=== PATIENT | female | born 1930 | race Caucasian/White ===

== ENCOUNTER 2016-04-06 07:50 | Inpatient (IN) | payer MEDICARE ==
[2016-04-06] MEDS ORDERED: Dextrose 50% Syringe 50 ML* 25 GM/50 ML SYRINGE IV PUSH PRN (11:55)
[2016-04-06] MEDS ORDERED: Diazepam TAB(*) 2 MG PO PRN (12:09)
[2016-04-06] MEDS: Carbidopa/Levodop 25/100 MG TAB(*) PO SCH ×2 (12:15→21:09)
[2016-04-06] MEDS: NS 0.9% 1000 ML* 1,000 ML IV SCH (12:20)
--- NOTE | 2016-04-06 14:18 | RAD ---
HISTORY: Heel pain after fall COMPARISONS: None VIEWS: 8, lateral, axial, and oblique views of the left heel FINDINGS: BONE DENSITY: There is diffuse osteopenia. BONES: There is no displaced fracture. JOINTS: There is osteoarthritis of the tibiotalar and fibulotalar articulations. ALIGNMENT: There is no dislocation. SOFT TISSUES: Unremarkable. OTHER FINDINGS: None. IMPRESSION: 1. OSTEOPENIA. 2. OSTEOARTHRITIS. 3. NO ACUTE OSSEOUS INJURY. THE DEGREE OF OSTEOPENIA MAY MAKE A NONDISPLACED FRACTURE RADIOGRAPHICALLY OCCULT. IF SYMPTOMS PERSIST, RECOMMEND REPEAT IMAGING
--- NOTE | 2016-04-06 14:19 | RAD ---
HISTORY: Left shoulder pain after fall COMPARISONS: None VIEWS: 3, Frontal internal rotation and external rotation views of the left humerus FINDINGS: BONE DENSITY: Normal. BONES: There is no displaced fracture. JOINTS: There is mild osteoarthritis of the shoulder ALIGNMENT: There is no dislocation. SOFT TISSUES: Unremarkable. OTHER FINDINGS: None. IMPRESSION: NO ACUTE OSSEOUS INJURY. IF SYMPTOMS PERSIST, RECOMMEND REPEAT IMAGING.
--- NOTE | 2016-04-06 14:22 | RAD ---
HISTORY: Shoulder pain after fall COMPARISONS: October 21, 2006 VIEWS: 3, Frontal internal rotation, external rotation, and outlet views of the left shoulder FINDINGS: BONE DENSITY: There is diffuse osteopenia. BONES: There is no displaced fracture. JOINTS: There is mild osteoarthritis of the glenohumeral and AC joints. ALIGNMENT: There is no dislocation. SOFT TISSUES: Unremarkable. OTHER FINDINGS: A left-sided pacemaker is noted IMPRESSION: 1. OSTEOPENIA. 2. MILD OSTEAL ARTHRITIS. 3. NO ACUTE OSSEOUS INJURY. THE DEGREE OF OSTEOPENIA MAY MAKE A NONDISPLACED FRACTURE RADIOGRAPHICALLY OCCULT. IF SYMPTOMS PERSIST, RECOMMEND REPEAT IMAGING.
[2016-04-06] MEDS: Heparin VIAL(*) 5000 UNITS/ML VIAL (FIVE THOUSAND) SUBCUT SCH ×2 (15:34→21:16)
[2016-04-06] MEDS: HYDROcodone/ACETAMIN 5-325 MG* 1 TAB PO PRN (18:03)
[2016-04-06] MEDS: Insulin LISPRO* 1 UNITS UNIT SUBCUT SCH ×2 (18:06→21:13)
[2016-04-06] MEDS: fentaNYL* 50 MCG/ML 2 ML VIAL (100 MCG VIAL) IV SLOW PU PRN (18:45)
--- NOTE | 2016-04-06 19:16 | RAD ---
Indication: Fall. LEFT hip fracture. Comparison: October 14, 2015 radiographs. Technique: AP pelvis, AP and crosstable lateral views LEFT hip. AP and lateral views LEFT femur. Report: Bone density is decreased throughout. Negative for pelvic fracture or joint diastases. Foreshortened LEFT femoral neck secondary to impacted subcapital fracture. The femoral head remains normally located at the acetabulum. No additional fracture of the LEFT femur evident. No significant LEFT hip joint space narrowing. Advanced osteoarthritis at the LEFT knee. Nonfocal soft tissue edema. IMPRESSION: Impacted LEFT femoral neck fracture. No additional fracture of the LEFT femur evident.
[2016-04-06] MEDS: Docusate CAP* 100 MG PO SCH (21:09)
[2016-04-06] MEDS: Metoprolol Tartrate TAB* 25 MG PO SCH (21:11)
--- NOTE | 2016-04-06 21:12 | HP ---
CC: Dr. Winston Rice; Dr. Betancourt; Dr. Orozco; Dr. Jose Ramon Lindquist HISTORY AND PHYSICAL: DATE OF ADMISSION: 04/06/16 The patient is a direct transfer from [facility]. PRIMARY CARE PROVIDER: Dr. Winston Rice. CHIEF COMPLAINT: Left hip fracture. HISTORY OF PRESENT ILLNESS: Mrs. Dwyer is an 85-year-old female with history of Parkinson's disease, paroxysmal atrial fibrillation, chronic kidney disease stage 3 as well as diabetes type 2 who was originally brought to [facility] after a fall with very mild rhabdomyolysis as well as acute renal failure with creatinine over 4 and anemia with hemoglobin of 7.8 and left hip fracture. The patient stated that she was walking from her kitchen to her bedroom and she developed dizziness, which happened sometimes in the past also. Unfortunately, she was dizzy enough to fall down and fracture her left hip. She also complained of left shoulder pain. The patient usually ambulates with a roller walker and lives alone. After admission to [facility], the patient was seen by Dr. Krystal Carrington from Nephrology for acute renal failure as well as Dr. Webster, the Infectious Disease specialist, as well as Dr. Orozco, the patient's internal specialist. The patient's nephrotoxic medications and diuretics that she was treated with as outpatient were held. It was presumed by the education and training coordinator that the patient could have suffered from ATN and dehydration. After her torsemide and lisinopril were held and after intravenous hydration, her renal function had improved to the level close to her baseline and the patient's baseline creatinine is 2.8. The patient's baseline hemoglobin is 10. When she came into the [facility] ER, her hemoglobin was noted to be 7.8. Her MCV was macrocytic at 102. She received 3 units of packed red blood cells and her hemoglobin on 04/05/16 was noted to be 9.2. As per the patient's Hospitalist report, there was no bleeding noted, but I do not see a report of stool Hemoccult during the hospital stay. The patient herself denies any bright red blood per rectum or melena in stool in the past. The patient was also noted to have urinary tract infection and that was obtained from urinalysis after a Love catheter was placed at admission. The Infectious Disease specialist was consulted. The patient was noted to have greater than 100,000 colony forming units of Citrobacter freundii and Enterococcus faecalis only [id number] colony. The patient's Infectious Disease specialist recommended for the patient to be on Ceftin at 300 mg p.o. every 24 hours to complete a 7-day course. The patient also was seen by Dr. Orozco, who is actually patient's outpatient internal specialist, for cardiology clearance. Dr. Orozco stated the patient was optimized for the anticipated surgery and the patient was cleared for surgery at [facility] on 04/05/16. Unfortunately, at that time, there was no OR availability for the patient to undergo the procedure. Subsequently, the patient's family asked for the patient to be transferred to our facility for further treatment of her hip fracture. The patient is going to be seen by Dr. Betancourt from Orthopedic Surgery with planned surgery most likely planned to happen on 04/07/16. PAST MEDICAL HISTORY: 1. Advanced Parkinson's disease. 2. History of aortic stenosis, status post bioprosthetic aortic valve placement in November 2012. 3. History of persistent atrial fibrillation, status post ablation. The patient had been in normal sinus rhythm throughout her [facility] stay. The patient has history of multiple falls and she is not a candidate for anticoagulation. She has been managed on amiodarone for rhythm control. 4. History of diabetes mellitus type 2, on oral hypoglycemics. 5. Hypertension. 6. Hypercholesterolemia. 7. History of sick sinus syndrome, status post pacemaker placement. 8. History of chronic renal insufficiency with a baseline creatinine of 2.5 to 2.8. 9. Hypercholesterolemia. 10. History of moderate mitral insufficiency. 11. History of multiple falls. 12. History of coronary artery disease, status post coronary artery bypass grafting in the past. 13. History of recurrent lower extremity cellulitis with intermittent wound infection. 14. History of left knee replacement in the remote past. 15. History of pacemaker placement. 16. History of septic left knee from Enterococcus group D and arthroscopic lavage for that in March 2010. 17. History of bilateral cataract surgery. MEDICATIONS: At the time of the transfer include: 1. Hydrocodone with acetaminophen 5/325 mg 1 tablet on a p.r.n. basis. 2. Fentanyl 50 mcg on a p.r.n. basis IV. 3. Heparin 5000 units subcutaneously b.i.d. 4. Ceftriaxone IV every 24 hours 1 g. 5. Sinemet 1-1/2 tablet 4 times a day. 6. Celexa 10 mg daily. 7. Amiodarone 200 mg daily. 8. Allopurinol 100 mg daily. 9. Senokot 8.6 mg daily. 10. Zofran 4 mg on a p.r.n. basis. The patient's medications from home prior to admission included: 1. Sinemet 50/100. The patient takes 1 tablet at 7 a.m. and 7 p.m. and a tablet and a half at 11 a.m. and 3 p.m. 2. Lopressor 25 mg daily. 3. Multivitamin 1 tablet daily. 4. Lisinopril 10 mg daily. 5. Vitamin C on a daily basis. 6. Amiodarone 200 mg daily. 7. Simvastatin 40 mg daily. 8. Celexa 10 mg daily. 9. Potassium chloride replacement b.i.d. 10. Torsemide 20 mg daily. 11. Omeprazole 20 mg daily. 12. Januvia 50 mg daily. 13. Allopurinol 100 mg b.i.d. ALLERGIES: 1. MORPHINE causes hallucinations, but the patient does well with hydrocodone and fentanyl. 2. NIFEDIPINE causes rash. 3. ROFECOXIB causes rash. 4. AVANDIA causes "nervousness." SOCIAL HISTORY: The patient lives alone. She ambulates with a roller walker. She has personal alert button necklace and that is how she alerted the ambulance after her fall. She has a history of frequent falls. She denies any alcohol, tobacco, or drug use. FAMILY HISTORY: Reviewed and noncontributory. REVIEW OF SYSTEMS: The patient stated that her left hip pain is controlled with medications. She stated that despite severe Parkinson's when she takes her medications before her meals, she has no problems with feeding herself. She had had Love catheter in place ever since her admission to [facility] on 04/01/16. The patient has a history of having visiting nurses seeing the patient for evaluation of her left lower extremity wound. She has a history of a blister on her left distal anterior lower extremity. The blister was little enlarged, approximately 5 cm in diameter and that ruptured. Visiting nurses were seeing the patient at home and changing the dressings on the wound. That had been going for approximately 2 weeks prior to presentation to the ED. All the remaining 14 systems were reviewed with the patient and were otherwise negative. PHYSICAL EXAMINATION GENERAL: The patient is a very pleasant, 85-year-old female, who is obese, with a BMI of 36.6. The patient is in no acute distress. She is alert, awake, and oriented x3. VITAL SIGNS: Blood pressure of 155/96, heart rate of 74 and regular, respiratory rate 18, oxygen saturation 98% on 3 L of oxygen nasal cannula, temperature of 98.5. HEENT: Head: Atraumatic, normocephalic. Eyes: Pupils equal and reactive to light and accommodation. Oropharynx clear. Mucosa moist. NECK: Supple. No JVD. No bruits bilaterally. RESPIRATORY: Crackles at the bilateral base that was clear. CARDIOVASCULAR: Regular rate and rhythm with a 2/6 systolic ejection murmur noted on auscultation of the apex. ABDOMEN: Soft, protuberant, nontender. Bowel sounds are present in all 4 quadrants. EXTREMITIES: There is trace bilateral ankle edema. Pulses are +2 bilaterally. There is no clubbing or cyanosis. NEUROLOGIC: Speech is clear. Cranial nerves II through XII are grossly intact. Motor strength is 5/5 bilaterally. SKIN: On evaluation of the skin, the patient has scattered ecchymotic areas throughout all of her 4 extremities. The patient has 2 small abrasions noted on left elbow. Those appear not infected. She has multiple wounds from the left distal leg from the knee down. She has one abrasion on the knee approximately 3 cm in diameter and not infected. She has a rather large area which she recalls happened after the ruptured blister approximately 10 x 5 cm on her anterior menchaca, not infected. She also has a couple of smaller areas noted on the left ankle. PSYCHIATRIC EVALUATION: The patient is alert and oriented x3 with no evidence of anxiety or depression. LABORATORY DATA: Laboratory data is pending at our facility. From the laboratory data obtained at [facility], most recent one noted on showed white blood cell count of 6.8, hemoglobin 11.2, hematocrit of 28, MCV of 97 and platelets of 162. The patient's urine cultures are positive for Citrobacter freundii of 100,000 colonies and Enterococcus faecalis [id number] colonies. The Citrobacter was resistant to cefazolin, but sensitive to ceftriaxone and ceftazidime. The patient's sodium was 142, and that was documented on 04/05/16, potassium of 4.1, chloride 108, carbon dioxide 25, calcium of 8.0, albumin of 2.0, AST of 19 , ALT of 8, creatinine was 2.7 and BUN of 85. ASSESSMENT AND PLAN: In regards to the patient's left hip fracture, I discussed the case with Dr. Betancourt, who will be consulting on the case. He plans to most likely take the patient to the OR on 04/07/16. The patient as per Dr. Orozco's evaluation from Cardiology, the patient is medically optimized for the surgery. It appears that according to the lab work from 04/05, the patient's renal function is back to her baseline and her hemoglobin at that point had been stable. I will repeat the lab work in the morning to reevaluate. Also obtain current EKG. In regards to the patient's history of paroxysmal atrial fibrillation, and ablation procedure a couple of years ago. Currently, the patient is in sinus rhythm and amiodarone is going to be continued. The patient had not been on her beta-harry and I will restart it at a low dose perioperatively. In regards to the patient's acute renal failure, that appears to have resolved. It could have been a combination of urinary tract infection as well as her prerenal state. We will continue holding off her diuretics and do gentle hydration perioperatively. For the patient's diabetes, the patient is going to be placed on insulin sliding scale and Januvia is going to be held perioperatively. For her Parkinson's, her carbidopa and levodopa is going to be continued as previously taken at home. For her Citrobacter urinary tract infection, the patient was placed on cefuroxime at 250 mg p.o. daily. In regards to the patient's anemia, the patient does not have history of bleeding or bright red blood per rectum or melena. Nevertheless, I will obtain a stool guaiac once the patient has a bowel movement. We will also get a CBC. Please note that the patient is status post 3 units of packed red blood cell transfusion at [facility]. With her history of the patient having microcytic anemia, vitamin B12 level is going to be obtained to evaluate it further. For DVT prophylaxis, the patient is going to be placed on sequential compression devices prior to her surgery. The patient's code status is do not resuscitate and that is going to be continued throughout her hospital stay, although most likely will be held intraoperatively. TIME SPENT: Approximately 75 minutes were spent on admission of this patient, more than half the time was spent [id number] with the patient during the interview and physical exam. [id number]/[facility] #: [id number] HANNAH
--- NOTE | 2016-04-06 22:01 | CONS ---
ORTHOPEDIC CONSULTATION: DATE OF CONSULT: 04/06/16 Thank you for this orthopedic consultation. CHIEF COMPLAINT: Left hip pain. HISTORY OF PRESENT ILLNESS: Ms. Dwyer is an 85-year-old female who fell in her home while walking to her bathroom on 04/01/16. She was initially taken to [facility] where she was diagnosed with a left intertrochanteric hip fracture. She was also treated for dehydration, acute renal insufficiency, and optimized for surgery. The patient was then transferred to [facility] for unknown reasons and I am consulted for left hip fracture care. The patient reports that she has 6/10 pain in the left hip with any movement. Lying still in bed decreases her pain. Pain medications help. She has multiple medical comorbidities and has a history of frequent falls. She reports some left shoulder pain as well as some left foot pain as well. The patient is alert and oriented and wishes to proceed with surgery as soon as possible. PAST MEDICAL HISTORY: Chronic renal insufficiency, morbid obesity, recurrent cellulitis with open wounds of her bilateral tibias, atrial fibrillation, diabetes type 2, pulmonary hypertension, coronary artery disease, aortic stenosis. PAST SURGICAL HISTORY: Status post CABG, status post bioprosthetic aortic valve replacement, status post pacemaker placement, status post left total knee arthroplasty. CURRENT MEDICATIONS: 1. Lopressor 25 mg p.o. daily. 2. Multivitamin 1 tablet p.o. daily. 3. Lisinopril 5 mg p.o. daily. 4. Vitamin C 1 tablet p.o. daily. 5. Amiodarone 200 mg p.o. daily. 6. Simvastatin 40 mg p.o. daily. 7. Lisinopril 10 mg p.o. daily. 8. Celexa 10 mg p.o. daily. 9. Potassium chloride 10 mEq p.o. b.i.d. 10. Torsemide 20 mg p.o. daily. 11. Omeprazole 20 mg p.o. daily. 12. Januvia 50 mg p.o. daily. 13. Allopurinol 100 mg p.o. b.i.d. ALLERGIES: AVANDIA, NIFEDIPINE, MORPHINE, ROFECOXIB. FAMILY HISTORY: Negative and noncontributory. SOCIAL HISTORY: The patient lives with her son. Normally ambulates with a rolling walker. No tobacco, alcohol, or recreational drug use. REVIEW OF SYSTEMS: 14 systems are reviewed with the patient today. Positive for left hip pain, left shoulder pain, left foot and heel pain. Positive for history of renal problems, heart problems, diabetes, weight gain. Otherwise, the patient reports review of systems is negative or not relevant. PHYSICAL EXAM: Vitals: Temperature 98.7, pulse of 59, blood pressure 147/42. General: The patient is a morbidly obese female, in no apparent distress. She is sitting in bed, eating. Alert and oriented x3. Pleasant mood and appropriate affect. She has visible tremor. HEENT: Atraumatic, normocephalic. Pupils equal and reactive to light. Neck: Trachea midline. No palpable adenopathy. Heart: S1, S2. Systolic murmur. Lungs: Clear to auscultation in all lung macias. No wheezes, rales, or rhonchi. Abdomen: Rounded, soft, nontender, nondistended. Bowel sounds in 4 quadrants. Left upper extremity: The patient's skin is intact. Tenderness to palpation along the proximal humerus. Forward flexion and abduction to 100%. Distally, she does have intention tremor and 4+/5 pmo consultant strength. Full sensation to light touch and 2+ palpable radial pulse. Left lower extremity: The patient's skin has multiple open wounds with some surrounding erythema and drainage along the tibia. These appear to be superficial and there is no exposed tendon, muscle, or bone. No extensive cellulitis. She demonstrates dorsiflexion and plantarflexion and has 2+ palpable DP pulse. She reports intact sensation to light touch in all nerve distributions. She has bruising and tenderness to palpation around the greater trochanter. Any movement at the hip causes extreme pain. RADIOGRAPHS: Shoulder and humerus radiographs are reviewed on the PAC system showing osteopenia and some arthritic disease, but no obvious fracture. Heel x - rays are reviewed and showed significant osteopenia, vascular calcification, but no obvious fracture. I have no films of the left hip fracture and I have ordered these stat. DIAGNOSTIC STUDIES/LAB DATA: Labs are pending. ASSESSMENT AND PLAN: Ms. Dwyer is an 85-year-old morbidly obese female with repeated falls and multiple medical comorbidities. The patient and I discussed today that my primary concern regarding infection is that she has chronic open tibial wounds. I do not believe we could heal these in efficient manner before proceeding with surgery. She accepts the increased risk of infection and we will likely place her on extended length of antibiotics after surgery. Her multiple comorbidities obviously increase the risk of renal failure, respiratory failure, or heart failure after surgery. Risk of stroke, heart attack, blood clot, and discussed with the patient and she wishes to proceed with surgery. Hip films have been ordered stat. I will request a.m. laboratory values. We will tentatively schedule her for 9 a.m. open reduction internal fixation of the left intertrochanteric hip fracture on 04/07/16. The patient wishes to proceed. Her family and surrogate healthcare proxy are planning to come in tomorrow morning. She will be n.p.o. after midnight. [id number]/[facility] #: [id number] HANNAH
[2016-04-07] MEDS: HYDROcodone/ACETAMIN 5-325 MG* 1 TAB PO PRN (00:06)
[2016-04-07] MEDS: NS 0.9% 1000 ML* 1,000 ML IV SCH (04:40)
[2016-04-07 05:10] LABS: Hematocrit 28 % (35-47); Hemoglobin 9.1 g/dl (12.0-16.0); Mean Corpuscular HGB Conc 32 g/dl (31-36); Mean Corpuscular Hemoglobin 31 pg (27-31); Mean Corpuscular Volume 96 fL (80-97); Mean Platelet Volume 8 um3 (7.4-10.4); Red Blood Count 2.95 10^6/ul (4.0-5.4); Red Cell Distribution Width 18 % (10.5-15); White Blood Count 6.4 10^3/ul (3.5-10.8)
[2016-04-07 05:14] LABS: Add Diff/Slide Review? Slide Review Added; Comments Flag Yes
[2016-04-07 05:20] LABS: Calcium 8.2 mg/dL (8.6-10.3); EGFR African American 30.5 (>60); EGFR Non-African American 23.7 (>60); Potassium 4.3 mmol/L (3.5-5.0)
[2016-04-07] MEDS: fentaNYL* 50 MCG/ML 2 ML VIAL (100 MCG VIAL) IV SLOW PU PRN (07:32)
[2016-04-07] MEDS: Carbidopa/Levodop 25/100 MG TAB(*) PO SCH ×4 (07:33→21:36)
[2016-04-07] MEDS: Metoprolol Tartrate TAB* 25 MG PO SCH ×2 (07:34→21:35)
[2016-04-07] MEDS: Allopurinol TAB* 100 MG PO SCH (07:34)
[2016-04-07] MEDS: Docusate CAP* 100 MG PO SCH ×2 (08:19→21:36)
[2016-04-07] MEDS: Insulin LISPRO* 1 UNITS UNIT SUBCUT SCH ×4 (08:19→21:37)
[2016-04-07] MEDS ORDERED: Amiodarone TAB* 200 MG PO SCH (09:00)
[2016-04-07] MEDS ORDERED: Citalopram TAB* 10 MG PO SCH (09:00)
[2016-04-07] MEDS ORDERED: Bupivacaine 0.5% SDV PF* 30 ML VIAL ONE (09:08)
[2016-04-07] MEDS ORDERED: fentaNYL* 50 MCG/ML 2 ML VIAL (100 MCG VIAL) ONE ×3 (09:45→15:16)
[2016-04-07] MEDS ORDERED: Clindamycin 900 MG IVPREMIX(* 900 MG/50 ML SDV IV ONE (09:46)
[2016-04-07] MEDS ORDERED: Bisacodyl SUPP* 10 MG SUPP PR PRN (10:20)
[2016-04-07] MEDS ORDERED: diPHENhydraMINE IV* 50 MG/ML 1 ml VIAL (BENADRYL) IV PRN (10:20)
[2016-04-07] MEDS ORDERED: Ondansetron INJ* 2 MG/ML VIAL IV PRN (10:20)
[2016-04-07] MEDS ORDERED: Morphine INJ* 2 MG/ML 1 ML CARPUJECT IV PRN (10:20)
[2016-04-07] MEDS ORDERED: oxyCODONE TAB* 5 MG TAB PO PRN (10:20)
[2016-04-07] MEDS ORDERED: Bupivacaine 0.5% W/EPI SDV* 30 ML VIAL ONE (10:46)
[2016-04-07] MEDS ORDERED: Enoxaparin(*) 30 MG/0.3 ML SYR SUBCUT SCH (11:00)
[2016-04-07] MEDS ORDERED: ceFUROXime TAB(*) 250 MG PO SCH (12:17)
[2016-04-07] MEDS ORDERED: Ondansetron INJ* 2 MG/ML VIAL ONE (12:29)
[2016-04-07] MEDS ORDERED: EPHEDrine (Pressors)* 50 MG/ML VIAL ONE (12:29)
[2016-04-07] MEDS ORDERED: Lidocaine 2% MPF* 2 ML VIAL ONE (12:29)
[2016-04-07] MEDS ORDERED: Succinylcholine* 20 MG/ML 10 ML VIAL ONE (12:29)
[2016-04-07] MEDS ORDERED: Propofol* 10 MG/ML 20 ML BTL IV PUSH ONE (12:29)
[2016-04-07] MEDS ORDERED: Phenylephrine IV* 40 MCG/ML 10 ML SYRINGE ONE (12:53)
--- NOTE | 2016-04-07 13:50 | RAD ---
HISTORY: Status post left hip hemiarthroplasty, left hip trauma COMPARISONS: April 06, 2016 VIEWS: 1, single portable intraoperative view of the left femur performed at 1:15 PM FINDINGS: BONE DENSITY: Normal. BONES: Portable intraoperative view of the left femur demonstrates the femoral component of a left hip arthroplasty with trochanteric fixation and cerclage wires. JOINTS: There is no arthropathy. ALIGNMENT: There is no dislocation. SOFT TISSUES: Unremarkable. OTHER FINDINGS: None. IMPRESSION: LIMITED PORTABLE INTRAOPERATIVE VIEW OF THE LEFT HIP PERFORMED DURING ARTHROPLASTY
[2016-04-07] MEDS ORDERED: Carbidopa/Levodop 25/100 MG TAB(*) PO SCH (14:00)
[2016-04-07] MEDS ORDERED: HYDROmorphone INJ* 1 MG/ML CARPUJECT SYRINGE ONE (15:16)
[2016-04-07] MEDS: fentaNYL* 50 MCG/ML 2 ML VIAL (100 MCG VIAL) IV PRN ×4 (15:19→16:33)
[2016-04-07] MEDS: HYDROmorphone INJ* 1 MG/ML CARPUJECT SYRINGE IV PRN ×5 (15:21→16:33)
--- NOTE | 2016-04-07 16:31 | RAD ---
HISTORY: Status post left hip hemiarthroplasty COMPARISONS: April 06, 2016 VIEWS: 2, frontal and crosstable lateral views of the distal left femur FINDINGS: BONE DENSITY: There is diffuse osteopenia. BONES: The patient is status post left hip arthroplasty. The femoral component isn't completely visualized but appears intact. JOINTS: There is osteoarthritis of the left knee ALIGNMENT: There is no dislocation. SOFT TISSUES: Unremarkable. OTHER FINDINGS: None. IMPRESSION: LIMITED EVALUATION OF THE DISTAL FEMUR. STATUS POST LEFT HIP ARTHROPLASTY.
--- NOTE | 2016-04-07 16:32 | RAD ---
HISTORY: Status post left hip arthroplasty COMPARISONS: April 07, 2016 VIEWS: 3, Frontal view of the pelvis with frontal and crosstable lateral views of the left hip FINDINGS: BONE DENSITY: There is diffuse osteopenia. BONES: The patient is status post left hip arthroplasty. There is no hardware failure or osteolysis. There is straightening to fixation with cerclage wires. JOINTS: There is osteoarthritis of the right hip and SI joints. The patient is status post left hip arthroplasty ALIGNMENT: There is no dislocation. SOFT TISSUES: Unremarkable. OTHER FINDINGS: None. IMPRESSION: STATUS POST LEFT HIP ARTHROPLASTY
--- NOTE | 2016-04-07 16:41 | RAD ---
INDICATION: Left hip hemiarthroplasty, left hip fracture COMPARISONS: April 06, 2016 TECHNIQUE: Fluoroscopy was provided for a surgical procedure. Total fluoroscopy time is: 17 seconds FINDINGS: Spot images demonstrate hip arthroplasty with fixation of the greater trochanter with cerclage wires IMPRESSION: FLUOROSCOPY WAS PROVIDED FOR A SURGICAL PROCEDURE CPT II Codes: 6045F
[2016-04-07] MEDS ORDERED: Warfarin TAB(*) 6 MG PO ONE (17:00)
--- NOTE | 2016-04-07 17:20 | PN ---
Subjective Date of Service: 04/07/16 Interval History: Seen and examined after surgery Reports pain prior to receipt of medications denies chest pain, SOB, N/V, LH Objective Active Medications: Acetaminophen (Tylenol Tab*) 650 mg PO Q4H PRN PRN Reason: FEVER/PAIN Allopurinol (Zyloprim Tab*) 100 mg PO DAILY [facility] Last Admin: 04/07/16 07:34 Dose: 100 mg Amiodarone HCl (Cordarone Tab*) 200 mg PO DAILY [facility] Ascorbic Acid (Vitamin C Tab*) 500 mg PO DAILY [facility] Atorvastatin Calcium (Lipitor*) 20 mg PO DAILY [facility] Bisacodyl (Dulcolax Supp*) 10 mg DC DAILY PRN PRN Reason: constipation Calcium/Vitamin D (Oscal D Tab 250/125*) 1 tab PO DAILY [facility] Carbidopa/Levodopa (Sinemet 25/100 Tab(*)) 1 tab PO BEDTIME [facility] Last Admin: 04/06/16 21:09 Dose: 1 tab Carbidopa/Levodopa (Sinemet 25/100 Tab(*)) 1 tab PO DAILY@0700 [facility] Last Admin: 04/07/16 07:33 Dose: 1 tab Carbidopa/Levodopa (Sinemet 25/100 Tab(*)) 1.5 tab PO DAILY@1100 [facility] Last Admin: 04/06/16 12:15 Dose: 1.5 tab Carbidopa/Levodopa (Sinemet 25/100 Tab(*)) 1 tab PO DAILY@1500 [facility] Cefuroxime Axetil (Ceftin Tab(*)) 250 mg PO DAILY [facility] Citalopram Hydrobromide (Celexa Tab*) 10 mg PO DAILY [facility] Device (Tiotropium Inhaler Device*) 1 each INH ONCE ONE Stop: 04/08/16 09:01 Dextrose (D50w Syringe 50 Ml*) 12.5 gm IV PUSH .FOR FS < 60 - SS PRN PRN Reason: FS < 60 Diazepam (Valium Tab(*)) 2 mg PO Q8H PRN PRN Reason: ANXIETY Diphenhydramine HCl (Benadryl Iv*) 25 mg IV Q6H PRN PRN Reason: itching Docusate Sodium (Colace Cap*) 100 mg PO BID [facility] Enoxaparin Sodium (Lovenox(*)) 30 mg SUBCUT Q24H [facility] Fentanyl Citrate (Fentanyl*) 50 mcg IV SLOW PU Q4H PRN PRN Reason: PAIN Last Admin: 04/07/16 07:32 Dose: 50 mcg Fentanyl Citrate (Fentanyl*) 25 mcg IV Q5M PRN PRN Reason: PAIN - MODERATE Stop: 04/07/16 15:14 Last Admin: 04/07/16 16:33 Dose: 25 mcg Hydromorphone HCl (Dilaudid Iv*) 0.2 mg IV Q5M PRN PRN Reason: PAIN - SEVERE Stop: 04/07/16 15:14 Last Admin: 04/07/16 16:33 Dose: 0.2 mg Lactated Ringer's (Lactated Ringers 1000 Ml Bag*) 1,000 mls @ 100 mls/hr IV PER RATE [facility] Last Admin: 04/07/16 16:50 Dose: 100 mls/hr Insulin Human Lispro (Humalog*) 0 units SUBCUT ACHS [facility] PRN Reason: Protocol Last Admin: 04/07/16 08:19 Dose: Not Given Lisinopril (Prinivil Tab*) 5 mg PO DAILY [facility] Magnesium Hydroxide (Milk Of Magnesia Liq*) 30 ml PO Q6H PRN PRN Reason: constipation Metoprolol Tartrate (Lopressor Tab*) 12.5 mg PO Q12HR [facility] Last Admin: 04/07/16 07:34 Dose: 12.5 mg Multi-Ingredient Ointment (Hydrocerin*) 1 applic TOPICAL BID [facility] Multivitamins (Theragran Tab*) 1 tab PO DAILY [facility] Umeclidinium Arco [Incruse Ellipta] 1 Puff)*Nonformulary 1 puff INH DAILY [facility] Omeprazole (Prilosec Cap*) 20 mg PO 0730 [facility] Oxycodone HCl (Roxycodone Tab*) 10 mg PO Q4H PRN PRN Reason: PAIN - MODERATE Oxycodone/Acetaminophen (Percocet 5/325 Tab*) 1 tab PO Q3H PRN PRN Reason: PAIN - MODERATE Pharmacy Profile Note (Coumadin Daily Reminder*) 1 note FOLLOW UP 1700 [facility] Polyethylene Glycol/Electrolytes (Miralax*) 17 gm PO DAILY PRN PRN Reason: Constipation Potassium Chloride (Klor Con Er Tab*) 10 meq PO BID [facility] Silver Sulfadiazine (Silvadine 1%*) 1 applic TOPICAL BID [facility] Tiotropium Arco (Spiriva Cap.Inh*) 1 cap INH DAILY [facility] Torsemide (Demadex*) 40 mg PO BID [facility] Vital Signs 04/06/16 04/06/16 04/06/16 18:03 18:45 19:16 Temperature 97.4 F Pulse Rate 66 Respiratory 16 20 18 Rate Blood Pressure 146/40 (mmHg) O2 Sat by Pulse 98 Oximetry 04/06/16 04/06/16 04/06/16 19:45 20:00 20:03 Temperature Pulse Rate Respiratory 18 20 18 Rate Blood Pressure (mmHg) O2 Sat by Pulse Oximetry 04/06/16 04/07/16 04/07/16 23:58 00:06 02:06 Temperature 97.9 F Pulse Rate 59 Respiratory 20 20 20 Rate Blood Pressure 126/45 (mmHg) O2 Sat by Pulse 98 Oximetry 04/07/16 04/07/16 04/07/16 04:30 07:25 07:32 Temperature 98.1 F 97.5 F Pulse Rate 59 151 Respiratory 20 16 20 Rate Blood Pressure 147/41 150/102 (mmHg) O2 Sat by Pulse 100 100 Oximetry 04/07/16 04/07/16 04/07/16 08:00 08:32 14:49 Temperature 97.7 F Pulse Rate 60 Respiratory 20 18 20 Rate Blood Pressure 106/36 (mmHg) O2 Sat by Pulse 100 Oximetry 04/07/16 04/07/16 04/07/16 14:50 14:55 15:00 Temperature Pulse Rate 60 60 60 Respiratory 20 22 22 Rate Blood Pressure 103/34 125/45 111/45 (mmHg) O2 Sat by Pulse 100 100 100 Oximetry 04/07/16 04/07/16 04/07/16 15:05 15:15 15:19 Temperature Pulse Rate 60 60 Respiratory 22 20 20 Rate Blood Pressure 117/46 121/87 (mmHg) O2 Sat by Pulse 100 100 Oximetry 04/07/16 04/07/16 04/07/16 15:21 15:30 15:45 Temperature 98.1 F Pulse Rate 60 60 Respiratory 22 20 22 Rate Blood Pressure 107/34 112/34 (mmHg) O2 Sat by Pulse 99 99 Oximetry 04/07/16 04/07/16 04/07/16 15:55 16:00 16:12 Temperature Pulse Rate 78 Respiratory 20 20 20 Rate Blood Pressure 106/44 (mmHg) O2 Sat by Pulse 99 Oximetry 04/07/16 04/07/16 04/07/16 16:15 16:25 16:33 Temperature Pulse Rate 84 Respiratory 20 20 20 Rate Blood Pressure 115/36 (mmHg) O2 Sat by Pulse 99 Oximetry Oxygen Devices in Use Now: Nasal Cannula Appearance: lying flat, NAD Eyes: No Scleral Icterus, PERRLA Ears/Nose/Mouth/Throat: - - dry MM Neck: NL Appearance and Movements; NL JVP, Trachea Midline Respiratory: Symmetrical Chest Expansion and Respiratory Effort, - - decreased in bases, poor inspiratory effort Cardiovascular: RRR Abdominal: NL Sounds; No Tenderness; No Distention, No Hepatosplenomegaly Extremities: - - immobilized Neurological: - - Aox3 Result Diagrams: 04/07/16 04:57 04/07/16 04:57 Assess/Plan/Problems-Billing Assessment: 85 yo F h/p parkinson's dz, DM2, CAD/CABG, AVR, afib s/p ablation on amiodarone/ no AC 2/2 recurrent falls, SSS s/p PPP placement, aortoc stenosis and pHTN per report who presented from [facility] 04/06/16 after fall with left hip fracture 04/01/16 with stay in their facility complicated by anemia requiring blood transfusions, acute on chronic acute kidney failure, and a urinary tract infection - Patient Problems (1) Hip fracture Comment: POD 0 care per surgical team pain contro adequate. Adjust as needed PT/OT trend INR carefully while on AC (2) UTI (urinary tract infection) Comment: Citrobacter resistant to cefazolin now on ceftin day 5 of 7 (3) Acute on chronic kidney failure Comment: Improved to reported baseline torsemide held lisnopril held (4) Anemia Comment: s/p PRBC at [facility] [place] [facility] [place] (5) Diabetes mellitus Comment: ISS (6) Parkinson disease Comment: stable. c/w home medications (7) Atrial fibrillation Priority: High Comment: rate and rhythm controlled on amiodarone and metoprolol not on therpaeutic AC 2/2 recurrent falls (8) Hypertension Comment: lisinopril 10 mg held c/w metoprolol (9) DVT prophylaxis Comment: lovenox and coumadin per orthopedics
[2016-04-07] MEDS: ceFUROXime TAB(*) 250 MG PO SCH (18:26)
[2016-04-07] MEDS: ceFAZolin 1 GM in Dextrose (*) 1 GM/50 ML BAG IVPB SCH (19:12)
[2016-04-07] MEDS ORDERED: Torsemide TAB* 20 MG PO SCH (21:00)
[2016-04-07] MEDS ORDERED: Silver Sulfadiazine 1%* 20 GM TOPICAL SCH (21:00)
[2016-04-07] MEDS ORDERED: Metoprolol Tartrate TAB* 25 MG PO SCH (21:00)
[2016-04-07] MEDS: Potassium Chlor TAB* 10 MEQ TAB.ER PO SCH (21:36)
[2016-04-07] MEDS: oxyCODONE/Acetamin 5/325 MG* TAB PO PRN (23:58)
[2016-04-07] MEDS: Moisturizing CREAM* 120 GM JAR TOPICAL SCH (23:59)
[2016-04-07] MEDS: Nystatin TOP POWDER* 15 GM BTL TOPICAL SCH (23:59)
--- NOTE | 2016-04-08 01:30 | OP ---
DATE OF OPERATION: 04/07/16 - ROOM #350 DATE OF : 30 SURGEON: Ashley Saravia MD WASTE MANAGEMENT ENGINEER: Kelly Love LPN ANESTHESIOLOGIST: Dr. Patino. ANESTHESIA: General. PRE-OP DIAGNOSIS: Comminuted displaced left proximal femur fracture with femoral neck fracture and intertrochanteric fracture fragments. POST-OP DIAGNOSIS: Comminuted displaced left proximal femur fracture with femoral neck fracture and intertrochanteric fracture fragments. OPERATIVE PROCEDURE: Left hip hemiarthroplasty with open reduction internal fixation of the greater trochanteric/intertrochanteric fracture using a Claw plate. HARDWARE USED: Boyers hip hardware. For the trochanteric fracture, a Dall- Miles Trochanteric Electrical Appliance Preparer Plate with five 2.0 cables were used. For the femoral stem, an uncemented congregational model was used. The distal stem was 18 diameter 155 length. A 21, +10 modular hip body was used. For the femoral head , a 28, -4 LFIT femoral head with a 49/28 bipolar component. ESTIMATED BLOOD LOSS: 600 cc. COMPLICATIONS: None. SPECIMENS: Femoral head, sent to pathology. BRIEF HISTORY/INDICATION: Ms. Dwyer is an 85-year-old female who had a fall in her home on 04/01/16. She was initially taken to [facility], diagnosed with an intertrochanteric hip fracture, and optimized for surgery. She has multiple medical comorbidities including chronic kidney disease, chronic heart disease, and morbid obesity. She elected to have an operative fixation of the left hip. Radiograph indicated a femoral neck fracture instead of intertrochanteric hip fracture. The patient accepted increased risk of infection due to her open tibial and sacral wounds. She understood the risks of surgery included but were not limited to bleeding, infection, damage to nearby structures, continued pain, need for further surgery, intraoperative fracture, dislocation, leg length discrepancy, nerve palsy, stroke, heart attack , blood clot, and . I had a long conversation with the patient's family about mortality and morbidity. They all wished to proceed. INTRAOPERATIVE FINDINGS: Intraoperatively, the patient was noted to have a valgus impacted femoral neck fracture as well as extreme comminution of the entire femoral neck, greater trochanteric and intratrochanteric hip region. A Dall-Miles trochanteric agricultural lender plate of length 160 mm as well as five Dall-Miles 2.0 cables were used for greater trochanteric fixation and to reapproximate the proximal femur to the distal femur. A congregational modular distal fixation stem was then used for the hemiarthroplasty portion of the procedure. Essentially, this was a proximal femoral replacement procedure. DESCRIPTION OF PROCEDURE: Ms. Dwyer was identified in the preanesthesia unit. Her left lower extremity was marked as a correct operative side. Informed consent was signed and placed in the chart. The patient was taken to the operating room and placed under general anesthesia. She had a Love catheter. Extensive tibial open wounds were noted on the left with covering at least 40% of her anterolateral tibial skin surface. She also had grade 2 and 3 sacral ulcers. The patient was placed on the pegboard in the right lateral decubitus position on the hip table. All bony prominences were well padded. She had extensive ecchymosis over the lateral left hip. Left lower extremity was prepped and draped in the usual sterile fashion. Preop time-out was made to correctly identify the patient's side and site. Appropriate perioperative antibiotics were given within one hour of incision. A 15-cm posterior hip incision was made with a 10 blade and carried down through the subcutaneous fat. Electrocautery was used to dissect through at least 8 cm of subcutaneous fat due to the patient's morbid obesity. The patient had a Chappell-Timothy type lesion shearing over the lateral fascial layer. There was a large hematoma, which was evacuated here. New 10 blade was used to incise the lateral fascia layer in line with the skin incision. A Charnley retractor was placed and the posterior aspect of the hip joint was visualized. The piriformis and conjoined tendons were identified. These were elevated off the posterolateral femur with electrocautery and tagged with two # 5 Ethibond's. Next, electro-cautery was used to make a standard posterolateral capsular flap. This is also tagged with two #5 Ethibond's. The patient's femoral neck fracture was easily visualized. The femur was carefully retracted anteriorly. Bony fragments and comminution was noted and these were removed with rongeur. Femoral head was carefully removed from the acetabulum. Femoral head was sent to pathology. Acetabulum had some [id number] degenerative changes but did have intact cartilage and labrum. The femoral head was sized as size 49. A 49 head trial had good fit and suction in the acetabulum, so this was chosen as the bipolar size. Next, the attention was turned to the proximal femur. After presentation of the proximal femur, it was noted that the entire femoral neck was comminuted and displaced. These bony fragments were carefully removed using a rongeur. Greater trochanter was noted to have extensive comminution anteriorly. There was also a large amount of comminution and displacement along an intertrochanteric fracture line running from the greater trochanter to the lesser trochanter. Decision was made to abort the typical hemiarthroplasty procedure and proceed with more of a proximal femoral replacement type procedure. Decision was made to use congregational modular uncemented femoral system for distal fixation. Decision was made to use the trochanteric agricultural lender plate for fixation of the greater trochanter to the distal femur. The incision was continued distally another 4 cm. Dissection was made down to the lateral femur. The IT band and lateral fascia was split longitudinally and a Heredia elevator was used to elevate muscle off the lateral femur. A ruler was used to choose a large 160-mm length Slick-[employer] trochanteric agricultural lender plate. This was placed on the posterolateral femur in satisfactory position. Two beaded cables were placed around the plate to hold in place. AP and lateral C-arm views confirm proper placement of the plate with satisfactory reduction of the greater trochanter fracture and intertrochanteric fragments. Two additional cables were then carefully placed around the plate. The patient had excellent stable fixation on the lateral proximal femur. Attention was next turned to preparation of the proximal femur for the congregational proximal femur implant. Hand broaching was done up to size 18 in the femoral canal. An 18 diameter 135 stem length distal fixation congregational stem was chosen. Final implant was impacted into the femur without difficulty. This implant was stable. Next, sequential cannulated broaching to size 21 proximally was performed. A trial size 21, +10 proximal cone body was chosen and a 49/28 +0 femoral head bipolar trials were chosen. This length was difficult to reduce. Therefore a 28, -4 femoral head was chosen. The hip was then reduced without difficulty. There was satisfactory tissue tension and leg length. The hip was stable in all positions. The hip was carefully dislocated. Final implant chosen proximally was a 21, + 10 proximal cone body. A 28 -4 LFIT V40 femoral head was chosen as well as a UHR Hewlett Head Bipolar Component 49/28. These were impacted on to the femoral neck without difficulty. The bolt on the body was fully tightened and then torqued appropriately. The hip was reduced and taken through range of motion. There was appropriate soft tissue tension and leg length. The hip was stable in all positions. The hip was copiously irrigated with sterile saline. AP and lateral C- arm views as well as a flat AP plate were used to ensure no distal fractures and appropriate leg length. Previously tagged capsule and tendons were reapproximated to the posterolateral femur using the #5 Ethibond' s. Posterior capsular repair was strong. The patient's lateral abductors along the greater troch did have significant trauma from the fall. #5 Ethibond' s were used to perform repair of the anterior abductor tendon back to the greater trochanter. Next, the lateral fascia layer and IT band was reapproximated using interrupted #1 Vicryl's. Lateral fascial layer was reapproximated using interrupted #1 Vicryl's. The rest of the incision was closed in a layered fashion using 0 and 2-0 Vicryl's. Skin was closed using running 3-0 Monocryl suture and Dermabond. Sterile Adaptic, 4x4's, and paper tape were placed over this. The patient's anesthesia was reversed without difficulty. She was taken to the PACU in stable condition. Intended weightbearing will be toe touch weightbearing with no active abduction. Intended DVT prophylaxis will be Coumadin with a Lovenox bridge. [id number]/[facility] #: [id number] MTDClive
[2016-04-08] MEDS: ceFAZolin 1 GM in Dextrose (*) 1 GM/50 ML BAG IVPB SCH ×2 (03:18→11:37)
[2016-04-08] MEDS ORDERED: NS 0.9% 500 ML* 500 ML IV ONE (06:00)
[2016-04-08 06:35] LABS: Hematocrit 29 % (35-47); Hemoglobin 9.3 g/dl (12.0-16.0)
[2016-04-08 06:47] LABS: BUN/Creatinine Ratio 30.8 (8-20); Calcium 7.8 mg/dL (8.6-10.3); EGFR African American 23.9 (>60); EGFR Non-African American 18.6 (>60); Potassium 4.8 mmol/L (3.5-5.0)
[2016-04-08] MEDS: oxyCODONE/Acetamin 5/325 MG* TAB PO PRN ×3 (07:45→21:21)
[2016-04-08] MEDS: Omeprazole CAP* 20 MG PO SCH (07:45)
[2016-04-08] MEDS: Carbidopa/Levodop 25/100 MG TAB(*) PO SCH ×4 (07:45→21:20)
[2016-04-08] MEDS: ceFUROXime TAB(*) 250 MG PO SCH (08:30)
[2016-04-08] MEDS: Insulin LISPRO* 1 UNITS UNIT SUBCUT SCH ×4 (08:31→21:23)
[2016-04-08] MEDS: Amiodarone TAB* 200 MG PO SCH (08:32)
[2016-04-08] MEDS: Allopurinol TAB* 100 MG PO SCH (08:32)
[2016-04-08] MEDS: Atorvastatin* 20 MG TAB PO SCH (08:32)
[2016-04-08] MEDS: Citalopram TAB* 10 MG PO SCH (08:33)
[2016-04-08] MEDS: Potassium Chlor TAB* 10 MEQ TAB.ER PO SCH ×2 (08:33→21:20)
[2016-04-08] MEDS: Docusate CAP* 100 MG PO SCH ×2 (08:33→21:21)
[2016-04-08] MEDS: Calcium/Vitamin D TAB 250/125* TAB PO SCH (08:33)
[2016-04-08] MEDS: Vitamin THERAPEUTIC TAB PO SCH (08:33)
[2016-04-08] MEDS: Ascorbic Acid TAB* 500 MG PO SCH (08:34)
[2016-04-08] MEDS: Magnesium Hydroxide LIQ* 30 ML UDC PO PRN ×2 (08:42→17:44)
[2016-04-08] MEDS: Tiotropium CAP.INH* CAP.INH/18 MCG (USE ORDER SET !) INH SCH (08:45)
[2016-04-08] MEDS: UMECLIDINIUM BROMIDE INH SCH (08:47)
[2016-04-08] MEDS: [UNRECOGNIZED DRUG - OTHER] INH SCH (08:47)
[2016-04-08] MEDS ORDERED: Multivitamins/Minerals TAB PO SCH (09:00)
[2016-04-08] MEDS ORDERED: Lisinopril TAB* 5 MG PO SCH (09:00)
[2016-04-08] MEDS ORDERED: Spiriva Inhaler DEVICE* 1 EACH DEVICE INH ONE (09:00)
[2016-04-08] MEDS ORDERED: Allopurinol TAB* 100 MG PO SCH (09:00)
--- NOTE | 2016-04-08 09:06 | PN ---
Progress Note - Progress Note SOAP: Subjective: [Pt reports L hip pain to be tolerable. Other scattered pains in body but manageable with meds. On O2 - breathing with minimal effort. Denies CP, nausea , dizziness. ] Objective: [A and O x 3, NAD L hip dressing with minimal SS drainage, ecchymosis L hip. Scattered multiple abrasions B LEs - dressings per wound consult. Calves soft. Distal sensation intact. Gross motor intact distally. DP pulse 2+. ABD pillow in place. Per nursing low urine output overnight. Tello still in place. Vital Signs: Temp Pulse Resp BP Pulse Ox 99.9 F 63 18 92/29 97 04/08/16 07:10 04/08/16 07:10 04/08/16 08:00 04/08/16 07:10 04/08/16 08:00 Laboratory Results - last 24 hr 04/07/16 04/07/16 04/07/16 04:57 17:48 21:30 Hgb Hct INR (Anticoag Therapy) Sodium Potassium Chloride Carbon Dioxide Anion Gap BUN Creatinine Est GFR ( Amer) Est GFR (Non-Af Amer) BUN/Creatinine Ratio Glucose POC Glucose (mg/dL) 185 H 190 H Calcium Blood Type A Positive Antibody Screen Negative Crossmatch See Detail 04/08/16 04/08/16 04/08/16 06:14 06:14 06:14 Hgb 9.3 L Hct 29 L INR (Anticoag Therapy) 1.10 Sodium 135 Potassium 4.8 Chloride 113 H Carbon Dioxide 22 Anion Gap 0 L BUN 76 H Creatinine 2.47 H Est GFR ( Amer) 23.9 Est GFR (Non-Af Amer) 18.6 BUN/Creatinine Ratio 30.8 H Glucose 171 H POC Glucose (mg/dL) Calcium 7.8 L Blood Type Antibody Screen Crossmatch ] Assessment: [85 yo female s/p L hip hemiarthroplasty with ORIF of greater trochanter POD #1 Multiple abrasions to LE's, sacrum Parkinson's, afib, CKD, diabetes] Plan: [OOB to chair - TTWB LLE, NO active Abduction PT/OT Incentive Spirometer Pain management Keep tello in until urine output adequate 5 mg Coumadin today Dressing change tomorrow] Medicine following
[2016-04-08] MEDS: Silver Sulfadiazine 1%* 50 GM JAR TOPICAL SCH ×2 (10:34→22:47)
[2016-04-08] MEDS: Nystatin TOP POWDER* 15 GM BTL TOPICAL SCH ×3 (10:34→22:47)
[2016-04-08] MEDS: Moisturizing CREAM* 120 GM JAR TOPICAL SCH ×2 (10:34→22:47)
[2016-04-08] MEDS: Enoxaparin(*) 30 MG/0.3 ML SYR SUBCUT SCH (11:33)
[2016-04-08] MEDS ORDERED: NS 0.9% 1000 ML* 1,000 ML IV SCH ×2 (12:00→17:30)
[2016-04-08] MEDS: Metoprolol Tartrate TAB* 25 MG PO SCH (13:11)
--- NOTE | 2016-04-08 13:17 | PN ---
Subjective Date of Service: 04/08/16 Interval History: Seen and examined BP lower this AM with concomitant decreased UOP Pt reports pain in her right shoulder worse with movement Was reporting pain in her sacrum this AM to staff Specifically denies SOB, LH, or chest pain thirsty Objective Active Medications: Acetaminophen (Tylenol Tab*) 650 mg PO Q4H PRN PRN Reason: FEVER/PAIN Allopurinol (Zyloprim Tab*) 100 mg PO DAILY [facility] Last Admin: 04/08/16 08:32 Dose: 100 mg Amiodarone HCl (Cordarone Tab*) 200 mg PO DAILY [facility] Last Admin: 04/08/16 08:32 Dose: 200 mg Ascorbic Acid (Vitamin C Tab*) 500 mg PO DAILY [facility] Last Admin: 04/08/16 08:34 Dose: 500 mg Atorvastatin Calcium (Lipitor*) 20 mg PO DAILY [facility] Last Admin: 04/08/16 08:32 Dose: 20 mg Bisacodyl (Dulcolax Supp*) 10 mg [place] DAILY PRN PRN Reason: constipation Calcium/Vitamin D (Oscal D Tab 250/125*) 1 tab PO DAILY [facility] Last Admin: 04/08/16 08:33 Dose: 1 tab Carbidopa/Levodopa (Sinemet 25/100 Tab(*)) 1 tab PO BEDTIME [facility] Last Admin: 04/07/16 21:36 Dose: 1 tab Carbidopa/Levodopa (Sinemet 25/100 Tab(*)) 1 tab PO DAILY@0700 [facility] Last Admin: 04/08/16 07:45 Dose: 1 tab Carbidopa/Levodopa (Sinemet 25/100 Tab(*)) 1.5 tab PO DAILY@1100 [facility] Last Admin: 04/08/16 11:35 Dose: 1.5 tab Carbidopa/Levodopa (Sinemet 25/100 Tab(*)) 1 tab PO DAILY@1500 [facility] Last Admin: 04/07/16 17:23 Dose: Not Given Cefuroxime Axetil (Ceftin Tab(*)) 250 mg PO Q24HR [facility] Last Admin: 04/08/16 08:30 Dose: 250 mg Citalopram Hydrobromide (Celexa Tab*) 10 mg PO DAILY [facility] Last Admin: 04/08/16 08:33 Dose: 10 mg Dextrose (D50w Syringe 50 Ml*) 12.5 gm IV PUSH .FOR FS < 60 - SS PRN PRN Reason: FS < 60 Diazepam (Valium Tab(*)) 2 mg PO Q8H PRN PRN Reason: ANXIETY Diphenhydramine HCl (Benadryl Iv*) 25 mg IV Q6H PRN PRN Reason: itching Docusate Sodium (Colace Cap*) 100 mg PO BID [facility] Last Admin: 04/08/16 08:33 Dose: 100 mg Enoxaparin Sodium (Lovenox(*)) 30 mg SUBCUT 1100 [facility] Last Admin: 04/08/16 11:33 Dose: 30 mg Fentanyl Citrate (Fentanyl*) 50 mcg IV SLOW PU Q4H PRN PRN Reason: PAIN Last Admin: 04/07/16 07:32 Dose: 50 mcg Lactated Ringer's (Lactated Ringers 1000 Ml Bag*) 1,000 mls @ 100 mls/hr IV PER RATE [facility] Last Admin: 04/08/16 03:00 Dose: 100 mls/hr Sodium Chloride (Ns 0.9% 1000 Ml*) 1,000 mls @ 200 mls/hr IV PER RATE [facility] Stop: 04/08/16 16:59 Last Admin: 04/08/16 12:02 Dose: 200 mls/hr Insulin Human Lispro (Humalog*) 0 units SUBCUT ACHS [facility] PRN Reason: Protocol Last Admin: 04/08/16 12:31 Dose: 2 units Magnesium Hydroxide (Milk Of Magnesia Liq*) 30 ml PO Q6H PRN PRN Reason: constipation Last Admin: 04/08/16 08:42 Dose: 30 ml Multi-Ingredient Ointment (Hydrocerin*) 1 applic TOPICAL BID [facility] Last Admin: 04/08/16 10:34 Dose: 1 applic Multivitamins (Theragran Tab*) 1 tab PO DAILY [facility] Last Admin: 04/08/16 08:33 Dose: 1 tab Umeclidinium [place] [Incruse Ellipta] 1 Puff)*Nonformulary 1 puff INH DAILY [facility] Last Admin: 04/08/16 08:47 Dose: Not Given Nystatin (Nystatin Top Powder*) 1 applic TOPICAL TID [facility] Last Admin: 04/08/16 10:34 Dose: 1 applic Omeprazole (Prilosec Cap*) 20 mg PO 0730 [facility] Last Admin: 04/08/16 07:45 Dose: 20 mg Oxycodone HCl (Roxycodone Tab*) 10 mg PO Q4H PRN PRN Reason: PAIN - MODERATE Oxycodone/Acetaminophen (Percocet 5/325 Tab*) 1 tab PO Q3H PRN PRN Reason: PAIN - MODERATE Last Admin: 04/08/16 07:45 Dose: 1 tab Pharmacy Profile Note (Coumadin Daily Reminder*) 1 note FOLLOW UP 1700 [facility] Last Admin: 04/07/16 17:56 Dose: 1 note Polyethylene Glycol/Electrolytes (Miralax*) 17 gm PO DAILY PRN PRN Reason: Constipation Potassium Chloride (Klor Con Er Tab*) 10 meq PO BID [facility] Last Admin: 04/08/16 08:33 Dose: 10 meq Silver Sulfadiazine (Silvadine 1%*) 1 applic TOPICAL BID [facility] Last Admin: 04/08/16 10:34 Dose: 1 applic Tiotropium [place] (Spiriva Cap.Inh*) 1 cap INH DAILY [facility] Last Admin: 04/08/16 08:45 Dose: 1 cap Warfarin Sodium (Coumadin Tab(*)) 5 mg PO ONCE@1700 ONE PRN Reason: Protocol Stop: 04/08/16 17:01 Vital Signs 04/07/16 04/07/16 04/07/16 14:49 14:50 14:55 Temperature 97.7 F Pulse Rate 60 60 60 Respiratory 20 20 22 Rate Blood Pressure 106/36 103/34 125/45 (mmHg) O2 Sat by Pulse 100 100 100 Oximetry 04/07/16 04/07/16 04/07/16 15:00 15:05 15:15 Temperature Pulse Rate 60 60 60 Respiratory 22 22 20 Rate Blood Pressure 111/45 117/46 121/87 (mmHg) O2 Sat by Pulse 100 100 100 Oximetry 04/07/16 04/07/16 04/07/16 15:19 15:21 15:30 Temperature Pulse Rate 60 Respiratory 20 22 20 Rate Blood Pressure 107/34 (mmHg) O2 Sat by Pulse 99 Oximetry 04/07/16 04/07/16 04/07/16 15:45 15:55 16:00 Temperature 98.1 F Pulse Rate 60 78 Respiratory 22 20 20 Rate Blood Pressure 112/34 106/44 (mmHg) O2 Sat by Pulse 99 99 Oximetry 04/07/16 04/07/16 04/07/16 16:12 16:15 16:25 Temperature Pulse Rate 84 Respiratory 20 20 20 Rate Blood Pressure 115/36 (mmHg) O2 Sat by Pulse 99 Oximetry 04/07/16 04/07/16 04/07/16 16:33 16:41 16:55 Temperature 97.5 F Pulse Rate 59 Respiratory 20 20 20 Rate Blood Pressure 127/28 (mmHg) O2 Sat by Pulse 94 Oximetry 04/07/16 04/07/16 04/07/16 17:00 17:10 17:12 Temperature 97.5 F Pulse Rate 59 Respiratory 20 20 20 Rate Blood Pressure 127/28 (mmHg) O2 Sat by Pulse 94 Oximetry 04/07/16 04/07/16 04/07/16 17:19 17:24 17:33 Temperature Pulse Rate Respiratory 20 20 Rate Blood Pressure (mmHg) O2 Sat by Pulse 94 Oximetry 04/07/16 04/07/16 04/07/16 17:55 19:13 19:48 Temperature 97.1 F 97.4 F Pulse Rate 60 65 Respiratory 20 16 18 Rate Blood Pressure 116/35 93/45 (mmHg) O2 Sat by Pulse 100 96 Oximetry 04/07/16 04/07/16 04/07/16 21:21 23:16 23:58 Temperature 97.5 F 98.2 F Pulse Rate 60 63 Respiratory 18 20 22 Rate Blood Pressure 114/77 94/51 (mmHg) O2 Sat by Pulse 99 98 Oximetry 04/08/16 04/08/16 04/08/16 01:58 04:24 04:41 Temperature 98.2 F Pulse Rate 121 Respiratory 20 18 Rate Blood Pressure 84/39 (mmHg) O2 Sat by Pulse 96 98 Oximetry 04/08/16 04/08/16 04/08/16 04:42 07:10 07:45 Temperature 99.9 F Pulse Rate 88 63 Respiratory 18 18 Rate Blood Pressure 92/29 (mmHg) O2 Sat by Pulse 97 Oximetry 04/08/16 04/08/16 04/08/16 08:00 09:45 11:24 Temperature 97.6 F Pulse Rate 60 Respiratory 18 20 22 Rate Blood Pressure 91/39 (mmHg) O2 Sat by Pulse 97 98 Oximetry Oxygen Devices in Use Now: Nasal Cannula Appearance: appears stated age, sitting in chair, moans with pain otherwise no distress Eyes: No Scleral Icterus, PERRLA Ears/Nose/Mouth/Throat: - - dry MM Neck: NL Appearance and Movements; NL JVP, Trachea Midline Respiratory: Symmetrical Chest Expansion and Respiratory Effort, Clear to Auscultation Cardiovascular: NL Sounds; No Murmurs; No JVD, RRR Abdominal: NL Sounds; No Tenderness; No Distention, No Hepatosplenomegaly Extremities: - - 1+ le edema, right shoulder TTP in GH joint Skin: - - diffuse eccyhimosis Neurological: - - AOx2 to self, [employer], but not year, cranial nerves intact Result Diagrams: 04/08/16 06:14 04/08/16 06:14 Assess/Plan/Problems-Billing Assessment: 85 yo F h/p parkinson's dz, DM2, CAD/CABG, AVR, afib s/p ablation on amiodarone/ no AC 2/2 recurrent falls, SSS s/p PPP placement, aortic stenosis and pHTN per report who presented from [facility] 04/06/16 after fall with left hip fracture 04/01/16 with stay in their facility complicated by anemia requiring blood transfusions, acute on chronic acute kidney failure, and a urinary tract infection - Patient Problems (1) Hypotension Comment: And decreased urine output Suspect volume mediated Receiving 100 cc NS now at 200cc/hr. Evaluate BP and UOP after it's completion and administer additional fluid if no augmentation in BP or UOP Stopped metoprolol - restart when stable (2) Hip fracture Comment: POD 1 care per surgical team pain control adequate. Adjust as needed PT/OT trend INR carefully while on AC (3) UTI (urinary tract infection) Comment: Citrobacter resistant to cefazolin now on ceftin day 6 of 7 (4) Acute on chronic kidney failure Comment: Worsening today. Suspect hypovolemia fluids as above torsemide held lisnopril held (5) Anemia Comment: s/p PRBC at [facility] Stable at [facility] Trend H/H here (6) Diabetes mellitus Comment: ISS (7) Parkinson disease Comment: stable. c/w home medications (8) Atrial fibrillation Priority: High Comment: rate and rhythm controlled on amiodarone and metoprolol not on therpaeutic AC 2/2 recurrent falls Holding metoprolol 04/08/16 in setting of low BPs (9) Hypertension Comment: lisinopril 10 mg held c/w metoprolol (10) Shoulder pain Comment: RIGHT images from [place] of left check XR 2 views today of right shoulder (11) DVT prophylaxis Comment: lovenox and coumadin per orthopedics
--- NOTE | 2016-04-08 14:42 | RAD ---
HISTORY: Right shoulder pain status post fall COMPARISONS: None relevant available time dictation VIEWS: 2, frontal and outlet views of the right shoulder FINDINGS: BONE DENSITY: There is diffuse osteopenia. BONES: There is no displaced fracture. 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 SOFT TISSUES: Unremarkable. OTHER FINDINGS: None. IMPRESSION: 1. OSTEOPENIA. 2. ADVANCED OSTEOARTHRITIS. 3. NO ACUTE OSSEOUS INJURY. THE DEGREE OF OSTEOPENIA MAY MAKE A NONDISPLACED FRACTURE RADIOGRAPHICALLY OCCULT. IF SYMPTOMS PERSIST, RECOMMEND REPEAT IMAGING.
[2016-04-08] MEDS ORDERED: Warfarin TAB(*) 5 MG PO ONE (17:00)
[2016-04-08] MEDS ORDERED: NS 0.9% 1000 ML* 1,000 ML IV ONE (22:45)
[2016-04-09] MEDS ORDERED: NS 0.9% 1000 ML* 1,000 ML IV SCH ×2 (00:15→15:06)
[2016-04-09] MEDS: oxyCODONE/Acetamin 5/325 MG* TAB PO PRN ×3 (05:30→20:19)
[2016-04-09 06:49] LABS: Hematocrit 26 % (35-47); Hemoglobin 8.5 g/dl (12.0-16.0); Mean Corpuscular HGB Conc 33 g/dl (31-36); Mean Corpuscular Hemoglobin 31 pg (27-31); Mean Corpuscular Volume 94 fL (80-97); Mean Platelet Volume 9 um3 (7.4-10.4); Red Blood Count 2.75 10^6/ul (4.0-5.4); Red Cell Distribution Width 18 % (10.5-15); White Blood Count 13.2 10^3/ul (3.5-10.8)
[2016-04-09 06:50] LABS: Add Diff/Slide Review? Slide Review Added; Comments Flag Yes
[2016-04-09 07:07] LABS: BUN/Creatinine Ratio 30.2 (8-20); Calcium 7.1 mg/dL (8.6-10.3); EGFR Non-African American 17.1 (>60); Potassium 5.2 mmol/L (3.5-5.0)
--- NOTE | 2016-04-09 07:08 | PN ---
Progress Note - Progress Note SOAP: Subjective: Pt. reports she hurts in her entire body today. Objective: LLE - dressing changed at hip with no drainage, bruising and erythema. full sens lt, 1+dp pulse. tibial wounds without change. Vital Signs: Temp Pulse Resp BP Pulse Ox 98.1 F 60 20 104/24 96 04/09/16 04:29 04/09/16 04:29 04/09/16 05:30 04/09/16 04:29 04/09/16 04:29 Laboratory Results - last 24 hr 04/07/16 04/08/16 04/08/16 04:57 07:33 12:10 WBC RBC Hgb Hct MCV MCH MCHC RDW Plt Count MPV Neut % (Auto) Lymph % (Auto) [place] % (Auto) Eos % (Auto) Baso % (Auto) Absolute Neuts (auto) Absolute Lymphs (auto) Absolute Monos (auto) Absolute Eos (auto) Absolute Basos (auto) Absolute Nucleated RBC Nucleated RBC % INR (Anticoag Therapy) POC Glucose (mg/dL) 180 H 152 H Blood Type A Positive Antibody Screen Negative Crossmatch See Detail 04/08/16 04/08/16 04/09/16 17:07 21:14 06:25 WBC RBC Hgb Hct MCV MCH MCHC RDW Plt Count MPV Neut % (Auto) Lymph % (Auto) [place] % (Auto) Eos % (Auto) Baso % (Auto) Absolute Neuts (auto) Absolute Lymphs (auto) Absolute Monos (auto) Absolute Eos (auto) Absolute Basos (auto) Absolute Nucleated RBC Nucleated RBC % INR (Anticoag Therapy) 1.20 H POC Glucose (mg/dL) 131 H 260 H Blood Type Antibody Screen Crossmatch 04/09/16 06:25 WBC 13.2 H RBC 2.75 L Hgb 8.5 L Hct 26 L MCV 94 MCH 31 MCHC 33 RDW 18 H Plt Count 141 L MPV 9 Neut % (Auto) 84.2 H Lymph % (Auto) 8.5 L [place] % (Auto) 6.9 Eos % (Auto) 0.2 Baso % (Auto) 0.2 Absolute Neuts (auto) 11.1 H Absolute Lymphs (auto) 1.1 Absolute Monos (auto) 0.9 H Absolute Eos (auto) 0 Absolute Basos (auto) 0 Absolute Nucleated RBC 0 Nucleated RBC % 0 INR (Anticoag Therapy) POC Glucose (mg/dL) Blood Type Antibody Screen Crossmatch Assessment: 85 yo F pod 2 s/p ORIF L proximal femur fx Plan: ttwb lle with no active abduction coumadin with lovenox bridge. needs wound care consult for tibial wounds/sacral wound recommend continue abx to prevent cellulitis secondary to wounds oobtc today pt/ot
[2016-04-09] MEDS: [UNRECOGNIZED DRUG - OTHER] INH SCH (07:23)
[2016-04-09] MEDS: UMECLIDINIUM BROMIDE INH SCH (07:23)
[2016-04-09] MEDS: Potassium Chlor TAB* 10 MEQ TAB.ER PO SCH ×2 (07:53→20:19)
[2016-04-09] MEDS: ceFUROXime TAB(*) 250 MG PO SCH (07:53)
[2016-04-09] MEDS: Ascorbic Acid TAB* 500 MG PO SCH (07:53)
[2016-04-09] MEDS: Atorvastatin* 20 MG TAB PO SCH (07:53)
[2016-04-09] MEDS: Docusate CAP* 100 MG PO SCH ×2 (07:53→20:19)
[2016-04-09] MEDS: Allopurinol TAB* 100 MG PO SCH (07:53)
[2016-04-09] MEDS: Calcium/Vitamin D TAB 250/125* TAB PO SCH (07:53)
[2016-04-09] MEDS: Vitamin THERAPEUTIC TAB PO SCH (07:53)
[2016-04-09] MEDS: Tiotropium CAP.INH* CAP.INH/18 MCG (USE ORDER SET !) INH SCH (07:53)
[2016-04-09] MEDS: Amiodarone TAB* 200 MG PO SCH (07:54)
[2016-04-09] MEDS: Citalopram TAB* 10 MG PO SCH (07:54)
[2016-04-09] MEDS: Omeprazole CAP* 20 MG PO SCH (07:54)
[2016-04-09] MEDS: Nystatin TOP POWDER* 15 GM BTL TOPICAL SCH ×3 (07:57→21:49)
[2016-04-09] MEDS: Moisturizing CREAM* 120 GM JAR TOPICAL SCH ×2 (07:57→21:48)
[2016-04-09] MEDS: Silver Sulfadiazine 1%* 50 GM JAR TOPICAL SCH ×2 (07:57→21:49)
[2016-04-09] MEDS: Carbidopa/Levodop 25/100 MG TAB(*) PO SCH ×4 (07:57→20:20)
[2016-04-09] MEDS: Insulin LISPRO* 1 UNITS UNIT SUBCUT SCH ×4 (09:34→21:25)
[2016-04-09] MEDS: Enoxaparin(*) 30 MG/0.3 ML SYR SUBCUT SCH (12:02)
--- NOTE | 2016-04-09 17:00 | PN ---
Subjective Date of Service: 04/09/16 Interval History: Poor UOP. Suspected ATN in combination with poor RV fxn/poor forward flow Reports "pain" but cannot identify 1 area that hurts Earlier reports of "pain everywhere" denies chest pain specifically and SOB Objective Active Medications: Acetaminophen (Tylenol Tab*) 650 mg PO Q4H PRN PRN Reason: FEVER/PAIN Allopurinol (Zyloprim Tab*) 100 mg PO DAILY [facility] Last Admin: 04/09/16 07:53 Dose: 100 mg Amiodarone HCl (Cordarone Tab*) 200 mg PO DAILY [facility] Last Admin: 04/09/16 07:54 Dose: 200 mg Ascorbic Acid (Vitamin C Tab*) 500 mg PO DAILY [facility] Last Admin: 04/09/16 07:53 Dose: 500 mg Atorvastatin Calcium (Lipitor*) 20 mg PO DAILY [facility] Last Admin: 04/09/16 07:53 Dose: 20 mg Bisacodyl (Dulcolax Supp*) 10 mg [place] DAILY PRN PRN Reason: constipation Calcium/Vitamin D (Oscal D Tab 250/125*) 1 tab PO DAILY [facility] Last Admin: 04/09/16 07:53 Dose: 1 tab Carbidopa/Levodopa (Sinemet 25/100 Tab(*)) 1 tab PO BEDTIME [facility] Last Admin: 04/08/16 21:20 Dose: 1 tab Carbidopa/Levodopa (Sinemet 25/100 Tab(*)) 1 tab PO DAILY@0700 [facility] Last Admin: 04/09/16 07:57 Dose: 1 tab Carbidopa/Levodopa (Sinemet 25/100 Tab(*)) 1.5 tab PO DAILY@1100 [facility] Last Admin: 04/09/16 12:01 Dose: 1.5 tab Carbidopa/Levodopa (Sinemet 25/100 Tab(*)) 1 tab PO DAILY@1500 [facility] Last Admin: 04/09/16 15:35 Dose: 1 tab Cefuroxime Axetil (Ceftin Tab(*)) 250 mg PO Q24HR [facility] Last Admin: 04/09/16 07:53 Dose: 250 mg Citalopram Hydrobromide (Celexa Tab*) 10 mg PO DAILY [facility] Last Admin: 04/09/16 07:54 Dose: 10 mg Dextrose (D50w Syringe 50 Ml*) 12.5 gm IV PUSH .FOR FS < 60 - SS PRN PRN Reason: FS < 60 Diazepam (Valium Tab(*)) 2 mg PO Q8H PRN PRN Reason: ANXIETY Diphenhydramine HCl (Benadryl Iv*) 25 mg IV Q6H PRN PRN Reason: itching Docusate Sodium (Colace Cap*) 100 mg PO BID [facility] Last Admin: 04/09/16 07:53 Dose: 100 mg Enoxaparin Sodium (Lovenox(*)) 30 mg SUBCUT 1100 [facility] Last Admin: 04/09/16 12:02 Dose: 30 mg Fentanyl Citrate (Fentanyl*) 50 mcg IV SLOW PU Q4H PRN PRN Reason: PAIN Last Admin: 04/07/16 07:32 Dose: 50 mcg Sodium Chloride (Ns 0.9% 1000 Ml*) 1,000 mls @ 200 mls/hr IV PER RATE [facility] Stop: 04/09/16 20:05 Last Admin: 04/09/16 15:14 Dose: 200 mls/hr Insulin Human Lispro (Humalog*) 0 units SUBCUT ACHS [facility] PRN Reason: Protocol Last Admin: 04/09/16 12:56 Dose: 4 units Magnesium Hydroxide (Milk Of Magnesia Liq*) 30 ml PO Q6H PRN PRN Reason: constipation Last Admin: 04/08/16 17:44 Dose: 30 ml Multi-Ingredient Ointment (Hydrocerin*) 1 applic TOPICAL BID [facility] Last Admin: 04/09/16 07:57 Dose: 1 applic Multivitamins (Theragran Tab*) 1 tab PO DAILY [facility] Last Admin: 04/09/16 07:53 Dose: 1 tab Umeclidinium [place] [Incruse Ellipta] 1 Puff)*Nonformulary 1 puff INH DAILY [facility] Last Admin: 04/09/16 07:23 Dose: Not Given Nystatin (Nystatin Top Powder*) 1 applic TOPICAL TID [facility] Last Admin: 04/09/16 13:42 Dose: 1 applic Omeprazole (Prilosec Cap*) 20 mg PO 0730 [facility] Last Admin: 04/09/16 07:54 Dose: 20 mg Oxycodone HCl (Roxycodone Tab*) 10 mg PO Q4H PRN PRN Reason: PAIN - MODERATE Oxycodone/Acetaminophen (Percocet 5/325 Tab*) 1 tab PO Q3H PRN PRN Reason: PAIN - MODERATE Last Admin: 04/09/16 12:01 Dose: 1 tab Pharmacy Profile Note (Coumadin Daily Reminder*) 1 note FOLLOW UP 1700 [facility] Last Admin: 04/08/16 17:44 Dose: 1 note Polyethylene Glycol/Electrolytes (Miralax*) 17 gm PO DAILY PRN PRN Reason: Constipation Potassium Chloride (Klor Con Er Tab*) 10 meq PO BID [facility] Last Admin: 04/09/16 07:53 Dose: 10 meq Silver Sulfadiazine (Silvadine 1%*) 1 applic TOPICAL BID [facility] Last Admin: 04/09/16 07:57 Dose: 1 applic Tiotropium [place] (Spiriva Cap.Inh*) 1 cap INH DAILY [facility] Last Admin: 04/09/16 07:53 Dose: 1 cap Vital Signs 04/08/16 04/08/16 04/08/16 17:12 20:22 21:00 Temperature 98.1 F Pulse Rate 60 60 Respiratory 20 18 Rate Blood Pressure 111/24 114/100 (mmHg) O2 Sat by Pulse 97 Oximetry 04/08/16 04/08/16 04/09/16 21:21 23:21 00:00 Temperature Pulse Rate Respiratory 20 18 Rate Blood Pressure (mmHg) O2 Sat by Pulse 100 Oximetry 04/09/16 04/09/16 04/09/16 00:23 00:58 04:29 Temperature 98.0 F 98.1 F Pulse Rate 60 60 Respiratory 20 20 Rate Blood Pressure 104/28 104/24 (mmHg) O2 Sat by Pulse 100 97 96 Oximetry 04/09/16 04/09/16 04/09/16 05:30 07:20 07:30 Temperature 98.1 F Pulse Rate 60 Respiratory 20 24 20 Rate Blood Pressure 134/38 (mmHg) O2 Sat by Pulse 99 Oximetry 04/09/16 04/09/16 04/09/16 08:00 12:01 12:34 Temperature 99.3 F Pulse Rate 60 Respiratory 20 18 24 Rate Blood Pressure 156/31 (mmHg) O2 Sat by Pulse 99 99 Oximetry 04/09/16 14:01 Temperature Pulse Rate Respiratory 18 Rate Blood Pressure (mmHg) O2 Sat by Pulse Oximetry Oxygen Devices in Use Now: Nasal Cannula Appearance: stated age, NAD Eyes: No Scleral Icterus, PERRLA Ears/Nose/Mouth/Throat: - - dr. POOL Neck: NL Appearance and Movements; NL JVP, Trachea Midline Respiratory: Symmetrical Chest Expansion and Respiratory Effort, - - decreased inspiratory effort and decreased BS in bases Cardiovascular: RRR, - - 2/6 JAMILAH loudest at RUSB Abdominal: NL Sounds; No Tenderness; No Distention, No Hepatosplenomegaly Lymphatic: No Cervical Adenopathy Extremities: - - 1+ LE edema Skin: - - pretibial wounds on left weeping through dressings, skin breakdown on b/l elbows and sacrum Neurological: - - AOx2 Result Diagrams: 04/09/16 06:25 04/09/16 06:25 Assess/Plan/Problems-Billing Assessment: 85 yo F h/p parkinson's dz, DM2, CAD/CABG, AVR, afib s/p ablation on amiodarone/ no AC 2/2 recurrent falls, SSS s/p PPP placement, aortic stenosis and pHTN per report with decreased RV function, who presented from [facility] 04/06/16 after fall with left hip fracture 04/01/16 with stay in their facility complicated by anemia requiring blood transfusions, acute on chronic kidney failure, and a urinary tract infection - Patient Problems (1) Hypotension Comment: And decreased urine output Suspect volume mediated Continued volume replacement Bladder scanned - tello in place, bladder empty Suspect poor RV fxn contributing to poor foward floor. With relative hypotension will not attempt to augment afterload Stopped metoprolol - restart when stable TTE from [place] performed 04/03/16 evaluated Indicates preserved LVEF 60% without RWMA nor diastolic dysfunction RVmildy dilated and hypokinetic. AVR with increased gradient 42/22mmHg. Moderate TR and moderate pHTN - RVSP 48mmHG (2) Hip fracture Comment: POD 2 care per surgical team pain control adequate. Adjust as needed PT/OT trend INR carefully while on AC (3) UTI (urinary tract infection) Comment: Citrobacter resistant to cefazolin now on ceftin day 7 of 7 (4) Acute on chronic kidney failure Comment: Worsening today. Suspect hypovolemia causing ATN fluids as above torsemide held lisnopril held (5) Anemia Comment: s/p PRBC at [facility] Stable at [facility] Trend H/H here (6) Diabetes mellitus Comment: ISS (7) Parkinson disease Comment: stable. c/w home medications (8) Atrial fibrillation Priority: High Comment: rate and rhythm controlled on amiodarone and metoprolol not on therpaeutic AC 2/2 recurrent falls Holding metoprolol 04/08/16 in setting of low BPs (9) Hypertension Comment: lisinopril 10 mg held metoprolol held (10) Shoulder pain Comment: RIGHT images from [place] of left check XR 2 views with fracture (11) Skin ulcer of pretibial region of left lower extremity Comment: weeping fluid no associated cellulitis but will continue abx wound care c/s in place (12) DVT prophylaxis Comment: lovenox and coumadin per orthopedics
[2016-04-09] MEDS ORDERED: NS 0.9% 500 ML* 500 ML IV ONE (23:00)
[2016-04-10] MEDS ORDERED: NS 0.9% 500 ML* 500 ML IV ONE (06:20)
[2016-04-10] MEDS: Carbidopa/Levodop 25/100 MG TAB(*) PO SCH ×4 (06:29→21:28)
[2016-04-10] MEDS: ceFUROXime TAB(*) 250 MG PO SCH (07:53)
[2016-04-10] MEDS: Atorvastatin* 20 MG TAB PO SCH (07:54)
[2016-04-10] MEDS: Calcium/Vitamin D TAB 250/125* TAB PO SCH (07:54)
[2016-04-10] MEDS: oxyCODONE/Acetamin 5/325 MG* TAB PO PRN ×3 (07:54→21:29)
[2016-04-10] MEDS: Ascorbic Acid TAB* 500 MG PO SCH (07:54)
[2016-04-10] MEDS: Vitamin THERAPEUTIC TAB PO SCH (07:54)
[2016-04-10] MEDS: Amiodarone TAB* 200 MG PO SCH (07:54)
[2016-04-10] MEDS: Allopurinol TAB* 100 MG PO SCH (07:54)
[2016-04-10] MEDS: Omeprazole CAP* 20 MG PO SCH (07:54)
[2016-04-10] MEDS: Citalopram TAB* 10 MG PO SCH (07:54)
[2016-04-10] MEDS: Acetaminophen TAB* 325 MG PO PRN ×2 (07:55→15:39)
[2016-04-10] MEDS: Tiotropium CAP.INH* CAP.INH/18 MCG (USE ORDER SET !) INH SCH (07:55)
[2016-04-10] MEDS: Docusate CAP* 100 MG PO SCH ×2 (07:55→21:31)
[2016-04-10] MEDS: Potassium Chlor TAB* 10 MEQ TAB.ER PO SCH ×2 (07:55→21:48)
[2016-04-10] MEDS: Polyethylene Glycol 3350* 17 GM PACKET PO PRN (07:55)
[2016-04-10] MEDS: UMECLIDINIUM BROMIDE INH SCH (07:56)
[2016-04-10] MEDS: [UNRECOGNIZED DRUG - OTHER] INH SCH (07:56)
[2016-04-10 08:17] LABS: Hematocrit 26 % (35-47); Hemoglobin 8.2 g/dl (12.0-16.0); Mean Corpuscular HGB Conc 32 g/dl (31-36); Mean Corpuscular Hemoglobin 31 pg (27-31); Mean Corpuscular Volume 96 fL (80-97); Mean Platelet Volume 9 um3 (7.4-10.4); Red Blood Count 2.67 10^6/ul (4.0-5.4); Red Cell Distribution Width 19 % (10.5-15); White Blood Count 14.5 10^3/ul (3.5-10.8)
[2016-04-10 08:19] LABS: Add Diff/Slide Review? Slide Review Added; Comments Flag Yes
[2016-04-10 08:34] LABS: BUN/Creatinine Ratio 30.4 (8-20); EGFR African American 20.7 (>60); EGFR Non-African American 16.1 (>60); Potassium 5.9 mmol/L (3.5-5.0)
[2016-04-10] MEDS ORDERED: Sodium Polystyrene ORAL.SOL* 15 GM/60 ML BTL PO ONE (08:40)
[2016-04-10] MEDS ORDERED: Furosemide IV* 10 MG/ML 2 ML VIAL (20 MG) IV ONE ×2 (08:49→15:11)
[2016-04-10] MEDS: Insulin LISPRO* 1 UNITS UNIT SUBCUT SCH ×4 (09:08→21:25)
--- NOTE | 2016-04-10 09:19 | RAD ---
HISTORY: Vascular congestion COMPARISONS: September 08, 2015 VIEWS:1: Single frontal portable view of the chest at 8:50 AM FINDINGS: LINES AND TUBES: There is a left-sided pacemaker. CARDIOMEDIASTINAL SILHOUETTE: The cardiomediastinal silhouette is normal for portable technique. PLEURA: There is blunting of left costophrenic angle. LUNG PARENCHYMA: There is prominence of the central pulmonary vasculature with mild diffuse reticular pattern of opacification. The lung volumes are low. ABDOMEN: The upper abdomen is clear. There is no subphrenic gas. BONES AND SOFT TISSUES: There are advanced degenerative changes of the right shoulder. The patient is status post median sternotomy. IMPRESSION: 1. LOW LUNG VOLUMES. 2. PULMONARY VASCULAR CONGESTION WITH MILD PULMONARY INTERSTITIAL EDEMA. 3. SMALL LEFT PLEURAL EFFUSION
[2016-04-10] MEDS: Silver Sulfadiazine 1%* 50 GM JAR TOPICAL SCH (09:51)
[2016-04-10] MEDS: Enoxaparin(*) 30 MG/0.3 ML SYR SUBCUT SCH (11:38)
[2016-04-10] MEDS: Nystatin TOP POWDER* 15 GM BTL TOPICAL SCH ×3 (11:38→21:31)
[2016-04-10] MEDS: Moisturizing CREAM* 120 GM JAR TOPICAL SCH ×2 (11:38→21:31)
--- NOTE | 2016-04-10 12:28 | ECHO ---
Patient: TINO DILLON [facility] Rec#: [id number] : 1930 Date: 04/10/2016 Age: 85y Height: 165.1 cm / 65.0 in Weight: 103.42 kg / 227.9 lbs Sex: F BSA: 2.09 Room#: 350 Admit Date#: 04/06/2016 Type: Inpatient Referring: Jaydon Baker MD Reading: Roberto Robertson MD [facility] [facility] Director: Aleena Lopez [facility] CC: Randy Orozco MD Transthoracic Echocardiogram Indication: CHF/PAF/CAD BP: 114/60 HR: 84 Rhythm: Paced Findings History: S/P fall with fx left hip, s/p left hip repair,Parkinson's,PAF s/p ablation,CKD stage III,DM,HTN,CAD with CABG,s/p pacer,s/p AVR with bioprosthetic valve 2012. Technical Comments: The study is technically limited due to patient body habitus. Completed at 1035. Left Ventricle: The left ventricular chamber size is mildly dilated. Mild concentric left ventricular hypertrophy is observed. Global left ventricular wall motion and contractility are within normal limits. There is normal left ventricular systolic function. The estimated ejection fraction is 50-55%. Post surgical hypokinesis of the interventricular septum is observed consistent with coronary artery bypass. Left Atrium: The left atrium is mild to moderately dilated. Right Ventricle: The right ventricular cavity size is normal. The right ventricular global systolic function is normal. A pacemaker wire is visualized in the right ventricle. Right Atrium: The right atrium is mildly dilated. A pacemaker wire is visualized in the right atrium. Aortic Valve: Highest aortic valve velocity was acquired with Pedoff in apical position. A bio-prosthetic pericardial aortic valve is present. The prosthetic aortic valve leaflets are normal. The bio-prosthetic aortic valve appears to be functioning normally. Mitral Valve: The mitral valve leaflets are mildly thickened. There is a trace of mitral regurgitation. There is no evidence of mitral stenosis. Tricuspid Valve: The tricuspid valve leaflets are normal. There is mild to moderate tricuspid regurgitation. There is evidence of mild pulmonary hypertension. There is no tricuspid stenosis. Pulmonic Valve: The pulmonic valve appears normal. There is no evidence of pulmonic regurgitation. There is no pulmonic stenosis. Pericardium: A pericardial fat pad is visualized. Aorta: There is no dilatation of the ascending aorta. There is no dilatation of the aortic arch. There is no dilation of the aortic root. Pulmonary Artery: The main pulmonary artery appears normal. Venous: The venous system is not well visualized. Conclusions Mild concentric left ventricular hypertrophy is observed. Global left ventricular wall motion and contractility are within normal limits. The estimated ejection fraction is 50-55%. Post surgical hypokinesis of the interventricular septum is observed consistent with coronary artery bypass. The right ventricular global systolic function is normal. A bio-prosthetic pericardial aortic valve is present. The bio-prosthetic aortic valve appears to be functioning normally. There is a trace of mitral regurgitation. There is mild to moderate tricuspid regurgitation. There is evidence of mild pulmonary hypertension. Measurements Name Value Normal Range RVIDd (AP) 2D 3.2 cm (0.9 - 2.6) RVDdMajor (2D) 4 cm (2.2 - 4.4) RAd ISD 4CH 6.3 cm (3.4 - 4.9) RA (A4C)W 4 cm (2.9 - 4.6) IVSd (2D) 1.1 cm (0.6 - 1) LVPWd (2D) 1.2 cm (0.6 - 1) LVIDd (2D) 5.7 cm (3.6 - 5.4) LVIDs (2D) 4.2 cm - LV FS (2D) 26 % (25 - 45) Aortic Annulus 1.7 cm (1.4 - 2.6) Ao root diameter (2D) 3.1 cm (2.1 - 3.5) Ascending Ao 2.7 cm (2.1 - 3.4) Aortic arch 2.1 cm (1.8 - 3.4) Descending Ao 1.1 cm - LA dimension (AP) 2D 4.4 cm (2.3 - 3.8) LAd ISD 4CH 6.8 cm (2.9 - 5.3) LA ISD 4CH W 5.4 cm (2.5 - 4.5) Name Value Normal Range LA ESV SP 4CH (A/L) 114 ml - LA ESV SP 2CH (A/L) 69 ml - LA ESV BP (A/L) 102 ml - LA ESV BP (A/L) index 48.71 ml/m2 - LA ESV SP 4CH (MOD) 107 ml - LA ESV SP 2CH (MOD) 68 ml - Name Value Normal Range MV E-wave Vmax 1.2 m/sec - MV deceleration time 249 msec - MV A-wave Vmax 0.6 m/sec - MV E:A ratio 2.23 ratio - LV septal e' Vmax 0.09 m/sec - LV lateral e' Vmax 0.14 m/sec - LV E:e' septal ratio 13.33 ratio - LV E:e' lateral ratio 8.57 ratio - Name Value Normal Range AV Vmax 3.2 m/sec - AV VTI 79.2 cm - AV peak gradient 40.94 mmHg - AV mean gradient 23.62 mmHg - LVOT diameter 2 cm - LVOT Vmax 1.5 m/sec - LVOT VTI 39.2 cm - LVOT peak gradient 8.55 mmHg - LVOT mean gradient 5.1 mmHg - SV LVOT 119 ml - JILLIAN (continuity Vmax) 1.5 cm2 - JILLIAN (continuity VTI) 1.5 cm2 - Name Value Normal Range TR Vmax 3 m/sec - TR peak gradient 36 mmHg - RAP 8 mmHg - RVSP 44 mmHg - Name Value Normal Range PV Vmax 1.2 m/sec - PV peak gradient 5.71 mmHg -
--- NOTE | 2016-04-10 12:56 | PN ---
Progress Note - Progress Note SOAP: Subjective: [] pt resting comfortably, continued pain in left hip Objective: [] Vital Signs Temp Pulse Resp BP Pulse Ox 97.6 F 86 20 154/45 100 04/10/16 12:34 04/10/16 12:34 04/10/16 12:34 04/10/16 12:34 04/10/16 12:34 Laboratory Last Values WBC 14.5 10^3/ul (3.5-10.8) H 04/10/16 07:40 RBC 2.67 10^6/ul (4.0-5.4) L 04/10/16 07:40 Hgb 8.2 g/dl (12.0-16.0) L 04/10/16 07:40 Hct 26 % (35-47) L 04/10/16 07:40 MCV 96 fL (80-97) 04/10/16 07:40 MCH 31 pg (27-31) 04/10/16 07:40 MCHC 32 g/dl (31-36) 04/10/16 07:40 RDW 19 % (10.5-15) H 04/10/16 07:40 Plt Count 167 10^3/ul (150-450) 04/10/16 07:40 MPV 9 um3 (7.4-10.4) 04/10/16 07:40 Neut % (Auto) 85.4 % (38-83) H 04/10/16 07:40 Lymph % (Auto) 8.0 % (25-47) L 04/10/16 07:40 Bullitt % (Auto) 5.4 % (1-9) 04/10/16 07:40 Eos % (Auto) 0.9 % (0-6) 04/10/16 07:40 Baso % (Auto) 0.3 % (0-2) 04/10/16 07:40 Absolute Neuts (auto) 12.4 10^3/ul (1.5-7.7) H 04/10/16 07:40 Absolute Lymphs (auto) 1.2 10^3/ul (1.0-4.8) 04/10/16 07:40 Absolute Monos (auto) 0.8 10^3/ul (0-0.8) 04/10/16 07:40 Absolute Eos (auto) 0.1 10^3/ul (0-0.6) 04/10/16 07:40 Absolute Basos (auto) 0 10^3/ul (0-0.2) 04/10/16 07:40 Absolute Nucleated RBC 0.01 10^3/ul 04/10/16 07:40 Nucleated RBC % 0.1 04/10/16 07:40 INR (Anticoag Therapy) 1.08 (0.89-1.11) 04/10/16 07:40 APTT 24.1 seconds (26.0-36.3) L 04/07/16 04:57 Sodium 135 mmol/L (133-145) 04/10/16 07:40 Potassium 5.9 mmol/L (3.5-5.0) H 04/10/16 07:40 Chloride 113 mmol/L (101-111) H 04/10/16 07:40 Carbon Dioxide 17 mmol/L (22-32) L 04/10/16 07:40 Anion Gap 5 mmol/L (2-11) 04/10/16 07:40 BUN 85 mg/dL (6-24) H 04/10/16 07:40 Creatinine 2.80 mg/dL (0.51-0.95) H 04/10/16 07:40 Est GFR ( Amer) 20.7 (>60) 04/10/16 07:40 Est GFR (Non-Af Amer) 16.1 (>60) 04/10/16 07:40 BUN/Creatinine Ratio 30.4 (8-20) H 04/10/16 07:40 Glucose 140 mg/dL (70-100) H 04/10/16 07:40 POC Glucose (mg/dL) 198 mg/dL (74-106) H 04/09/16 21:14 Calcium 7.0 mg/dL (8.6-10.3) L 04/10/16 07:40 B-Natriuretic Peptide 183 pg/mL (-100) H 04/10/16 07:40 Vitamin B12 516 pg/mL (180-914) 04/06/16 14:10 Blood Type A Positive 04/07/16 04:57 Antibody Screen Negative 04/07/16 04:57 Crossmatch See Detail 04/07/16 04:57 incision: c/d/i PE: NVI Assessment: s/p left hip concha Plan: 1) hospitalist co-managing 2) continue Abx 3) continue DVT prophylaxis 4) D/C plan- likely need inpatient rehab placement
[2016-04-10] MEDS ORDERED: Ondansetron INJ* 2 MG/ML VIAL ONE (15:56)
--- NOTE | 2016-04-10 16:19 | PN ---
Subjective Date of Service: 04/10/16 Interval History: Increasingly edematous. Little UOP despite large amount of volume in. Feels very thirsty. Denies CP/SOB/LH. Appetite low-moderate. Pain is well controlled. Objective Active Medications: Acetaminophen (Tylenol Tab*) 650 mg PO Q4H PRN PRN Reason: FEVER/PAIN Last Admin: 04/10/16 15:39 Dose: 650 mg Allopurinol (Zyloprim Tab*) 100 mg PO DAILY [facility] Last Admin: 04/10/16 07:54 Dose: 100 mg Amiodarone HCl (Cordarone Tab*) 200 mg PO DAILY [facility] Last Admin: 04/10/16 07:54 Dose: 200 mg Ascorbic Acid (Vitamin C Tab*) 500 mg PO DAILY [facility] Last Admin: 04/10/16 07:54 Dose: 500 mg Atorvastatin Calcium (Lipitor*) 20 mg PO DAILY [facility] Last Admin: 04/10/16 07:54 Dose: 20 mg Bisacodyl (Dulcolax Supp*) 10 mg MI DAILY PRN PRN Reason: constipation Calcium/Vitamin D (Oscal D Tab 250/125*) 1 tab PO DAILY [facility] Last Admin: 04/10/16 07:54 Dose: 1 tab Carbidopa/Levodopa (Sinemet 25/100 Tab(*)) 1 tab PO BEDTIME [facility] Last Admin: 04/09/16 20:20 Dose: 1 tab Carbidopa/Levodopa (Sinemet 25/100 Tab(*)) 1 tab PO DAILY@0700 [facility] Last Admin: 04/10/16 06:29 Dose: 1 tab Carbidopa/Levodopa (Sinemet 25/100 Tab(*)) 1.5 tab PO DAILY@1100 [facility] Last Admin: 04/10/16 11:38 Dose: 1.5 tab Carbidopa/Levodopa (Sinemet 25/100 Tab(*)) 1 tab PO DAILY@1500 [facility] Last Admin: 04/10/16 15:37 Dose: 1 tab Cefuroxime Axetil (Ceftin Tab(*)) 250 mg PO Q24HR [facility] Last Admin: 04/10/16 07:53 Dose: 250 mg Citalopram Hydrobromide (Celexa Tab*) 10 mg PO DAILY [facility] Last Admin: 04/10/16 07:54 Dose: 10 mg Dextrose (D50w Syringe 50 Ml*) 12.5 gm IV PUSH .FOR FS < 60 - SS PRN PRN Reason: FS < 60 Diphenhydramine HCl (Benadryl Iv*) 25 mg IV Q6H PRN PRN Reason: itching Docusate Sodium (Colace Cap*) 100 mg PO BID [facility] Last Admin: 04/10/16 07:55 Dose: 100 mg Enoxaparin Sodium (Lovenox(*)) 30 mg SUBCUT 1100 [facility] Last Admin: 04/10/16 11:38 Dose: 30 mg Fentanyl Citrate (Fentanyl*) 50 mcg IV SLOW PU Q4H PRN PRN Reason: PAIN Last Admin: 04/07/16 07:32 Dose: 50 mcg Insulin Human Lispro (Humalog*) 0 units SUBCUT ACHS [facility] PRN Reason: Protocol Last Admin: 04/10/16 13:26 Dose: 4 units Magnesium Hydroxide (Milk Of Magnesia Liq*) 30 ml PO Q6H PRN PRN Reason: constipation Last Admin: 04/08/16 17:44 Dose: 30 ml Multi-Ingredient Ointment (Hydrocerin*) 1 applic TOPICAL BID [facility] Last Admin: 04/10/16 11:38 Dose: 1 applic Multivitamins (Theragran Tab*) 1 tab PO DAILY [facility] Last Admin: 04/10/16 07:54 Dose: 1 tab Umeclidinium Bristol [Incruse Ellipta] 1 Puff)*Nonformulary 1 puff INH DAILY [facility] Last Admin: 04/10/16 07:56 Dose: Not Given Nystatin (Nystatin Top Powder*) 1 applic TOPICAL TID [facility] Last Admin: 04/10/16 14:06 Dose: 1 applic Omeprazole (Prilosec Cap*) 20 mg PO 0730 [facility] Last Admin: 04/10/16 07:54 Dose: 20 mg Oxycodone HCl (Roxycodone Tab*) 10 mg PO Q4H PRN PRN Reason: PAIN - MODERATE Oxycodone/Acetaminophen (Percocet 5/325 Tab*) 1 tab PO Q3H PRN PRN Reason: PAIN - MODERATE Last Admin: 04/10/16 15:39 Dose: 1 tab Pharmacy Profile Note (Coumadin Daily Reminder*) 1 note FOLLOW UP 1700 [facility] Last Admin: 04/09/16 18:30 Dose: Not Given Polyethylene Glycol/Electrolytes (Miralax*) 17 gm PO DAILY PRN PRN Reason: Constipation Last Admin: 04/10/16 07:55 Dose: 17 gm Potassium Chloride (Klor Con Er Tab*) 10 meq PO BID [facility] Last Admin: 04/10/16 07:55 Dose: 10 meq Tiotropium Bristol (Spiriva Cap.Inh*) 1 cap INH DAILY [facility] Last Admin: 04/10/16 07:55 Dose: 1 cap Vital Signs 04/09/16 04/09/16 04/09/16 19:34 20:00 20:19 Temperature 98.1 F Pulse Rate 60 Respiratory 20 20 20 Rate Blood Pressure 122/37 (mmHg) O2 Sat by Pulse 99 Oximetry 04/09/16 04/09/16 04/10/16 22:19 23:30 00:07 Temperature 97.7 F Pulse Rate 60 Respiratory 20 16 Rate Blood Pressure 112/27 121/42 (mmHg) O2 Sat by Pulse 99 Oximetry 04/10/16 04/10/16 04/10/16 02:37 02:40 05:57 Temperature 97.4 F 97.9 F Pulse Rate 63 83 Respiratory 16 20 Rate Blood Pressure 108/55 119/61 (mmHg) O2 Sat by Pulse 100 97 78 Oximetry 04/10/16 04/10/16 04/10/16 06:07 07:54 07:56 Temperature 97.8 F Pulse Rate 61 66 Respiratory 18 18 Rate Blood Pressure 114/60 (mmHg) O2 Sat by Pulse 100 94 Oximetry 04/10/16 04/10/16 04/10/16 08:00 09:54 12:34 Temperature 97.6 F Pulse Rate 86 Respiratory 20 20 20 Rate Blood Pressure 154/45 (mmHg) O2 Sat by Pulse 100 100 Oximetry 04/10/16 15:39 Temperature Pulse Rate Respiratory 18 Rate Blood Pressure (mmHg) O2 Sat by Pulse Oximetry Oxygen Devices in Use Now: Nasal Cannula Appearance: obese, lying 30 deg in bed, NAD Eyes: No Scleral Icterus, PERRLA Ears/Nose/Mouth/Throat: Clear Oropharnyx, - - dry MM Neck: NL Appearance and Movements; NL JVP, Trachea Midline Respiratory: Symmetrical Chest Expansion and Respiratory Effort, Clear to Auscultation Cardiovascular: NL Sounds; No Murmurs; No JVD, RRR Abdominal: NL Sounds; No Tenderness; No Distention, No Hepatosplenomegaly Lymphatic: No Cervical Adenopathy Extremities: - - diffusely anasarca Skin: - - pretibial wounds and b/l elbow breakdown, sacral skin breakdown Neurological: Alert and Oriented x 3, - - cranial nerves intact Result Diagrams: 04/10/16 07:40 04/10/16 07:40 Assess/Plan/Problems-Billing Assessment: 85 yo F h/p parkinson's dz, DM2, CAD/CABG, AVR, afib s/p ablation on amiodarone/ no AC 2/2 recurrent falls, SSS s/p PPP placement, aortic stenosis and pHTN per report with decreased RV function, who presented from [facility] 04/[facility]16 after fall with left hip fracture 04/01/16 with stay in their facility complicated by anemia requiring blood transfusions, acute on chronic kidney failure, and a urinary tract infection - Patient Problems (1) Hypotension Comment: improved wirg fluid boluses Suspect volume mediated Bladder scanned - tello in place, bladder empty Stopped metoprolol - restart when stable TTE from [facility] on 04/04 indicated mod decrease in RV fxn not evident on repeat TTE here 04/10/16 (2) Hip fracture Comment: POD 3 care per surgical team pain control adequate. Adjust as needed PT/OT trend INR carefully while on AC (3) UTI (urinary tract infection) Comment: Citrobacter resistant to cefazolin completed ceftin 7 days (04/10/16) (4) Acute on chronic kidney failure Comment: Worsening today. Suspect hypovolemia causing ATN lasix for a total of 30mg today with improved UOP. Trend renal fxn lisnopril held (5) Anemia Comment: s/p PRBC at [facility] Stable at [facility] Trend H/H here (6) Diabetes mellitus Comment: ISS (7) Parkinson disease Comment: stable. c/w home medications (8) Atrial fibrillation Priority: High Comment: rate and rhythm controlled on amiodarone not on therpaeutic AC 2/2 recurrent falls Holding metoprolol 04/08/16 in setting of low BPs (9) Hypertension Comment: lisinopril 10 mg held metoprolol held (10) Shoulder pain Comment: RIGHT images from [facility] of left XR here with OA (11) Skin ulcer of pretibial region of left lower extremity Comment: weeping fluid no associated cellulitis but will continue abx preventatively wound care c/s appreciated (12) DVT prophylaxis Comment: lovenox and coumadin per orthopedics
[2016-04-10] MEDS ORDERED: Warfarin TAB(*) 4 MG PO ONE (18:30)
[2016-04-11 06:20] LABS: Hematocrit 25 % (35-47); Hemoglobin 7.9 g/dl (12.0-16.0); Mean Corpuscular HGB Conc 32 g/dl (31-36); Mean Corpuscular Hemoglobin 30 pg (27-31); Mean Corpuscular Volume 95 fL (80-97); Mean Platelet Volume 9 um3 (7.4-10.4); Red Blood Count 2.64 10^6/ul (4.0-5.4); Red Cell Distribution Width 18 % (10.5-15); White Blood Count 14.4 10^3/ul (3.5-10.8)
[2016-04-11 06:21] LABS: Add Diff/Slide Review? Slide Review Added; Comments Flag Yes
[2016-04-11 06:42] LABS: BUN/Creatinine Ratio 32.1 (8-20); Calcium 6.7 mg/dL (8.6-10.3); EGFR African American 20.1 (>60); EGFR Non-African American 15.6 (>60); Magnesium 2.5 mg/dL (1.9-2.7); Potassium 5.6 mmol/L (3.5-5.0)
[2016-04-11] MEDS: Carbidopa/Levodop 25/100 MG TAB(*) PO SCH ×4 (06:50→21:50)
--- NOTE | 2016-04-11 07:27 | PN ---
Progress Note - Progress Note SOAP: Subjective: Pt. is alert, reports she has been into a chair once. She has edema and pain throughout her body. Objective: LLE - inc intact, thigh swollen but soft. Thigh with blisters, weeping ss fluid. Tibial wounds dressed. Distally nvi. Vital Signs: Temp Pulse Resp BP Pulse Ox 97.4 F 60 16 104/78 97 04/11/16 03:32 04/11/16 03:32 04/11/16 03:32 04/11/16 03:32 04/11/16 03:32 Laboratory Results - last 24 hr 04/10/16 04/10/16 04/10/16 07:40 07:40 07:40 WBC 14.5 H RBC 2.67 L Hgb 8.2 L Hct 26 L MCV 96 MCH 31 MCHC 32 RDW 19 H Plt Count 167 MPV 9 Neut % (Auto) 85.4 H Lymph % (Auto) 8.0 L Cocke % (Auto) 5.4 Eos % (Auto) 0.9 Baso % (Auto) 0.3 Absolute Neuts (auto) 12.4 H Absolute Lymphs (auto) 1.2 Absolute Monos (auto) 0.8 Absolute Eos (auto) 0.1 Absolute Basos (auto) 0 Absolute Nucleated RBC 0.01 Nucleated RBC % 0.1 INR (Anticoag Therapy) 1.08 Sodium 135 Potassium 5.9 H Chloride 113 H Carbon Dioxide 17 L Anion Gap 5 BUN 85 H Creatinine 2.80 H Est GFR ( Amer) 20.7 Est GFR (Non-Af Amer) 16.1 BUN/Creatinine Ratio 30.4 H Glucose 140 H POC Glucose (mg/dL) Calcium 7.0 L Magnesium B-Natriuretic Peptide 04/10/16 04/10/16 04/10/16 07:40 12:04 12:06 WBC RBC Hgb Hct MCV MCH MCHC RDW Plt Count MPV Neut % (Auto) Lymph % (Auto) Cocke % (Auto) Eos % (Auto) Baso % (Auto) Absolute Neuts (auto) Absolute Lymphs (auto) Absolute Monos (auto) Absolute Eos (auto) Absolute Basos (auto) Absolute Nucleated RBC Nucleated RBC % INR (Anticoag Therapy) Sodium Potassium Chloride Carbon Dioxide Anion Gap BUN Creatinine Est GFR ( Amer) Est GFR (Non-Af Amer) BUN/Creatinine Ratio Glucose POC Glucose (mg/dL) 128 H 216 H Calcium Magnesium B-Natriuretic Peptide 183 H 04/10/16 04/11/16 04/11/16 17:01 05:27 05:27 WBC 14.4 H RBC 2.64 L Hgb 7.9 L Hct 25 L MCV 95 MCH 30 MCHC 32 RDW 18 H Plt Count 185 MPV 9 Neut % (Auto) 85.4 H Lymph % (Auto) 8.0 L Cocke % (Auto) 5.4 Eos % (Auto) 1.0 Baso % (Auto) 0.2 Absolute Neuts (auto) 12.3 H Absolute Lymphs (auto) 1.1 Absolute Monos (auto) 0.8 Absolute Eos (auto) 0.1 Absolute Basos (auto) 0 Absolute Nucleated RBC 0.01 Nucleated RBC % 0 INR (Anticoag Therapy) 1.12 H Sodium Potassium Chloride Carbon Dioxide Anion Gap BUN Creatinine Est GFR ( Amer) Est GFR (Non-Af Amer) BUN/Creatinine Ratio Glucose POC Glucose (mg/dL) 209 H Calcium Magnesium B-Natriuretic Peptide 04/11/16 05:27 WBC RBC Hgb Hct MCV MCH MCHC RDW Plt Count MPV Neut % (Auto) Lymph % (Auto) Cocke % (Auto) Eos % (Auto) Baso % (Auto) Absolute Neuts (auto) Absolute Lymphs (auto) Absolute Monos (auto) Absolute Eos (auto) Absolute Basos (auto) Absolute Nucleated RBC Nucleated RBC % INR (Anticoag Therapy) Sodium 136 Potassium 5.6 H Chloride 113 H Carbon Dioxide 19 L Anion Gap 4 BUN 92 H Creatinine 2.87 H Est GFR ( Amer) 20.1 Est GFR (Non-Af Amer) 15.6 BUN/Creatinine Ratio 32.1 H Glucose 140 H POC Glucose (mg/dL) Calcium 6.7 L Magnesium 2.5 B-Natriuretic Peptide Assessment: 85 yo F pod 5 s/p ORIF/hemiarthroplasty L hip Plan: Pt. is in renal failure with extreme swelling/fluid overload. Recommend continue abx to prevent infection of l hip hardware. TTWB LLE with post hip precautions. OOBTC for position changes. Appreciate wound care consult.
[2016-04-11] MEDS: Omeprazole CAP* 20 MG PO SCH (07:59)
[2016-04-11] MEDS: Insulin LISPRO* 1 UNITS UNIT SUBCUT SCH ×4 (07:59→21:50)
[2016-04-11] MEDS: Tiotropium CAP.INH* CAP.INH/18 MCG (USE ORDER SET !) INH SCH (08:38)
[2016-04-11] MEDS ORDERED: Sodium Polystyrene ORAL.SOL* 15 GM/60 ML BTL PO ONE (09:30)
[2016-04-11] MEDS ORDERED: [UNRECOGNIZED DRUG - OTHER] INH SCH (09:44)
[2016-04-11] MEDS ORDERED: UMECLIDINIUM BROMIDE INH SCH (09:44)
[2016-04-11] MEDS: Calcium/Vitamin D TAB 250/125* TAB PO SCH (09:57)
[2016-04-11] MEDS: Docusate CAP* 100 MG PO SCH ×2 (09:58→21:50)
[2016-04-11] MEDS: ceFUROXime TAB(*) 250 MG PO SCH (09:58)
[2016-04-11] MEDS: Atorvastatin* 20 MG TAB PO SCH (09:59)
[2016-04-11] MEDS: Citalopram TAB* 10 MG PO SCH (09:59)
[2016-04-11] MEDS: Ascorbic Acid TAB* 500 MG PO SCH (09:59)
[2016-04-11] MEDS: Allopurinol TAB* 100 MG PO SCH (10:00)
[2016-04-11] MEDS: Amiodarone TAB* 200 MG PO SCH (10:00)
[2016-04-11] MEDS: Nystatin TOP POWDER* 15 GM BTL TOPICAL SCH ×3 (10:01→21:54)
[2016-04-11] MEDS: Vitamin THERAPEUTIC TAB PO SCH (10:01)
[2016-04-11] MEDS: Moisturizing CREAM* 120 GM JAR TOPICAL SCH ×2 (10:01→21:54)
[2016-04-11] MEDS: Potassium Chlor TAB* 10 MEQ TAB.ER PO SCH ×2 (10:05→21:51)
[2016-04-11] MEDS: [UNRECOGNIZED DRUG - OTHER] INH SCH (10:36)
[2016-04-11] MEDS: UMECLIDINIUM BROMIDE INH SCH (10:36)
[2016-04-11] MEDS: Enoxaparin(*) 30 MG/0.3 ML SYR SUBCUT SCH (12:08)
[2016-04-11] MEDS: oxyCODONE/Acetamin 5/325 MG* TAB PO PRN ×2 (15:24→21:50)
[2016-04-11] MEDS ORDERED: Furosemide IV* 10 MG/ML 2 ML VIAL (20 MG) IV ONE (15:47)
--- NOTE | 2016-04-11 15:47 | PN ---
Subjective Date of Service: 04/11/16 Interval History: Feels well today. Pain well controlled. Denies SOB, CP, N/B Appetite ok Objective Active Medications: Acetaminophen (Tylenol Tab*) 650 mg PO Q4H PRN PRN Reason: FEVER/PAIN Last Admin: 04/10/16 15:39 Dose: 650 mg Allopurinol (Zyloprim Tab*) 100 mg PO DAILY REPLACED BY [facility] Last Admin: 04/11/16 10:00 Dose: 100 mg Amiodarone HCl (Cordarone Tab*) 200 mg PO DAILY REPLACED BY [facility] Last Admin: 04/11/16 10:00 Dose: 200 mg Ascorbic Acid (Vitamin C Tab*) 500 mg PO DAILY REPLACED BY [facility] Last Admin: 04/11/16 09:59 Dose: 500 mg Atorvastatin Calcium (Lipitor*) 20 mg PO DAILY REPLACED BY [facility] Last Admin: 04/11/16 09:59 Dose: 20 mg Bisacodyl (Dulcolax Supp*) 10 mg IA DAILY PRN PRN Reason: constipation Calcium/Vitamin D (Oscal D Tab 250/125*) 1 tab PO DAILY REPLACED BY [facility] Last Admin: 04/11/16 09:57 Dose: 1 tab Carbidopa/Levodopa (Sinemet 25/100 Tab(*)) 1 tab PO BEDTIME REPLACED BY [facility] Last Admin: 04/10/16 21:28 Dose: 1 tab Carbidopa/Levodopa (Sinemet 25/100 Tab(*)) 1 tab PO DAILY@0700 REPLACED BY [facility] Last Admin: 04/11/16 06:50 Dose: 1 tab Carbidopa/Levodopa (Sinemet 25/100 Tab(*)) 1.5 tab PO DAILY@1100 REPLACED BY [facility] Last Admin: 04/11/16 12:08 Dose: 1.5 tab Carbidopa/Levodopa (Sinemet 25/100 Tab(*)) 1 tab PO DAILY@1500 REPLACED BY [facility] Last Admin: 04/11/16 15:23 Dose: 1 tab Cefuroxime Axetil (Ceftin Tab(*)) 250 mg PO Q24HR REPLACED BY [facility] Last Admin: 04/11/16 09:58 Dose: 250 mg Citalopram Hydrobromide (Celexa Tab*) 10 mg PO DAILY REPLACED BY [facility] Last Admin: 04/11/16 09:59 Dose: 10 mg Dextrose (D50w Syringe 50 Ml*) 12.5 gm IV PUSH .FOR FS < 60 - SS PRN PRN Reason: FS < 60 Diphenhydramine HCl (Benadryl Iv*) 25 mg IV Q6H PRN PRN Reason: itching Docusate Sodium (Colace Cap*) 100 mg PO BID REPLACED BY [facility] Last Admin: 04/11/16 09:58 Dose: 100 mg Enoxaparin Sodium (Lovenox(*)) 30 mg SUBCUT 1100 REPLACED BY [facility] Last Admin: 04/11/16 12:08 Dose: 30 mg Fentanyl Citrate (Fentanyl*) 50 mcg IV SLOW PU Q4H PRN PRN Reason: PAIN Last Admin: 04/07/16 07:32 Dose: 50 mcg Insulin Human Lispro (Humalog*) 0 units SUBCUT ACHS REPLACED BY [facility] PRN Reason: Protocol Last Admin: 04/11/16 12:09 Dose: 2 units Magnesium Hydroxide (Milk Of Magnesia Liq*) 30 ml PO Q6H PRN PRN Reason: constipation Last Admin: 04/08/16 17:44 Dose: 30 ml Multi-Ingredient Ointment (Hydrocerin*) 1 applic TOPICAL BID REPLACED BY [facility] Last Admin: 04/11/16 10:01 Dose: 1 applic Multivitamins (Theragran Tab*) 1 tab PO DAILY REPLACED BY [facility] Last Admin: 04/11/16 10:01 Dose: 1 tab Umeclidinium [place] [Incruse Ellipta] 1 Puff)*Nonformulary 1 dose INH DAILY REPLACED BY [facility] Nystatin (Nystatin Top Powder*) 1 applic TOPICAL TID REPLACED BY [facility] Last Admin: 04/11/16 14:41 Dose: 1 applic Omeprazole (Prilosec Cap*) 20 mg PO 0730 REPLACED BY [facility] Last Admin: 04/11/16 07:59 Dose: 20 mg Oxycodone HCl (Roxycodone Tab*) 10 mg PO Q4H PRN PRN Reason: PAIN - MODERATE Oxycodone/Acetaminophen (Percocet 5/325 Tab*) 1 tab PO Q3H PRN PRN Reason: PAIN - MODERATE Last Admin: 04/11/16 15:24 Dose: 1 tab Pharmacy Profile Note (Coumadin Daily Reminder*) 1 note FOLLOW UP 1700 REPLACED BY [facility] Last Admin: 04/10/16 18:14 Dose: 1 note Polyethylene Glycol/Electrolytes (Miralax*) 17 gm PO DAILY PRN PRN Reason: Constipation Last Admin: 04/10/16 07:55 Dose: 17 gm Potassium Chloride (Klor Con Er Tab*) 10 meq PO BID REPLACED BY [facility] Last Admin: 04/11/16 10:05 Dose: Not Given Tiotropium [place] (Spiriva Cap.Inh*) 1 cap INH DAILY REPLACED BY [facility] Last Admin: 04/11/16 08:38 Dose: 1 cap Vital Signs 04/10/16 04/10/16 04/10/16 16:00 16:05 17:39 Temperature 97.8 F Pulse Rate 62 Respiratory 28 18 Rate Blood Pressure 147/36 (mmHg) O2 Sat by Pulse 98 98 Oximetry 04/10/16 04/10/16 04/10/16 19:53 20:00 21:29 Temperature 97.6 F Pulse Rate 59 Respiratory 22 16 18 Rate Blood Pressure 124/30 (mmHg) O2 Sat by Pulse 96 Oximetry 04/10/16 04/11/16 04/11/16 23:29 00:00 02:30 Temperature Pulse Rate Respiratory 16 Rate Blood Pressure (mmHg) O2 Sat by Pulse 96 97 Oximetry 04/11/16 04/11/16 04/11/16 03:32 08:04 12:25 Temperature 97.4 F Pulse Rate 60 60 65 Respiratory 16 20 28 Rate Blood Pressure 104/78 126/25 120/36 (mmHg) O2 Sat by Pulse 97 99 98 Oximetry 04/11/16 15:24 Temperature Pulse Rate Respiratory 16 Rate Blood Pressure (mmHg) O2 Sat by Pulse Oximetry Oxygen Devices in Use Now: Nasal Cannula Appearance: sitting up in chair, interactive, NAD Eyes: No Scleral Icterus, PERRLA Ears/Nose/Mouth/Throat: - - dry MM Neck: NL Appearance and Movements; NL JVP, Trachea Midline Respiratory: Symmetrical Chest Expansion and Respiratory Effort, Clear to Auscultation Cardiovascular: RRR, - - 2/6 JAMILAH Abdominal: NL Sounds; No Tenderness; No Distention Extremities: - - diffuse anasarca Skin: - - pretibial wounds worse on left, sacral skin breakdown all covered Neurological: Alert and Oriented x 3, - - +tremor Result Diagrams: 04/11/16 05:27 04/11/16 05:27 Assess/Plan/Problems-Billing Assessment: 85 yo F h/p parkinson's dz, DM2, CAD/CABG, AVR, afib s/p ablation on amiodarone/ no AC 2/2 recurrent falls, SSS s/p PPP placement, aortic stenosis and pHTN per report with decreased RV function (not evident on TTE here), who presented from [facility] 04/06/16 after fall with left hip fracture 04/01/16 with stay in their facility complicated by anemia requiring blood transfusions, acute on chronic kidney failure, and a urinary tract infection - Patient Problems (1) Hypotension Comment: improved with fluid boluses Suspect volume mediated Bladder scanned - tello in place, bladder empty Stopped metoprolol - restart when stable TTE from [place] on 04/04 indicated mod decrease in RV fxn not evident on repeat TTE here 04/10/16 (2) Hip fracture Comment: POD 4 care per surgical team pain control adequate. Adjust as needed PT/OT trend INR carefully while on AC (3) UTI (urinary tract infection) Comment: Citrobacter resistant to cefazolin completed ceftin 7 days (04/10/16) (4) Acute on chronic kidney failure Comment: Worsening today. Suspect hypovolemia causing ATN lasix for a total of 10mg today . Trend renal fxn lisnopril held (5) Anemia Comment: s/p PRBC at [facility] Stable at [facility] Trend H/H here (6) Diabetes mellitus Comment: ISS (7) Parkinson disease Comment: stable. c/w home medications (8) Atrial fibrillation Priority: High Comment: rate and rhythm controlled on amiodarone not on therpaeutic AC 2/2 recurrent falls Holding metoprolol 04/08/16 in setting of low BPs (9) Hypertension Comment: lisinopril 10 mg held metoprolol held (10) Shoulder pain Comment: RIGHT images from [place] of left XR here with OA (11) Skin ulcer of pretibial region of left lower extremity Comment: weeping fluid no associated cellulitis but will continue abx preventatively wound care c/s appreciated (12) DVT prophylaxis Comment: lovenox and coumadin per orthopedics
[2016-04-11] MEDS: Acetaminophen TAB* 325 MG PO PRN (16:32)
[2016-04-11] MEDS ORDERED: Warfarin TAB(*) 4 MG PO ONE (19:00)
[2016-04-12 06:11] LABS: BUN/Creatinine Ratio 35.4 (8-20); Calcium 7.1 mg/dL (8.6-10.3); EGFR Non-African American 15.5 (>60); Potassium 5.5 mmol/L (3.5-5.0)
[2016-04-12] MEDS: Acetaminophen TAB* 325 MG PO PRN (07:07)
[2016-04-12] MEDS: Carbidopa/Levodop 25/100 MG TAB(*) PO SCH ×4 (07:07→21:19)
[2016-04-12] MEDS: oxyCODONE/Acetamin 5/325 MG* TAB PO PRN ×3 (07:07→18:05)
[2016-04-12] MEDS: Nystatin TOP POWDER* 15 GM BTL TOPICAL SCH ×3 (08:50→21:19)
[2016-04-12] MEDS: Moisturizing CREAM* 120 GM JAR TOPICAL SCH ×2 (08:50→21:19)
[2016-04-12] MEDS: Tiotropium CAP.INH* CAP.INH/18 MCG (USE ORDER SET !) INH SCH (09:03)
[2016-04-12] MEDS ORDERED: Sodium Polystyrene ORAL.SOL* 15 GM/60 ML BTL PO ONE (09:14)
[2016-04-12] MEDS: Calcium/Vitamin D TAB 250/125* TAB PO SCH (09:58)
[2016-04-12] MEDS: ceFUROXime TAB(*) 250 MG PO SCH (09:58)
[2016-04-12] MEDS: Citalopram TAB* 10 MG PO SCH (09:59)
[2016-04-12] MEDS: Omeprazole CAP* 20 MG PO SCH (09:59)
[2016-04-12] MEDS: Allopurinol TAB* 100 MG PO SCH (10:00)
[2016-04-12] MEDS: Ascorbic Acid TAB* 500 MG PO SCH (10:00)
[2016-04-12] MEDS: Atorvastatin* 20 MG TAB PO SCH (10:00)
[2016-04-12] MEDS: Amiodarone TAB* 200 MG PO SCH (10:00)
[2016-04-12] MEDS: Vitamin THERAPEUTIC TAB PO SCH (10:00)
[2016-04-12] MEDS: Insulin LISPRO* 1 UNITS UNIT SUBCUT SCH ×4 (10:01→21:19)
[2016-04-12] MEDS: Docusate CAP* 100 MG PO SCH ×2 (10:02→21:15)
[2016-04-12] MEDS: Potassium Chlor TAB* 10 MEQ TAB.ER PO SCH ×2 (10:02→21:15)
[2016-04-12] MEDS: [UNRECOGNIZED DRUG - OTHER] INH SCH (10:02)
[2016-04-12] MEDS: UMECLIDINIUM BROMIDE INH SCH (10:02)
[2016-04-12] MEDS: Enoxaparin(*) 30 MG/0.3 ML SYR SUBCUT SCH (11:03)
[2016-04-12 13:00] LABS: Urine Bacteria Absent (Absent); Urine Bilirubin Negative (Negative); Urine Glucose Negative (Negative); Urine Nitrite Negative (Negative)
--- NOTE | 2016-04-12 14:09 | PN ---
Progress Note - Progress Note SOAP: Subjective: Pt. reports she is in pain all over. Objective: LLE - dressing c/d/i. weeping open blisters and wounds along medial thigh and tibia. no obvious cellulitis. distally baseline nvi. Vital Signs: Temp Pulse Resp BP Pulse Ox 97.9 F 60 18 124/27 99 04/12/16 11:32 04/12/16 11:32 04/12/16 13:28 04/12/16 11:32 04/12/16 11:32 Laboratory Results - last 24 hr 04/11/16 04/12/16 04/12/16 21:44 05:26 05:26 INR (Anticoag Therapy) 1.75 H Sodium 137 Potassium 5.5 H Chloride 113 H Carbon Dioxide 22 Anion Gap 2 BUN 102 H Creatinine 2.88 H Est GFR ( Amer) 20.0 Est GFR (Non-Af Amer) 15.5 BUN/Creatinine Ratio 35.4 H Glucose 154 H POC Glucose (mg/dL) 222 H Calcium 7.1 L Urine Color Urine Appearance Urine pH Ur Specific [place] Urine Protein Urine Ketones Urine Blood Urine Nitrate Urine Bilirubin Urine Urobilinogen Ur Leukocyte Esterase Urine WBC (Auto) Urine RBC (Auto) Ur Squamous Epith Cells Urine Bacteria Urine Glucose Urine Ascorbic Acid 04/12/16 04/12/16 12:26 12:30 INR (Anticoag Therapy) Sodium Potassium Chloride Carbon Dioxide Anion Gap BUN Creatinine Est GFR ( Amer) Est GFR (Non-Af Amer) BUN/Creatinine Ratio Glucose POC Glucose (mg/dL) 201 H Calcium Urine Color Yellow Urine Appearance Cloudy Urine pH 5.0 Ur Specific [place] 1.014 Urine Protein Negative Urine Ketones Negative Urine Blood Negative Urine Nitrate Negative Urine Bilirubin Negative Urine Urobilinogen Negative Ur Leukocyte Esterase Trace H Urine WBC (Auto) Trace(0-5/hpf) Urine RBC (Auto) Absent Ur Squamous Epith Cells Present H Urine Bacteria Absent Urine Glucose Negative Urine Ascorbic Acid * H Assessment: 85 yo F pod 5 s/p ORIF L proximal femur fx Plan: ttwb lle with no active abduction frequent repositioning for decub ulcers medicine team addressing generalized edema leukocytosis continues. hip inc does not appear to be cellulitic. oobtc when possible.
[2016-04-12 14:53] LABS: Urine Random Sodium < 18 mmol/L
--- NOTE | 2016-04-12 15:46 | CONS ---
NEPHROLOGY CONSULTATION: DATE OF CONSULT / DICTATION: 04/12/16 HISTORY OF PRESENT ILLNESS: Ms. Dwyer is an 85-year-old lady, who has a history of chronic renal insufficiency secondary to diabetes mellitus, type 2. She apparently got lightheaded and dizzy in her kitchen, she fell and fractured her hip. She apparently also struck her head but there was no significant injury on this occasion. She presented to [facility] where she was found to have an elevated serum creatinine well over her baseline of 2.8. She was felt to be dehydrated. She was actively rehydrated in anticipation of a hip replacement but eventually apparently because of lack of orthopedic coverage at that time that she was ready for her surgery, she was transferred over to the [facility] for a left hip hemiarthroplasty with open reduction and internal fixation. She is feeling better at the present time. She does not have much in the way of pain. Unfortunately, she has developed some significant edema, which has been very difficult to mobilize. She has had some external compression applied to her arms and her legs but continues to have very significant edema to her hands. She chronically has edema to her legs and occasionally has had some blister formation. Her family tells me the amount of edema she has at the present time to her legs is better but that the hands and arms are much worse than usual. She does have orthopnea and she says that she cannot lie down flat and does need to sleep in a recliner. PAST MEDICAL HISTORY: She has a history of coronary artery disease and is status post coronary artery bypass grafting. She has a history of persistent atrial fibrillation. She has a history of a bioprosthetic aortic valve replacement in 2012. She has a history of sick sinus syndrome and is status post a pacemaker placement. She has an old history of hypertension and hyperlipidemia. MEDICATIONS: At the present time, her medications include: 1. P.r.n. acetaminophen versus acetaminophen with hydrocodone. 2. Albuterol inhalation on a p.r.n. basis. 3. Allopurinol 100 mg daily. 4. Amiodarone 200 mg daily. 5. Atorvastatin 20 mg daily. 6. Dulcolax suppositories p.r.n. 7. Calcium with vitamin D one daily. 8. Carbidopa and levodopa 25/100 one 3 times a day. 9. Celexa 10 mg daily. 10. Lovenox 30 mg subcutaneously daily. 11. Fentanyl 50 mcg IV p.r.n. 12. Furosemide on an as required basis. 13. Magnesium hydroxide 30 mg p.r.n. for constipation. 14. Multivitamins 1 daily. 15. Nystatin topical powder to her intertriginous folds 3 times a day. 16. Ondansetron 4 mg p.r.n. 17. MiraLAX 17 g daily. 18. Potassium chloride 10 mEq p.o. b.i.d. 19. Spiriva 1 cap inhalation daily. 20. Warfarin 3 mg daily. ALLERGIES: She has allergies to NIFEDIPINE, AMOXICILLIN, ROSIGLITAZONE, MORPHINE. SOCIAL HISTORY: The patient had been living alone but she has very attentive family. She does not use alcohol or tobacco. REVIEW OF SYSTEMS: She had a urinary tract infection when she presented to [facility]. She apparently does not have diabetic retinopathy nor diabetic neuropathy. She gets occasional episodes of dyspnea on exertion, but she has not had angina since her bypass surgery. She has a long-standing history of Parkinson's disease. PHYSICAL EXAM: She is an obese white female. Her temperature is 97.9, blood pressure 124/27 with a pulse of 60. She is normocephalic. There was no ecchymoses to her face that I noted. She is anicteric. Her extraocular muscles are intact. Her mucous membranes are moist. Her neck is thick and I could not see any neck veins. Her chest is clear. The heart revealed a regular rhythm. I thought there was a grade 2/6 systolic murmur to the left sternal border. The abdomen is soft and nontender. Bowel sounds are positive. Her extremities were wrapped with Dank bandages and I did not take them down. There was significant edema to her hands bilaterally but not much in the way of ankle edema. LABORATORY DATA: A review of her laboratory studies reveals a white count of 14.4, hemoglobin of 7.9. Sodium 137, potassium 5.5, chloride 113, total CO2 22 , BUN 102, creatinine of 2.88, glucose 154, calcium of 7.1. DISCUSSION: I think her edema may be related to decreased intravascular oncotic pressure. I would measure her albumin and prealbumin and see if her albumin would need to be supplemented in order to help mobilize some of this edema. Her potassium is a little high and I think I would stop her current supplementation of potassium. I do not think we need to do anything with her calcium until we know what her serum albumin is, but it would not be unreasonable to measure an ionized calcium as well. She is having a really terrific problem with her diet because of the Parkinson's disease, she does not want to eat anything and she cannot drink through a straw and as a result she is not eating most of her meals. She is getting some Glucerna, she is able to eat pudding, and I think her food ought to be pureed. It would be nice to get her hands into compression gauntlets, I am not sure whether this can be accomplished in the hospital or not. The other thing that is concerning is that her [id number] ratio was markedly expanded. One would wonder about the possibility of intravascular volume depletion in the face of her edema. Also, there is the possibility of catabolism, I think we should see some stool for occult blood, also of course if she is mobilizing up, any ecchymoses secondary to her fall that could also contribute to her relative azotemia. CC: Moose Valdivia; Dr. Winston Rice [place]* [id number]/[facility] #: [id number] [facility] HOSPITALClive
--- NOTE | 2016-04-12 16:18 | PN ---
Subjective Date of Service: 04/12/16 Interval History: Seen with son and grandson present Discuss events leading to our hospital stay and complications. All questions answered Pt reports feeling well. Pain 4/10. Ate more breakfast today Poor UOP Objective Active Medications: Acetaminophen (Tylenol Tab*) 650 mg PO Q4H PRN PRN Reason: FEVER/PAIN Last Admin: 04/12/16 07:07 Dose: 650 mg Allopurinol (Zyloprim Tab*) 100 mg PO DAILY [facility] Last Admin: 04/12/16 10:00 Dose: 100 mg Amiodarone HCl (Cordarone Tab*) 200 mg PO DAILY [facility] Last Admin: 04/12/16 10:00 Dose: 200 mg Ascorbic Acid (Vitamin C Tab*) 500 mg PO DAILY [facility] Last Admin: 04/12/16 10:00 Dose: 500 mg Atorvastatin Calcium (Lipitor*) 20 mg PO DAILY [facility] Last Admin: 04/12/16 10:00 Dose: 20 mg Bisacodyl (Dulcolax Supp*) 10 mg AL DAILY PRN PRN Reason: constipation Calcium/Vitamin D (Oscal D Tab 250/125*) 1 tab PO DAILY [facility] Last Admin: 04/12/16 09:58 Dose: 1 tab Carbidopa/Levodopa (Sinemet 25/100 Tab(*)) 1 tab PO BEDTIME [facility] Last Admin: 04/11/16 21:50 Dose: 1 tab Carbidopa/Levodopa (Sinemet 25/100 Tab(*)) 1 tab PO DAILY@0700 [facility] Last Admin: 04/12/16 07:07 Dose: 1 tab Carbidopa/Levodopa (Sinemet 25/100 Tab(*)) 1.5 tab PO DAILY@1100 [facility] Last Admin: 04/12/16 11:02 Dose: 1.5 tab Carbidopa/Levodopa (Sinemet 25/100 Tab(*)) 1 tab PO DAILY@1500 [facility] Last Admin: 04/12/16 15:52 Dose: 1 tab Cefuroxime Axetil (Ceftin Tab(*)) 250 mg PO Q24HR [facility] Last Admin: 04/12/16 09:58 Dose: 250 mg Citalopram Hydrobromide (Celexa Tab*) 10 mg PO DAILY [facility] Last Admin: 04/12/16 09:59 Dose: 10 mg Dextrose (D50w Syringe 50 Ml*) 12.5 gm IV PUSH .FOR FS < 60 - SS PRN PRN Reason: FS < 60 Diphenhydramine HCl (Benadryl Iv*) 25 mg IV Q6H PRN PRN Reason: itching Docusate Sodium (Colace Cap*) 100 mg PO BID [facility] Last Admin: 04/12/16 10:02 Dose: Not Given Enoxaparin Sodium (Lovenox(*)) 30 mg SUBCUT 1100 [facility] Last Admin: 04/12/16 11:03 Dose: 30 mg Fentanyl Citrate (Fentanyl*) 50 mcg IV SLOW PU Q4H PRN PRN Reason: PAIN Last Admin: 04/07/16 07:32 Dose: 50 mcg Insulin Human Lispro (Humalog*) 0 units SUBCUT ACHS [facility] PRN Reason: Protocol Last Admin: 04/12/16 13:28 Dose: 4 units Magnesium Hydroxide (Milk Of Magnesia Liq*) 30 ml PO Q6H PRN PRN Reason: constipation Last Admin: 04/08/16 17:44 Dose: 30 ml Multi-Ingredient Ointment (Hydrocerin*) 1 applic TOPICAL BID [facility] Last Admin: 04/12/16 08:50 Dose: Not Given Multivitamins (Theragran Tab*) 1 tab PO DAILY [facility] Last Admin: 04/12/16 10:00 Dose: 1 tab Umeclidinium [place] [Incruse Ellipta] 1 Puff)*Nonformulary 1 dose INH DAILY [facility] Last Admin: 04/12/16 10:02 Dose: Not Given Nystatin (Nystatin Top Powder*) 1 applic TOPICAL TID [facility] Last Admin: 04/12/16 13:45 Dose: 1 applic Omeprazole (Prilosec Cap*) 20 mg PO 0730 [facility] Last Admin: 04/12/16 09:59 Dose: 20 mg Oxycodone HCl (Roxycodone Tab*) 10 mg PO Q4H PRN PRN Reason: PAIN - MODERATE Oxycodone/Acetaminophen (Percocet 5/325 Tab*) 1 tab PO Q3H PRN PRN Reason: PAIN - MODERATE Last Admin: 04/12/16 13:28 Dose: 1 tab Pharmacy Profile Note (Coumadin Daily Reminder*) 1 note FOLLOW UP 1700 [facility] Last Admin: 04/11/16 18:57 Dose: 1 note Polyethylene Glycol/Electrolytes (Miralax*) 17 gm PO DAILY PRN PRN Reason: Constipation Last Admin: 04/10/16 07:55 Dose: 17 gm Potassium Chloride (Klor Con Er Tab*) 10 meq PO BID [facility] Last Admin: 04/12/16 10:02 Dose: Not Given Tiotropium [place] (Spiriva Cap.Inh*) 1 cap INH DAILY [facility] Last Admin: 04/12/16 09:03 Dose: 1 cap Warfarin Sodium (Coumadin Tab(*)) 3 mg PO ONCE@1700 ONE PRN Reason: Protocol Stop: 04/12/16 17:01 Vital Signs 04/11/16 04/11/16 04/11/16 17:24 20:03 20:31 Temperature 98.6 F Pulse Rate 71 Respiratory 17 20 24 Rate Blood Pressure 130/36 (mmHg) O2 Sat by Pulse 97 Oximetry 04/11/16 04/11/16 04/12/16 21:50 23:50 00:00 Temperature 98.0 F Pulse Rate 59 Respiratory 22 20 18 Rate Blood Pressure 131/36 (mmHg) O2 Sat by Pulse 97 Oximetry 04/12/16 04/12/16 04/12/16 04:08 04:13 07:07 Temperature 97.8 F Pulse Rate 59 62 Respiratory 18 20 Rate Blood Pressure 128/108 140/39 (mmHg) O2 Sat by Pulse 96 Oximetry 04/12/16 04/12/16 04/12/16 07:16 08:38 09:00 Temperature 98.0 F Pulse Rate 60 Respiratory 24 16 Rate Blood Pressure 130/37 (mmHg) O2 Sat by Pulse 97 97 Oximetry 04/12/16 04/12/16 04/12/16 09:07 11:32 13:28 Temperature 97.9 F Pulse Rate 60 Respiratory 16 16 18 Rate Blood Pressure 124/27 (mmHg) O2 Sat by Pulse 99 Oximetry 04/12/16 15:28 Temperature Pulse Rate Respiratory 16 Rate Blood Pressure (mmHg) O2 Sat by Pulse Oximetry Oxygen Devices in Use Now: Nasal Cannula Appearance: obese, sitting in chair, talkative NAD Eyes: No Scleral Icterus, PERRLA Ears/Nose/Mouth/Throat: - - dry MM Neck: NL Appearance and Movements; NL JVP, Trachea Midline Respiratory: Symmetrical Chest Expansion and Respiratory Effort, Clear to Auscultation Cardiovascular: RRR Abdominal: NL Sounds; No Tenderness; No Distention, No Hepatosplenomegaly Extremities: - - diffuse anasarca arms and legs Skin: - - pretibial right, b/l elbow wounds, blanching buttocks without skin breakdown Neurological: Alert and Oriented x 3, - - low frequency tremor in b/l arms Result Diagrams: 04/11/16 05:27 04/12/16 05:26 Microbiology and Other Data: Microbiology 04/12/16 06:15 Stool Occult Blood ([facility]) - Final Stool Assess/Plan/Problems-Billing Assessment: 85 yo F h/p parkinson's dz, DM2, CAD/CABG, AVR, afib s/p ablation on amiodarone/ no AC 2/2 recurrent falls, SSS s/p PPP placement, aortic stenosis and pHTN per report with decreased RV function (not evident on TTE here), who presented from [facility] 04/06/16 after fall with left hip fracture 04/01/16 with stay in their facility complicated by anemia requiring blood transfusions, acute on chronic kidney failure, and a urinary tract infection - Patient Problems (1) Hypotension Comment: improved with fluid boluses Suspect volume mediated Bladder scanned - tello in place, bladder empty Stopped metoprolol - restart when stable TTE from [place] on 04/04 indicated mod decrease in RV fxn not evident on repeat TTE here 04/10/16 (2) Hip fracture Comment: POD 5 care per surgical team pain control adequate. Adjust as needed PT/OT trend INR carefully while on AC (3) UTI (urinary tract infection) Comment: Citrobacter resistant to cefazolin completed ceftin 7 days (04/10/16) (4) Acute on chronic kidney failure Comment: Worsening today. Suspect hypovolemia causing ATN. Patient is intravascularly deplete and extravascularly overloaded. Hold lasix today Renal c/s Arms and legs wrapped with AILEEN wraps. May need lymphedema wraps. Unclear insurance will pay for these. Trend renal fxn again tomorrow. If no improvement with AILEEN will need to investigate how to obtain lymphedema wraps lisnopril held (5) Anemia Comment: s/p PRBC at [facility] Stable at [facility] Trend H/H here (6) Diabetes mellitus Comment: increase moderate ISS to high dose ISS 04/12/16 (7) Parkinson disease Comment: stable. c/w home medications (8) Atrial fibrillation Priority: High Comment: rate and rhythm controlled on amiodarone not on therpaeutic AC 2/2 recurrent falls Holding metoprolol 04/08/16 in setting of low BPs (9) Hypertension Comment: lisinopril 10 mg held metoprolol held (10) Shoulder pain Comment: RIGHT images from [place] of left XR here with OA (11) Skin ulcer of pretibial region of left lower extremity Comment: weeping fluid no associated cellulitis d/c antibiotics wound care c/s appreciated (12) DVT prophylaxis Comment: lovenox and coumadin per orthopedics
[2016-04-12] MEDS ORDERED: Warfarin TAB(*) 3 MG PO ONE (17:00)
[2016-04-13] MEDS: Acetaminophen TAB* 325 MG PO PRN (00:25)
[2016-04-13] MEDS: oxyCODONE/Acetamin 5/325 MG* TAB PO PRN ×4 (06:07→22:16)
[2016-04-13] MEDS: Carbidopa/Levodop 25/100 MG TAB(*) PO SCH ×4 (06:07→22:17)
[2016-04-13 07:39] LABS: Hematocrit 25 % (35-47); Hemoglobin 8.2 g/dl (12.0-16.0); Mean Corpuscular HGB Conc 33 g/dl (31-36); Mean Corpuscular Hemoglobin 31 pg (27-31); Mean Corpuscular Volume 95 fL (80-97); Mean Platelet Volume 9 um3 (7.4-10.4); Red Blood Count 2.67 10^6/ul (4.0-5.4); Red Cell Distribution Width 19 % (10.5-15); White Blood Count 11.4 10^3/ul (3.5-10.8)
[2016-04-13 07:40] LABS: Add Diff/Slide Review? Slide Review Added; Comments Flag Yes
[2016-04-13 08:17] LABS: Albumin 1.7 g/dL (3.2-5.2); BUN/Creatinine Ratio 37.2 (8-20); Calcium 6.8 mg/dL (8.6-10.3); Direct Bilirubin 0.5 mg/dL (0.03-0.18); EGFR African American 20.5 (>60); EGFR Non-African American 15.9 (>60); Globulin 2.1 g/dL (2-4); Indirect Bilirubin 0.3 mg/dL (0.3-1.0); Total Bilirubin 0.8 mg/dL (0.2-1.0); Total Protein 3.8 g/dL (6.4-8.9)
[2016-04-13] MEDS: Tiotropium CAP.INH* CAP.INH/18 MCG (USE ORDER SET !) INH SCH (08:38)
[2016-04-13] MEDS: Insulin LISPRO* 1 UNITS UNIT SUBCUT SCH ×4 (09:39→22:16)
[2016-04-13] MEDS: Enoxaparin(*) 30 MG/0.3 ML SYR SUBCUT SCH (09:39)
[2016-04-13] MEDS: Vitamin THERAPEUTIC TAB PO SCH (09:40)
[2016-04-13] MEDS: Ascorbic Acid TAB* 500 MG PO SCH (09:40)
[2016-04-13] MEDS: Allopurinol TAB* 100 MG PO SCH (09:40)
[2016-04-13] MEDS: Citalopram TAB* 10 MG PO SCH (09:40)
[2016-04-13] MEDS: Amiodarone TAB* 200 MG PO SCH (09:41)
[2016-04-13] MEDS: Omeprazole CAP* 20 MG PO SCH (09:41)
[2016-04-13] MEDS: Calcium/Vitamin D TAB 250/125* TAB PO SCH (09:41)
[2016-04-13] MEDS: Atorvastatin* 20 MG TAB PO SCH (09:41)
[2016-04-13] MEDS: Moisturizing CREAM* 120 GM JAR TOPICAL SCH (09:42)
[2016-04-13] MEDS: Nystatin TOP POWDER* 15 GM BTL TOPICAL SCH ×2 (09:42→14:02)
[2016-04-13] MEDS: [UNRECOGNIZED DRUG - OTHER] INH SCH (09:42)
[2016-04-13] MEDS: UMECLIDINIUM BROMIDE INH SCH (09:42)
[2016-04-13] MEDS: Docusate CAP* 100 MG PO SCH ×2 (09:42→21:36)
[2016-04-13] MEDS: Potassium Chlor TAB* 10 MEQ TAB.ER PO SCH ×2 (09:43→22:21)
--- NOTE | 2016-04-13 14:39 | PN ---
Subjective Date of Service: 04/13/16 Interval History: Pt feels well. no new complaints Objective Active Medications: Acetaminophen (Tylenol Tab*) 650 mg PO Q4H PRN PRN Reason: FEVER/PAIN Last Admin: 04/13/16 00:25 Dose: 650 mg Allopurinol (Zyloprim Tab*) 100 mg PO DAILY [facility] Last Admin: 04/13/16 09:40 Dose: 100 mg Amiodarone HCl (Cordarone Tab*) 200 mg PO DAILY [facility] Last Admin: 04/13/16 09:41 Dose: 200 mg Ascorbic Acid (Vitamin C Tab*) 500 mg PO DAILY [facility] Last Admin: 04/13/16 09:40 Dose: 500 mg Atorvastatin Calcium (Lipitor*) 20 mg PO DAILY [facility] Last Admin: 04/13/16 09:41 Dose: 20 mg Bisacodyl (Dulcolax Supp*) 10 mg [place] DAILY PRN PRN Reason: constipation Calcium/Vitamin D (Oscal D Tab 250/125*) 1 tab PO DAILY [facility] Last Admin: 04/13/16 09:41 Dose: 1 tab Carbidopa/Levodopa (Sinemet 25/100 Tab(*)) 1 tab PO BEDTIME [facility] Last Admin: 04/12/16 21:19 Dose: 1 tab Carbidopa/Levodopa (Sinemet 25/100 Tab(*)) 1 tab PO DAILY@0700 [facility] Last Admin: 04/13/16 06:07 Dose: 1 tab Carbidopa/Levodopa (Sinemet 25/100 Tab(*)) 1.5 tab PO DAILY@1100 [facility] Last Admin: 04/13/16 13:05 Dose: 1.5 tab Carbidopa/Levodopa (Sinemet 25/100 Tab(*)) 1 tab PO DAILY@1500 [facility] Last Admin: 04/12/16 15:52 Dose: 1 tab Citalopram Hydrobromide (Celexa Tab*) 10 mg PO DAILY [facility] Last Admin: 04/13/16 09:40 Dose: 10 mg Dextrose (D50w Syringe 50 Ml*) 12.5 gm IV PUSH .FOR FS < 60 - SS PRN PRN Reason: FS < 60 Diphenhydramine HCl (Benadryl Iv*) 25 mg IV Q6H PRN PRN Reason: itching Docusate Sodium (Colace Cap*) 100 mg PO BID [facility] Last Admin: 04/13/16 09:42 Dose: Not Given Enoxaparin Sodium (Lovenox(*)) 30 mg SUBCUT 1100 [facility] Last Admin: 04/13/16 09:39 Dose: 30 mg Insulin Human Lispro (Humalog*) 0 units SUBCUT ACHS [facility] PRN Reason: Protocol Last Admin: 04/13/16 13:05 Dose: 3 unit Magnesium Hydroxide (Milk Of Magnesia Liq*) 30 ml PO Q6H PRN PRN Reason: constipation Last Admin: 04/08/16 17:44 Dose: 30 ml Metoprolol Tartrate (Lopressor Tab*) 12.5 mg PO Q12HR [facility] Multi-Ingredient Ointment (Hydrocerin*) 1 applic TOPICAL BID [facility] Last Admin: 04/13/16 09:42 Dose: 1 applic Multivitamins (Theragran Tab*) 1 tab PO DAILY [facility] Last Admin: 04/13/16 09:40 Dose: 1 tab Umeclidinium [place] [Incruse Ellipta] 1 Puff)*Nonformulary 1 dose INH DAILY [facility] Last Admin: 04/13/16 09:42 Dose: Not Given Nystatin (Nystatin Top Powder*) 1 applic TOPICAL TID [facility] Last Admin: 04/13/16 09:42 Dose: 1 applic Omeprazole (Prilosec Cap*) 20 mg PO 0730 [facility] Last Admin: 04/13/16 09:41 Dose: 20 mg Oxycodone HCl (Roxycodone Tab*) 10 mg PO Q4H PRN PRN Reason: PAIN - MODERATE Oxycodone/Acetaminophen (Percocet 5/325 Tab*) 1 tab PO Q3H PRN PRN Reason: PAIN - MODERATE Last Admin: 04/13/16 09:40 Dose: 1 tab Pharmacy Profile Note (Coumadin Daily Reminder*) 1 note FOLLOW UP 1700 [facility] Last Admin: 04/12/16 18:08 Dose: 1 note Polyethylene Glycol/Electrolytes (Miralax*) 17 gm PO DAILY PRN PRN Reason: Constipation Last Admin: 04/10/16 07:55 Dose: 17 gm Potassium Chloride (Klor Con Er Tab*) 10 meq PO BID [facility] Last Admin: 04/13/16 09:43 Dose: Not Given Tiotropium [place] (Spiriva Cap.Inh*) 1 cap INH DAILY [facility] Last Admin: 04/13/16 08:38 Dose: 1 cap Warfarin Sodium (Coumadin Tab(*)) 4 mg PO ONCE@1700 [facility] PRN Reason: Protocol Stop: 04/13/16 17:01 Vital Signs 04/12/16 04/12/16 04/12/16 15:20 15:28 18:05 Temperature 98.8 F Pulse Rate 60 Respiratory 22 16 18 Rate Blood Pressure 189/31 (mmHg) O2 Sat by Pulse 98 Oximetry 04/12/16 04/12/16 04/12/16 20:05 20:45 22:18 Temperature 99.9 F Pulse Rate 60 Respiratory 18 18 22 Rate Blood Pressure 132/29 (mmHg) O2 Sat by Pulse 96 Oximetry 04/13/16 04/13/16 04/13/16 00:00 00:22 03:46 Temperature 97.9 F 97.5 F Pulse Rate 62 60 Respiratory 20 20 Rate Blood Pressure 141/34 136/25 (mmHg) O2 Sat by Pulse 96 96 99 Oximetry 04/13/16 04/13/16 04/13/16 06:07 07:44 08:00 Temperature 98.5 F Pulse Rate 59 Respiratory 20 22 18 Rate Blood Pressure 125/29 (mmHg) O2 Sat by Pulse 98 98 Oximetry 04/13/16 04/13/16 09:40 11:27 Temperature 97.5 F Pulse Rate 59 Respiratory 18 16 Rate Blood Pressure 162/43 (mmHg) O2 Sat by Pulse 100 Oximetry Oxygen Devices in Use Now: Nasal Cannula - at 2 L Appearance: 85 yo F in nAD, AAOx3 Eyes: No Scleral Icterus, PERRLA Ears/Nose/Mouth/Throat: NL Teeth, Lips, Gums, Mucous Membranes Moist Neck: NL Appearance and Movements; NL JVP, Trachea Midline Respiratory: Symmetrical Chest Expansion and Respiratory Effort, - - crackles at b/l bases Cardiovascular: RRR, - - 2/6 JAMILAH at RUSB Abdominal: NL Sounds; No Tenderness; No Distention, No Hepatosplenomegaly Lymphatic: No Cervical Adenopathy Extremities: No Clubbing, Cyanosis, - - anasarca in all extremities Skin: No Nodules or Sclerosis, - - left pretibial area superficial ulced stage 2 slowly improving. skin tears on left elbow and knee noted Neurological: Alert and Oriented x 3, - - generalized weakness, no focal deficit Result Diagrams: 04/13/16 07:04 04/13/16 07:04 Microbiology and Other Data: Microbiology 04/12/16 06:15 Stool Occult Blood (MODESTO) - Final Stool Assess/Plan/Problems-Billing Assessment: 85 yo F h/p parkinson's dz, DM2, CAD/CABG, AVR, afib s/p ablation on amiodarone/ no AC 2/2 recurrent falls, SSS s/p PPP placement, aortic stenosis and pHTN per report with decreased RV function (not evident on TTE here), who presented from [facility] 04/06/16 after fall with left hip fracture 04/01/16 with stay in their facility complicated by anemia requiring blood transfusions, acute on chronic kidney failure, and a urinary tract infection - Patient Problems (1) Hypotension Comment: resolved, will restart lopressor (2) Hip fracture Comment: still Melodie dependent (3) Hypertension Comment: lisinopril 10 mg held metoprolol restarted today (4) Diabetes mellitus Comment: cont high dose ISS 04/12/16, start Lantus (5) Atrial fibrillation Comment: rate and rhythm controlled on amiodarone (6) Anemia Comment: s/p PRBC at [place] Stable at [facility] Trend H/H here (7) Acute on chronic kidney failure Comment: baseline creat of 2.8 today at baseline D/w Dr. Ortiz. Plan to improve PO protein intake with Glucerna and nutritional f/u Generalized edema not far from baseline (8) Parkinson disease Comment: stable. c/w home medications (9) UTI (urinary tract infection) Comment: Citrobacter resistant to cefazolin completed ceftin 7 days (04/10/16) (10) Skin ulcer of pretibial region of left lower extremity Comment: wound care c/s appreciated (11) Shoulder pain Comment: left XR here with OA, exacerbated by fall (12) DVT prophylaxis Comment: lovenox and coumadin per orthopedics
--- NOTE | 2016-04-13 15:55 | PN ---
Progress Note - Progress Note SOAP: Subjective: Pt. reports she "hurts everywhere". Objective: LLE - dressing intact, thigh with weeping blisters, tibial wounds dressed. nvi- baseline. Vital Signs: Temp Pulse Resp BP Pulse Ox 97.6 F 59 16 128/91 98 04/13/16 15:43 04/13/16 15:43 04/13/16 15:43 04/13/16 15:43 04/13/16 15:43 Laboratory Results - last 24 hr 04/12/16 04/12/16 04/13/16 16:45 20:46 07:04 WBC 11.4 H RBC 2.67 L Hgb 8.2 L Hct 25 L MCV 95 MCH 31 MCHC 33 RDW 19 H Plt Count 253 MPV 9 Neut % (Auto) 78.5 Lymph % (Auto) 12.0 L [place] % (Auto) 7.0 Eos % (Auto) 2.1 Baso % (Auto) 0.4 Absolute Neuts (auto) 9.0 H Absolute Lymphs (auto) 1.4 Absolute Monos (auto) 0.8 Absolute Eos (auto) 0.2 Absolute Basos (auto) 0 Absolute Nucleated RBC 0.01 Nucleated RBC % 0 Sodium Potassium Chloride Carbon Dioxide Anion Gap BUN Creatinine Est GFR ( Amer) Est GFR (Non-Af Amer) BUN/Creatinine Ratio Glucose POC Glucose (mg/dL) 213 H 219 H Calcium Total Bilirubin Direct Bilirubin Indirect Bilirubin AST ALT Alkaline Phosphatase Total Protein Albumin Globulin Albumin/Globulin Ratio Prealbumin 04/13/16 04/13/16 04/13/16 07:04 08:17 12:14 WBC RBC Hgb Hct MCV MCH MCHC RDW Plt Count MPV Neut % (Auto) Lymph % (Auto) [place] % (Auto) Eos % (Auto) Baso % (Auto) Absolute Neuts (auto) Absolute Lymphs (auto) Absolute Monos (auto) Absolute Eos (auto) Absolute Basos (auto) Absolute Nucleated RBC Nucleated RBC % Sodium 136 Potassium 5.0 Chloride 110 Carbon Dioxide 22 Anion Gap 4 BUN 105 H Creatinine 2.82 H Est GFR ( Amer) 20.5 Est GFR (Non-Af Amer) 15.9 BUN/Creatinine Ratio 37.2 H Glucose 121 H POC Glucose (mg/dL) 134 H 185 H Calcium 6.8 L Total Bilirubin 0.80 Direct Bilirubin 0.50 H Indirect Bilirubin 0.3 AST 151 H ALT 12 Alkaline Phosphatase 116 H Total Protein 3.8 L Albumin 1.7 L Globulin 2.1 Albumin/Globulin Ratio 0.8 L Prealbumin 6 L Assessment: 85 yo F pod 6 s/p orif l proximal femur fx Plan: [Generalized edema slightly improved. High risk infection LLE with open tibial wounds and thigh blisters. Chronic kidney failure and parkinsons- managed by medicine. TTWB LLE with no active abduction. Coumadin with lovenox bridge
[2016-04-13] MEDS ORDERED: Warfarin TAB(*) 4 MG PO ONE (17:00)
[2016-04-13] MEDS: Insulin GLARGINE(*) 1 UNITS UNIT SUBCUT SCH (17:12)
[2016-04-13] MEDS: Metoprolol Tartrate TAB* 25 MG PO SCH (22:15)
[2016-04-14] MEDS: Nystatin TOP POWDER* 15 GM BTL TOPICAL SCH ×4 (01:12→21:06)
[2016-04-14] MEDS: Moisturizing CREAM* 120 GM JAR TOPICAL SCH ×3 (01:12→21:07)
[2016-04-14] MEDS: Carbidopa/Levodop 25/100 MG TAB(*) PO SCH ×4 (07:36→20:57)
[2016-04-14] MEDS: Omeprazole CAP* 20 MG PO SCH (07:36)
[2016-04-14] MEDS: Tiotropium CAP.INH* CAP.INH/18 MCG (USE ORDER SET !) INH SCH (08:30)
[2016-04-14] MEDS ORDERED: Ondansetron ODT TAB* 4 MG PO ONE (09:15)
[2016-04-14 09:23] LABS: BUN/Creatinine Ratio 39.8 (8-20); Calcium 7.2 mg/dL (8.6-10.3); EGFR African American 23.1 (>60); Potassium 5.1 mmol/L (3.5-5.0)
[2016-04-14] MEDS: Docusate CAP* 100 MG PO SCH ×2 (09:27→20:58)
[2016-04-14] MEDS: Ascorbic Acid TAB* 500 MG PO SCH (09:27)
[2016-04-14] MEDS: Vitamin THERAPEUTIC TAB PO SCH (09:28)
[2016-04-14] MEDS: Metoprolol Tartrate TAB* 25 MG PO SCH ×2 (09:28→20:58)
[2016-04-14] MEDS: Allopurinol TAB* 100 MG PO SCH (09:29)
[2016-04-14] MEDS: Atorvastatin* 20 MG TAB PO SCH (09:29)
[2016-04-14] MEDS: Amiodarone TAB* 200 MG PO SCH (09:29)
[2016-04-14] MEDS: Citalopram TAB* 10 MG PO SCH (09:29)
--- NOTE | 2016-04-14 09:29 | PN ---
Progress Note - Progress Note SOAP: Subjective: Pt. reports her left hip is feeling better. Objective: LLE - inc c/d/i, erythema unchanged. + df/pf. edema mildly improved, tibial dressings intact. Vital Signs: Temp Pulse Resp BP Pulse Ox 98.0 F 61 22 115/44 99 04/14/16 08:11 04/14/16 08:11 04/14/16 08:11 04/14/16 08:11 04/14/16 08:58 Laboratory Results - last 24 hr 04/13/16 04/13/16 04/13/16 07:04 12:14 17:00 INR (Anticoag Therapy) Sodium Potassium Chloride Carbon Dioxide Anion Gap BUN Creatinine Est GFR ( Amer) Est GFR (Non-Af Amer) BUN/Creatinine Ratio Glucose POC Glucose (mg/dL) 185 H 214 H Calcium Prealbumin 6 L 04/13/16 04/14/16 04/14/16 21:44 07:38 08:30 INR (Anticoag Therapy) 2.18 H Sodium Potassium Chloride Carbon Dioxide Anion Gap BUN Creatinine Est GFR ( Amer) Est GFR (Non-Af Amer) BUN/Creatinine Ratio Glucose POC Glucose (mg/dL) 206 H 167 H Calcium Prealbumin 04/14/16 08:30 INR (Anticoag Therapy) Sodium 137 Potassium 5.1 H Chloride 111 Carbon Dioxide 23 Anion Gap 3 BUN 101 H Creatinine 2.54 H Est GFR ( Amer) 23.1 Est GFR (Non-Af Amer) 18.0 BUN/Creatinine Ratio 39.8 H Glucose 115 H POC Glucose (mg/dL) Calcium 7.2 L Prealbumin Assessment: 85 yo F pod 7 s/p ORIF left proximal femur Plan: ttwb lle - no active abduction oobtc when possible frequent turns, skin checks. d/c lovenox, coumadin therapeutic
[2016-04-14] MEDS: Calcium/Vitamin D TAB 250/125* TAB PO SCH (09:30)
[2016-04-14] MEDS: oxyCODONE/Acetamin 5/325 MG* TAB PO PRN ×2 (09:30→20:59)
[2016-04-14] MEDS: Insulin LISPRO* 1 UNITS UNIT SUBCUT SCH ×4 (09:31→21:12)
[2016-04-14] MEDS: UMECLIDINIUM BROMIDE INH SCH (09:32)
[2016-04-14] MEDS: [UNRECOGNIZED DRUG - OTHER] INH SCH (09:32)
[2016-04-14] MEDS: Potassium Chlor TAB* 10 MEQ TAB.ER PO SCH (11:01)
--- NOTE | 2016-04-14 14:59 | PN ---
Subjective Date of Service: 04/14/16 Interval History: Pt was up to chair today and got nauseated due to that. Requesting to go back to bed. Objective Active Medications: Acetaminophen (Tylenol Tab*) 650 mg PO Q4H PRN PRN Reason: FEVER/PAIN Last Admin: 04/13/16 00:25 Dose: 650 mg Allopurinol (Zyloprim Tab*) 100 mg PO DAILY [facility] Last Admin: 04/14/16 09:29 Dose: 100 mg Amiodarone HCl (Cordarone Tab*) 200 mg PO DAILY [facility] Last Admin: 04/14/16 09:29 Dose: 200 mg Ascorbic Acid (Vitamin C Tab*) 500 mg PO DAILY [facility] Last Admin: 04/14/16 09:27 Dose: 500 mg Atorvastatin Calcium (Lipitor*) 20 mg PO DAILY [facility] Last Admin: 04/14/16 09:29 Dose: 20 mg Bisacodyl (Dulcolax Supp*) 10 mg MS DAILY PRN PRN Reason: constipation Calcium/Vitamin D (Oscal D Tab 250/125*) 1 tab PO DAILY [facility] Last Admin: 04/14/16 09:30 Dose: 1 tab Carbidopa/Levodopa (Sinemet 25/100 Tab(*)) 1 tab PO BEDTIME [facility] Last Admin: 04/13/16 22:17 Dose: 1 tab Carbidopa/Levodopa (Sinemet 25/100 Tab(*)) 1 tab PO DAILY@0700 [facility] Last Admin: 04/14/16 07:36 Dose: 1 tab Carbidopa/Levodopa (Sinemet 25/100 Tab(*)) 1.5 tab PO DAILY@1100 [facility] Last Admin: 04/14/16 12:47 Dose: 1.5 tab Carbidopa/Levodopa (Sinemet 25/100 Tab(*)) 1 tab PO DAILY@1500 [facility] Last Admin: 04/13/16 17:11 Dose: 1 tab Citalopram Hydrobromide (Celexa Tab*) 10 mg PO DAILY [facility] Last Admin: 04/14/16 09:29 Dose: 10 mg Dextrose (D50w Syringe 50 Ml*) 12.5 gm IV PUSH .FOR FS < 60 - SS PRN PRN Reason: FS < 60 Diphenhydramine HCl (Benadryl Iv*) 25 mg IV Q6H PRN PRN Reason: itching Docusate Sodium (Colace Cap*) 100 mg PO BID [facility] Last Admin: 04/14/16 09:27 Dose: 100 mg Furosemide (Lasix Iv*) 20 mg IV ONCE ONE Stop: 04/14/16 14:54 Insulin Glargine (Lantus(*)) 5 units SUBCUT Q24H [facility] Last Admin: 04/13/16 17:12 Dose: 5 unit Insulin Human Lispro (Humalog*) 0 units SUBCUT ACHS [facility] PRN Reason: Protocol Last Admin: 04/14/16 13:55 Dose: 3 unit Magnesium Hydroxide (Milk Of Magnesia Liq*) 30 ml PO Q6H PRN PRN Reason: constipation Last Admin: 04/08/16 17:44 Dose: 30 ml Metoprolol Tartrate (Lopressor Tab*) 12.5 mg PO Q12HR [facility] Last Admin: 04/14/16 09:28 Dose: 12.5 mg Multi-Ingredient Ointment (Hydrocerin*) 1 applic TOPICAL BID [facility] Last Admin: 04/14/16 12:00 Dose: Not Given Multivitamins (Theragran Tab*) 1 tab PO DAILY [facility] Last Admin: 04/14/16 09:28 Dose: 1 tab Umeclidinium [place] [Incruse Ellipta] 1 Puff)*Nonformulary 1 dose INH DAILY [facility] Last Admin: 04/14/16 09:32 Dose: Not Given Nystatin (Nystatin Top Powder*) 1 applic TOPICAL TID [facility] Last Admin: 04/14/16 13:45 Dose: Not Given Omeprazole (Prilosec Cap*) 20 mg PO 0730 [facility] Last Admin: 04/14/16 07:36 Dose: 20 mg Oxycodone/Acetaminophen (Percocet 5/325 Tab*) 1 tab PO Q3H PRN PRN Reason: PAIN - MODERATE Pharmacy Profile Note (Coumadin Daily Reminder*) 1 note FOLLOW UP 1700 [facility] Last Admin: 04/13/16 17:11 Dose: 1 note Polyethylene Glycol/Electrolytes (Miralax*) 17 gm PO DAILY PRN PRN Reason: Constipation Last Admin: 04/10/16 07:55 Dose: 17 gm Tiotropium [place] (Spiriva Cap.Inh*) 1 cap INH DAILY [facility] Last Admin: 04/14/16 08:30 Dose: 1 cap Warfarin Sodium (Coumadin Tab(*)) 2 mg PO DAILY@1700 [facility] PRN Reason: Protocol Vital Signs 04/13/16 04/13/16 04/13/16 15:43 17:10 19:10 Temperature 97.6 F Pulse Rate 59 Respiratory 16 20 16 Rate Blood Pressure 128/91 (mmHg) O2 Sat by Pulse 98 Oximetry 04/13/16 04/13/16 04/13/16 20:06 21:45 22:09 Temperature 97.4 F 98.7 F Pulse Rate 76 60 Respiratory 16 16 16 Rate Blood Pressure 128/43 125/34 (mmHg) O2 Sat by Pulse 100 100 Oximetry 04/13/16 04/13/16 04/14/16 22:16 23:17 00:16 Temperature 97.7 F Pulse Rate 69 Respiratory 16 18 16 Rate Blood Pressure 131/36 (mmHg) O2 Sat by Pulse 100 Oximetry 04/14/16 04/14/16 04/14/16 03:28 04:08 07:46 Temperature 98.1 F Pulse Rate 74 Respiratory 18 18 Rate Blood Pressure 106/30 (mmHg) O2 Sat by Pulse 99 100 99 Oximetry 04/14/16 04/14/16 04/14/16 08:11 08:58 09:30 Temperature 98.0 F Pulse Rate 61 Respiratory 22 18 Rate Blood Pressure 115/44 (mmHg) O2 Sat by Pulse 98 99 Oximetry 04/14/16 04/14/16 11:30 12:18 Temperature 97.5 F Pulse Rate 59 Respiratory 18 18 Rate Blood Pressure 139/36 (mmHg) O2 Sat by Pulse 99 Oximetry Oxygen Devices in Use Now: Nasal Cannula - at 2 L Appearance: 85 yo F in nAD, AAOx3 Eyes: No Scleral Icterus, PERRLA Ears/Nose/Mouth/Throat: NL Teeth, Lips, Gums, Mucous Membranes Moist Neck: NL Appearance and Movements; NL JVP, Trachea Midline Respiratory: Symmetrical Chest Expansion and Respiratory Effort, - - crackles at b/l bases Cardiovascular: RRR, - - 2/6 JAMILAH Abdominal: NL Sounds; No Tenderness; No Distention, No Hepatosplenomegaly Lymphatic: No Cervical Adenopathy Extremities: No Clubbing, Cyanosis, - - generalized anasarca. compression bandages applied to all extremities Skin: No Nodules or Sclerosis, - - post op incision not examined today Neurological: Alert and Oriented x 3, NL Muscle Strength and Tone Result Diagrams: 04/13/16 07:04 04/14/16 08:30 Microbiology and Other Data: Microbiology 04/12/16 06:15 Stool Occult Blood (MODESTO) - Final Stool Assess/Plan/Problems-Billing Assessment: 85 yo F h/p parkinson's dz, DM2, CAD/CABG, AVR, afib s/p ablation on amiodarone/ no AC 2/2 recurrent falls, SSS s/p PPP placement, aortic stenosis and pHTN per report with decreased RV function (not evident on TTE here), who presented from [facility] 04/06/16 after fall with left hip fracture 04/01/16 with stay in their facility complicated by anemia requiring blood transfusions, acute on chronic kidney failure, and a urinary tract infection - Patient Problems (1) Hypotension Comment: resolved, cont lopressor (2) Hip fracture Comment: still Melodie dependent (3) Hypertension Comment: lisinopril 10 mg held metoprolol cont (4) Diabetes mellitus Comment: cont high dose ISS 04/12/16, cont basal Lantus (5) Atrial fibrillation Comment: rate and rhythm controlled on amiodarone (6) Anemia Comment: s/p PRBC at [place] Stable at [facility] Trend H/H here (7) Acute on chronic kidney failure Comment: baseline creat of 2.8 today at baseline D/w Dr. Ortiz. Plan to improve PO protein intake with Glucerna and nutritional f/u Generalized edema not far from baseline, but will try to tx with one dose of Lasix IV 20 mg today (8) Parkinson disease Comment: stable. c/w home medications (9) UTI (urinary tract infection) Comment: Citrobacter resistant to cefazolin completed ceftin 7 days (04/10/16) (10) Skin ulcer of pretibial region of left lower extremity Comment: wound care c/s appreciated (11) Shoulder pain Comment: left XR here with OA, exacerbated by fall (12) DVT prophylaxis Comment: coumadin- INR therapeutic
[2016-04-14] MEDS ORDERED: Furosemide IV* 10 MG/ML 2 ML VIAL (20 MG) IV ONE (15:00)
[2016-04-14] MEDS: Insulin GLARGINE(*) 1 UNITS UNIT SUBCUT SCH (15:57)
[2016-04-14] MEDS: PROCHLORPERAZINE INJ 5 MG/ML 2 ML VIAL IV PRN (16:03)
[2016-04-14] MEDS: Warfarin TAB(*) 2 MG PO SCH (18:30)
[2016-04-15] MEDS: Nystatin TOP POWDER* 15 GM BTL TOPICAL SCH ×4 (00:12→21:30)
[2016-04-15] MEDS: Tiotropium CAP.INH* CAP.INH/18 MCG (USE ORDER SET !) INH SCH (08:25)
[2016-04-15] MEDS: Moisturizing CREAM* 120 GM JAR TOPICAL SCH ×2 (08:32→21:29)
[2016-04-15] MEDS: Calcium/Vitamin D TAB 250/125* TAB PO SCH (08:33)
[2016-04-15] MEDS: Carbidopa/Levodop 25/100 MG TAB(*) PO SCH ×4 (08:33→21:04)
[2016-04-15] MEDS: Amiodarone TAB* 200 MG PO SCH (08:34)
[2016-04-15] MEDS: Ascorbic Acid TAB* 500 MG PO SCH (08:34)
[2016-04-15] MEDS: Allopurinol TAB* 100 MG PO SCH (08:34)
[2016-04-15] MEDS: Metoprolol Tartrate TAB* 25 MG PO SCH ×2 (08:34→21:11)
[2016-04-15] MEDS: Docusate CAP* 100 MG PO SCH ×2 (08:34→21:03)
[2016-04-15] MEDS: Citalopram TAB* 10 MG PO SCH (08:34)
[2016-04-15] MEDS: Atorvastatin* 20 MG TAB PO SCH (08:34)
[2016-04-15] MEDS: Omeprazole CAP* 20 MG PO SCH (08:34)
[2016-04-15] MEDS: Insulin LISPRO* 1 UNITS UNIT SUBCUT SCH ×4 (08:35→21:08)
[2016-04-15] MEDS: UMECLIDINIUM BROMIDE INH SCH (08:36)
[2016-04-15] MEDS: [UNRECOGNIZED DRUG - OTHER] INH SCH (08:36)
[2016-04-15] MEDS: Vitamin THERAPEUTIC TAB PO SCH (08:38)
[2016-04-15] MEDS: Insulin GLARGINE(*) 1 UNITS UNIT SUBCUT SCH (15:52)
[2016-04-15] MEDS: Warfarin TAB(*) 2 MG PO SCH (17:18)
--- NOTE | 2016-04-15 17:51 | PN ---
Subjective Date of Service: 04/15/16 Interval History: Pt feels "fine". No new complaints. Lab was unable to get blood work today Objective Active Medications: Acetaminophen (Tylenol Tab*) 650 mg PO Q4H PRN PRN Reason: FEVER/PAIN Last Admin: 04/13/16 00:25 Dose: 650 mg Allopurinol (Zyloprim Tab*) 100 mg PO DAILY [facility] Last Admin: 04/15/16 08:34 Dose: 100 mg Amiodarone HCl (Cordarone Tab*) 200 mg PO DAILY [facility] Last Admin: 04/15/16 08:34 Dose: 200 mg Ascorbic Acid (Vitamin C Tab*) 500 mg PO DAILY [facility] Last Admin: 04/15/16 08:34 Dose: 500 mg Atorvastatin Calcium (Lipitor*) 20 mg PO DAILY [facility] Last Admin: 04/15/16 08:34 Dose: 20 mg Bisacodyl (Dulcolax Supp*) 10 mg IN DAILY PRN PRN Reason: constipation Calcium/Vitamin D (Oscal D Tab 250/125*) 1 tab PO DAILY [facility] Last Admin: 04/15/16 08:33 Dose: 1 tab Carbidopa/Levodopa (Sinemet 25/100 Tab(*)) 1 tab PO BEDTIME [facility] Last Admin: 04/14/16 20:57 Dose: 1 tab Carbidopa/Levodopa (Sinemet 25/100 Tab(*)) 1 tab PO DAILY@0700 [facility] Last Admin: 04/15/16 08:33 Dose: 1 tab Carbidopa/Levodopa (Sinemet 25/100 Tab(*)) 1.5 tab PO DAILY@1100 [facility] Last Admin: 04/15/16 11:56 Dose: 1.5 tab Carbidopa/Levodopa (Sinemet 25/100 Tab(*)) 1 tab PO DAILY@1500 [facility] Last Admin: 04/15/16 15:53 Dose: 1 tab Citalopram Hydrobromide (Celexa Tab*) 10 mg PO DAILY [facility] Last Admin: 04/15/16 08:34 Dose: 10 mg Dextrose (D50w Syringe 50 Ml*) 12.5 gm IV PUSH .FOR FS < 60 - SS PRN PRN Reason: FS < 60 Diphenhydramine HCl (Benadryl Iv*) 25 mg IV Q6H PRN PRN Reason: itching Docusate Sodium (Colace Cap*) 100 mg PO BID [facility] Last Admin: 04/15/16 08:34 Dose: 100 mg Insulin Glargine (Lantus(*)) 5 units SUBCUT Q24H [facility] Last Admin: 04/15/16 15:52 Dose: 5 unit Insulin Human Lispro (Humalog*) 0 units SUBCUT ACHS [facility] PRN Reason: Protocol Last Admin: 04/15/16 17:26 Dose: 6 unit Magnesium Hydroxide (Milk Of Magnesia Liq*) 30 ml PO Q6H PRN PRN Reason: constipation Last Admin: 04/08/16 17:44 Dose: 30 ml Metoprolol Tartrate (Lopressor Tab*) 12.5 mg PO Q12HR [facility] Last Admin: 04/15/16 08:34 Dose: 12.5 mg Multi-Ingredient Ointment (Hydrocerin*) 1 applic TOPICAL BID [facility] Last Admin: 04/15/16 08:32 Dose: Not Given Multivitamins (Theragran Tab*) 1 tab PO DAILY [facility] Last Admin: 04/15/16 08:38 Dose: 1 tab Umeclidinium [place] [Incruse Ellipta] 1 Puff)*Nonformulary 1 dose INH DAILY [facility] Last Admin: 04/15/16 08:36 Dose: Not Given Nystatin (Nystatin Top Powder*) 1 applic TOPICAL TID [facility] Last Admin: 04/15/16 15:33 Dose: Not Given Omeprazole (Prilosec Cap*) 20 mg PO 0730 [facility] Last Admin: 04/15/16 08:34 Dose: 20 mg Oxycodone/Acetaminophen (Percocet 5/325 Tab*) 1 tab PO Q3H PRN PRN Reason: PAIN - MODERATE Last Admin: 04/14/16 20:59 Dose: 1 tab Pharmacy Profile Note (Coumadin Daily Reminder*) 1 note FOLLOW UP 1700 [facility] Last Admin: 04/15/16 17:18 Dose: 1 note Polyethylene Glycol/Electrolytes (Miralax*) 17 gm PO DAILY PRN PRN Reason: Constipation Last Admin: 04/10/16 07:55 Dose: 17 gm Prochlorperazine Edisylate (Compazine Inj*) 5 mg IV Q6H PRN PRN Reason: NAUSEA/VOMITING Last Admin: 04/14/16 16:03 Dose: 5 mg Tiotropium [place] (Spiriva Cap.Inh*) 1 cap INH DAILY [facility] Last Admin: 04/15/16 08:25 Dose: 1 cap Warfarin Sodium (Coumadin Tab(*)) 2 mg PO DAILY@1700 [facility] PRN Reason: Protocol Last Admin: 04/15/16 17:18 Dose: 2 mg Vital Signs 04/14/16 04/14/16 04/14/16 20:00 20:20 20:51 Temperature 97.5 F Pulse Rate 63 Respiratory 17 20 Rate Blood Pressure 132/45 (mmHg) O2 Sat by Pulse 98 98 Oximetry 04/14/16 04/14/16 04/14/16 20:59 22:59 23:34 Temperature 97.6 F Pulse Rate 62 Respiratory 17 17 16 Rate Blood Pressure 107/25 (mmHg) O2 Sat by Pulse 99 Oximetry 04/15/16 04/15/16 04/15/16 02:33 04:17 07:51 Temperature 97.1 F 97.6 F Pulse Rate 59 58 60 Respiratory 18 20 Rate Blood Pressure 126/98 106/50 134/52 (mmHg) O2 Sat by Pulse 99 100 95 Oximetry 04/15/16 04/15/16 04/15/16 08:00 08:29 12:45 Temperature Pulse Rate 62 61 Respiratory 18 20 Rate Blood Pressure 111/30 (mmHg) O2 Sat by Pulse 92 92 98 Oximetry 04/15/16 04/15/16 04/15/16 15:50 16:00 16:06 Temperature 98.1 F Pulse Rate 60 70 Respiratory 22 Rate Blood Pressure 138/41 (mmHg) O2 Sat by Pulse 98 98 Oximetry Oxygen Devices in Use Now: Nasal Cannula - at 2 L Appearance: 85 yo F in nAd, aAOx3 Eyes: No Scleral Icterus, PERRLA Ears/Nose/Mouth/Throat: NL Teeth, Lips, Gums, Mucous Membranes Moist Neck: NL Appearance and Movements; NL JVP, Trachea Midline Respiratory: Symmetrical Chest Expansion and Respiratory Effort, - - crackles at b/l bases Cardiovascular: NL Sounds; No Murmurs; No JVD, RRR Abdominal: NL Sounds; No Tenderness; No Distention Lymphatic: No Cervical Adenopathy Extremities: No Clubbing, Cyanosis, - - generalized ansarca Skin: - - left hip incision stapled, no dehiscence Neurological: Alert and Oriented x 3, NL Muscle Strength and Tone Result Diagrams: 04/13/16 07:04 04/14/16 08:30 Microbiology and Other Data: Microbiology 04/12/16 06:15 Stool Occult Blood (MODESTO) - Final Stool Assess/Plan/Problems-Billing Assessment: 85 yo F h/p parkinson's dz, DM2, CAD/CABG, AVR, afib s/p ablation on amiodarone/ no AC 2/2 recurrent falls, SSS s/p PPP placement, aortic stenosis and pHTN per report with decreased RV function (not evident on TTE here), who presented from [facility] 04/06/16 after fall with left hip fracture 04/01/16 with stay in their facility complicated by anemia requiring blood transfusions, acute on chronic kidney failure, and a urinary tract infection - Patient Problems (1) Hypotension Comment: resolved, cont lopressor (2) Hip fracture Comment: still Melodie dependent (3) Hypertension Comment: lisinopril 10 mg held metoprolol cont (4) Diabetes mellitus Comment: cont high dose ISS 04/12/16, cont basal Lantus (5) Atrial fibrillation Comment: rate and rhythm controlled on amiodarone (6) Anemia Comment: s/p PRBC at [place] Stable [place] [facility] [place] H/H here (7) Acute on chronic kidney failure Comment: baseline creat of 2.8 today at baseline cont to improve PO protein intake with Glucerna and nutritional f/u (8) Parkinson disease Comment: stable. c/w home medications (9) UTI (urinary tract infection) Comment: Citrobacter resistant to cefazolin completed ceftin 7 days (04/10/16) (10) Skin ulcer of pretibial region of left lower extremity Comment: wound care c/s appreciated (11) Shoulder pain Comment: left XR here with OA, exacerbated by fall (12) DVT prophylaxis Comment: coumadin- INR therapeutic
[2016-04-15] MEDS: PROCHLORPERAZINE INJ 5 MG/ML 2 ML VIAL IV PRN (21:51)
[2016-04-15] MEDS: oxyCODONE/Acetamin 5/325 MG* TAB PO PRN (23:54)
[2016-04-16] MEDS: oxyCODONE/Acetamin 5/325 MG* TAB PO PRN ×2 (05:51→10:22)
[2016-04-16 06:21] LABS: Hematocrit 19 % (35-47); Mean Corpuscular HGB Conc 32 g/dl (31-36); Mean Corpuscular Hemoglobin 31 pg (27-31); Mean Corpuscular Volume 95 fL (80-97); Mean Platelet Volume 9 um3 (7.4-10.4); Red Blood Count 2.03 10^6/ul (4.0-5.4); Red Cell Distribution Width 19 % (10.5-15); White Blood Count 6.2 10^3/ul (3.5-10.8)
[2016-04-16 06:24] LABS: Comments Flag Yes
[2016-04-16 06:26] LABS: Anion Gap 1 mmol/L (2-11); BUN/Creatinine Ratio 42.9 (8-20); Blood Urea Nitrogen 103 mg/dL (6-24); CO2 Carbon Dioxide 24 mmol/L (22-32); Calcium 6.8 mg/dL (8.6-10.3); Chloride 114 mmol/L (101-111); EGFR African American 24.7 (>60); EGFR Non-African American 19.2 (>60); Glucose 89 mg/dL (70-100); Hemoglobin 6.2 g/dl (12.0-16.0); Sodium 139 mmol/L (133-145)
[2016-04-16] MEDS: Metoprolol Tartrate TAB* 25 MG PO SCH ×2 (07:44→21:20)
[2016-04-16] MEDS: Omeprazole CAP* 20 MG PO SCH (07:44)
[2016-04-16] MEDS: Ascorbic Acid TAB* 500 MG PO SCH (07:45)
[2016-04-16] MEDS: Carbidopa/Levodop 25/100 MG TAB(*) PO SCH ×4 (07:45→21:20)
[2016-04-16] MEDS: Citalopram TAB* 10 MG PO SCH (07:46)
[2016-04-16] MEDS: Vitamin THERAPEUTIC TAB PO SCH (07:46)
[2016-04-16] MEDS: Docusate CAP* 100 MG PO SCH ×2 (07:47→21:20)
[2016-04-16] MEDS: Calcium/Vitamin D TAB 250/125* TAB PO SCH (07:47)
[2016-04-16] MEDS: Amiodarone TAB* 200 MG PO SCH (07:47)
[2016-04-16] MEDS: Allopurinol TAB* 100 MG PO SCH (07:47)
[2016-04-16] MEDS: Tiotropium CAP.INH* CAP.INH/18 MCG (USE ORDER SET !) INH SCH (07:48)
[2016-04-16] MEDS: UMECLIDINIUM BROMIDE INH SCH (07:50)
[2016-04-16] MEDS: [UNRECOGNIZED DRUG - OTHER] INH SCH (07:50)
[2016-04-16 09:43] LABS: Hematocrit 24 % (35-47); Hemoglobin 7.6 g/dl (12.0-16.0)
[2016-04-16] MEDS: Insulin LISPRO* 1 UNITS UNIT SUBCUT SCH ×4 (10:21→21:22)
[2016-04-16] MEDS: Nystatin TOP POWDER* 15 GM BTL TOPICAL SCH ×3 (12:13→21:48)
[2016-04-16 12:31] LABS: Iron 22 ug/dL (50-212); Total Iron Binding Capacity 105 mcg/dL (250-450); Transferrin < 75 mg/dL (203-362)
--- NOTE | 2016-04-16 12:48 | CONSULT ---
Palliative / Hospice Consult Ordering Provider: Vee Bill Referal Reason: malnutrition, anasarca, discussion of goals of care - Subjective Code Status: DNR Advance Directives Location: In Chart MOLST Part A Completed: Yes - DNR MOLST Part E Completed:: Yes - DNI HCP Completed: Yes - Son Bradford Dwyer - History or Present Illness History or Present Illness: This 85 year old woman with morbid obesity , Parkinson's, CAD s/p CABG, SSS s/p pacemaker placement, PAF s/p ablation on no anticoagulation due to falling, HTN , HLD, chronic LE edema with cellulitis and chronic open wounds, dizziness with recurrent falls, CKD stage 3, and DM2, was transferred here [facility] with a left intertrochanteric hip fracture and underwent left hip hemiarthroplasty. She has had a RIGHT TKR in the past (1974) and has had LEFT knee sepsis in 2009. She has aortic stenosis with aortic bioprosthetic valve replacement in 2012. Her echo here pre-op showed EF 50-55% and no significant valve dysfunction. She initially presented to [facility] with ARF due to dehydration and dropping H/H requiring transfusion, but this has been corrected back to her baseline creatinine of 2.8 and H/H 8.2/25, although in the last two days her H/ H dropped to 6.2/18 without overt signs of blood loss. The patient has developed anasarca and her nutritional status is poor, with prealbumin of 6 and albumin of 1.7. Her weight has not been monitored since 04/07 when she was 228.5 lbs. but today she is 254 lb. Her fluid balance has been precarious with imminent renal compromise vs. fluid overload. The patient was living independently and using a rolling walker prior to her hip fracture.She had aids 1-2 hours a day M-, and was followed by [facility].She has had a lot of falls which she attributes to "Dizziness" which she describes as a sensation of "everything spinning around." Her paint spray inspector has not found any etiology, and vertigo has not been diagnosed or treated. Here, she has been getting daily PT but c/o fatigue and weakness and has achieved touch down weight bearing only so far. Lab Values: Abnormal Lab Results 04/15/16 04/15/16 04/16/16 17:18 20:50 05:47 WBC RBC Hgb Hct MCV MCH MCHC RDW Plt Count MPV INR (Anticoag Therapy) 2.88 H Sodium Potassium Chloride Carbon Dioxide Anion Gap BUN Creatinine Est GFR ( Amer) Est GFR (Non-Af Amer) BUN/Creatinine Ratio Glucose POC Glucose (mg/dL) 232 H 133 H Calcium Iron TIBC % Saturation Unsat Iron Binding Blood Type Antibody Screen Crossmatch 04/16/16 04/16/16 04/16/16 05:47 05:47 05:47 WBC 6.2 RBC 2.03 L Hgb 6.2 L* Hct 19 L MCV 95 MCH 31 MCHC 32 RDW 19 H Plt Count 286 MPV 9 INR (Anticoag Therapy) Sodium 139 Potassium 5.0 Chloride 114 H Carbon Dioxide 24 Anion Gap 1 L BUN 103 H Creatinine 2.40 H Est GFR ( Amer) 24.7 Est GFR (Non-Af Amer) 19.2 BUN/Creatinine Ratio 42.9 H Glucose 89 POC Glucose (mg/dL) Calcium 6.8 L Iron 22 L TIBC 105 L % Saturation 21 Unsat Iron Binding 83 Blood Type A Positive Antibody Screen Negative Crossmatch See Detail 04/16/16 04/16/16 07:44 09:35 WBC RBC Hgb 7.6 L Hct 24 L MCV MCH MCHC RDW Plt Count MPV INR (Anticoag Therapy) Sodium Potassium Chloride Carbon Dioxide Anion Gap BUN Creatinine Est GFR ( Amer) Est GFR (Non-Af Amer) BUN/Creatinine Ratio Glucose POC Glucose (mg/dL) 132 H Calcium Iron TIBC % Saturation Unsat Iron Binding Blood Type Antibody Screen Crossmatch Laboratory Last Values WBC 6.2 10^3/ul (3.5-10.8) 04/16/16 05:47 RBC 2.03 10^6/ul (4.0-5.4) L 04/16/16 05:47 Hgb 7.6 g/dl (12.0-16.0) L 04/16/16 09:35 Hct 24 % (35-47) L 04/16/16 09:35 MCV 95 fL (80-97) 04/16/16 05:47 MCH 31 pg (27-31) 04/16/16 05:47 MCHC 32 g/dl (31-36) 04/16/16 05:47 RDW 19 % (10.5-15) H 04/16/16 05:47 Plt Count 286 10^3/ul (150-450) 04/16/16 05:47 MPV 9 um3 (7.4-10.4) 04/16/16 05:47 Neut % (Auto) 78.5 % (38-83) 04/13/16 07:04 Lymph % (Auto) 12.0 % (25-47) L 04/13/16 07:04 [place] % (Auto) 7.0 % (1-9) 04/13/16 07:04 Eos % (Auto) 2.1 % (0-6) 04/13/16 07:04 Baso % (Auto) 0.4 % (0-2) 04/13/16 07:04 Absolute Neuts (auto) 9.0 10^3/ul (1.5-7.7) H 04/13/16 07:04 Absolute Lymphs (auto) 1.4 10^3/ul (1.0-4.8) 04/13/16 07:04 Absolute Monos (auto) 0.8 10^3/ul (0-0.8) 04/13/16 07:04 Absolute Eos (auto) 0.2 10^3/ul (0-0.6) 04/13/16 07:04 Absolute Basos (auto) 0 10^3/ul (0-0.2) 04/13/16 07:04 Absolute Nucleated RBC 0.01 10^3/ul 04/13/16 07:04 Nucleated RBC % 0 04/13/16 07:04 INR (Anticoag Therapy) 2.88 (0.89-1.11) H 04/16/16 05:47 APTT 24.1 seconds (26.0-36.3) L 04/07/16 04:57 Sodium 139 mmol/L (133-145) 04/16/16 05:47 Potassium 5.0 mmol/L (3.5-5.0) 04/16/16 05:47 Chloride 114 mmol/L (101-111) H 04/16/16 05:47 Carbon Dioxide 24 mmol/L (22-32) 04/16/16 05:47 Anion Gap 1 mmol/L (2-11) L 04/16/16 05:47 BUN 103 mg/dL (6-24) H 04/16/16 05:47 Creatinine 2.40 mg/dL (0.51-0.95) H 04/16/16 05:47 Est GFR ( Amer) 24.7 (>60) 04/16/16 05:47 Est GFR (Non-Af Amer) 19.2 (>60) 04/16/16 05:47 BUN/Creatinine Ratio 42.9 (8-20) H 04/16/16 05:47 Glucose 89 mg/dL (70-100) 04/16/16 05:47 POC Glucose (mg/dL) 132 mg/dL (74-106) H 04/16/16 07:44 Calcium 6.8 mg/dL (8.6-10.3) L 04/16/16 05:47 Magnesium 2.5 mg/dL (1.9-2.7) 04/11/16 05:27 Iron 22 ug/dL (50-212) L 04/16/16 05:47 TIBC 105 mcg/dL (250-450) L 04/16/16 05:47 % Saturation 21 % (15-55) 04/16/16 05:47 Unsat Iron Binding 83 ug/dL 04/16/16 05:47 Total Bilirubin 0.80 mg/dL (0.2-1.0) 04/13/16 07:04 Direct Bilirubin 0.50 mg/dL (0.03-0.18) H 04/13/16 07:04 Indirect Bilirubin 0.3 mg/dL (0.3-1.0) 04/13/16 07:04 AST 151 U/L (13-39) H 04/13/16 07:04 ALT 12 U/L (7-52) 04/13/16 07:04 Alkaline Phosphatase 116 U/L (34-104) H 04/13/16 07:04 B-Natriuretic Peptide 183 pg/mL (-100) H 04/10/16 07:40 Total Protein 3.8 g/dL (6.4-8.9) L 04/13/16 07:04 Albumin 1.7 g/dL (3.2-5.2) L 04/13/16 07:04 Globulin 2.1 g/dL (2-4) 04/13/16 07:04 Albumin/Globulin Ratio 0.8 (1-3) L 04/13/16 07:04 Prealbumin 6 mg/dL (18-38) L 04/13/16 07:04 Vitamin B12 516 pg/mL (180-914) 04/06/16 14:10 Urine Color Yellow 04/12/16 12:30 Urine Appearance Cloudy 04/12/16 12:30 Urine pH 5.0 (5-9) 04/12/16 12:30 Ur Specific [place] 1.014 (1.010-1.030) 04/12/16 12:30 Urine Protein Negative (Negative) 04/12/16 12:30 Urine Ketones Negative (Negative) 04/12/16 12:30 Urine Blood Negative (Negative) 04/12/16 12:30 Urine Nitrate Negative (Negative) 04/12/16 12:30 Urine Bilirubin Negative (Negative) 04/12/16 12:30 Urine Urobilinogen Negative (Negative) 04/12/16 12:30 Ur Leukocyte Esterase Trace (Negative) H 04/12/16 12:30 Urine WBC (Auto) Trace(0-5/hpf) (Absent) 04/12/16 12:30 Urine RBC (Auto) Absent (Absent) 04/12/16 12:30 Ur Squamous Epith Cells Present (Absent) H 04/12/16 12:30 Urine Bacteria Absent (Absent) 04/12/16 12:30 Ur Random Creatinine 77.36 mg/dL 04/12/16 14:10 Ur Random Sodium < 18 mmol/L 04/12/16 14:10 Urine Glucose Negative (Negative) 04/12/16 12:30 Urine Ascorbic Acid * (Negative) H 04/12/16 12:30 Blood Type A Positive 04/16/16 05:47 Antibody Screen Negative 04/16/16 05:47 Crossmatch See Detail 04/16/16 05:47 - Objective Active Medications: Acetaminophen (Tylenol Tab*) 650 mg PO Q4H PRN PRN Reason: FEVER/PAIN Last Admin: 04/13/16 00:25 Dose: 650 mg Allopurinol (Zyloprim Tab*) 100 mg PO DAILY [facility] Last Admin: 04/16/16 07:47 Dose: 100 mg Amiodarone HCl (Cordarone Tab*) 200 mg PO DAILY [facility] Last Admin: 04/16/16 07:47 Dose: 200 mg Ascorbic Acid (Vitamin C Tab*) 500 mg PO DAILY [facility] Last Admin: 04/16/16 07:45 Dose: 500 mg Atorvastatin Calcium (Lipitor*) 20 mg PO DAILY [facility] Last Admin: 04/15/16 08:34 Dose: 20 mg Bisacodyl (Dulcolax Supp*) 10 mg NM DAILY PRN PRN Reason: constipation Calcium/Vitamin D (Oscal D Tab 250/125*) 1 tab PO DAILY [facility] Last Admin: 04/16/16 07:47 Dose: 1 tab Carbidopa/Levodopa (Sinemet 25/100 Tab(*)) 1 tab PO BEDTIME [facility] Last Admin: 04/15/16 21:04 Dose: 1 tab Carbidopa/Levodopa (Sinemet 25/100 Tab(*)) 1 tab PO DAILY@0700 [facility] Last Admin: 04/16/16 07:45 Dose: 1 tab Carbidopa/Levodopa (Sinemet 25/100 Tab(*)) 1.5 tab PO DAILY@1100 [facility] Last Admin: 04/16/16 12:13 Dose: 1.5 tab Carbidopa/Levodopa (Sinemet 25/100 Tab(*)) 1 tab PO DAILY@1500 [facility] Last Admin: 04/15/16 15:53 Dose: 1 tab Citalopram Hydrobromide (Celexa Tab*) 10 mg PO DAILY [facility] Last Admin: 04/16/16 07:46 Dose: 10 mg Dextrose (D50w Syringe 50 Ml*) 12.5 gm IV PUSH .FOR FS < 60 - SS PRN PRN Reason: FS < 60 Diphenhydramine HCl (Benadryl Iv*) 25 mg IV Q6H PRN PRN Reason: itching Docusate Sodium (Colace Cap*) 100 mg PO BID [facility] Last Admin: 04/16/16 07:47 Dose: 100 mg Insulin Glargine (Lantus(*)) 5 units SUBCUT Q24H [facility] Last Admin: 04/15/16 15:52 Dose: 5 unit Insulin Human Lispro (Humalog*) 0 units SUBCUT ACHS [facility] PRN Reason: Protocol Last Admin: 04/16/16 10:21 Dose: 2 unit Magnesium Hydroxide (Milk Of Magnesia Liq*) 30 ml PO Q6H PRN PRN Reason: constipation Last Admin: 04/08/16 17:44 Dose: 30 ml Metoprolol Tartrate (Lopressor Tab*) 12.5 mg PO Q12HR [facility] Last Admin: 04/16/16 07:44 Dose: 12.5 mg Multi-Ingredient Ointment (Hydrocerin*) 1 applic TOPICAL BID [facility] Last Admin: 04/15/16 21:29 Dose: Not Given Multivitamins (Theragran Tab*) 1 tab PO DAILY [facility] Last Admin: 04/16/16 07:46 Dose: 1 tab Umeclidinium [place] [Incruse Ellipta] 1 Puff)*Nonformulary 1 dose INH DAILY [facility] Last Admin: 04/16/16 07:50 Dose: Not Given Nystatin (Nystatin Top Powder*) 1 applic TOPICAL TID [facility] Last Admin: 04/16/16 12:13 Dose: Not Given Omeprazole (Prilosec Cap*) 20 mg PO 0730 [facility] Last Admin: 04/16/16 07:44 Dose: 20 mg Oxycodone/Acetaminophen (Percocet 5/325 Tab*) 1 tab PO Q3H PRN PRN Reason: PAIN - MODERATE Last Admin: 04/16/16 10:22 Dose: 1 tab Pharmacy Profile Note (Coumadin Daily Reminder*) 1 note FOLLOW UP 1700 [facility] Last Admin: 04/15/16 17:18 Dose: 1 note Polyethylene Glycol/Electrolytes (Miralax*) 17 gm PO DAILY PRN PRN Reason: Constipation Last Admin: 04/10/16 07:55 Dose: 17 gm Prochlorperazine Edisylate (Compazine Inj*) 5 mg IV Q6H PRN PRN Reason: NAUSEA/VOMITING Last Admin: 04/15/16 21:51 Dose: 5 mg Tiotropium [place] (Spiriva Cap.Inh*) 1 cap INH DAILY [facility] Last Admin: 04/16/16 07:48 Dose: 1 cap Warfarin Sodium (Coumadin Tab(*)) 2 mg PO DAILY@1700 [facility] PRN Reason: Protocol Last Admin: 04/15/16 17:18 Dose: 2 mg Vital Signs: Vital Signs: Temp Pulse Resp BP Pulse Ox 97.3 F 58 12 133/40 99 04/16/16 11:24 04/16/16 11:24 04/16/16 10:53 04/16/16 11:24 04/16/16 11:24 Patient Weight: Weight 228 lb 9.6 oz 254.2 Intake and Output: Intake & Output 04/14/16 04/15/16 04/16/16 04/17/16 06:59 06:59 06:59 06:59 Intake Total 0930 604 4718 80 Output Total 1700 1077 4083 Balance -598 -257 -3707 80 Intake: Oral 8851 015 9396 80 Output: Urine 700 Love 9829 671 0251 Emesis 25 Other: # Bowel Movements 0 ADLs: Meal Record Start: 04/06/16 10: 00 Freq: Status: Active Created 04/06/16 10:00 System (Rec: 04/06/16 10:00 System TELE-C06) Document 04/06/16 13:13 [id number] (Rec: 04/06/16 13:13 [id number] TELE-C01) Document 04/06/16 18:00 [id number] (Rec: 04/06/16 18:20 [id number] TELE-C01) Document 04/07/16 08:42 [id number] (Rec: 04/07/16 08:42 [id number] TELE-C09) Document 04/07/16 18:00 [id number] (Rec: 04/08/16 00:09 [id number] SSU-C12) Document 04/08/16 07:48 [id number] (Rec: 04/08/16 07:48 [id number] SSU-M12) Document 04/08/16 08:56 [id number] (Rec: 04/08/16 08:57 [id number] SSU-M12) Document 04/08/16 14:12 [id number] (Rec: 04/08/16 14:14 [id number] SSU-C04) Document 04/08/16 17:55 [id number] (Rec: 04/08/16 17:55 [id number] SSU-M12) Document 04/09/16 10:21 FMD2271 (Rec: 04/09/16 10:21 [id number] SSU-C06) Document 04/09/16 13:12 RMC7490 (Rec: 04/09/16 13:13 [id number] SSU-C04) Document 04/09/16 22:00 [id number] (Rec: 04/09/16 23:28 [id number] SSU-C04) Document 04/10/16 14:00 [id number] (Rec: 04/10/16 15:27 [id number] SSU-C06) Document 04/11/16 10:00 [id number] (Rec: 04/11/16 12:46 [id number] SSU-C01) Document 04/11/16 13:58 [id number] (Rec: 04/11/16 14:04 [id number] SSU-C11) Document 04/12/16 09:16 [id number] (Rec: 04/12/16 09:17 [id number] SSU-C11) Document 04/12/16 13:50 [id number] (Rec: 04/12/16 13:52 [id number] SSU-C11) Document 04/12/16 19:00 IPI0844 (Rec: 04/12/16 23:00 GMH2234 SSU-C09) Document 04/13/16 09:36 [id number] (Rec: 04/13/16 09:37 [id number] SSU-C11) Document 04/13/16 13:11 CST9710 (Rec: 04/13/16 13:12 [id number] SSU-C11) Document 04/14/16 09:33 KMS0972 (Rec: 04/14/16 09:33 [id number] SSU-M12) Document 04/14/16 15:13 [id number] (Rec: 04/14/16 15:13 [id number] SSU-C19) Document 04/15/16 17:49 IIY0762 (Rec: 04/15/16 17:50 [id number] SSU-C04) Document 04/16/16 09:51 [id number] (Rec: 04/16/16 09:52 [id number] SSU-C11) Intake and Output Start: 04/06/16 10: 00 Freq: DAILY@0600,1400,2200 Status: Cancelled Created 04/06/16 10:00 System (Rec: 04/06/16 10:00 System TELE-C06) Document 04/06/16 13:14 [id number] (Rec: 04/06/16 13:15 [id number] TELE-C01) Document 04/06/16 22:00 [id number] (Rec: 04/06/16 22:52 [id number] TELE-C06) Document 04/07/16 04:54 [id number] (Rec: 04/07/16 04:54 [id number] TELE-C11) Intake and Output Start: 04/07/16 10: 20 Freq: 06,14,2200 Status: Active Created 04/07/16 10:42 LB (Rec: 04/07/16 10:42 BKG CHRISTINA-BG10) Document 04/07/16 22:00 [id number] (Rec: 04/08/16 00:10 [id number] SSU-C12) Document 04/08/16 06:00 MBC3910 (Rec: 04/08/16 06:02 [id number] SSU-C19) Document 04/08/16 22:00 [id number] (Rec: 04/08/16 23:09 [id number] SSU-C19) Document 04/09/16 05:46 [id number] (Rec: 04/09/16 05:46 [id number] SSU-C11) Document 04/09/16 14:00 FZP5048 (Rec: 04/09/16 14:45 IBP3089 SSU-C04) Document 04/09/16 22:00 [id number] (Rec: 04/09/16 23:28 [id number] SSU-C04) Document 04/10/16 05:32 [id number] (Rec: 04/10/16 05:32 CYI9425 SSU-C02) Document 04/10/16 14:00 [id number] (Rec: 04/10/16 15:27 [id number] SSU-C06) Document 04/10/16 22:00 [id number] (Rec: 04/10/16 23:55 STI4407 SSU-C11) Document 04/11/16 05:38 [id number] (Rec: 04/11/16 05:38 RML2817 SSU-C05) Document 04/11/16 14:46 ROZ9665 (Rec: 04/11/16 14:47 [id number] SSU-C11) Document 04/11/16 22:00 [id number] (Rec: 04/11/16 23:36 AKE4601 SSU-C19) Document 04/12/16 06:00 JPR2060 (Rec: 04/12/16 06:08 [id number] SSU-C02) Document 04/12/16 13:53 [id number] (Rec: 04/12/16 13:53 [id number] SSU-C11) Document 04/12/16 22:00 [id number] (Rec: 04/12/16 22:58 [id number] SSU-C09) Document 04/13/16 05:54 [id number] (Rec: 04/13/16 05:54 [id number] SSU-C19) Document 04/13/16 14:00 [id number] (Rec: 04/13/16 15:51 [id number] SSU-C11) Document 04/13/16 22:00 [id number] (Rec: 04/14/16 00:08 [id number] SSU-C11) Document 04/14/16 06:00 [id number] (Rec: 04/14/16 06:46 [id number] SSU-C02) Document 04/14/16 13:47 [id number] (Rec: 04/14/16 15:12 [id number] SSU-C19) Document 04/14/16 21:53 [id number] (Rec: 04/14/16 21:59 [id number] SSU-C09) Document 04/15/16 05:33 [id number] (Rec: 04/15/16 05:33 [id number] SSU-C12) Document 04/15/16 14:00 [id number] (Rec: 04/15/16 14:31 [id number] SSU-C01) Document 04/15/16 22:00 [id number] (Rec: 04/15/16 22:48 [id number] SSU-C04) Document 04/16/16 05:53 [id number] (Rec: 04/16/16 05:54 [id number] SSU-M12) General Impression: Obese, alert woman in NAD Head: Symmetrical Eyes: No Scleral Icterus, PERRLA Ears/Nose/Mouth/Throat: NL Teeth, Lips, Gums, Mucous Membranes Moist Neck: NL Appearance and Movements; NL JVP, Trachea Midline Cardiovascular: NL Sounds; No Murmurs; No JVD, RRR Respiratory: Symmetrical Chest Expansion and Respiratory Effort Abdominal: NL Sounds; No Tenderness; No Distention Extremities: No Clubbing, Cyanosis, - - generalized ansarca, legs wrapped for LE edema and wounds Neurological: Alert and Oriented x 3, NL Muscle Strength and Tone - Assessment Assessment: In speaking with this patient, she is not interested in hospice and expresses a desire to fully recover her ability to live independently again. Her plan is to go to [facility] on a ST rehab benefit and then hopefully regain the ability to ambulate and go home. However, when we discussed the likelihood that she would not improve to the extent that she would be able to go home, and in fact has a 50% chance of never ambulating again, she was agreeable to remaining in [facility] indefinitely. She has Type 2 diabetes and a creatinine clearance of <20 based on a lean body weight of 45 kg, so would be eligible for hospice services on that basis, especially with her associated comorbidities like COPD, severe malnutrition and possible GI bleeding. Her son is in [place] on business and I am unable to reach him today. The patient should be offered nutritional protein supplementation, and I would discourage any entertainment of the idea of G tube placement. If her rehab stay ends with her remaining in the SNF, she should be offered hospice services there at that time. - Plan Consult Plan (MU): Palliative - Time On Unit Date of Evaluation: 04/16/16 Hospice Consult Time in: 12:00 Hospice Consult Time Out: 13:30 Hospice Consult Time Total: 90 > 50% of Time Spend In Counseling or Coordinating Care: Yes
[2016-04-16] MEDS: Moisturizing CREAM* 120 GM JAR TOPICAL SCH ×2 (12:53→21:48)
--- NOTE | 2016-04-16 13:32 | PN ---
Progress Note - Progress Note SOAP: Subjective: [Pt is seen today while in bed. She states that she just wants to get better. She states that her hip is feeling much better but the severe edema is causing her some distress. Pt denies any Chest pain or SOB. Objective: [General: pt is alert, awake and oriented. LLE - inc c/d/i, erythema unchanged. + df/pf. edema mildly improved.] Vital Signs Temp 97.3 F 04/16/16 11:24 Pulse 58 04/16/16 11:24 Resp 12 04/16/16 10:53 BP 133/40 04/16/16 11:24 Pulse Ox 99 04/16/16 11:24 Intake & Output 04/15/16 04/16/16 04/16/16 18:59 06:59 18:59 Intake Total 415 700 80 Output Total 500 3583 Balance -85 -2883 80 Intake: Oral 415 700 80 Output: Love 500 3558 Emesis 25 Laboratory Results - last 24 hr 04/15/16 04/15/16 04/16/16 17:18 20:50 05:47 WBC RBC Hgb Hct MCV MCH MCHC RDW Plt Count MPV INR (Anticoag Therapy) 2.88 H Sodium Potassium Chloride Carbon Dioxide Anion Gap BUN Creatinine Est GFR ( Amer) Est GFR (Non-Af Amer) BUN/Creatinine Ratio Glucose POC Glucose (mg/dL) 232 H 133 H Calcium Iron TIBC % Saturation Unsat Iron Binding Blood Type Antibody Screen Crossmatch 04/16/16 04/16/16 04/16/16 05:47 05:47 05:47 WBC 6.2 RBC 2.03 L Hgb 6.2 L* Hct 19 L MCV 95 MCH 31 MCHC 32 RDW 19 H Plt Count 286 MPV 9 INR (Anticoag Therapy) Sodium 139 Potassium 5.0 Chloride 114 H Carbon Dioxide 24 Anion Gap 1 L BUN 103 H Creatinine 2.40 H Est GFR ( Amer) 24.7 Est GFR (Non-Af Amer) 19.2 BUN/Creatinine Ratio 42.9 H Glucose 89 POC Glucose (mg/dL) Calcium 6.8 L Iron 22 L TIBC 105 L % Saturation 21 Unsat Iron Binding 83 Blood Type A Positive Antibody Screen Negative Crossmatch See Detail 04/16/16 04/16/16 04/16/16 07:44 09:35 12:47 WBC RBC Hgb 7.6 L Hct 24 L MCV MCH MCHC RDW Plt Count MPV INR (Anticoag Therapy) Sodium Potassium Chloride Carbon Dioxide Anion Gap BUN Creatinine Est GFR ( Amer) Est GFR (Non-Af Amer) BUN/Creatinine Ratio Glucose POC Glucose (mg/dL) 132 H 226 H Calcium Iron TIBC % Saturation Unsat Iron Binding Blood Type Antibody Screen Crossmatch Assessment: [S/P ORIF of Left Proximal Femur ] Plan: [TTWB of LLE - no active abduction oobtc when possible continue frequent turns and skin checks Continue medical management per hospitalists. ]
[2016-04-16] MEDS: Atorvastatin* 20 MG TAB PO SCH (15:53)
[2016-04-16] MEDS: Insulin GLARGINE(*) 1 UNITS UNIT SUBCUT SCH (15:53)
[2016-04-16] MEDS: Warfarin TAB(*) 2 MG PO SCH (16:50)
--- NOTE | 2016-04-16 17:07 | PN ---
Subjective Date of Service: 04/16/16 Interval History: pt feels well. OOB to chair today Objective Active Medications: Acetaminophen (Tylenol Tab*) 650 mg PO Q4H PRN PRN Reason: FEVER/PAIN Last Admin: 04/13/16 00:25 Dose: 650 mg Allopurinol (Zyloprim Tab*) 100 mg PO DAILY [facility] Last Admin: 04/16/16 07:47 Dose: 100 mg Amiodarone HCl (Cordarone Tab*) 200 mg PO DAILY [facility] Last Admin: 04/16/16 07:47 Dose: 200 mg Ascorbic Acid (Vitamin C Tab*) 500 mg PO DAILY [facility] Last Admin: 04/16/16 07:45 Dose: 500 mg Atorvastatin Calcium (Lipitor*) 20 mg PO DAILY [facility] Last Admin: 04/16/16 15:53 Dose: 20 mg Bisacodyl (Dulcolax Supp*) 10 mg [place] DAILY PRN PRN Reason: constipation Calcium/Vitamin D (Oscal D Tab 250/125*) 1 tab PO DAILY [facility] Last Admin: 04/16/16 07:47 Dose: 1 tab Carbidopa/Levodopa (Sinemet 25/100 Tab(*)) 1 tab PO BEDTIME [facility] Last Admin: 04/15/16 21:04 Dose: 1 tab Carbidopa/Levodopa (Sinemet 25/100 Tab(*)) 1 tab PO DAILY@0700 [facility] Last Admin: 04/16/16 07:45 Dose: 1 tab Carbidopa/Levodopa (Sinemet 25/100 Tab(*)) 1.5 tab PO DAILY@1100 [facility] Last Admin: 04/16/16 12:13 Dose: 1.5 tab Carbidopa/Levodopa (Sinemet 25/100 Tab(*)) 1 tab PO DAILY@1500 [facility] Last Admin: 04/16/16 15:53 Dose: 1 tab Citalopram Hydrobromide (Celexa Tab*) 10 mg PO DAILY [facility] Last Admin: 04/16/16 07:46 Dose: 10 mg Dextrose (D50w Syringe 50 Ml*) 12.5 gm IV PUSH .FOR FS < 60 - SS PRN PRN Reason: FS < 60 Diphenhydramine HCl (Benadryl Iv*) 25 mg IV Q6H PRN PRN Reason: itching Docusate Sodium (Colace Cap*) 100 mg PO BID [facility] Last Admin: 04/16/16 07:47 Dose: 100 mg Insulin Glargine (Lantus(*)) 5 units SUBCUT Q24H [facility] Last Admin: 04/16/16 15:53 Dose: 5 unit Insulin Human Lispro (Humalog*) 0 units SUBCUT ACHS [facility] PRN Reason: Protocol Last Admin: 04/16/16 12:57 Dose: 6 unit Magnesium Hydroxide (Milk Of Magnesia Liq*) 30 ml PO Q6H PRN PRN Reason: constipation Last Admin: 04/08/16 17:44 Dose: 30 ml Metoprolol Tartrate (Lopressor Tab*) 12.5 mg PO Q12HR [facility] Last Admin: 04/16/16 07:44 Dose: 12.5 mg Multi-Ingredient Ointment (Hydrocerin*) 1 applic TOPICAL BID [facility] Last Admin: 04/16/16 12:53 Dose: Not Given Multivitamins (Theragran Tab*) 1 tab PO DAILY [facility] Last Admin: 04/16/16 07:46 Dose: 1 tab Umeclidinium [place] [Incruse Ellipta] 1 Puff)*Nonformulary 1 dose INH DAILY [facility] Last Admin: 04/16/16 07:50 Dose: Not Given Nystatin (Nystatin Top Powder*) 1 applic TOPICAL TID [facility] Last Admin: 04/16/16 14:05 Dose: Not Given Omeprazole (Prilosec Cap*) 20 mg PO 0730 [facility] Last Admin: 04/16/16 07:44 Dose: 20 mg Oxycodone/Acetaminophen (Percocet 5/325 Tab*) 1 tab PO Q3H PRN PRN Reason: PAIN - MODERATE Last Admin: 04/16/16 10:22 Dose: 1 tab Pharmacy Profile Note (Coumadin Daily Reminder*) 1 note FOLLOW UP 1700 [facility] Last Admin: 04/16/16 16:50 Dose: 1 note Polyethylene Glycol/Electrolytes (Miralax*) 17 gm PO DAILY PRN PRN Reason: Constipation Last Admin: 04/10/16 07:55 Dose: 17 gm Prochlorperazine Edisylate (Compazine Inj*) 5 mg IV Q6H PRN PRN Reason: NAUSEA/VOMITING Last Admin: 04/15/16 21:51 Dose: 5 mg Tiotropium [place] (Spiriva Cap.Inh*) 1 cap INH DAILY [facility] Last Admin: 04/16/16 07:48 Dose: 1 cap Warfarin Sodium (Coumadin Tab(*)) 2 mg PO DAILY@1700 [facility] PRN Reason: Protocol Last Admin: 04/16/16 16:50 Dose: 2 mg Vital Signs 04/15/16 04/15/16 04/15/16 19:29 21:08 21:10 Temperature 97.8 F Pulse Rate 59 61 Respiratory 22 22 Rate Blood Pressure 109/39 123/31 (mmHg) O2 Sat by Pulse 99 100 Oximetry 04/15/16 04/15/16 04/16/16 23:46 23:54 01:54 Temperature 97.9 F Pulse Rate 120 Respiratory 18 22 18 Rate Blood Pressure 111/49 (mmHg) O2 Sat by Pulse 100 Oximetry 04/16/16 04/16/16 04/16/16 03:50 05:51 07:34 Temperature 97.7 F 97.9 F Pulse Rate 60 59 Respiratory 18 20 22 Rate Blood Pressure 111/34 131/39 (mmHg) O2 Sat by Pulse 100 99 Oximetry 04/16/16 04/16/16 04/16/16 07:51 08:00 10:22 Temperature Pulse Rate Respiratory 14 18 16 Rate Blood Pressure (mmHg) O2 Sat by Pulse Oximetry 04/16/16 04/16/16 04/16/16 10:53 11:24 12:22 Temperature 97.3 F Pulse Rate 59 58 Respiratory 12 16 Rate Blood Pressure 127/40 133/40 (mmHg) O2 Sat by Pulse 98 99 Oximetry 04/16/16 04/16/16 14:23 15:10 Temperature 97.4 F 98.0 F Pulse Rate 62 62 Respiratory 16 20 Rate Blood Pressure 138/38 152/91 (mmHg) O2 Sat by Pulse 100 98 Oximetry Oxygen Devices in Use Now: Nasal Cannula - at 2 L Appearance: 85 yo F in NAD, aAOx3 Eyes: No Scleral Icterus, PERRLA Ears/Nose/Mouth/Throat: NL Teeth, Lips, Gums, Mucous Membranes Moist Neck: NL Appearance and Movements; NL JVP, Trachea Midline Respiratory: Symmetrical Chest Expansion and Respiratory Effort, - - crackles at b/l bases Cardiovascular: NL Sounds; No Murmurs; No JVD, RRR Abdominal: NL Sounds; No Tenderness; No Distention, No Hepatosplenomegaly Lymphatic: No Cervical Adenopathy Extremities: No Clubbing, Cyanosis, - - generalized anasarca improving Skin: No Nodules or Sclerosis, - - multiple wounds examined: skin tears on left knee and left elbow improving. Left medial knee blister at 3 cm in diam. superficial pretibila ulcer-stage 2 at 4x4 cm -improving. Sacral decubs stage 2- 3 on both sides of sacral bone at 10 x 4 cm each bleeding Neurological: Alert and Oriented x 3, - - generalized weakness Result Diagrams: 04/16/16 09:35 04/16/16 05:47 Microbiology and Other Data: Microbiology 04/12/16 06:15 Stool Occult Blood (MODESTO) - Final Stool Assess/Plan/Problems-Billing Assessment: 85 yo F h/p parkinson's dz, DM2, CAD/CABG, AVR, afib s/p ablation on amiodarone/ no AC 2/2 recurrent falls, SSS s/p PPP placement, aortic stenosis and pHTN per report with decreased RV function (not evident on TTE here), who presented from [facility] 04/06/16 after fall with left hip fracture 04/01/16 with stay in their facility complicated by anemia requiring blood transfusions, acute on chronic kidney failure, and a urinary tract infection - Patient Problems (1) Hip fracture Comment: still Melodie dependent (2) Hypertension Comment: lisinopril 10 mg held metoprolol cont controlled (3) Diabetes mellitus Comment: cont high dose ISS 04/12/16, cont basal Lantus (4) Atrial fibrillation Comment: rate and rhythm controlled on amiodarone (5) Anemia Comment: transfused 1 U PRBC on 04/16/16 (transfused 2 U postop prior) Stool heme neg low iron and TIBC due to anemia of chronic disease and CKD (6) Acute on chronic kidney failure Comment: baseline creat of 2.8 today at baseline cont to improve PO protein intake with Glucerna and nutritional f/u (7) Parkinson disease Comment: stable. c/w home medications (8) UTI (urinary tract infection) Comment: Citrobacter resistant to cefazolin completed ceftin 7 days (04/10/16) (9) Skin ulcer of pretibial region of left lower extremity Comment: wound care c/s appreciated Also noted sacral decubiti to be tx with silvadene BID (10) Shoulder pain Comment: left XR here with OA, exacerbated by fall (11) Anasarca associated with disorder of kidney Comment: due to a combination of manutrition and low albumin level and CKD will start daily Lasix IV 20 mg and moniotor CKD (12) Malnutrition Comment: severe, chronic with prealbumin of 6 appreciate nutrition consult . cont Glucerna (13) DVT prophylaxis Comment: coumadin- INR therapeutic
[2016-04-16] MEDS ORDERED: Furosemide IV* 10 MG/ML 2 ML VIAL (20 MG) ONE (17:54)
[2016-04-16] MEDS: Furosemide IV* 10 MG/ML 2 ML VIAL (20 MG) IV SCH (17:57)
[2016-04-16] MEDS: Silver Sulfadiazine 1%* 20 GM TOPICAL SCH (21:49)
[2016-04-17 06:09] LABS: Hematocrit 27 % (35-47); Hemoglobin 8.9 g/dl (12.0-16.0); Mean Corpuscular HGB Conc 33 g/dl (31-36); Mean Corpuscular Hemoglobin 31 pg (27-31); Mean Corpuscular Volume 94 fL (80-97); Mean Platelet Volume 8 um3 (7.4-10.4); Red Blood Count 2.87 10^6/ul (4.0-5.4); Red Cell Distribution Width 18 % (10.5-15); White Blood Count 7.8 10^3/ul (3.5-10.8)
[2016-04-17 06:11] LABS: Add Diff/Slide Review? Slide Review Added; Comments Flag Yes
[2016-04-17 06:20] LABS: BUN/Creatinine Ratio 42.6 (8-20); Calcium 7.5 mg/dL (8.6-10.3); EGFR African American 25.9 (>60); EGFR Non-African American 20.2 (>60); Potassium 4.9 mmol/L (3.5-5.0)
[2016-04-17] MEDS: Omeprazole CAP* 20 MG PO SCH (07:41)
[2016-04-17] MEDS: Carbidopa/Levodop 25/100 MG TAB(*) PO SCH ×4 (07:41→21:44)
--- NOTE | 2016-04-17 08:30 | PN ---
Progress Note - Progress Note SOAP: Subjective: pt resting comfortably Objective: Vital Signs Temp Pulse Resp BP Pulse Ox 98.2 F 60 22 116/44 100 04/17/16 07:26 04/17/16 07:26 04/17/16 07:26 04/17/16 07:26 04/17/16 07:26 Laboratory Last Values WBC 7.8 10^3/ul (3.5-10.8) 04/17/16 06:00 RBC 2.87 10^6/ul (4.0-5.4) L 04/17/16 06:00 Hgb 8.9 g/dl (12.0-16.0) L 04/17/16 06:00 Hct 27 % (35-47) L 04/17/16 06:00 MCV 94 fL (80-97) 04/17/16 06:00 MCH 31 pg (27-31) 04/17/16 06:00 MCHC 33 g/dl (31-36) 04/17/16 06:00 RDW 18 % (10.5-15) H 04/17/16 06:00 Plt Count 480 10^3/ul (150-450) H D 04/17/16 06:00 MPV 8 um3 (7.4-10.4) 04/17/16 06:00 Neut % (Auto) 73.1 % (38-83) 04/17/16 06:00 Lymph % (Auto) 15.0 % (25-47) L 04/17/16 06:00 [place] % (Auto) 8.7 % (1-9) 04/17/16 06:00 Eos % (Auto) 2.6 % (0-6) 04/17/16 06:00 Baso % (Auto) 0.6 % (0-2) 04/17/16 06:00 Absolute Neuts (auto) 5.7 10^3/ul (1.5-7.7) 04/17/16 06:00 Absolute Lymphs (auto) 1.2 10^3/ul (1.0-4.8) 04/17/16 06:00 Absolute Monos (auto) 0.7 10^3/ul (0-0.8) 04/17/16 06:00 Absolute Eos (auto) 0.2 10^3/ul (0-0.6) 04/17/16 06:00 Absolute Basos (auto) 0 10^3/ul (0-0.2) 04/17/16 06:00 Absolute Nucleated RBC 0 10^3/ul 04/17/16 06:00 Nucleated RBC % 0 04/17/16 06:00 INR (Anticoag Therapy) 2.11 (0.89-1.11) H 04/17/16 06:00 APTT 24.1 seconds (26.0-36.3) L 04/07/16 04:57 Sodium 138 mmol/L (133-145) 04/17/16 06:00 Potassium 4.9 mmol/L (3.5-5.0) 04/17/16 06:00 Chloride 112 mmol/L (101-111) H 04/17/16 06:00 Carbon Dioxide 26 mmol/L (22-32) 04/17/16 06:00 Anion Gap 0 mmol/L (2-11) L 04/17/16 06:00 BUN 98 mg/dL (6-24) H 04/17/16 06:00 Creatinine 2.30 mg/dL (0.51-0.95) H 04/17/16 06:00 Est GFR ( Amer) 25.9 (>60) 04/17/16 06:00 Est GFR (Non-Af Amer) 20.2 (>60) 04/17/16 06:00 BUN/Creatinine Ratio 42.6 (8-20) H 04/17/16 06:00 Glucose 92 mg/dL (70-100) 04/17/16 06:00 POC Glucose (mg/dL) 145 mg/dL (74-106) H 04/17/16 07:40 Calcium 7.5 mg/dL (8.6-10.3) L 04/17/16 06:00 Magnesium 2.5 mg/dL (1.9-2.7) 04/11/16 05:27 Iron 22 ug/dL (50-212) L 04/16/16 05:47 TIBC 105 mcg/dL (250-450) L 04/16/16 05:47 % Saturation 21 % (15-55) 04/16/16 05:47 Unsat Iron Binding 83 ug/dL 04/16/16 05:47 Total Bilirubin 0.80 mg/dL (0.2-1.0) 04/13/16 07:04 Direct Bilirubin 0.50 mg/dL (0.03-0.18) H 04/13/16 07:04 Indirect Bilirubin 0.3 mg/dL (0.3-1.0) 04/13/16 07:04 AST 151 U/L (13-39) H 04/13/16 07:04 ALT 12 U/L (7-52) 04/13/16 07:04 Alkaline Phosphatase 116 U/L (34-104) H 04/13/16 07:04 B-Natriuretic Peptide 183 pg/mL (-100) H 04/10/16 07:40 Total Protein 3.8 g/dL (6.4-8.9) L 04/13/16 07:04 Albumin 1.7 g/dL (3.2-5.2) L 04/13/16 07:04 Globulin 2.1 g/dL (2-4) 04/13/16 07:04 Albumin/Globulin Ratio 0.8 (1-3) L 04/13/16 07:04 Prealbumin 6 mg/dL (18-38) L 04/13/16 07:04 Vitamin B12 516 pg/mL (180-914) 04/06/16 14:10 Urine Color Yellow 04/12/16 12:30 Urine Appearance Cloudy 04/12/16 12:30 Urine pH 5.0 (5-9) 04/12/16 12:30 Ur Specific [place] 1.014 (1.010-1.030) 04/12/16 12:30 Urine Protein Negative (Negative) 04/12/16 12:30 Urine Ketones Negative (Negative) 04/12/16 12:30 Urine Blood Negative (Negative) 04/12/16 12:30 Urine Nitrate Negative (Negative) 04/12/16 12:30 Urine Bilirubin Negative (Negative) 04/12/16 12:30 Urine Urobilinogen Negative (Negative) 04/12/16 12:30 Ur Leukocyte Esterase Trace (Negative) H 04/12/16 12:30 Urine WBC (Auto) Trace(0-5/hpf) (Absent) 04/12/16 12:30 Urine RBC (Auto) Absent (Absent) 04/12/16 12:30 Ur Squamous Epith Cells Present (Absent) H 04/12/16 12:30 Urine Bacteria Absent (Absent) 04/12/16 12:30 Ur Random Creatinine 77.36 mg/dL 04/12/16 14:10 Ur Random Sodium < 18 mmol/L 04/12/16 14:10 Urine Glucose Negative (Negative) 04/12/16 12:30 Urine Ascorbic Acid * (Negative) H 04/12/16 12:30 Blood Type A Positive 04/16/16 05:47 Antibody Screen Negative 04/16/16 05:47 Crossmatch See Detail 04/16/16 05:47 incision: c/d/i PE: NVI Assessment: s/p ORIF left femur Plan: 1) continue DVT prophylaxis; hold coumadin tonight INR 2.11 2) PT/OT- TDWB only 3) Hospitalist co-managing
[2016-04-17] MEDS: Silver Sulfadiazine 1%* 20 GM TOPICAL SCH ×2 (09:45→22:01)
[2016-04-17] MEDS: Furosemide IV* 10 MG/ML 2 ML VIAL (20 MG) IV SCH (09:46)
[2016-04-17] MEDS: Insulin LISPRO* 1 UNITS UNIT SUBCUT SCH ×4 (09:46→21:46)
[2016-04-17] MEDS: Tiotropium CAP.INH* CAP.INH/18 MCG (USE ORDER SET !) INH SCH (09:49)
[2016-04-17] MEDS: Allopurinol TAB* 100 MG PO SCH (09:50)
[2016-04-17] MEDS: Amiodarone TAB* 200 MG PO SCH (09:50)
[2016-04-17] MEDS: Metoprolol Tartrate TAB* 25 MG PO SCH ×2 (09:52→21:44)
[2016-04-17] MEDS: Ascorbic Acid TAB* 500 MG PO SCH (09:53)
[2016-04-17] MEDS: Docusate CAP* 100 MG PO SCH ×2 (09:53→21:44)
[2016-04-17] MEDS: Atorvastatin* 20 MG TAB PO SCH (09:55)
[2016-04-17] MEDS: Calcium/Vitamin D TAB 250/125* TAB PO SCH (09:55)
[2016-04-17] MEDS: Citalopram TAB* 10 MG PO SCH (09:55)
[2016-04-17] MEDS: UMECLIDINIUM BROMIDE INH SCH (09:56)
[2016-04-17] MEDS: [UNRECOGNIZED DRUG - OTHER] INH SCH (09:56)
[2016-04-17] MEDS: Nystatin TOP POWDER* 15 GM BTL TOPICAL SCH ×3 (09:56→21:48)
[2016-04-17] MEDS: Vitamin THERAPEUTIC TAB PO SCH (09:56)
[2016-04-17] MEDS: Moisturizing CREAM* 120 GM JAR TOPICAL SCH ×2 (09:56→21:47)
[2016-04-17] MEDS ORDERED: Epoetin Alfa* 10,000 UNITS/ML VIAL SUBCUT ONE (12:26)
--- NOTE | 2016-04-17 12:31 | PN ---
Subjective Date of Service: 04/17/16 Interval History: pt is feeling well. Edema improving with AILEEN bandages. Objective Active Medications: Acetaminophen (Tylenol Tab*) 650 mg PO Q4H PRN PRN Reason: FEVER/PAIN Last Admin: 04/13/16 00:25 Dose: 650 mg Allopurinol (Zyloprim Tab*) 100 mg PO DAILY [facility] Last Admin: 04/17/16 09:50 Dose: 100 mg Amiodarone HCl (Cordarone Tab*) 200 mg PO DAILY [facility] Last Admin: 04/17/16 09:50 Dose: 200 mg Ascorbic Acid (Vitamin C Tab*) 500 mg PO DAILY [facility] Last Admin: 04/17/16 09:53 Dose: 500 mg Atorvastatin Calcium (Lipitor*) 20 mg PO DAILY [facility] Last Admin: 04/17/16 09:55 Dose: 20 mg Bisacodyl (Dulcolax Supp*) [address] DAILY PRN PRN Reason: constipation Calcium/Vitamin D (Oscal D Tab 250/125*) 1 tab PO DAILY [facility] Last Admin: 04/17/16 09:55 Dose: 1 tab Carbidopa/Levodopa (Sinemet 25/100 Tab(*)) 1 tab PO BEDTIME [facility] Last Admin: 04/16/16 21:20 Dose: 1 tab Carbidopa/Levodopa (Sinemet 25/100 Tab(*)) 1 tab PO DAILY@0700 [facility] Last Admin: 04/17/16 07:41 Dose: 1 tab Carbidopa/Levodopa (Sinemet 25/100 Tab(*)) 1.5 tab PO DAILY@1100 [facility] Last Admin: 04/16/16 12:13 Dose: 1.5 tab Carbidopa/Levodopa (Sinemet 25/100 Tab(*)) 1 tab PO DAILY@1500 [facility] Last Admin: 04/16/16 15:53 Dose: 1 tab Citalopram Hydrobromide (Celexa Tab*) 10 mg PO DAILY [facility] Last Admin: 04/17/16 09:55 Dose: 10 mg Dextrose (D50w Syringe 50 Ml*) 12.5 gm IV PUSH .FOR FS < 60 - SS PRN PRN Reason: FS < 60 Diphenhydramine HCl (Benadryl Iv*) 25 mg IV Q6H PRN PRN Reason: itching Docusate Sodium (Colace Cap*) 100 mg PO BID [facility] Last Admin: 04/17/16 09:53 Dose: 100 mg Epoetin Himanshu (Epogen*) 10,000 units SUBCUT ONCE ONE Stop: 04/17/16 12:27 Furosemide (Lasix Iv*) 20 mg IV DAILY [facility] Last Admin: 04/17/16 09:46 Dose: 20 mg Insulin Glargine (Lantus(*)) 5 units SUBCUT Q24H [facility] Last Admin: 04/16/16 15:53 Dose: 5 unit Insulin Human Lispro (Humalog*) 0 units SUBCUT ACHS [facility] PRN Reason: Protocol Last Admin: 04/17/16 09:46 Dose: 2 unit Magnesium Hydroxide (Milk Of Magnesia Liq*) 30 ml PO Q6H PRN PRN Reason: constipation Last Admin: 04/08/16 17:44 Dose: 30 ml Metoprolol Tartrate (Lopressor Tab*) 12.5 mg PO Q12HR [facility] Last Admin: 04/17/16 09:52 Dose: 12.5 mg Multi-Ingredient Ointment (Hydrocerin*) 1 applic TOPICAL BID [facility] Last Admin: 04/17/16 09:56 Dose: Not Given Multivitamins (Theragran Tab*) 1 tab PO DAILY [facility] Last Admin: 04/17/16 09:56 Dose: 1 tab Umeclidinium [place] [Incruse Ellipta] 1 Puff)*Nonformulary 1 dose INH DAILY [facility] Last Admin: 04/17/16 09:56 Dose: Not Given Nystatin (Nystatin Top Powder*) 1 applic TOPICAL TID [facility] Last Admin: 04/17/16 09:56 Dose: Not Given Omeprazole (Prilosec Cap*) 20 mg PO 0730 [facility] Last Admin: 04/17/16 07:41 Dose: 20 mg Oxycodone/Acetaminophen (Percocet 5/325 Tab*) 1 tab PO Q3H PRN PRN Reason: PAIN - MODERATE Last Admin: 04/16/16 10:22 Dose: 1 tab Pharmacy Profile Note (Coumadin Daily Reminder*) 1 note FOLLOW UP 1700 [facility] Last Admin: 04/16/16 16:50 Dose: 1 note Polyethylene Glycol/Electrolytes (Miralax*) 17 gm PO DAILY PRN PRN Reason: Constipation Last Admin: 04/10/16 07:55 Dose: 17 gm Prochlorperazine Edisylate (Compazine Inj*) 5 mg IV Q6H PRN PRN Reason: NAUSEA/VOMITING Last Admin: 04/15/16 21:51 Dose: 5 mg Silver Sulfadiazine (Silvadine 1%*) 1 applic TOPICAL BID [facility] Last Admin: 04/16/16 21:49 Dose: 1 applic Tiotropium [place] (Spiriva Cap.Inh*) 1 cap INH DAILY [facility] Last Admin: 04/17/16 09:49 Dose: 1 cap Warfarin Sodium (Coumadin Tab(*)) 2 mg PO DAILY@1700 [facility] PRN Reason: Protocol Last Admin: 04/16/16 16:50 Dose: 2 mg Vital Signs 04/16/16 04/16/16 04/16/16 14:23 15:10 20:00 Temperature 97.4 F 98.0 F Pulse Rate 62 62 Respiratory 16 20 18 Rate Blood Pressure 138/38 152/91 (mmHg) O2 Sat by Pulse 100 98 Oximetry 04/16/16 04/16/16 04/16/16 20:23 23:44 23:48 Temperature 97.5 F 97.5 F Pulse Rate 60 59 59 Respiratory 20 18 Rate Blood Pressure 126/37 99/34 127/37 (mmHg) O2 Sat by Pulse 100 100 100 Oximetry 04/17/16 04/17/16 04/17/16 03:54 04:46 07:26 Temperature 97.6 F 98.2 F Pulse Rate 59 60 Respiratory 18 22 Rate Blood Pressure 107/30 116/44 (mmHg) O2 Sat by Pulse 100 95 100 Oximetry 04/17/16 07:43 Temperature Pulse Rate Respiratory 20 Rate Blood Pressure (mmHg) O2 Sat by Pulse 100 Oximetry Oxygen Devices in Use Now: Nasal Cannula - at 2 L Appearance: 85 yo F in nAD, aAOx3 Eyes: No Scleral Icterus, PERRLA Ears/Nose/Mouth/Throat: NL Teeth, Lips, Gums, Mucous Membranes Moist Neck: NL Appearance and Movements; NL JVP, Trachea Midline Respiratory: Symmetrical Chest Expansion and Respiratory Effort, - - crackles at b/l bases Cardiovascular: NL Sounds; No Murmurs; No JVD, RRR Abdominal: NL Sounds; No Tenderness; No Distention Lymphatic: No Cervical Adenopathy Extremities: - - generalized anasarca with aff four extremities in AILEEN bandages. Skin: - - multiple skin blisters, wounds and decub ulcers not evaluated today Neurological: Alert and Oriented x 3, - - generalized weakness Result Diagrams: 04/17/16 06:00 04/17/16 06:00 Microbiology and Other Data: Microbiology 04/12/16 06:15 Stool Occult Blood (MODESTO) - Final Stool Assess/Plan/Problems-Billing Assessment: 85 yo F h/p parkinson's dz, DM2, CAD/CABG, AVR, afib s/p ablation on amiodarone/ no AC 2/2 recurrent falls, SSS s/p PPP placement, aortic stenosis and pHTN per report with decreased RV function (not evident on TTE here), who presented from [facility] 04/06/16 after fall with left hip fracture 04/01/16 with stay in their facility complicated by anemia requiring blood transfusions, acute on chronic kidney failure, and a urinary tract infection - Patient Problems (1) Hip fracture Comment: still Melodie dependent (2) Hypertension Comment: lisinopril 10 mg held metoprolol cont controlled (3) Diabetes mellitus Comment: cont high dose ISS 04/12/16, cont basal Lantus (4) Atrial fibrillation Comment: rate and rhythm controlled on amiodarone (5) Anemia Comment: transfused 1 U PRBC on 04/16/16 (transfused 2 U postop prior) Stool heme neg low iron and TIBC due to anemia of chronic disease and CKD D/w Dr. Ortiz , Epogen 2x/week recommended. First dose today, nect dose Saturday04/20/16 (6) Acute on chronic kidney failure Comment: baseline creat of 2.8 today at baseline cont to improve PO protein intake with Glucerna and nutritional f/u (7) Parkinson disease Comment: stable. c/w home medications (8) UTI (urinary tract infection) Comment: Citrobacter resistant to cefazolin completed ceftin 7 days (04/10/16) (9) Skin ulcer of pretibial region of left lower extremity Comment: wound care c/s appreciated Also noted sacral decubiti to be tx with silvadene BID (10) Shoulder pain Comment: left XR here with OA, exacerbated by fall (11) Anasarca associated with disorder of kidney Comment: due to a combination of manutrition and low albumin level and CKD cont daily Lasix IV 20 mg and moniotor CKD (12) Malnutrition Comment: severe, chronic with prealbumin of 6 appreciate nutrition consult . cont Glucerna (13) DVT prophylaxis Comment: coumadin- INR therapeutic Status and Disposition: d/c to STR once Hb stable and pt diuresed with IV Lasix
[2016-04-17] MEDS: Insulin GLARGINE(*) 1 UNITS UNIT SUBCUT SCH (14:59)
[2016-04-17] MEDS: Warfarin TAB(*) 2 MG PO SCH (16:53)
[2016-04-18] MEDS: oxyCODONE/Acetamin 5/325 MG* TAB PO PRN (00:16)
[2016-04-18] MEDS: Carbidopa/Levodop 25/100 MG TAB(*) PO SCH ×4 (07:49→21:24)
[2016-04-18] MEDS: Omeprazole CAP* 20 MG PO SCH (07:49)
--- NOTE | 2016-04-18 09:55 | PN ---
Subjective Date of Service: 04/18/16 Interval History: Patient seen this morning. Says she is not hungry but trying to eat, knows its important for fluid mobilization and wound healing. Reports occasional SOB, none presently. Pain in hip is mostly controlled. Family History: Unchanged from Admission Social History: Unchanged from Admission Past Medical History: Unchanged from Admission Objective Active Medications: Acetaminophen (Tylenol Tab*) 650 mg PO Q4H PRN Allopurinol (Zyloprim Tab*) 100 mg PO DAILY [facility] Amiodarone HCl (Cordarone Tab*) 200 mg PO DAILY [facility] Ascorbic Acid (Vitamin C Tab*) 500 mg PO DAILY [facility] Atorvastatin Calcium (Lipitor*) 20 mg PO DAILY [facility] Bisacodyl (Dulcolax Supp*) 10 mg [place] DAILY PRN Calcium/Vitamin D (Oscal D Tab 250/125*) 1 tab PO DAILY [facility] Carbidopa/Levodopa (Sinemet 25/100 Tab(*)) 1 tab PO BEDTIME [facility] Carbidopa/Levodopa (Sinemet 25/100 Tab(*)) 1 tab PO DAILY@0700 [facility] Carbidopa/Levodopa (Sinemet 25/100 Tab(*)) 1.5 tab PO DAILY@1100 [facility] Carbidopa/Levodopa (Sinemet 25/100 Tab(*)) 1 tab PO DAILY@1500 [facility] Citalopram Hydrobromide (Celexa Tab*) 10 mg PO DAILY [facility] Dextrose (D50w Syringe 50 Ml*) 12.5 gm IV PUSH .FOR FS < 60 - SS PRN Diphenhydramine HCl (Benadryl Iv*) 25 mg IV Q6H PRN Docusate Sodium (Colace Cap*) 100 mg PO BID [facility] Epoetin Himanshu (Epogen*) 10,000 units SUBCUT ONCE ONE Furosemide (Lasix Iv*) 20 mg IV DAILY [facility] Heparin Sodium (Porcine) (Heparin Flush Picc/Ml/Cvc(*)) 1 - 3 ml FLUSH 0600, 1800 [facility] Insulin Glargine (Lantus(*)) 5 units SUBCUT Q24H [facility] Insulin Human Lispro (Humalog*) 0 units SUBCUT ACHS [facility] Magnesium Hydroxide (Milk Of Magnesia Liq*) 30 ml PO Q6H PRN Metoprolol Tartrate (Lopressor Tab*) 12.5 mg PO Q12HR [facility] Multi-Ingredient Ointment (Hydrocerin*) 1 applic TOPICAL BID [facility] Multivitamins (Theragran Tab*) 1 tab PO DAILY [facility] Umeclidinium [place] [Incruse Ellipta] 1 Puff)*Nonformulary 1 dose INH DAILY [facility] Nystatin (Nystatin Top Powder*) 1 applic TOPICAL TID [facility] Omeprazole (Prilosec Cap*) 20 mg PO 0730 [facility] Oxycodone/Acetaminophen (Percocet 5/325 Tab*) 1 tab PO Q3H PRN Pharmacy Profile Note (Coumadin Daily Reminder*) 1 note FOLLOW UP 1700 [facility] Polyethylene Glycol/Electrolytes (Miralax*) 17 gm PO DAILY PRN Prochlorperazine Edisylate (Compazine Inj*) 5 mg IV Q6H PRN Silver Sulfadiazine (Silvadine 1%*) 1 applic TOPICAL BID [facility] Tiotropium [place] (Spiriva Cap.Inh*) 1 cap INH DAILY [facility] Warfarin Sodium (Coumadin Tab(*)) 2 mg PO DAILY@1700 [facility] Vital Signs 04/17/16 04/17/16 04/17/16 11:24 16:00 16:01 Temperature 97.8 F Pulse Rate 59 60 Respiratory 20 24 Rate Blood Pressure 140/89 123/60 (mmHg) O2 Sat by Pulse 98 99 99 Oximetry 04/17/16 04/17/16 04/18/16 19:57 20:00 00:00 Temperature 97.8 F Pulse Rate 59 Respiratory 20 20 Rate Blood Pressure 115/33 (mmHg) O2 Sat by Pulse 100 97 Oximetry 04/18/16 04/18/16 04/18/16 00:09 00:16 02:16 Temperature 98.0 F Pulse Rate 60 Respiratory 20 20 16 Rate Blood Pressure 149/73 (mmHg) O2 Sat by Pulse 97 Oximetry 04/18/16 04/18/16 03:25 07:35 Temperature 99.1 F 98.0 F Pulse Rate 59 61 Respiratory 16 18 Rate Blood Pressure 105/61 131/35 (mmHg) O2 Sat by Pulse 99 100 Oximetry Oxygen Devices in Use Now: Nasal Cannula - at 2 L Appearance: Morbidly obese, elderly F, laying in bed in NAD Eyes: No Scleral Icterus Ears/Nose/Mouth/Throat: - - Dry MM Neck: NL Appearance and Movements; NL JVP Respiratory: Symmetrical Chest Expansion and Respiratory Effort, Clear to Auscultation - in anterior and lateral macias Cardiovascular: NL Sounds; No Murmurs; No JVD, - - 3/6 JAMILAH Abdominal: NL Sounds; No Tenderness; No Distention Lymphatic: No Cervical Adenopathy Extremities: - - Anasarca, AILEEN wraps over arms and legs, seems to be more prominent in proximal parts of extremities, LLE wound dressing c/d/i Skin: - - Scattered ecchymoses Neurological: - - Alert, oriented, UE tremor Lines/Tubes/Other Access: Clean, Dry and Intact Love Result Diagrams: 04/17/16 06:00 04/17/16 06:00 Microbiology and Other Data: Assess/Plan/Problems-Billing Assessment: 85 yo F h/p parkinson's dz, DM2, CAD/CABG, AVR, afib s/p ablation on amiodarone/ no AC 2/2 recurrent falls, SSS s/p PPP placement, aortic stenosis and pHTN per report with decreased RV function (not evident on TTE here), who presented from [facility] 04/06/16 after fall with left hip fracture 04/01/16 with stay in their facility complicated by anemia requiring blood transfusions, acute on chronic kidney failure, and a urinary tract infection - Patient Problems (1) Hip fracture Current Visit: Yes Comment: Appreciate Ortho assistance, still Melodie dependent (2) Hypertension Current Visit: Yes Comment: lisinopril 10 mg held metoprolol cont controlled (3) Atrial fibrillation Current Visit: Yes Comment: rate and rhythm controlled on amiodarone, metoprolol (4) Diabetes mellitus Current Visit: Yes Comment: cont high dose ISS 04/12/16, cont basal Lantus (5) Acute on chronic kidney failure Current Visit: Yes Comment: baseline creat of 2.8? Today's pending Recheck daily with daily IV lasix being given cont to improve PO protein intake with Glucerna and nutritional f/u (6) Anasarca associated with disorder of kidney Current Visit: Yes Comment: due to a combination of manutrition and low albumin level and CKD cont daily Lasix IV 20 mg and moniotor CKD (7) Anemia Current Visit: Yes Comment: transfused 1 U PRBC on 04/16/16 (transfused 2 U postop prior) Stool heme neg low iron and TIBC due to anemia of chronic disease and CKD Dr. Ortiz recommended , Epogen 2x/week. First dose given 04/17, next dose Saturday04/20/16 (8) Parkinson disease Current Visit: Yes Comment: stable. c/w home medications (9) Skin ulcer of pretibial region of left lower extremity Current Visit: Yes Comment: wound care c/s appreciated Also noted sacral decubiti to be tx with silvadene BID (10) UTI (urinary tract infection) Current Visit: Yes Comment: Citrobacter resistant to cefazolin completed ceftin 7 days (04/10/16) (11) Malnutrition Current Visit: Yes Comment: severe, chronic with prealbumin of 6 appreciate nutrition consult . cont Glucerna (12) Shoulder pain Current Visit: Yes Comment: left XR here with OA, exacerbated by fall (13) DVT prophylaxis Current Visit: Yes Comment: coumadin- INR just under therapeutic Status and Disposition: d/c to STR once Hb stable and pt adequately diuresed with IV Lasix
[2016-04-18] MEDS: Silver Sulfadiazine 1%* 20 GM TOPICAL SCH ×2 (10:45→21:28)
[2016-04-18] MEDS: Furosemide IV* 10 MG/ML 2 ML VIAL (20 MG) IV SCH (10:46)
[2016-04-18] MEDS: Insulin LISPRO* 1 UNITS UNIT SUBCUT SCH ×4 (11:05→21:12)
[2016-04-18] MEDS: Tiotropium CAP.INH* CAP.INH/18 MCG (USE ORDER SET !) INH SCH (11:06)
[2016-04-18] MEDS: Ascorbic Acid TAB* 500 MG PO SCH (11:07)
[2016-04-18] MEDS: Metoprolol Tartrate TAB* 25 MG PO SCH ×2 (11:07→21:24)
[2016-04-18] MEDS: Amiodarone TAB* 200 MG PO SCH (11:07)
[2016-04-18] MEDS: Allopurinol TAB* 100 MG PO SCH (11:09)
[2016-04-18] MEDS: Citalopram TAB* 10 MG PO SCH (11:09)
[2016-04-18] MEDS: Docusate CAP* 100 MG PO SCH ×2 (11:09→21:24)
[2016-04-18] MEDS: Vitamin THERAPEUTIC TAB PO SCH (11:10)
[2016-04-18] MEDS: Calcium/Vitamin D TAB 250/125* TAB PO SCH (11:10)
[2016-04-18] MEDS: Atorvastatin* 20 MG TAB PO SCH (11:10)
[2016-04-18] MEDS: Moisturizing CREAM* 120 GM JAR TOPICAL SCH ×2 (11:11→22:42)
[2016-04-18] MEDS: [UNRECOGNIZED DRUG - OTHER] INH SCH (11:11)
[2016-04-18] MEDS: UMECLIDINIUM BROMIDE INH SCH (11:11)
[2016-04-18] MEDS: Nystatin TOP POWDER* 15 GM BTL TOPICAL SCH ×3 (11:12→22:42)
[2016-04-18 11:47] LABS: Blood Urea Nitrogen 95 mg/dL (6-24); CO2 Carbon Dioxide 27 mmol/L (22-32); Calcium 7.8 mg/dL (8.6-10.3); Chloride 111 mmol/L (101-111); EGFR African American 28.6 (>60); EGFR Non-African American 22.3 (>60); Glucose 124 mg/dL (70-100); Sodium 139 mmol/L (133-145)
[2016-04-18] MEDS: Insulin GLARGINE(*) 1 UNITS UNIT SUBCUT SCH (14:09)
[2016-04-18] MEDS: Warfarin TAB(*) 2 MG PO SCH (16:51)
[2016-04-19] MEDS: oxyCODONE/Acetamin 5/325 MG* TAB PO PRN ×2 (03:46→08:08)
[2016-04-19] MEDS: Magnesium Hydroxide LIQ* 30 ML UDC PO PRN (06:24)
[2016-04-19 06:46] LABS: BUN/Creatinine Ratio 47.5 (8-20); Blood Urea Nitrogen 94 mg/dL (6-24); CO2 Carbon Dioxide 24 mmol/L (22-32); Calcium 7.7 mg/dL (8.6-10.3); Chloride 113 mmol/L (101-111); EGFR African American 30.8 (>60); Glucose 112 mg/dL (70-100); Sodium 140 mmol/L (133-145)
[2016-04-19] MEDS: Moisturizing CREAM* 120 GM JAR TOPICAL SCH ×2 (07:24→20:42)
[2016-04-19] MEDS: Insulin LISPRO* 1 UNITS UNIT SUBCUT SCH ×4 (07:24→20:36)
[2016-04-19] MEDS: Nystatin TOP POWDER* 15 GM BTL TOPICAL SCH ×3 (07:25→22:58)
[2016-04-19] MEDS: [UNRECOGNIZED DRUG - OTHER] INH SCH (07:25)
[2016-04-19] MEDS: UMECLIDINIUM BROMIDE INH SCH (07:25)
[2016-04-19] MEDS: Allopurinol TAB* 100 MG PO SCH (08:08)
[2016-04-19] MEDS: Carbidopa/Levodop 25/100 MG TAB(*) PO SCH ×4 (08:08→20:37)
[2016-04-19] MEDS: Atorvastatin* 20 MG TAB PO SCH (08:08)
[2016-04-19] MEDS: Docusate CAP* 100 MG PO SCH ×2 (08:08→20:37)
[2016-04-19] MEDS: Omeprazole CAP* 20 MG PO SCH (08:08)
[2016-04-19] MEDS: Amiodarone TAB* 200 MG PO SCH (08:09)
[2016-04-19] MEDS: Vitamin THERAPEUTIC TAB PO SCH (08:09)
[2016-04-19] MEDS: Citalopram TAB* 10 MG PO SCH (08:09)
[2016-04-19] MEDS: Calcium/Vitamin D TAB 250/125* TAB PO SCH (08:09)
[2016-04-19] MEDS: Metoprolol Tartrate TAB* 25 MG PO SCH ×2 (08:09→20:37)
[2016-04-19] MEDS: Tiotropium CAP.INH* CAP.INH/18 MCG (USE ORDER SET !) INH SCH (08:09)
[2016-04-19] MEDS: Ascorbic Acid TAB* 500 MG PO SCH (08:09)
[2016-04-19] MEDS: Furosemide IV* 10 MG/ML 2 ML VIAL (20 MG) IV SCH (08:10)
[2016-04-19] MEDS ORDERED: Furosemide IV* 10 MG/ML 10 ML VIAL (100 MG) IV ONE (08:25)
[2016-04-19] MEDS: PROCHLORPERAZINE INJ 5 MG/ML 2 ML VIAL IV PRN (09:10)
[2016-04-19] MEDS: Silver Sulfadiazine 1%* 20 GM TOPICAL SCH ×2 (09:47→22:30)
--- NOTE | 2016-04-19 10:53 | PN ---
Progress Note - Progress Note SOAP: Subjective: Pt. is oobtc today and alert with son at bedside. Objective: LLE - inc c/d/i, min erythema, thigh with less edema. tibial wounds covered, distally nvi. Vital Signs: Temp Pulse Resp BP Pulse Ox 97.7 F 59 18 110/37 99 04/19/16 03:43 04/19/16 07:07 04/19/16 08:08 04/19/16 07:07 04/19/16 08:00 Laboratory Results - last 24 hr 04/18/16 04/18/16 04/18/16 11:00 11:17 16:52 INR (Anticoag Therapy) Sodium 139 Potassium TNP Chloride 111 Carbon Dioxide 27 Anion Gap TNP BUN 95 H Creatinine 2.11 H Est GFR ( Amer) 28.6 Est GFR (Non-Af Amer) 22.3 BUN/Creatinine Ratio 45.0 H Glucose 124 H POC Glucose (mg/dL) 165 H 192 H Calcium 7.8 L 04/18/16 04/19/16 04/19/16 21:00 06:08 06:45 INR (Anticoag Therapy) 1.93 H Sodium 140 Potassium TNP Chloride 113 H Carbon Dioxide 24 Anion Gap TNP BUN 94 H Creatinine 1.98 H Est GFR ( Amer) 30.8 Est GFR (Non-Af Amer) 24.0 BUN/Creatinine Ratio 47.5 H Glucose 112 H POC Glucose (mg/dL) 206 H Calcium 7.7 L Assessment: 85 yo F pod 12 s/p L proximal femur fx orif Plan: ttwb LLE - pt/ot oobtc when possible cont. wound care renal function and edema improved ortho stable for d/c to snf when medically ready.
--- NOTE | 2016-04-19 12:38 | PN ---
Subjective Date of Service: 04/19/16 Interval History: Patient seen this morning with sons at bedside. No acute issues. Continues to feel like she has little appetite although has been trying to drink glucerna. Pain controlled. Family History: Unchanged from Admission Social History: Unchanged from Admission Past Medical History: Unchanged from Admission Objective Active Medications: Acetaminophen (Tylenol Tab*) 650 mg PO Q4H PRN PRN Reason: FEVER/PAIN Last Admin: 04/13/16 00:25 Dose: 650 mg Allopurinol (Zyloprim Tab*) 100 mg PO DAILY [facility] Last Admin: 04/19/16 08:08 Dose: 100 mg Amiodarone HCl (Cordarone Tab*) 200 mg PO DAILY [facility] Last Admin: 04/19/16 08:09 Dose: 200 mg Ascorbic Acid (Vitamin C Tab*) 500 mg PO DAILY [facility] Last Admin: 04/19/16 08:09 Dose: 500 mg Atorvastatin Calcium (Lipitor*) 20 mg PO DAILY [facility] Last Admin: 04/19/16 08:08 Dose: 20 mg Bisacodyl (Dulcolax Supp*) 10 mg [place] DAILY PRN PRN Reason: constipation Calcium/Vitamin D (Oscal D Tab 250/125*) 1 tab PO DAILY [facility] Last Admin: 04/19/16 08:09 Dose: 1 tab Carbidopa/Levodopa (Sinemet 25/100 Tab(*)) 1 tab PO BEDTIME [facility] Last Admin: 04/18/16 21:24 Dose: 1 tab Carbidopa/Levodopa (Sinemet 25/100 Tab(*)) 1 tab PO DAILY@0700 [facility] Last Admin: 04/19/16 08:08 Dose: 1 tab Carbidopa/Levodopa (Sinemet 25/100 Tab(*)) 1.5 tab PO DAILY@1100 [facility] Last Admin: 04/19/16 11:14 Dose: 1.5 tab Carbidopa/Levodopa (Sinemet 25/100 Tab(*)) 1 tab PO DAILY@1500 [facility] Last Admin: 04/18/16 14:11 Dose: 1 tab Citalopram Hydrobromide (Celexa Tab*) 10 mg PO DAILY [facility] Last Admin: 04/19/16 08:09 Dose: 10 mg Dextrose (D50w Syringe 50 Ml*) 12.5 gm IV PUSH .FOR FS < 60 - SS PRN PRN Reason: FS < 60 Diphenhydramine HCl (Benadryl Iv*) 25 mg IV Q6H PRN PRN Reason: itching Docusate Sodium (Colace Cap*) 100 mg PO BID [facility] Last Admin: 04/19/16 08:08 Dose: 100 mg Epoetin Himanshu (Epogen*) 10,000 units SUBCUT ONCE ONE Stop: 04/20/16 13:36 Furosemide (Lasix Iv*) 20 mg IV DAILY [facility] Last Admin: 04/19/16 08:10 Dose: 20 mg Heparin Sodium (Porcine) (Heparin Flush Picc/Ml/Cvc(*)) 1 - 3 ml FLUSH 0600, 1800 [facility] PRN Reason: Protocol Last Admin: 04/19/16 06:23 Dose: 1 ml Insulin Glargine (Lantus(*)) 5 units SUBCUT Q24H [facility] Last Admin: 04/18/16 14:09 Dose: 5 unit Insulin Human Lispro (Humalog*) 0 units SUBCUT ACHS [facility] PRN Reason: Protocol Last Admin: 04/19/16 07:24 Dose: Not Given Magnesium Hydroxide (Milk Of Magnesia Liq*) 30 ml PO Q6H PRN PRN Reason: constipation Last Admin: 04/19/16 06:24 Dose: 30 ml Metoprolol Tartrate (Lopressor Tab*) 12.5 mg PO Q12HR [facility] Last Admin: 04/19/16 08:09 Dose: 12.5 mg Multi-Ingredient Ointment (Hydrocerin*) 1 applic TOPICAL BID [facility] Last Admin: 04/19/16 07:24 Dose: Not Given Multivitamins (Theragran Tab*) 1 tab PO DAILY [facility] Last Admin: 04/19/16 08:09 Dose: 1 tab Umeclidinium [place] [Incruse Ellipta] 1 Puff)*Nonformulary 1 dose INH DAILY [facility] Last Admin: 04/19/16 07:25 Dose: Not Given Nystatin (Nystatin Top Powder*) 1 applic TOPICAL TID [facility] Last Admin: 04/19/16 07:25 Dose: Not Given Omeprazole (Prilosec Cap*) 20 mg PO 0730 [facility] Last Admin: 04/19/16 08:08 Dose: 20 mg Oxycodone/Acetaminophen (Percocet 5/325 Tab*) 1 tab PO Q3H PRN PRN Reason: PAIN - MODERATE Last Admin: 04/19/16 08:08 Dose: 1 tab Pharmacy Profile Note (Coumadin Daily Reminder*) 1 note FOLLOW UP 1700 [facility] Last Admin: 04/18/16 16:52 Dose: 1 note Polyethylene Glycol/Electrolytes (Miralax*) 17 gm PO DAILY PRN PRN Reason: Constipation Last Admin: 04/10/16 07:55 Dose: 17 gm Prochlorperazine Edisylate (Compazine Inj*) 5 mg IV Q6H PRN PRN Reason: NAUSEA/VOMITING Last Admin: 04/19/16 09:10 Dose: 5 mg Silver Sulfadiazine (Silvadine 1%*) 1 applic TOPICAL BID [facility] Last Admin: 04/19/16 09:47 Dose: 1 applic Tiotropium [place] (Spiriva Cap.Inh*) 1 cap INH DAILY [facility] Last Admin: 04/19/16 08:09 Dose: 1 cap Warfarin Sodium (Coumadin Tab(*)) 2 mg PO DAILY@1700 [facility] PRN Reason: Protocol Last Admin: 04/18/16 16:51 Dose: 2 mg Vital Signs 04/18/16 04/18/16 04/18/16 15:22 16:00 21:15 Temperature 97.8 F Pulse Rate 59 Respiratory 16 20 Rate Blood Pressure 132/66 (mmHg) O2 Sat by Pulse 99 99 Oximetry 04/18/16 04/18/16 04/19/16 21:17 23:59 03:43 Temperature 97.8 F 98.0 F 97.7 F Pulse Rate 60 60 68 Respiratory 20 18 18 Rate Blood Pressure 116/38 103/40 128/40 (mmHg) O2 Sat by Pulse 100 99 99 Oximetry 04/19/16 04/19/16 04/19/16 03:46 05:20 05:46 Temperature Pulse Rate Respiratory 22 20 Rate Blood Pressure (mmHg) O2 Sat by Pulse 99 Oximetry 04/19/16 04/19/16 04/19/16 07:07 08:00 08:08 Temperature Pulse Rate 59 Respiratory 16 18 18 Rate Blood Pressure 110/37 (mmHg) O2 Sat by Pulse 99 99 Oximetry 04/19/16 04/19/16 10:08 11:48 Temperature 98.6 F Pulse Rate 59 Respiratory 18 16 Rate Blood Pressure 108/32 (mmHg) O2 Sat by Pulse 98 Oximetry Oxygen Devices in Use Now: Nasal Cannula - at 2 L Appearance: Elderly, F, laying in chair in NAD Eyes: No Scleral Icterus Ears/Nose/Mouth/Throat: - - Dry MM Neck: NL Appearance and Movements; NL JVP Respiratory: Symmetrical Chest Expansion and Respiratory Effort - in anterior and lateral macias Cardiovascular: NL Sounds; No Murmurs; No JVD, RRR Abdominal: - - Obese, soft, NTND, BS+ Lymphatic: No Cervical Adenopathy Extremities: - - Diffuse anasarca, LLE with dressing in place from surgery, B/L UE and LE AILEEN wraps Skin: - - Diffuse, ecchymoses Neurological: Alert and Oriented x 3, - - no focal deficits Lines/Tubes/Other Access: Clean, Dry and Intact Love Result Diagrams: 04/17/16 06:00 04/19/16 07:26 Microbiology and Other Data: Assess/Plan/Problems-Billing Assessment: 85 yo F h/p parkinson's dz, DM2, CAD/CABG, AVR, afib s/p ablation on amiodarone/ no AC 2/2 recurrent falls, SSS s/p PPP placement, aortic stenosis and pHTN per report with decreased RV function (not evident on TTE here), who presented from [facility] 04/06/16 after fall with left hip fracture 04/01/16 with stay in their facility complicated by anemia requiring blood transfusions, acute on chronic kidney failure, and a urinary tract infection - Patient Problems (1) Hip fracture Current Visit: Yes Comment: Appreciate Ortho assistance, will need rehab once medically stable (2) Hypertension Current Visit: Yes Comment: lisinopril 10 mg held metoprolol cont controlled (3) Atrial fibrillation Current Visit: Yes Comment: rate and rhythm controlled on amiodarone, metoprolol (4) Diabetes mellitus Current Visit: Yes Comment: cont high dose ISS 04/12/16, cont basal Lantus (5) Acute on chronic kidney failure Current Visit: Yes Comment: Creatinine continues to improve Continue to monitor daily cont to improve PO protein intake with Glucerna and nutritional f/u (6) Anasarca associated with disorder of kidney Current Visit: Yes Comment: due to a combination of manutrition and low albumin level and CKD Gave 40 mg IV Lasix today, monitor I/O closely (7) Anemia Current Visit: Yes Comment: transfused 1 U PRBC on 04/16/16 (transfused 2 U postop prior) Stool heme neg low iron and TIBC due to anemia of chronic disease and CKD Dr. Ortiz recommended , Epogen 2x/week. First dose given 04/17, next dose Saturday04/20/16 (8) Parkinson disease Current Visit: Yes Comment: stable. c/w home medications (9) Skin ulcer of pretibial region of left lower extremity Current Visit: Yes Comment: wound care c/s appreciated Also noted sacral decubiti to be tx with silvadene BID (10) UTI (urinary tract infection) Current Visit: Yes Comment: Citrobacter resistant to cefazolin completed ceftin 7 days (04/10/16) (11) Malnutrition Current Visit: Yes Comment: severe, chronic with prealbumin of 6 appreciate nutrition consult . cont Glucerna (12) Shoulder pain Current Visit: Yes Comment: left XR here with OA, exacerbated by fall (13) Hyperkalemia Current Visit: Yes Comment: Could monitor but with constipation will give Kayexalate x 1 (14) DVT prophylaxis Current Visit: Yes Comment: coumadin- INR just under therapeutic Status and Disposition: d/c to STR once Hb stable and pt adequately diuresed with IV Lasix
[2016-04-19] MEDS ORDERED: Sodium Polystyrene ORAL.SOL* 15 GM/60 ML BTL PO ONE (12:43)
[2016-04-19] MEDS: Insulin GLARGINE(*) 1 UNITS UNIT SUBCUT SCH (15:19)
[2016-04-19] MEDS: Warfarin TAB(*) 2 MG PO SCH (17:43)
[2016-04-20 05:48] LABS: BUN/Creatinine Ratio 48.2 (8-20); Calcium 7.9 mg/dL (8.6-10.3); EGFR African American 32.1 (>60); Potassium 4.8 mmol/L (3.5-5.0)
[2016-04-20] MEDS: Magnesium Hydroxide LIQ* 30 ML UDC PO PRN ×2 (05:59→12:56)
[2016-04-20] MEDS: Polyethylene Glycol 3350* 17 GM PACKET PO PRN (08:48)
[2016-04-20] MEDS: Atorvastatin* 20 MG TAB PO SCH (08:50)
[2016-04-20] MEDS: Citalopram TAB* 10 MG PO SCH (08:50)
[2016-04-20] MEDS: Carbidopa/Levodop 25/100 MG TAB(*) PO SCH ×4 (08:50→21:42)
[2016-04-20] MEDS: Allopurinol TAB* 100 MG PO SCH (08:50)
[2016-04-20] MEDS: Amiodarone TAB* 200 MG PO SCH (08:50)
[2016-04-20] MEDS: Vitamin THERAPEUTIC TAB PO SCH (08:50)
[2016-04-20] MEDS: Calcium/Vitamin D TAB 250/125* TAB PO SCH (08:50)
[2016-04-20] MEDS: Omeprazole CAP* 20 MG PO SCH (08:50)
[2016-04-20] MEDS: Ascorbic Acid TAB* 500 MG PO SCH (08:50)
[2016-04-20] MEDS: Docusate CAP* 100 MG PO SCH ×2 (08:50→21:42)
[2016-04-20] MEDS: Metoprolol Tartrate TAB* 25 MG PO SCH ×2 (08:52→21:42)
[2016-04-20] MEDS: Tiotropium CAP.INH* CAP.INH/18 MCG (USE ORDER SET !) INH SCH (08:53)
--- NOTE | 2016-04-20 08:59 | PN ---
Subjective Date of Service: 04/20/16 Interval History: Patient seen this morning. No acute events overnight. Feels about the same, some mild SOB which she states is her baseline. Thinks hand swelling is "better ". Still no BM yet. Feels constipated. Encouraged her to eat. Family History: Unchanged from Admission Social History: Unchanged from Admission Past Medical History: Unchanged from Admission Objective Active Medications: Acetaminophen (Tylenol Tab*) 650 mg PO Q4H PRN Allopurinol (Zyloprim Tab*) 100 mg PO DAILY [facility] Amiodarone HCl (Cordarone Tab*) 200 mg PO DAILY [facility] Ascorbic Acid (Vitamin C Tab*) 500 mg PO DAILY [facility] Atorvastatin Calcium (Lipitor*) 20 mg PO DAILY [facility] Bisacodyl (Dulcolax Supp*) 10 mg [place] DAILY PRN Calcium/Vitamin D (Oscal D Tab 250/125*) 1 tab PO DAILY [facility] Carbidopa/Levodopa (Sinemet 25/100 Tab(*)) 1 tab PO BEDTIME [facility] Carbidopa/Levodopa (Sinemet 25/100 Tab(*)) 1 tab PO DAILY@0700 [facility] Carbidopa/Levodopa (Sinemet 25/100 Tab(*)) 1.5 tab PO DAILY@1100 [facility] Carbidopa/Levodopa (Sinemet 25/100 Tab(*)) 1 tab PO DAILY@1500 [facility] Citalopram Hydrobromide (Celexa Tab*) 10 mg PO DAILY [facility] Dextrose (D50w Syringe 50 Ml*) 12.5 gm IV PUSH .FOR FS < 60 - SS PRN Diphenhydramine HCl (Benadryl Iv*) 25 mg IV Q6H PRN Docusate Sodium (Colace Cap*) 100 mg PO BID [facility] Epoetin Himanshu (Epogen*) 10,000 units SUBCUT ONCE ONE Furosemide (Lasix Iv*) 40 mg IV DAILY [facility] Heparin Sodium (Porcine) (Heparin Flush Picc/Ml/Cvc(*)) 1 - 3 ml FLUSH 0600, 1800 [facility] Heparin Sodium (Porcine) (Heparin Vial(*)) 5,000 units SUBCUT Q8HR [facility] Insulin Glargine (Lantus(*)) 5 units SUBCUT Q24H [facility] Insulin Human Lispro (Humalog*) 0 units SUBCUT ACHS [facility] Magnesium Hydroxide (Milk Of Magnesia Liq*) 30 ml PO Q6H PRN Metoprolol Tartrate (Lopressor Tab*) 12.5 mg PO Q12HR [facility] Multi-Ingredient Ointment (Hydrocerin*) 1 applic TOPICAL BID [facility] Multivitamins (Theragran Tab*) 1 tab PO DAILY [facility] Umeclidinium [place] [Incruse Ellipta] 1 Puff)*Nonformulary 1 dose INH DAILY [facility] Nystatin (Nystatin Top Powder*) 1 applic TOPICAL TID [facility] Omeprazole (Prilosec Cap*) 20 mg PO 0730 [facility] Oxycodone/Acetaminophen (Percocet 5/325 Tab*) 1 tab PO Q3H PRN Pharmacy Profile Note (Coumadin Daily Reminder*) 1 note FOLLOW UP 1700 [facility] Polyethylene Glycol/Electrolytes (Miralax*) 17 gm PO DAILY PRN Prochlorperazine Edisylate (Compazine Inj*) 5 mg IV Q6H PRN Silver Sulfadiazine (Silvadine 1%*) 1 applic TOPICAL BID [facility] Tiotropium [place] (Spiriva Cap.Inh*) 1 cap INH DAILY [facility] Warfarin Sodium (Coumadin Tab(*)) 2 mg PO DAILY@1700 [facility] Vital Signs 04/19/16 04/19/16 04/19/16 10:08 11:48 15:46 Temperature 98.6 F Pulse Rate 59 Respiratory 18 16 Rate Blood Pressure 108/32 (mmHg) O2 Sat by Pulse 98 98 Oximetry 04/19/16 04/19/16 04/19/16 15:48 16:39 19:55 Temperature 97.4 F 97.8 F Pulse Rate 59 73 Respiratory 19 19 Rate Blood Pressure 138/39 114/43 (mmHg) O2 Sat by Pulse 99 99 Oximetry 04/19/16 04/19/16 04/20/16 20:40 23:56 03:34 Temperature 97.2 F Pulse Rate 60 Respiratory 20 16 Rate Blood Pressure 110/30 (mmHg) O2 Sat by Pulse 99 98 Oximetry 04/20/16 04/20/16 03:38 07:58 Temperature 97.5 F 97.4 F Pulse Rate 60 64 Respiratory 18 22 Rate Blood Pressure 143/90 147/45 (mmHg) O2 Sat by Pulse 99 100 Oximetry Oxygen Devices in Use Now: Nasal Cannula - at 2 L Appearance: Elderly, F, laying in bed in NAD Eyes: No Scleral Icterus Ears/Nose/Mouth/Throat: Mucous Membranes Moist Neck: NL Appearance and Movements; NL JVP Respiratory: Symmetrical Chest Expansion and Respiratory Effort, Clear to Auscultation - in anterior macias Cardiovascular: NL Sounds; No Murmurs; No JVD, RRR Abdominal: NL Sounds; No Tenderness; No Distention Lymphatic: No Cervical Adenopathy Extremities: - - Diffuse anasarca, slowly improving Skin: - - Scattered ecchymoses Neurological: Alert and Oriented x 3 Result Diagrams: 04/17/16 06:00 04/20/16 05:25 Microbiology and Other Data: Assess/Plan/Problems-Billing Assessment: 85 yo F h/p parkinson's dz, DM2, CAD/CABG, AVR, afib s/p ablation on amiodarone/ no AC 2/2 recurrent falls, SSS s/p PPP placement, aortic stenosis and pHTN per report with decreased RV function (not evident on TTE here), who presented from [facility] 04/06/16 after fall with left hip fracture 04/01/16 with stay in their facility complicated by anemia requiring blood transfusions, acute on chronic kidney failure, and a urinary tract infection - Patient Problems (1) Hip fracture Current Visit: Yes Comment: Appreciate Ortho assistance, will need rehab once medically stable (2) Hypertension Current Visit: Yes Comment: lisinopril 10 mg held metoprolol continued BPs stable (3) Atrial fibrillation Current Visit: Yes Comment: rate and rhythm controlled on amiodarone, metoprolol (4) Diabetes mellitus Current Visit: Yes Comment: cont high dose ISS 04/12/16, cont basal Lantus (5) Acute on chronic kidney failure Current Visit: Yes Comment: Creatinine continues to improve Continue to monitor daily cont to improve PO protein intake with Glucerna and nutritional f/u (6) Anasarca associated with disorder of kidney Current Visit: Yes Comment: due to a combination of manutrition and low albumin level and CKD Tolerated increased IV Lasix dose, continue 40 mg IV daily, strict I/O (7) Anemia Current Visit: Yes Comment: transfused 1 U PRBC on 04/16/16 (transfused 2 U postop prior) Stool heme neg low iron and TIBC due to anemia of chronic disease and CKD Dr. Ortiz recommended , Epogen 2x/week. First dose given 04/17, next dose to be given today, 04/20/16 (8) Parkinson disease Current Visit: Yes Comment: stable. c/w home medications (9) Skin ulcer of pretibial region of left lower extremity Current Visit: Yes Comment: wound care c/s appreciated Also noted sacral decubiti to be tx with silvadene BID (10) UTI (urinary tract infection) Current Visit: Yes Comment: Citrobacter resistant to cefazolin completed ceftin 7 days (04/10/16) (11) Malnutrition Current Visit: Yes Comment: severe, chronic with prealbumin of 6 appreciate nutrition consult . cont Glucerna (12) Shoulder pain Current Visit: Yes Comment: left XR here with OA, exacerbated by fall (13) Hyperkalemia Current Visit: Yes Comment: Resolved (14) DVT prophylaxis Current Visit: Yes Comment: coumadin, HSQ Status and Disposition: d/c to STR once Hb stable and pt adequately diuresed with IV Lasix
[2016-04-20] MEDS: PROCHLORPERAZINE INJ 5 MG/ML 2 ML VIAL IV PRN ×2 (09:05→16:04)
[2016-04-20] MEDS: Furosemide IV* 10 MG/ML VIAL (40 MG) IV SCH (09:05)
[2016-04-20] MEDS: Insulin LISPRO* 1 UNITS UNIT SUBCUT SCH ×5 (10:09→22:05)
[2016-04-20] MEDS: UMECLIDINIUM BROMIDE INH SCH (10:14)
[2016-04-20] MEDS: Moisturizing CREAM* 120 GM JAR TOPICAL SCH ×2 (10:14→21:43)
[2016-04-20] MEDS: [UNRECOGNIZED DRUG - OTHER] INH SCH (10:14)
[2016-04-20] MEDS: Nystatin TOP POWDER* 15 GM BTL TOPICAL SCH ×3 (10:14→23:23)
[2016-04-20] MEDS: Silver Sulfadiazine 1%* 20 GM TOPICAL SCH ×2 (12:56→21:46)
[2016-04-20] MEDS ORDERED: Epoetin Alfa* 10,000 UNITS/ML VIAL SUBCUT ONE (13:35)
[2016-04-20] MEDS ORDERED: Bisacodyl EC TAB* 5 MG PO ONE (14:37)
[2016-04-20] MEDS: Heparin VIAL(*) 5000 UNITS/ML VIAL (FIVE THOUSAND) SUBCUT SCH ×2 (15:14→21:43)
[2016-04-20] MEDS: Insulin GLARGINE(*) 1 UNITS UNIT SUBCUT SCH (15:17)
[2016-04-20] MEDS: Warfarin TAB(*) 2 MG PO SCH (17:48)
[2016-04-20] MEDS ORDERED: Nystatin TOP POWDER* 15 GM BTL TOPICAL ONE (23:30)
[2016-04-21] MEDS: Heparin VIAL(*) 5000 UNITS/ML VIAL (FIVE THOUSAND) SUBCUT SCH ×3 (06:15→21:36)
[2016-04-21] MEDS: Carbidopa/Levodop 25/100 MG TAB(*) PO SCH ×4 (06:41→21:33)
[2016-04-21 07:42] LABS: BUN/Creatinine Ratio 49.5 (8-20); Calcium 7.7 mg/dL (8.6-10.3); EGFR African American 33.5 (>60); EGFR Non-African American 26.1 (>60); Potassium 4.7 mmol/L (3.5-5.0)
[2016-04-21] MEDS: Insulin LISPRO* 1 UNITS UNIT SUBCUT SCH ×4 (08:43→21:35)
[2016-04-21] MEDS: Metoprolol Tartrate TAB* 25 MG PO SCH ×2 (08:44→21:34)
[2016-04-21] MEDS: Citalopram TAB* 10 MG PO SCH (08:45)
[2016-04-21] MEDS: Vitamin THERAPEUTIC TAB PO SCH (08:45)
[2016-04-21] MEDS: Omeprazole CAP* 20 MG PO SCH (08:45)
[2016-04-21] MEDS: Amiodarone TAB* 200 MG PO SCH (08:46)
[2016-04-21] MEDS: Ascorbic Acid TAB* 500 MG PO SCH (08:47)
[2016-04-21] MEDS: Allopurinol TAB* 100 MG PO SCH (08:47)
[2016-04-21] MEDS: Calcium/Vitamin D TAB 250/125* TAB PO SCH (08:47)
[2016-04-21] MEDS: [UNRECOGNIZED DRUG - OTHER] INH SCH (08:48)
[2016-04-21] MEDS: Docusate CAP* 100 MG PO SCH ×2 (08:48→19:45)
[2016-04-21] MEDS: UMECLIDINIUM BROMIDE INH SCH (08:48)
[2016-04-21] MEDS: Furosemide IV* 10 MG/ML VIAL (40 MG) IV SCH (08:49)
[2016-04-21] MEDS: Tiotropium CAP.INH* CAP.INH/18 MCG (USE ORDER SET !) INH SCH (08:50)
[2016-04-21] MEDS: PROCHLORPERAZINE INJ 5 MG/ML 2 ML VIAL IV PRN (09:04)
--- NOTE | 2016-04-21 09:35 | PN ---
Progress Note - Progress Note SOAP: Subjective: Pt. is awake, reports min pain left hip. Nursing reports sacral ulcers are severe. Objective: LLE - dressing changed. inc with some areas of dehiscence. minimal ss drainage and min erythema along inc. thigh less swollen. + df/pf. Vital Signs: Temp Pulse Resp BP Pulse Ox 98.0 F 60 16 98/31 100 04/21/16 07:27 04/21/16 07:27 04/21/16 07:27 04/21/16 07:27 04/21/16 07:27 Laboratory Results - last 24 hr 04/20/16 04/20/16 04/20/16 08:47 11:55 16:56 INR (Anticoag Therapy) Sodium Potassium Chloride Carbon Dioxide Anion Gap BUN Creatinine Est GFR ( Amer) Est GFR (Non-Af Amer) BUN/Creatinine Ratio Glucose POC Glucose (mg/dL) 148 H 205 H 189 H Calcium 04/20/16 04/21/16 04/21/16 21:32 06:49 06:49 INR (Anticoag Therapy) 1.80 H Sodium 145 Potassium 4.7 Chloride 114 H Carbon Dioxide 27 Anion Gap 4 BUN 91 H Creatinine 1.84 H Est GFR ( Amer) 33.5 Est GFR (Non-Af Amer) 26.1 BUN/Creatinine Ratio 49.5 H Glucose 98 POC Glucose (mg/dL) 186 H Calcium 7.7 L 04/21/16 08:04 INR (Anticoag Therapy) Sodium Potassium Chloride Carbon Dioxide Anion Gap BUN Creatinine Est GFR ( Amer) Est GFR (Non-Af Amer) BUN/Creatinine Ratio Glucose POC Glucose (mg/dL) 131 H Calcium Assessment: 85 yo F pod 14 s/p ORIF L proximal femur fx Plan: ttwb lle - pt/ot coumadin x 4 weeks frequent position changes nursing to do daily dry dressing changes to L hip inc
[2016-04-21] MEDS: Silver Sulfadiazine 1%* 20 GM TOPICAL SCH ×2 (12:33→20:20)
[2016-04-21] MEDS: Moisturizing CREAM* 120 GM JAR TOPICAL SCH ×2 (12:34→20:21)
[2016-04-21] MEDS: Insulin GLARGINE(*) 1 UNITS UNIT SUBCUT SCH (13:52)
--- NOTE | 2016-04-21 14:44 | PN ---
Subjective Date of Service: 04/21/16 Interval History: Patient seen this afternoon. Has been eating a bit more, think appetite is improving. Feels that her edema is noticeably improving. Son and DIL at bedside. All questions answered. Family History: Unchanged from Admission Social History: Unchanged from Admission Past Medical History: Unchanged from Admission Objective Active Medications: Acetaminophen (Tylenol Tab*) 650 mg PO Q4H PRN PRN Reason: FEVER/PAIN Last Admin: 04/13/16 00:25 Dose: 650 mg Allopurinol (Zyloprim Tab*) 100 mg PO DAILY [facility] Last Admin: 04/21/16 08:47 Dose: 100 mg Amiodarone HCl (Cordarone Tab*) 200 mg PO DAILY [facility] Last Admin: 04/21/16 08:46 Dose: 200 mg Ascorbic Acid (Vitamin C Tab*) 500 mg PO DAILY [facility] Last Admin: 04/21/16 08:47 Dose: 500 mg Atorvastatin Calcium (Lipitor*) 20 mg PO DAILY [facility] Last Admin: 04/20/16 08:50 Dose: 20 mg Bisacodyl (Dulcolax Supp*) 10 mg NM DAILY PRN PRN Reason: constipation Calcium/Vitamin D (Oscal D Tab 250/125*) 1 tab PO DAILY [facility] Last Admin: 04/21/16 08:47 Dose: 1 tab Carbidopa/Levodopa (Sinemet 25/100 Tab(*)) 1 tab PO BEDTIME [facility] Last Admin: 04/20/16 21:42 Dose: 1 tab Carbidopa/Levodopa (Sinemet 25/100 Tab(*)) 1 tab PO DAILY@0700 [facility] Last Admin: 04/21/16 06:41 Dose: 1 tab Carbidopa/Levodopa (Sinemet 25/100 Tab(*)) 1.5 tab PO DAILY@1100 [facility] Last Admin: 04/21/16 11:41 Dose: 1.5 tab Carbidopa/Levodopa (Sinemet 25/100 Tab(*)) 1 tab PO DAILY@1500 [facility] Last Admin: 04/21/16 13:51 Dose: 1 tab Citalopram Hydrobromide (Celexa Tab*) 10 mg PO DAILY [facility] Last Admin: 04/21/16 08:45 Dose: 10 mg Dextrose (D50w Syringe 50 Ml*) 12.5 gm IV PUSH .FOR FS < 60 - SS PRN PRN Reason: FS < 60 Diphenhydramine HCl (Benadryl Iv*) 25 mg IV Q6H PRN PRN Reason: itching Docusate Sodium (Colace Cap*) 100 mg PO BID [facility] Last Admin: 04/21/16 08:48 Dose: Not Given Furosemide (Lasix Iv*) 40 mg IV DAILY [facility] Last Admin: 04/21/16 08:49 Dose: 40 mg Heparin Sodium (Porcine) (Heparin Flush Picc/Ml/Cvc(*)) 1 - 3 ml FLUSH 0600, 1800 [facility] PRN Reason: Protocol Last Admin: 04/21/16 06:15 Dose: 1 ml Heparin Sodium (Porcine) (Heparin Vial(*)) 5,000 units SUBCUT Q8HR [facility] Last Admin: 04/21/16 13:54 Dose: 5,000 units Insulin Glargine (Lantus(*)) 5 units SUBCUT Q24H [facility] Last Admin: 04/21/16 13:52 Dose: 5 unit Insulin Human Lispro (Humalog*) 0 units SUBCUT ACHS [facility] PRN Reason: Protocol Last Admin: 04/21/16 13:52 Dose: 3 units Magnesium Hydroxide (Milk Of Magnesia Liq*) 30 ml PO Q6H PRN PRN Reason: constipation Last Admin: 04/20/16 12:56 Dose: 30 ml Metoprolol Tartrate (Lopressor Tab*) 12.5 mg PO Q12HR [facility] Last Admin: 04/21/16 08:44 Dose: 12.5 mg Multi-Ingredient Ointment (Hydrocerin*) 1 applic TOPICAL BID [facility] Last Admin: 04/21/16 12:34 Dose: Not Given Multivitamins (Theragran Tab*) 1 tab PO DAILY [facility] Last Admin: 04/21/16 08:45 Dose: 1 tab Umeclidinium [place] [Incruse Ellipta] 1 Puff)*Nonformulary 1 dose INH DAILY [facility] Last Admin: 04/21/16 08:48 Dose: Not Given Omeprazole (Prilosec Cap*) 20 mg PO 0730 [facility] Last Admin: 04/21/16 08:45 Dose: 20 mg Pharmacy Profile Note (Coumadin Daily Reminder*) 1 note FOLLOW UP 1700 [facility] Last Admin: 04/20/16 17:49 Dose: 1 note Pharmacy Profile Note (Coumadin Per Pharmacy*) 1 note FOLLOW UP .PER PHARMACY PROTOC [facility] PRN Reason: Protocol Polyethylene Glycol/Electrolytes (Miralax*) 17 gm PO DAILY PRN PRN Reason: Constipation Last Admin: 04/20/16 08:48 Dose: 17 gm Prochlorperazine Edisylate (Compazine Inj*) 5 mg IV Q6H PRN PRN Reason: NAUSEA/VOMITING Last Admin: 04/21/16 09:04 Dose: 5 mg Silver Sulfadiazine (Silvadine 1%*) 1 applic TOPICAL BID [facility] Last Admin: 04/21/16 12:33 Dose: 1 applic Tiotropium [place] (Spiriva Cap.Inh*) 1 cap INH DAILY [facility] Last Admin: 04/21/16 08:50 Dose: 1 cap Warfarin Sodium (Coumadin Tab(*)) 2 mg PO DAILY@1700 [facility] PRN Reason: Protocol Last Admin: 04/20/16 17:48 Dose: 2 mg Vital Signs 04/20/16 04/20/16 04/20/16 15:52 16:00 16:55 Temperature 97.6 F Pulse Rate 48 Respiratory 22 Rate Blood Pressure 139/72 (mmHg) O2 Sat by Pulse 93 97 97 Oximetry 04/20/16 04/20/16 04/21/16 19:41 20:00 00:00 Temperature 97.5 F Pulse Rate 62 Respiratory 28 24 Rate Blood Pressure 127/30 (mmHg) O2 Sat by Pulse 97 99 Oximetry 04/21/16 04/21/16 04/21/16 00:38 04:11 07:27 Temperature 97.8 F 98.0 F 98.0 F Pulse Rate 68 60 60 Respiratory 18 18 16 Rate Blood Pressure 143/43 128/39 98/31 (mmHg) O2 Sat by Pulse 99 100 100 Oximetry 04/21/16 12:01 Temperature 98.0 F Pulse Rate 61 Respiratory 16 Rate Blood Pressure 134/49 (mmHg) O2 Sat by Pulse 98 Oximetry Oxygen Devices in Use Now: Nasal Cannula - at 2 L Appearance: Elderly, F, laying in bed in NAD Eyes: No Scleral Icterus Ears/Nose/Mouth/Throat: - - Dry MM Neck: NL Appearance and Movements; NL JVP Respiratory: Symmetrical Chest Expansion and Respiratory Effort, Clear to Auscultation - in anterior macias Cardiovascular: NL Sounds; No Murmurs; No JVD, RRR Abdominal: NL Sounds; No Tenderness; No Distention Lymphatic: No Cervical Adenopathy Extremities: - - Diffuse anasarca, improving Skin: - - Scattered ecchymoses Neurological: Alert and Oriented x 3 Lines/Tubes/Other Access: Clean, Dry and Intact Love Result Diagrams: 04/17/16 06:00 04/21/16 06:49 Microbiology and Other Data: Assess/Plan/Problems-Billing Assessment: 85 yo F h/p parkinson's dz, DM2, CAD/CABG, AVR, afib s/p ablation on amiodarone/ no AC 2/2 recurrent falls, SSS s/p PPP placement, aortic stenosis and pHTN per report with decreased RV function (not evident on TTE here), who presented from [facility] 04/06/16 after fall with left hip fracture 04/01/16 with stay in their facility complicated by anemia requiring blood transfusions, acute on chronic kidney failure, and a urinary tract infection - Patient Problems (1) Hip fracture Current Visit: Yes Comment: Appreciate Ortho assistance, will need rehab once medically stable. Redose coumadin. (2) Hypertension Current Visit: Yes Comment: lisinopril 10 mg held metoprolol continued BPs stable (3) Atrial fibrillation Current Visit: Yes Comment: rate and rhythm controlled on amiodarone, metoprolol (4) Diabetes mellitus Current Visit: Yes Comment: cont high dose ISS 04/12/16, cont basal Lantus (5) Acute on chronic kidney failure Current Visit: Yes Comment: Creatinine continues to improve Continue to monitor daily cont to improve PO protein intake with Glucerna and nutritional f/u (6) Anasarca associated with disorder of kidney Current Visit: Yes Comment: due to a combination of manutrition and low albumin level and CKD Tolerated increased IV Lasix dose, continue 40 mg IV daily, strict I/O (7) Anemia Current Visit: Yes Comment: transfused 1 U PRBC on 04/16/16 (transfused 2 U postop prior) Stool heme neg low iron and TIBC due to anemia of chronic disease and CKD Dr. Ortiz recommended , Epogen 2x/week. First dose given 04/17, 2nd dose given (8) Parkinson disease Current Visit: Yes Comment: stable. c/w home medications (9) Skin ulcer of pretibial region of left lower extremity Current Visit: Yes Comment: wound care c/s appreciated Also noted sacral decubiti to be tx with silvadene BID (10) UTI (urinary tract infection) Current Visit: Yes Comment: Citrobacter resistant to cefazolin completed ceftin 7 days (04/10/16) (11) Malnutrition Current Visit: Yes Comment: severe, chronic with prealbumin of 6 appreciate nutrition consult . cont Glucerna (12) Shoulder pain Current Visit: Yes Comment: left XR here with OA, exacerbated by fall (13) DVT prophylaxis Current Visit: Yes Comment: coumadin, HSQ Status and Disposition: d/c to STR once Hb stable and pt adequately diuresed with IV Lasix
[2016-04-21] MEDS ORDERED: Warfarin TAB(*) 5 MG PO ONE (17:00)
[2016-04-21] MEDS: Warfarin TAB(*) 2 MG PO SCH (17:15)
[2016-04-21] MEDS ORDERED: Furosemide IV* 10 MG/ML VIAL (40 MG) IV ONE (17:15)
[2016-04-21] MEDS: Atorvastatin* 20 MG TAB PO SCH (18:20)
[2016-04-22] MEDS: Heparin VIAL(*) 5000 UNITS/ML VIAL (FIVE THOUSAND) SUBCUT SCH ×3 (06:12→21:05)
[2016-04-22 06:45] LABS: BUN/Creatinine Ratio 50.9 (8-20); EGFR Non-African American 28.8 (>60); Potassium 4.5 mmol/L (3.5-5.0)
[2016-04-22] MEDS: Omeprazole CAP* 20 MG PO SCH (07:11)
[2016-04-22] MEDS: Carbidopa/Levodop 25/100 MG TAB(*) PO SCH ×4 (07:11→21:02)
[2016-04-22] MEDS: Insulin LISPRO* 1 UNITS UNIT SUBCUT SCH ×4 (07:42→21:04)
[2016-04-22] MEDS: Allopurinol TAB* 100 MG PO SCH (08:45)
[2016-04-22] MEDS: Calcium/Vitamin D TAB 250/125* TAB PO SCH (08:45)
[2016-04-22] MEDS: Tiotropium CAP.INH* CAP.INH/18 MCG (USE ORDER SET !) INH SCH (08:45)
[2016-04-22] MEDS: Amiodarone TAB* 200 MG PO SCH (08:46)
[2016-04-22] MEDS: Ascorbic Acid TAB* 500 MG PO SCH (08:46)
[2016-04-22] MEDS: Vitamin THERAPEUTIC TAB PO SCH (08:46)
[2016-04-22] MEDS: Atorvastatin* 20 MG TAB PO SCH (08:46)
[2016-04-22] MEDS: Citalopram TAB* 10 MG PO SCH (08:46)
[2016-04-22] MEDS: Docusate CAP* 100 MG PO SCH ×2 (08:46→21:02)
[2016-04-22] MEDS: Metoprolol Tartrate TAB* 25 MG PO SCH ×2 (08:47→21:02)
[2016-04-22] MEDS: Furosemide IV* 10 MG/ML VIAL (40 MG) IV SCH ×2 (08:49→17:10)
[2016-04-22] MEDS: Silver Sulfadiazine 1%* 20 GM TOPICAL SCH ×2 (08:55→22:04)
[2016-04-22] MEDS: [UNRECOGNIZED DRUG - OTHER] INH SCH (08:56)
[2016-04-22] MEDS: Moisturizing CREAM* 120 GM JAR TOPICAL SCH ×2 (08:56→22:04)
[2016-04-22] MEDS: UMECLIDINIUM BROMIDE INH SCH (08:56)
--- NOTE | 2016-04-22 14:01 | PN ---
Subjective Date of Service: 04/22/16 Interval History: Patient seen this afternoon. Overall feeling about the same. Some SOB this morning but improved with sitting up. Leg pain controlled. Family History: Unchanged from Admission Social History: Unchanged from Admission Past Medical History: Unchanged from Admission Objective Active Medications: Acetaminophen (Tylenol Tab*) 650 mg PO Q4H PRN PRN Reason: FEVER/PAIN Last Admin: 04/13/16 00:25 Dose: 650 mg Allopurinol (Zyloprim Tab*) 100 mg PO DAILY [facility] Last Admin: 04/22/16 08:45 Dose: 100 mg Amiodarone HCl (Cordarone Tab*) 200 mg PO DAILY [facility] Last Admin: 04/22/16 08:46 Dose: 200 mg Ascorbic Acid (Vitamin C Tab*) 500 mg PO DAILY [facility] Last Admin: 04/22/16 08:46 Dose: 500 mg Atorvastatin Calcium (Lipitor*) 20 mg PO DAILY [facility] Last Admin: 04/22/16 08:46 Dose: 20 mg Bisacodyl (Dulcolax Supp*) 10 mg SD DAILY PRN PRN Reason: constipation Calcium/Vitamin D (Oscal D Tab 250/125*) 1 tab PO DAILY [facility] Last Admin: 04/22/16 08:45 Dose: 1 tab Carbidopa/Levodopa (Sinemet 25/100 Tab(*)) 1 tab PO BEDTIME [facility] Last Admin: 04/21/16 21:33 Dose: 1 tab Carbidopa/Levodopa (Sinemet 25/100 Tab(*)) 1 tab PO DAILY@0700 [facility] Last Admin: 04/22/16 07:11 Dose: 1 tab Carbidopa/Levodopa (Sinemet 25/100 Tab(*)) 1.5 tab PO DAILY@1100 [facility] Last Admin: 04/22/16 11:45 Dose: 1.5 tab Carbidopa/Levodopa (Sinemet 25/100 Tab(*)) 1 tab PO DAILY@1500 [facility] Last Admin: 04/21/16 13:51 Dose: 1 tab Citalopram Hydrobromide (Celexa Tab*) 10 mg PO DAILY [facility] Last Admin: 04/22/16 08:46 Dose: 10 mg Dextrose (D50w Syringe 50 Ml*) 12.5 gm IV PUSH .FOR FS < 60 - SS PRN PRN Reason: FS < 60 Diphenhydramine HCl (Benadryl Iv*) 25 mg IV Q6H PRN PRN Reason: itching Docusate Sodium (Colace Cap*) 100 mg PO BID [facility] Last Admin: 04/22/16 08:46 Dose: 100 mg Furosemide (Lasix Iv*) 40 mg IV 0800,1700 [facility] Heparin Sodium (Porcine) (Heparin Flush Picc/Ml/Cvc(*)) 1 - 3 ml FLUSH 0600, 1800 [facility] PRN Reason: Protocol Last Admin: 04/22/16 08:56 Dose: 1 ml Heparin Sodium (Porcine) (Heparin Vial(*)) 5,000 units SUBCUT Q8HR [facility] Last Admin: 04/22/16 06:12 Dose: 5,000 units Insulin Glargine (Lantus(*)) 5 units SUBCUT Q24H [facility] Last Admin: 04/21/16 13:52 Dose: 5 unit Insulin Human Lispro (Humalog*) 0 units SUBCUT ACHS [facility] PRN Reason: Protocol Last Admin: 04/22/16 12:31 Dose: 3 units Magnesium Hydroxide (Milk Of Magnsalma Liq*) 30 ml PO Q6H PRN PRN Reason: constipation Last Admin: 04/20/16 12:56 Dose: 30 ml Metoprolol Tartrate (Lopressor Tab*) 12.5 mg PO Q12HR [facility] Last Admin: 04/22/16 08:47 Dose: 12.5 mg Multi-Ingredient Ointment (Hydrocerin*) 1 applic TOPICAL BID [facility] Last Admin: 04/22/16 08:56 Dose: 1 applic Multivitamins (Theragran Tab*) 1 tab PO DAILY [facility] Last Admin: 04/22/16 08:46 Dose: 1 tab Umeclidinium [place] [Incruse Ellipta] 1 Puff)*Nonformulary 1 dose INH DAILY [facility] Last Admin: 04/22/16 08:56 Dose: Not Given Omeprazole (Prilosec Cap*) 20 mg PO 0730 [facility] Last Admin: 04/22/16 07:11 Dose: 20 mg Pharmacy Profile Note (Coumadin Daily Reminder*) 1 note FOLLOW UP 1700 [facility] Last Admin: 04/21/16 17:20 Dose: 1 note Pharmacy Profile Note (Coumadin Per Pharmacy*) 1 note FOLLOW UP .PER PHARMACY PROTOC [facility] PRN Reason: Protocol Polyethylene Glycol/Electrolytes (Miralax*) 17 gm PO DAILY PRN PRN Reason: Constipation Last Admin: 04/20/16 08:48 Dose: 17 gm Prochlorperazine Edisylate (Compazine Inj*) 5 mg IV Q6H PRN PRN Reason: NAUSEA/VOMITING Last Admin: 04/21/16 09:04 Dose: 5 mg Silver Sulfadiazine (Silvadine 1%*) 1 applic TOPICAL BID [facility] Last Admin: 04/22/16 08:55 Dose: 1 applic Tiotropium [place] (Spiriva Cap.Inh*) 1 cap INH DAILY [facility] Last Admin: 04/22/16 08:45 Dose: 1 cap Warfarin Sodium (Coumadin Tab(*)) 5 mg PO 1700 [facility] Stop: 04/22/16 17:01 Vital Signs 04/21/16 04/21/16 04/21/16 15:58 19:33 19:37 Temperature 97.9 F 97.7 F Pulse Rate 58 74 Respiratory 16 20 20 Rate Blood Pressure 128/40 146/40 (mmHg) O2 Sat by Pulse 100 98 Oximetry 04/21/16 04/22/16 04/22/16 23:38 04:12 07:39 Temperature 98.3 F 97.8 F 97.7 F Pulse Rate 65 59 60 Respiratory 20 20 16 Rate Blood Pressure 130/41 149/52 110/49 (mmHg) O2 Sat by Pulse 99 100 100 Oximetry 04/22/16 04/22/16 04/22/16 08:00 08:44 12:11 Temperature 99.2 F Pulse Rate 60 58 Respiratory 18 16 Rate Blood Pressure 188/133 (mmHg) O2 Sat by Pulse 100 97 Oximetry 04/22/16 12:19 Temperature 99.2 F Pulse Rate 60 Respiratory 18 Rate Blood Pressure 132/66 (mmHg) O2 Sat by Pulse 100 Oximetry Oxygen Devices in Use Now: Nasal Cannula - at 2 L Appearance: Elderly, F, sitting in chair in NAD Eyes: No Scleral Icterus Ears/Nose/Mouth/Throat: - - Dry MM Neck: NL Appearance and Movements; NL JVP Respiratory: Symmetrical Chest Expansion and Respiratory Effort, - - rales in bases Cardiovascular: RRR, - - JAMILAH Abdominal: NL Sounds; No Tenderness; No Distention Lymphatic: No Cervical Adenopathy Extremities: - - Diffuse anasarca, improving Neurological: Alert and Oriented x 3 Result Diagrams: 04/17/16 06:00 04/22/16 06:10 Microbiology and Other Data: Assess/Plan/Problems-Billing Assessment: 85 yo F h/p parkinson's dz, DM2, CAD/CABG, AVR, afib s/p ablation on amiodarone/ no AC 2/2 recurrent falls, SSS s/p PPP placement, aortic stenosis and pHTN per report with decreased RV function (not evident on TTE here), who presented from [facility] 04/06/16 after fall with left hip fracture 04/01/16 with stay in their facility complicated by anemia requiring blood transfusions, acute on chronic kidney failure, and a urinary tract infection - Patient Problems (1) Hip fracture Current Visit: Yes Comment: Appreciate Ortho assistance, will need rehab once medically stable. Coumadin increased 04/21 (2) Hypertension Current Visit: Yes Comment: lisinopril 10 mg held metoprolol continued BPs stable (3) Atrial fibrillation Current Visit: Yes Comment: rate and rhythm controlled on amiodarone, metoprolol (4) Diabetes mellitus Current Visit: Yes Comment: cont high dose ISS 04/12/16, cont basal Lantus (5) Acute on chronic kidney failure Current Visit: Yes Comment: Creatinine continues to improve Continue to monitor daily cont to improve PO protein intake with Glucerna and nutritional f/u (6) Anasarca associated with disorder of kidney Current Visit: Yes Comment: due to a combination of manutrition and low albumin level and CKD Tolerating BID IV Lasix starting 04/21, continue for now, strict I/O (7) Anemia Current Visit: Yes Comment: transfused 1 U PRBC on 04/16/16 (transfused 2 U postop prior) Stool heme neg low iron and TIBC due to anemia of chronic disease and CKD Dr. Ortiz recommended , Epogen 2x/week. First dose given 04/17, 2nd dose given (8) Parkinson disease Current Visit: Yes Comment: stable. c/w home medications (9) Skin ulcer of pretibial region of left lower extremity Current Visit: Yes Comment: wound care c/s appreciated Also noted sacral decubiti to be tx with silvadene BID (10) UTI (urinary tract infection) Current Visit: Yes Comment: Citrobacter resistant to cefazolin completed ceftin 7 days (1/10/17) (11) Malnutrition Current Visit: Yes Comment: severe, chronic with prealbumin of 6 appreciate nutrition consult . cont Glucerna (12) Shoulder pain Current Visit: Yes Comment: left XR here with OA, exacerbated by fall (13) DVT prophylaxis Current Visit: Yes Comment: coumadin, HSQ Status and Disposition: d/c to STR once Hb stable and pt adequately diuresed with IV Lasix
[2016-04-22] MEDS: Insulin GLARGINE(*) 1 UNITS UNIT SUBCUT SCH (14:15)
[2016-04-22 15:29] LABS: Albumin 1.9 g/dL (3.2-5.2)
[2016-04-22] MEDS ORDERED: Warfarin TAB(*) 5 MG PO ONE (17:00)
[2016-04-22] MEDS: PROCHLORPERAZINE INJ 5 MG/ML 2 ML VIAL IV PRN (21:58)
[2016-04-23] MEDS: Heparin VIAL(*) 5000 UNITS/ML VIAL (FIVE THOUSAND) SUBCUT SCH (05:57)
[2016-04-23] MEDS: Insulin LISPRO* 1 UNITS UNIT SUBCUT SCH ×4 (09:16→21:20)
[2016-04-23] MEDS: Omeprazole CAP* 20 MG PO SCH (09:27)
[2016-04-23] MEDS: Ascorbic Acid TAB* 500 MG PO SCH ×2 (09:27→09:36)
[2016-04-23 09:28] LABS: Calcium 7.8 mg/dL (8.6-10.3); EGFR African American 38.3 (>60); EGFR Non-African American 29.8 (>60); Potassium 4.3 mmol/L (3.5-5.0)
[2016-04-23] MEDS: Docusate CAP* 100 MG PO SCH ×2 (09:28→21:09)
[2016-04-23] MEDS: Vitamin THERAPEUTIC TAB PO SCH ×2 (09:28→09:37)
[2016-04-23] MEDS: Atorvastatin* 20 MG TAB PO SCH (09:28)
[2016-04-23] MEDS: Amiodarone TAB* 200 MG PO SCH (09:28)
[2016-04-23] MEDS: Calcium/Vitamin D TAB 250/125* TAB PO SCH ×2 (09:28→09:36)
[2016-04-23] MEDS: Allopurinol TAB* 100 MG PO SCH (09:28)
[2016-04-23] MEDS: Metoprolol Tartrate TAB* 25 MG PO SCH ×2 (09:28→21:09)
[2016-04-23] MEDS: Citalopram TAB* 10 MG PO SCH (09:28)
[2016-04-23] MEDS: Furosemide IV* 10 MG/ML VIAL (40 MG) IV SCH ×2 (09:36→17:12)
[2016-04-23] MEDS: Carbidopa/Levodop 25/100 MG TAB(*) PO SCH ×5 (09:36→21:09)
[2016-04-23] MEDS: Moisturizing CREAM* 120 GM JAR TOPICAL SCH ×2 (09:36→21:11)
[2016-04-23] MEDS: UMECLIDINIUM BROMIDE INH SCH (09:37)
[2016-04-23] MEDS: [UNRECOGNIZED DRUG - OTHER] INH SCH (09:37)
[2016-04-23] MEDS: Tiotropium CAP.INH* CAP.INH/18 MCG (USE ORDER SET !) INH SCH (09:37)
[2016-04-23] MEDS: Silver Sulfadiazine 1%* 20 GM TOPICAL SCH ×2 (11:12→21:08)
[2016-04-23] MEDS: PROCHLORPERAZINE INJ 5 MG/ML 2 ML VIAL IV PRN (13:20)
[2016-04-23] MEDS: Insulin GLARGINE(*) 1 UNITS UNIT SUBCUT SCH (15:56)
--- NOTE | 2016-04-23 16:20 | PN ---
Subjective Date of Service: 04/23/16 Interval History: Patient seen this afternoon. Doing well overall. Feels that her breathing is stable. Trying to eat more, having some N/V however. Says she is homesick. Family History: Unchanged from Admission Social History: Unchanged from Admission Past Medical History: Unchanged from Admission Objective Active Medications: Acetaminophen (Tylenol Tab*) 650 mg PO Q4H PRN Allopurinol (Zyloprim Tab*) 100 mg PO DAILY [facility] Amiodarone HCl (Cordarone Tab*) 200 mg PO DAILY [facility] Ascorbic Acid (Vitamin C Tab*) 500 mg PO DAILY [facility] Atorvastatin Calcium (Lipitor*) 20 mg PO DAILY [facility] Bisacodyl (Dulcolax Supp*) 10 mg NM DAILY [facility] Calcium/Vitamin D (Oscal D Tab 250/125*) 1 tab PO DAILY [facility] Carbidopa/Levodopa (Sinemet 25/100 Tab(*)) 1 tab PO BEDTIME [facility] Carbidopa/Levodopa (Sinemet 25/100 Tab(*)) 1 tab PO DAILY@0700 [facility] Carbidopa/Levodopa (Sinemet 25/100 Tab(*)) 1.5 tab PO DAILY@1100 [facility] Carbidopa/Levodopa (Sinemet 25/100 Tab(*)) 1 tab PO DAILY@1500 [facility] Citalopram Hydrobromide (Celexa Tab*) 10 mg PO DAILY [facility] Dextrose (D50w Syringe 50 Ml*) 12.5 gm IV PUSH .FOR FS < 60 - SS PRN Diphenhydramine HCl (Benadryl Iv*) 25 mg IV Q6H PRN Docusate Sodium (Colace Cap*) 100 mg PO BID [facility] Furosemide (Lasix Iv*) 40 mg IV 0800,1700 [facility] Heparin Sodium (Porcine) (Heparin Flush Picc/Ml/Cvc(*)) 1 - 3 ml FLUSH 0600, 1800 [facility] Insulin Glargine (Lantus(*)) 5 units SUBCUT Q24H [facility] Insulin Human Lispro (Humalog*) 0 units SUBCUT ACHS [facility] Magnesium Hydroxide (Milk Of Magnesia Liq*) 30 ml PO Q6H PRN Metoprolol Tartrate (Lopressor Tab*) 12.5 mg PO Q12HR [facility] Multi-Ingredient Ointment (Hydrocerin*) 1 applic TOPICAL BID [facility] Multivitamins (Theragran Tab*) 1 tab PO DAILY [facility] Umeclidinium [place] [Incruse Ellipta] 1 Puff)*Nonformulary 1 dose INH DAILY [facility] Omeprazole (Prilosec Cap*) 20 mg PO 0730 [facility] Pharmacy Profile Note (Coumadin Daily Reminder*) 1 note FOLLOW UP 1700 [facility] Pharmacy Profile Note (Coumadin Per Pharmacy*) 1 note FOLLOW UP .PER PHARMACY PROTOC [facility] Polyethylene Glycol/Electrolytes (Miralax*) 17 gm PO DAILY PRN Prochlorperazine Edisylate (Compazine Inj*) 5 mg IV Q6H PRN Silver Sulfadiazine (Silvadine 1%*) 1 applic TOPICAL BID [facility] Tiotropium [place] (Spiriva Cap.Inh*) 1 cap INH DAILY [facility] Warfarin Sodium (Coumadin Tab(*)) 5 mg PO 1700 [facility] Vital Signs 04/22/16 04/22/16 04/22/16 17:34 18:54 19:16 Temperature 98.0 F Pulse Rate 59 60 Respiratory 22 20 Rate Blood Pressure 128/49 (mmHg) O2 Sat by Pulse 98 97 Oximetry 04/23/16 04/23/16 04/23/16 00:30 04:00 05:36 Temperature 98.0 F 97.9 F Pulse Rate 60 60 Respiratory 20 16 Rate Blood Pressure 102/39 118/36 (mmHg) O2 Sat by Pulse 99 99 99 Oximetry 04/23/16 04/23/16 04/23/16 07:55 08:00 11:43 Temperature 97.7 F 97.7 F Pulse Rate 60 61 Respiratory 20 18 16 Rate Blood Pressure 138/41 133/41 (mmHg) O2 Sat by Pulse 100 100 97 Oximetry 04/23/16 15:39 Temperature 97.8 F Pulse Rate 62 Respiratory 24 Rate Blood Pressure 138/40 (mmHg) O2 Sat by Pulse 97 Oximetry Oxygen Devices in Use Now: Nasal Cannula - 1L Appearance: Elderly, F, laying in chair in NAD Eyes: No Scleral Icterus Ears/Nose/Mouth/Throat: Mucous Membranes Moist Neck: NL Appearance and Movements; NL JVP Respiratory: Symmetrical Chest Expansion and Respiratory Effort, Clear to Auscultation - in anterior macias, mild rales in bases Cardiovascular: NL Sounds; No Murmurs; No JVD, RRR Abdominal: NL Sounds; No Tenderness; No Distention Lymphatic: No Cervical Adenopathy Extremities: - - Diffuse anasarca, improving Skin: - - Scattered ecchymoses Neurological: Alert and Oriented x 3, - - Tremor Lines/Tubes/Other Access: Clean, Dry and Intact Love Result Diagrams: 04/17/16 06:00 04/23/16 09:00 Microbiology and Other Data: Assess/Plan/Problems-Billing Assessment: 85 yo F h/p parkinson's dz, DM2, CAD/CABG, AVR, afib s/p ablation on amiodarone/ no AC 2/2 recurrent falls, SSS s/p PPP placement, aortic stenosis and pHTN per report with decreased RV function (not evident on TTE here), who presented from [facility] 04/06/16 after fall with left hip fracture 04/01/16 with stay in their facility complicated by anemia requiring blood transfusions, acute on chronic kidney failure, and a urinary tract infection - Patient Problems (1) Hip fracture Current Visit: Yes Comment: Appreciate Ortho assistance, will need rehab once medically stable. Coumadin increased 04/21 (2) Hypertension Current Visit: Yes Comment: lisinopril 10 mg held metoprolol continued BPs stable (3) Atrial fibrillation Current Visit: Yes Comment: rate and rhythm controlled on amiodarone, metoprolol (4) Diabetes mellitus Current Visit: Yes Comment: cont high dose ISS 04/12/16, cont basal Lantus (5) Acute on chronic kidney failure Current Visit: Yes Comment: Creatinine continues to improve Continue to monitor daily cont to improve PO protein intake with Glucerna and nutritional f/u (6) Anasarca associated with disorder of kidney Current Visit: Yes Comment: due to a combination of manutrition and low albumin level and CKD Tolerating BID IV Lasix starting 04/21, continue for now, strict I/O Will start 1750 cc fluid restriction (7) Anemia Current Visit: Yes Comment: transfused 1 U PRBC on 04/16/16 (transfused 2 U postop prior) Stool heme neg low iron and TIBC due to anemia of chronic disease and CKD Dr. Ortiz recommended , Epogen 2x/week. First dose given 04/17, 2nd dose given (8) Parkinson disease Current Visit: Yes Comment: stable. c/w home medications (9) Skin ulcer of pretibial region of left lower extremity Current Visit: Yes Comment: wound care c/s appreciated Also noted sacral decubiti to be tx with silvadene BID (10) Malnutrition Current Visit: Yes Comment: severe, chronic with prealbumin of 6 appreciate nutrition consult . cont Glucerna (11) DVT prophylaxis Current Visit: Yes Comment: coumadin Status and Disposition: d/c to STR once Hb stable and pt adequately diuresed with IV Lasix
[2016-04-23] MEDS: Warfarin TAB(*) 5 MG PO SCH (17:12)
[2016-04-24 07:03] LABS: BUN/Creatinine Ratio 44.2 (8-20); Calcium 7.8 mg/dL (8.6-10.3); EGFR Non-African American 29.6 (>60); Potassium 4.5 mmol/L (3.5-5.0)
[2016-04-24] MEDS: Omeprazole CAP* 20 MG PO SCH (07:46)
[2016-04-24] MEDS: Carbidopa/Levodop 25/100 MG TAB(*) PO SCH ×4 (07:46→21:23)
[2016-04-24] MEDS: Insulin LISPRO* 1 UNITS UNIT SUBCUT SCH ×4 (07:47→21:24)
--- NOTE | 2016-04-24 08:47 | PN ---
Progress Note - Progress Note SOAP: Subjective: pt resting comfortably Objective: Vital Signs Temp Pulse Resp BP Pulse Ox 98.2 F 62 20 133/46 99 04/24/16 07:26 04/24/16 07:26 04/24/16 07:26 04/24/16 07:26 04/24/16 07:26 Laboratory Last Values WBC 7.8 10^3/ul (3.5-10.8) 04/17/16 06:00 RBC 2.87 10^6/ul (4.0-5.4) L 04/17/16 06:00 Hgb 8.9 g/dl (12.0-16.0) L 04/17/16 06:00 Hct 27 % (35-47) L 04/17/16 06:00 MCV 94 fL (80-97) 04/17/16 06:00 MCH 31 pg (27-31) 04/17/16 06:00 MCHC 33 g/dl (31-36) 04/17/16 06:00 RDW 18 % (10.5-15) H 04/17/16 06:00 Plt Count 480 10^3/ul (150-450) H D 04/17/16 06:00 MPV 8 um3 (7.4-10.4) 04/17/16 06:00 Neut % (Auto) 73.1 % (38-83) 04/17/16 06:00 Lymph % (Auto) 15.0 % (25-47) L 04/17/16 06:00 [place] % (Auto) 8.7 % (1-9) 04/17/16 06:00 Eos % (Auto) 2.6 % (0-6) 04/17/16 06:00 Baso % (Auto) 0.6 % (0-2) 04/17/16 06:00 Absolute Neuts (auto) 5.7 10^3/ul (1.5-7.7) 04/17/16 06:00 Absolute Lymphs (auto) 1.2 10^3/ul (1.0-4.8) 04/17/16 06:00 Absolute Monos (auto) 0.7 10^3/ul (0-0.8) 04/17/16 06:00 Absolute Eos (auto) 0.2 10^3/ul (0-0.6) 04/17/16 06:00 Absolute Basos (auto) 0 10^3/ul (0-0.2) 04/17/16 06:00 Absolute Nucleated RBC 0 10^3/ul 04/17/16 06:00 Nucleated RBC % 0 04/17/16 06:00 INR (Anticoag Therapy) 2.16 (0.89-1.11) H 04/23/16 05:57 APTT 24.1 seconds (26.0-36.3) L 04/07/16 04:57 Sodium 143 mmol/L (133-145) 04/24/16 06:10 Potassium 4.5 mmol/L (3.5-5.0) 04/24/16 06:10 Chloride 109 mmol/L (101-111) 04/24/16 06:10 Carbon Dioxide 32 mmol/L (22-32) 04/24/16 06:10 Anion Gap 2 mmol/L (2-11) 04/24/16 06:10 BUN 73 mg/dL (6-24) H 04/24/16 06:10 Creatinine 1.65 mg/dL (0.51-0.95) H 04/24/16 06:10 Est GFR ( Amer) 38.0 (>60) 04/24/16 06:10 Est GFR (Non-Af Amer) 29.6 (>60) 04/24/16 06:10 BUN/Creatinine Ratio 44.2 (8-20) H 04/24/16 06:10 Glucose 96 mg/dL (70-100) 04/24/16 06:10 POC Glucose (mg/dL) 130 mg/dL (74-106) H 04/24/16 07:43 Calcium 7.8 mg/dL (8.6-10.3) L 04/24/16 06:10 Magnesium 2.5 mg/dL (1.9-2.7) 04/11/16 05:27 Iron 22 ug/dL (50-212) L 04/16/16 05:47 TIBC 105 mcg/dL (250-450) L 04/16/16 05:47 % Saturation 21 % (15-55) 04/16/16 05:47 Unsat Iron Binding 83 ug/dL 04/16/16 05:47 Total Bilirubin 0.80 mg/dL (0.2-1.0) 04/13/16 07:04 Direct Bilirubin 0.50 mg/dL (0.03-0.18) H 04/13/16 07:04 Indirect Bilirubin 0.3 mg/dL (0.3-1.0) 04/13/16 07:04 AST 151 U/L (13-39) H 04/13/16 07:04 ALT 12 U/L (7-52) 04/13/16 07:04 Alkaline Phosphatase 116 U/L (34-104) H 04/13/16 07:04 B-Natriuretic Peptide 183 pg/mL (-100) H 04/10/16 07:40 Total Protein 3.8 g/dL (6.4-8.9) L 04/13/16 07:04 Albumin 1.9 g/dL (3.2-5.2) L 04/22/16 06:10 Globulin 2.1 g/dL (2-4) 04/13/16 07:04 Albumin/Globulin Ratio 0.8 (1-3) L 04/13/16 07:04 Prealbumin 6 mg/dL (18-38) L 04/13/16 07:04 Vitamin B12 516 pg/mL (180-914) 04/06/16 14:10 Urine Color Yellow 04/12/16 12:30 Urine Appearance Cloudy 04/12/16 12:30 Urine pH 5.0 (5-9) 04/12/16 12:30 Ur Specific [place] 1.014 (1.010-1.030) 04/12/16 12:30 Urine Protein Negative (Negative) 04/12/16 12:30 Urine Ketones Negative (Negative) 04/12/16 12:30 Urine Blood Negative (Negative) 04/12/16 12:30 Urine Nitrate Negative (Negative) 04/12/16 12:30 Urine Bilirubin Negative (Negative) 04/12/16 12:30 Urine Urobilinogen Negative (Negative) 04/12/16 12:30 Ur Leukocyte Esterase Trace (Negative) H 04/12/16 12:30 Urine WBC (Auto) Trace(0-5/hpf) (Absent) 04/12/16 12:30 Urine RBC (Auto) Absent (Absent) 04/12/16 12:30 Ur Squamous Epith Cells Present (Absent) H 04/12/16 12:30 Urine Bacteria Absent (Absent) 04/12/16 12:30 Ur Random Creatinine 77.36 mg/dL 04/12/16 14:10 Ur Random Sodium < 18 mmol/L 04/12/16 14:10 Urine Glucose Negative (Negative) 04/12/16 12:30 Urine Ascorbic Acid * (Negative) H 04/12/16 12:30 Blood Type A Positive 04/16/16 05:47 Antibody Screen Negative 04/16/16 05:47 Crossmatch See Detail 04/16/16 05:47 incision: c/d PE: NVI Assessment: s/p left hip concha Plan: 1) hospitalist co-managing 2) continue PT/OT 3) continue DVT prophylaxis 4) plan rehab once medically stable
[2016-04-24] MEDS: Allopurinol TAB* 100 MG PO SCH (10:10)
[2016-04-24] MEDS: Amiodarone TAB* 200 MG PO SCH (10:10)
[2016-04-24] MEDS: Citalopram TAB* 10 MG PO SCH (10:11)
[2016-04-24] MEDS: Metoprolol Tartrate TAB* 25 MG PO SCH ×2 (10:11→21:22)
[2016-04-24] MEDS: Atorvastatin* 20 MG TAB PO SCH (10:12)
[2016-04-24] MEDS: Vitamin THERAPEUTIC TAB PO SCH (10:12)
[2016-04-24] MEDS: Calcium/Vitamin D TAB 250/125* TAB PO SCH (10:13)
[2016-04-24] MEDS: Docusate CAP* 100 MG PO SCH ×2 (10:15→21:22)
[2016-04-24] MEDS: Ascorbic Acid TAB* 500 MG PO SCH (10:16)
[2016-04-24] MEDS: Furosemide IV* 10 MG/ML VIAL (40 MG) IV SCH ×2 (10:26→17:30)
[2016-04-24] MEDS: Tiotropium CAP.INH* CAP.INH/18 MCG (USE ORDER SET !) INH SCH (10:31)
[2016-04-24] MEDS: UMECLIDINIUM BROMIDE INH SCH (10:32)
[2016-04-24] MEDS: Silver Sulfadiazine 1%* 20 GM TOPICAL SCH ×2 (10:32→21:08)
[2016-04-24] MEDS: [UNRECOGNIZED DRUG - OTHER] INH SCH (10:32)
[2016-04-24] MEDS: Moisturizing CREAM* 120 GM JAR TOPICAL SCH ×2 (10:37→21:08)
[2016-04-24] MEDS: Insulin GLARGINE(*) 1 UNITS UNIT SUBCUT SCH (14:41)
--- NOTE | 2016-04-24 15:03 | PN ---
Subjective Date of Service: 04/24/16 Interval History: Patient seen and examined at bedside. Pt states that her breathing isn't good, "I can't catch my breath", but denies shortness of breath. When asked, she states that her breathing isn't worse than normal. Denies fever, chills, chest discomfort, N/D. Pt had emesis this morning with med pass. Family History: Unchanged from Admission Social History: Unchanged from Admission Past Medical History: Unchanged from Admission Objective Active Medications: Acetaminophen (Tylenol Tab*) 650 mg PO Q4H PRN Reason: FEVER/PAIN Allopurinol (Zyloprim Tab*) 100 mg PO DAILY [facility] Amiodarone HCl (Cordarone Tab*) 200 mg PO DAILY [facility] Ascorbic Acid (Vitamin C Tab*) 500 mg PO DAILY [facility] Atorvastatin Calcium (Lipitor*) 20 mg PO DAILY [facility] Bisacodyl (Dulcolax Supp*) 10 mg UT DAILY PRN Reason: constipation Calcium/Vitamin D (Oscal D Tab 250/125*) 1 tab PO DAILY [facility] Carbidopa/Levodopa (Sinemet 25/100 Tab(*)) 1 tab PO BEDTIME [facility] Carbidopa/Levodopa (Sinemet 25/100 Tab(*)) 1 tab PO DAILY@0700 [facility] Carbidopa/Levodopa (Sinemet 25/100 Tab(*)) 1.5 tab PO DAILY@1100 [facility] Carbidopa/Levodopa (Sinemet 25/100 Tab(*)) 1 tab PO DAILY@1500 [facility] Citalopram Hydrobromide (Celexa Tab*) 10 mg PO DAILY [facility] Dextrose (D50w Syringe 50 Ml*) 12.5 gm IV PUSH .FOR FS < 60 - SS PRN Reason: FS < 60 Diphenhydramine HCl (Benadryl Iv*) 25 mg IV Q6H PRN Reason: itching Docusate Sodium (Colace Cap*) 100 mg PO BID [facility] Furosemide (Lasix Iv*) 40 mg IV 0800,1700 [facility] Heparin Sodium (Porcine) (Heparin Flush Picc/Ml/Cvc(*)) 1 - 3 ml FLUSH 0600, 1800 [facility] Reason: Protocol Insulin Glargine (Lantus(*)) 5 units SUBCUT Q24H [facility] Insulin Human Lispro (Humalog*) 0 units SUBCUT ACHS [facility] Magnesium Hydroxide (Milk Of Justo Liq*) 30 ml PO Q6H PRN Reason: constipation Metoprolol Tartrate (Lopressor Tab*) 12.5 mg PO Q12HR [facility] Multi-Ingredient Ointment (Hydrocerin*) 1 applic TOPICAL BID [facility] Multivitamins (Theragran Tab*) 1 tab PO DAILY [facility] Umeclidinium [place] [Incruse Ellipta] 1 Puff)*Nonformulary 1 dose INH DAILY [facility] Omeprazole (Prilosec Cap*) 20 mg PO 0730 [facility] Pharmacy Profile Note (Coumadin Per Pharmacy*) 1 note FOLLOW UP .PER PHARMACY PROTOC [facility] Polyethylene Glycol/Electrolytes (Miralax*) 17 gm PO DAILY PRN Reason: Constipation Prochlorperazine Edisylate (Compazine Inj*) 5 mg IV Q6H PRN Reason: NAUSEA/ VOMITING Silver Sulfadiazine (Silvadine 1%*) 1 applic TOPICAL BID [facility] Tiotropium [place] (Spiriva Cap.Inh*) 1 cap INH DAILY [facility] Warfarin Sodium (Coumadin Tab(*)) 5 mg PO 1700 [facility] Stop: 04/24/16 23:00 Vital Signs 04/23/16 04/23/16 04/23/16 15:39 16:00 19:32 Temperature 97.8 F 98.0 F Pulse Rate 62 60 Respiratory 24 24 Rate Blood Pressure 138/40 148/46 (mmHg) O2 Sat by Pulse 97 97 97 Oximetry 04/23/16 04/23/16 04/24/16 20:00 23:32 03:46 Temperature 98.0 F 98.1 F Pulse Rate 60 60 Respiratory 24 18 16 Rate Blood Pressure 132/49 124/35 (mmHg) O2 Sat by Pulse 97 99 Oximetry 04/24/16 04/24/16 04/24/16 07:26 07:49 11:48 Temperature 98.2 F Pulse Rate 62 67 Respiratory 20 18 18 Rate Blood Pressure 133/46 132/99 (mmHg) O2 Sat by Pulse 99 99 98 Oximetry 04/24/16 11:55 Temperature 98.8 F Pulse Rate Respiratory Rate Blood Pressure (mmHg) O2 Sat by Pulse Oximetry Oxygen Devices in Use Now: Nasal Cannula - 1.5 L Appearance: NAD, laying in bed. Eyes: No Scleral Icterus, PERRLA Ears/Nose/Mouth/Throat: Mucous Membranes Moist Neck: NL Appearance and Movements; NL JVP, Trachea Midline Respiratory: Symmetrical Chest Expansion and Respiratory Effort, Clear to Auscultation - , diminished Cardiovascular: NL Sounds; No Murmurs; No JVD, RRR Abdominal: NL Sounds; No Tenderness; No Distention Extremities: - - 1-2+ generalized Skin: - - AILEEN wraps intact to bilateral LE, dressing to left Neurological: Alert and Oriented x 3, - - Generalized weakness, tremor Lines/Tubes/Other Access: Clean, Dry and Intact Love - patent draining clear yellow urine, Clean, Dry and Intact Other Access - Midline to left UE, patent and benign Nutrition: Taking PO's Result Diagrams: 04/17/16 06:00 04/24/16 06:10 Microbiology and Other Data: Assess/Plan/Problems-Billing Assessment: Ms. Dwyer is a 85 yo F h/p parkinson's dz, DM2, CAD/CABG, AVR, afib s/p ablation on amiodarone/no AC 2/2 recurrent falls, SSS s/p PPP placement, aortic stenosis and pHTN per report with decreased RV function (not evident on TTE here ), who presented from [facility] 04/06/16 after fall with left hip fracture 04/01/16 with stay in their facility complicated by anemia requiring blood transfusions, acute on chronic kidney failure, and a urinary tract infection. - Patient Problems (1) Hip fracture Code(s): S72.009A - FRACTURE OF UNSP PART OF NECK OF UNSP FEMUR, INIT SNOMED Code(s): 055324136 Comment: - Appreciate Ortho assistance, will need rehab once medically stable. - S/P left hip hemiarthroplasty with ORIF on 04/07. - Melodie dependent. (2) Acute on chronic kidney failure Code(s): N17.9 - ACUTE KIDNEY FAILURE, UNSPECIFIED; N18.9 - CHRONIC KIDNEY DISEASE, UNSPECIFIED SNOMED Code(s): 856350231 Comment: - Creatinine continues to improve - Continue to monitor daily - Continue to improve PO protein intake with Glucerna and nutritional f/u (3) Anasarca associated with disorder of kidney Code(s): N04.9 - NEPHROTIC SYNDROME WITH UNSPECIFIED MORPHOLOGIC CHANGES SNOMED Code(s): 90991557453251 Comment: - Suspect due to a combination of manutrition and low albumin level and CKD - Tolerating BID IV Lasix starting 04/21, continue for now, strict I/O - Continue 1750 cc fluid restriction (4) Anemia Code(s): D64.9 - ANEMIA, UNSPECIFIED SNOMED Code(s): 898757568 Comment: - Transfused 1 U PRBC on 04/16/16 (transfused 2 U postop prior) - Stool heme neg - Low iron and TIBC due to anemia of chronic disease and CKD - Dr. Ortiz recommended , Epogen 2x/week. First dose given 04/17, 2nd dose given 04/20/16 (5) Atrial fibrillation Code(s): I48.91 - UNSPECIFIED ATRIAL FIBRILLATION SNOMED Code(s): 22569294 Comment: rate and rhythm controlled on amiodarone, metoprolol (6) Diabetes mellitus Code(s): E11.9 - TYPE 2 DIABETES MELLITUS WITHOUT COMPLICATIONS SNOMED Code(s) : 35271645 Comment: - Glucose 120-200s - High dose Lispro SS and Lantus (7) Malnutrition Code(s): E46 - UNSPECIFIED PROTEIN-CALORIE MALNUTRITION SNOMED Code(s): 8950117 Comment: - Severe, chronic with prealbumin of 6 - Appreciate nutrition consult . - Continue Glucerna (8) Parkinson disease Code(s): G20 - PARKINSON'S DISEASE SNOMED Code(s): 68327124 Comment: - Stable. - Continue home medications (9) Skin ulcer of pretibial region of left lower extremity Current Visit: Yes Status: Acute Code(s): L97.829 - NON-PRESSURE CHRONIC ULCER OTH PRT L LOW LEG W UNSP SEVERITY SNOMED Code(s): 152212204 Comment: - Wound care consult appreciated - Also noted sacral decubiti to be tx with silvadene BID (10) Hypertension Code(s): I10 - ESSENTIAL (PRIMARY) HYPERTENSION SNOMED Code(s): 69815643 Comment: - SBP 120-140's - lisinopril 10 mg held d/t JASMIN - Continue metoprolol (11) DVT prophylaxis Code(s): UZD3753 - SNOMED Code(s): 085454337 Comment: Continue Coumadin (12) DNR (do not resuscitate) Status and Disposition: Inpatient. d/c to STR once Hb stable and pt adequately diuresed with IV Lasix
[2016-04-24] MEDS: Warfarin TAB(*) 5 MG PO SCH (17:29)
[2016-04-25 07:05] LABS: BUN/Creatinine Ratio 42.3 (8-20); Calcium 8.1 mg/dL (8.6-10.3); EGFR African American 40.6 (>60); EGFR Non-African American 31.5 (>60); Potassium 4.1 mmol/L (3.5-5.0)
[2016-04-25] MEDS: Furosemide IV* 10 MG/ML VIAL (40 MG) IV SCH ×2 (07:56→15:18)
[2016-04-25] MEDS: Carbidopa/Levodop 25/100 MG TAB(*) PO SCH ×4 (08:02→21:25)
[2016-04-25] MEDS: Amiodarone TAB* 200 MG PO SCH (08:02)
[2016-04-25] MEDS: Omeprazole CAP* 20 MG PO SCH (08:03)
[2016-04-25] MEDS: Metoprolol Tartrate TAB* 25 MG PO SCH ×2 (08:03→21:24)
[2016-04-25] MEDS: Insulin LISPRO* 1 UNITS UNIT SUBCUT SCH ×4 (08:18→21:33)
[2016-04-25] MEDS: Tiotropium CAP.INH* CAP.INH/18 MCG (USE ORDER SET !) INH SCH (09:17)
[2016-04-25] MEDS: [UNRECOGNIZED DRUG - OTHER] INH SCH (10:14)
[2016-04-25] MEDS: Silver Sulfadiazine 1%* 20 GM TOPICAL SCH ×2 (10:14→21:25)
[2016-04-25] MEDS: UMECLIDINIUM BROMIDE INH SCH (10:14)
[2016-04-25] MEDS: Vitamin THERAPEUTIC TAB PO SCH (10:14)
[2016-04-25] MEDS: Ascorbic Acid TAB* 500 MG PO SCH (10:15)
[2016-04-25] MEDS: Docusate CAP* 100 MG PO SCH ×2 (10:15→21:24)
[2016-04-25] MEDS: Calcium/Vitamin D TAB 250/125* TAB PO SCH (10:15)
[2016-04-25] MEDS: Atorvastatin* 20 MG TAB PO SCH (12:27)
[2016-04-25] MEDS: Citalopram TAB* 10 MG PO SCH (12:27)
[2016-04-25] MEDS: Allopurinol TAB* 100 MG PO SCH (12:27)
[2016-04-25] MEDS: Moisturizing CREAM* 120 GM JAR TOPICAL SCH ×2 (12:27→21:25)
--- NOTE | 2016-04-25 14:42 | PN ---
Subjective Date of Service: 04/25/16 Interval History: Patient seen and examined at bedside. Pt states that she continues to feel better each day. Denies fever, chills, shortness of breath, chest discomfort, D. Pt continues to have emesis with medications in the morning, seems to tolerate them better if they are split up and taken with something like ensure. Family History: Unchanged from Admission Social History: Unchanged from Admission Past Medical History: Unchanged from Admission Objective Active Medications: Acetaminophen (Tylenol Tab*) 650 mg PO Q4H PRN PRN Reason: FEVER/PAIN Last Admin: 04/13/16 00:25 Dose: 650 mg Allopurinol (Zyloprim Tab*) 100 mg PO DAILY [facility] Last Admin: 04/25/16 12:27 Dose: 100 mg Amiodarone HCl (Cordarone Tab*) 200 mg PO DAILY [facility] Last Admin: 04/25/16 08:02 Dose: 200 mg Ascorbic Acid (Vitamin C Tab*) 500 mg PO DAILY [facility] Last Admin: 04/25/16 10:15 Dose: Not Given Atorvastatin Calcium (Lipitor*) 20 mg PO DAILY [facility] Last Admin: 04/25/16 12:27 Dose: 20 mg Bisacodyl (Dulcolax Supp*) 10 mg IA DAILY PRN PRN Reason: constipation Calcium/Vitamin D (Oscal D Tab 250/125*) 1 tab PO DAILY [facility] Last Admin: 04/25/16 10:15 Dose: Not Given Carbidopa/Levodopa (Sinemet 25/100 Tab(*)) 1 tab PO BEDTIME [facility] Last Admin: 04/24/16 21:23 Dose: 1 tab Carbidopa/Levodopa (Sinemet 25/100 Tab(*)) 1 tab PO DAILY@0700 [facility] Last Admin: 04/25/16 08:02 Dose: 1 tab Carbidopa/Levodopa (Sinemet 25/100 Tab(*)) 1.5 tab PO DAILY@1100 [facility] Last Admin: 04/25/16 12:27 Dose: 1.5 tab Carbidopa/Levodopa (Sinemet 25/100 Tab(*)) 1 tab PO DAILY@1500 [facility] Last Admin: 04/24/16 14:39 Dose: 1 tab Citalopram Hydrobromide (Celexa Tab*) 10 mg PO DAILY [facility] Last Admin: 04/25/16 12:27 Dose: 10 mg Dextrose (D50w Syringe 50 Ml*) 12.5 gm IV PUSH .FOR FS < 60 - SS PRN PRN Reason: FS < 60 Diphenhydramine HCl (Benadryl Iv*) 25 mg IV Q6H PRN PRN Reason: itching Docusate Sodium (Colace Cap*) 100 mg PO BID [facility] Last Admin: 04/25/16 10:15 Dose: Not Given Furosemide (Lasix Iv*) 40 mg IV 0800,1700 [facility] Last Admin: 04/25/16 07:56 Dose: 40 mg Heparin Sodium (Porcine) (Heparin Flush Picc/Ml/Cvc(*)) 1 - 3 ml FLUSH 0600, 1800 [facility] PRN Reason: Protocol Last Admin: 04/25/16 08:07 Dose: 1 ml Insulin Glargine (Lantus(*)) 5 units SUBCUT Q24H [facility] Last Admin: 04/24/16 14:41 Dose: 5 unit Insulin Human Lispro (Humalog*) 0 units SUBCUT ACHS [facility] PRN Reason: Protocol Last Admin: 04/25/16 08:18 Dose: Not Given Magnesium Hydroxide (Milk Of Magnesia Liq*) 30 ml PO Q6H PRN PRN Reason: constipation Last Admin: 04/20/16 12:56 Dose: 30 ml Metoprolol Tartrate (Lopressor Tab*) 12.5 mg PO Q12HR [facility] Last Admin: 04/25/16 08:03 Dose: 12.5 mg Multi-Ingredient Ointment (Hydrocerin*) 1 applic TOPICAL BID [facility] Last Admin: 04/25/16 12:27 Dose: 1 applic Multivitamins (Theragran Tab*) 1 tab PO DAILY [facility] Last Admin: 04/25/16 10:14 Dose: Not Given Umeclidinium [place] [Incruse Ellipta] 1 Puff)*Nonformulary 1 dose INH DAILY [facility] Last Admin: 04/25/16 10:14 Dose: Not Given Omeprazole (Prilosec Cap*) 20 mg PO 0730 [facility] Last Admin: 04/25/16 08:03 Dose: 20 mg Pharmacy Profile Note (Coumadin Daily Reminder*) 1 note FOLLOW UP 1700 [facility] Last Admin: 04/24/16 17:35 Dose: 1 note Pharmacy Profile Note (Coumadin Per Pharmacy*) 1 note FOLLOW UP .PER PHARMACY PROTOC [facility] PRN Reason: Protocol Polyethylene Glycol/Electrolytes (Miralax*) 17 gm PO DAILY PRN PRN Reason: Constipation Last Admin: 04/20/16 08:48 Dose: 17 gm Prochlorperazine Edisylate (Compazine Inj*) 5 mg IV Q6H PRN PRN Reason: NAUSEA/VOMITING Last Admin: 04/23/16 13:20 Dose: 5 mg Silver Sulfadiazine (Silvadine 1%*) 1 applic TOPICAL BID [facility] Last Admin: 04/25/16 10:14 Dose: Not Given Tiotropium [place] (Spiriva Cap.Inh*) 1 cap INH DAILY [facility] Last Admin: 04/25/16 09:17 Dose: 1 cap Vital Signs 04/24/16 04/24/16 04/24/16 15:34 16:00 19:39 Temperature 97.8 F Pulse Rate 66 Respiratory 20 20 Rate Blood Pressure 141/44 (mmHg) O2 Sat by Pulse 100 100 Oximetry 04/24/16 04/25/16 04/25/16 20:00 00:04 02:53 Temperature 97.9 F 98.0 F Pulse Rate 69 62 Respiratory 20 20 Rate Blood Pressure 116/82 130/47 (mmHg) O2 Sat by Pulse 100 99 100 Oximetry 04/25/16 04/25/16 04/25/16 03:45 07:41 08:15 Temperature 97.4 F 97.5 F Pulse Rate 63 59 Respiratory 20 26 18 Rate Blood Pressure 132/46 135/50 (mmHg) O2 Sat by Pulse 100 100 100 Oximetry 04/25/16 04/25/16 10:56 11:09 Temperature 97.4 F Pulse Rate 74 Respiratory 20 Rate Blood Pressure 138/49 (mmHg) O2 Sat by Pulse 100 99 Oximetry Oxygen Devices in Use Now: Nasal Cannula - 1.5 L Appearance: NAD, laying in bed. Eyes: No Scleral Icterus, PERRLA Ears/Nose/Mouth/Throat: NL Teeth, Lips, Gums, Mucous Membranes Moist Neck: NL Appearance and Movements; NL JVP, Trachea Midline Respiratory: Symmetrical Chest Expansion and Respiratory Effort, Clear to Auscultation - , diminished Cardiovascular: NL Sounds; No Murmurs; No JVD, RRR Abdominal: NL Sounds; No Tenderness; No Distention - Bowel sounds present Extremities: - - 1-2+ generalized edema Neurological: Alert and Oriented x 3 Lines/Tubes/Other Access: Clean, Dry and Intact Peripheral IV - site benign Nutrition: Taking PO's Result Diagrams: 04/17/16 06:00 04/25/16 06:45 Microbiology and Other Data: Assess/Plan/Problems-Billing Assessment: Ms. Dwyer is a 85 yo F h/p parkinson's dz, DM2, CAD/CABG, AVR, afib s/p ablation on amiodarone/no AC 2/2 recurrent falls, SSS s/p PPP placement, aortic stenosis and pHTN per report with decreased RV function (not evident on TTE here ), who presented from [facility] 04/06/16 after fall with left hip fracture 04/01/16 with stay in their facility complicated by anemia requiring blood transfusions, acute on chronic kidney failure, and a urinary tract infection. - Patient Problems (1) Hip fracture Code(s): S72.009A - FRACTURE OF UNSP PART OF NECK OF UNSP FEMUR, INIT SNOMED Code(s): 872108941 Comment: - Appreciate Ortho assistance, will need rehab once medically stable. - S/P left hip hemiarthroplasty with ORIF on 04/07. - Melodie dependent. (2) Acute on chronic kidney failure Code(s): N17.9 - ACUTE KIDNEY FAILURE, UNSPECIFIED; N18.9 - CHRONIC KIDNEY DISEASE, UNSPECIFIED SNOMED Code(s): 564695656 Comment: - Creatinine continues to improve - Continue to monitor daily - Continue to improve PO protein intake with Glucerna and nutritional f/u (3) Anasarca associated with disorder of kidney Code(s): N04.9 - NEPHROTIC SYNDROME WITH UNSPECIFIED MORPHOLOGIC CHANGES SNOMED Code(s): 48282236457117 Comment: - Suspect due to a combination of manutrition and low albumin level and CKD - Tolerating BID IV Lasix starting 04/21, continue for now, strict I/O - Continue 1750 cc fluid restriction (4) Anemia Code(s): D64.9 - ANEMIA, UNSPECIFIED SNOMED Code(s): 079124094 Comment: - Transfused 1 U PRBC on 04/16/16 (transfused 2 U postop prior) - Stool heme neg - Low iron and TIBC due to anemia of chronic disease and CKD - Dr. Ortiz recommended , Epogen 2x/week. First dose given 04/17, 2nd dose given 04/20/16 (5) Atrial fibrillation Code(s): I48.91 - UNSPECIFIED ATRIAL FIBRILLATION SNOMED Code(s): 54048862 Comment: rate and rhythm controlled on amiodarone, metoprolol (6) Diabetes mellitus Code(s): E11.9 - TYPE 2 DIABETES MELLITUS WITHOUT COMPLICATIONS SNOMED Code(s) : 61177688 Comment: - Glucose 120-170s - High dose Lispro SS and Lantus (7) Malnutrition Code(s): E46 - UNSPECIFIED PROTEIN-CALORIE MALNUTRITION SNOMED Code(s): 3446319 Comment: - Severe, chronic with prealbumin of 6 - Appreciate nutrition consult . - Continue Glucerna (8) Parkinson disease Code(s): G20 - PARKINSON'S DISEASE SNOMED Code(s): 97626192 Comment: - Stable. - Continue home medications (9) Skin ulcer of pretibial region of left lower extremity Current Visit: Yes Status: Acute Code(s): L97.829 - NON-PRESSURE CHRONIC ULCER OTH PRT L LOW LEG W UNSP SEVERITY SNOMED Code(s): 129985849 Comment: - Wound care consult appreciated - Also noted sacral decubiti to be tx with silvadene BID (10) Hypertension Code(s): I10 - ESSENTIAL (PRIMARY) HYPERTENSION SNOMED Code(s): 15099120 Comment: - SBP 130's - lisinopril 10 mg held d/t JASMIN - Continue metoprolol (11) DVT prophylaxis Code(s): SGU1327 - SNOMED Code(s): 106639394 Comment: Continue Coumadin (12) DNR (do not resuscitate) Status and Disposition: Inpatient. d/c to STR once Hb stable and pt adequately diuresed with IV Lasix
[2016-04-25] MEDS: Insulin GLARGINE(*) 1 UNITS UNIT SUBCUT SCH (15:17)
[2016-04-25] MEDS ORDERED: Warfarin TAB(*) 4 MG PO ONE (17:00)
[2016-04-26 06:15] LABS: Hematocrit 27 % (35-47); Hemoglobin 8.8 g/dl (12.0-16.0); Mean Corpuscular HGB Conc 32 g/dl (31-36); Mean Corpuscular Hemoglobin 31 pg (27-31); Mean Corpuscular Volume 96 fL (80-97); Mean Platelet Volume 8 um3 (7.4-10.4); Red Blood Count 2.85 10^6/ul (4.0-5.4); Red Cell Distribution Width 18 % (10.5-15); White Blood Count 7.3 10^3/ul (3.5-10.8)
[2016-04-26] MEDS: Carbidopa/Levodop 25/100 MG TAB(*) PO SCH ×4 (06:16→22:18)
[2016-04-26 06:26] LABS: Add Diff/Slide Review? Slide Review Added; Comments Flag Yes
[2016-04-26 06:33] LABS: BUN/Creatinine Ratio 40.1 (8-20); Calcium 7.9 mg/dL (8.6-10.3); EGFR African American 41.8 (>60); EGFR Non-African American 32.5 (>60); Potassium 4.1 mmol/L (3.5-5.0)
[2016-04-26] MEDS: Insulin LISPRO* 1 UNITS UNIT SUBCUT SCH ×4 (07:12→22:18)
[2016-04-26] MEDS: Furosemide IV* 10 MG/ML VIAL (40 MG) IV SCH ×2 (07:43→17:23)
[2016-04-26] MEDS: Omeprazole CAP* 20 MG PO SCH (07:43)
[2016-04-26] MEDS: Calcium/Vitamin D TAB 250/125* TAB PO SCH (07:43)
[2016-04-26] MEDS: Metoprolol Tartrate TAB* 25 MG PO SCH ×2 (07:44→22:18)
[2016-04-26] MEDS: Allopurinol TAB* 100 MG PO SCH (07:44)
[2016-04-26] MEDS: Citalopram TAB* 10 MG PO SCH (07:44)
[2016-04-26] MEDS: Tiotropium CAP.INH* CAP.INH/18 MCG (USE ORDER SET !) INH SCH (07:44)
[2016-04-26] MEDS: Ascorbic Acid TAB* 500 MG PO SCH (07:44)
[2016-04-26] MEDS: Atorvastatin* 20 MG TAB PO SCH (07:44)
[2016-04-26] MEDS: Docusate CAP* 100 MG PO SCH ×3 (07:44→23:12)
[2016-04-26] MEDS: Amiodarone TAB* 200 MG PO SCH (07:44)
[2016-04-26] MEDS: Vitamin THERAPEUTIC TAB PO SCH (07:44)
[2016-04-26] MEDS: Silver Sulfadiazine 1%* 20 GM TOPICAL SCH ×2 (07:45→22:32)
[2016-04-26] MEDS: UMECLIDINIUM BROMIDE INH SCH (07:45)
[2016-04-26] MEDS: [UNRECOGNIZED DRUG - OTHER] INH SCH (07:45)
[2016-04-26] MEDS: Moisturizing CREAM* 120 GM JAR TOPICAL SCH ×2 (10:35→22:32)
[2016-04-26] MEDS: Insulin GLARGINE(*) 1 UNITS UNIT SUBCUT SCH (14:57)
--- NOTE | 2016-04-26 15:01 | PN ---
Progress Note - Progress Note SOAP: Subjective: [Pt was seen this morning resting in her chair. Pt states that she is feeling better. Pain is under control. ] Objective: [General: Pt is awake, alert and oriented. Pt appears in no acute distress MSK: LLE: incision is c/d. pt is able to move toes. Pt has full sensation to light touch in lower extremity. ] Vital Signs Temp 97.8 F 04/26/16 12:34 Pulse 59 04/26/16 12:34 Resp 20 04/26/16 12:34 BP 127/55 04/26/16 12:34 Pulse Ox 100 04/26/16 12:34 Intake & Output 04/25/16 04/26/16 04/26/16 18:59 06:59 18:59 Intake Total 420 695 Output Total 1250 0 Balance 420 -555 0 Weight 235 lb 6.4 oz Intake: Oral 420 695 Output: Love 1250 0 Other: # Bowel Movements 1 Estimated Stool Amount Large Laboratory Results - last 24 hr 04/25/16 04/25/16 04/26/16 17:07 21:12 05:50 WBC RBC Hgb Hct MCV MCH MCHC RDW Plt Count MPV Neut % (Auto) Lymph % (Auto) [place] % (Auto) Eos % (Auto) Baso % (Auto) Absolute Neuts (auto) Absolute Lymphs (auto) Absolute Monos (auto) Absolute Eos (auto) Absolute Basos (auto) Absolute Nucleated RBC Nucleated RBC % INR (Anticoag Therapy) Sodium 143 Potassium 4.1 Chloride 107 Carbon Dioxide 32 Anion Gap 4 BUN 61 H Creatinine 1.52 H Est GFR ( Amer) 41.8 Est GFR (Non-Af Amer) 32.5 BUN/Creatinine Ratio 40.1 H Glucose 95 POC Glucose (mg/dL) 157 H 123 H Calcium 7.9 L 04/26/16 04/26/16 04/26/16 05:50 05:50 11:51 WBC 7.3 RBC 2.85 L Hgb 8.8 L Hct 27 L MCV 96 MCH 31 MCHC 32 RDW 18 H Plt Count 408 MPV 8 Neut % (Auto) 61.0 Lymph % (Auto) 23.2 L [place] % (Auto) 10.1 H Eos % (Auto) 4.7 Baso % (Auto) 1.0 Absolute Neuts (auto) 4.5 Absolute Lymphs (auto) 1.7 Absolute Monos (auto) 0.7 Absolute Eos (auto) 0.3 Absolute Basos (auto) 0.1 Absolute Nucleated RBC 0 Nucleated RBC % 0 INR (Anticoag Therapy) 2.97 H Sodium Potassium Chloride Carbon Dioxide Anion Gap BUN Creatinine Est GFR ( Amer) Est GFR (Non-Af Amer) BUN/Creatinine Ratio Glucose POC Glucose (mg/dL) 165 H Calcium Assessment: [S/P L hip concha ] Plan: [Continue current PT/OT Continue current DVT prophylaxis Continue hospitalists management D/C once medically stable. ]
--- NOTE | 2016-04-26 16:05 | RAD ---
INDICATION: Left hip surgery COMPARISON: 04/07/2016 TECHNIQUE: An AP view of the pelvis and AP views of the hip in neutral and abducted position were obtained FINDINGS: Bones: There are no acute bony findings. There is left hip arthroplasty. There is no evidence of hardware failure or periprosthetic fracture Joint spaces: The hips articulate normally. The joint spaces are preserved. SI joints/symphysis: The SI joints and symphysis are intact. Other: None IMPRESSION: NO ACUTE BONY FINDINGS.
--- NOTE | 2016-04-26 16:51 | PN ---
Subjective Date of Service: 04/26/16 Interval History: Patient seen and examined at bedside. Pt states that she feels well. Denies fever, chills, chest discomfort, shortness of breath, N/V/D. Pt feels that her edema has been improving. Family History: Unchanged from Admission Social History: Unchanged from Admission Past Medical History: Unchanged from Admission Objective Active Medications: Acetaminophen (Tylenol Tab*) 650 mg PO Q4H PRN Reason: FEVER/PAIN Allopurinol (Zyloprim Tab*) 100 mg PO DAILY [facility] Amiodarone HCl (Cordarone Tab*) 200 mg PO DAILY [facility] Ascorbic Acid (Vitamin C Tab*) 500 mg PO DAILY [facility] Atorvastatin Calcium (Lipitor*) 20 mg PO DAILY [facility] Bisacodyl (Dulcolax Supp*) 10 mg [place] DAILY PRN Reason: constipation Calcium/Vitamin D (Oscal D Tab 250/125*) 1 tab PO DAILY [facility] Carbidopa/Levodopa (Sinemet 25/100 Tab(*)) 1 tab PO BEDTIME [facility] Carbidopa/Levodopa (Sinemet 25/100 Tab(*)) 1 tab PO DAILY@0700 [facility] Carbidopa/Levodopa (Sinemet 25/100 Tab(*)) 1.5 tab PO DAILY@1100 [facility] Carbidopa/Levodopa (Sinemet 25/100 Tab(*)) 1 tab PO DAILY@1500 [facility] Citalopram Hydrobromide (Celexa Tab*) 10 mg PO DAILY [facility] Dextrose (D50w Syringe 50 Ml*) 12.5 gm IV PUSH .FOR FS < 60 - SS PRN Reason: FS < 60 Diphenhydramine HCl (Benadryl Iv*) 25 mg IV Q6H PRN Reason: itching Docusate Sodium (Colace Cap*) 100 mg PO BID [facility] Furosemide (Lasix Iv*) 40 mg IV 0800,1700 [facility] Heparin Sodium (Porcine) (Heparin Flush Picc/Ml/Cvc(*)) 1 - 3 ml FLUSH 0600, 1800 [facility] Reason: Protocol Insulin Glargine (Lantus(*)) 5 units SUBCUT Q24H [facility] Insulin Human Lispro (Humalog*) 0 units SUBCUT ACHS [facility] Reason: Protocol Magnesium Hydroxide (Milk Of Magnesia Liq*) 30 ml PO Q6H PRN Reason: constipation Metoprolol Tartrate (Lopressor Tab*) 12.[address] [facility] Multi-Ingredient Ointment (Hydrocerin*) 1 applic TOPICAL BID [facility] Multivitamins (Theragran Tab*) [address] [facility] Umeclidinium [place] [Incruse Ellipta] 1 Puff)*Nonformulary [address] [facility] Omeprazole (Prilosec Cap*) [address] [facility] Pharmacy Profile Note (Coumadin Daily Reminder*) 1 note FOLLOW UP [address]00 [facility] Pharmacy Profile Note (Coumadin Per Pharmacy*) 1 note FOLLOW UP .PER PHARMACY PROTOC [facility] Reason: Protocol Polyethylene Glycol/Electrolytes (Miralax*) 17 gm PO DAILY PRN Reason: Constipation Prochlorperazine Edisylate (Compazine Inj*) 5 mg IV Q6H PRN Reason: NAUSEA/ VOMITING Silver Sulfadiazine (Silvadine 1%*) 1 applic TOPICAL BID [facility] Tiotropium [place] (Spiriva Cap.Inh*) [address] [facility] Warfarin Sodium (Coumadin Tab(*)) 3 mg PO 1700 ONE Stop: 04/26/16 17:01 Vital Signs 04/25/16 04/25/16 04/25/16 19:52 20:00 23:56 Temperature 98.5 F 97.8 F Pulse Rate 60 59 Respiratory 18 18 22 Rate Blood Pressure 139/43 138/37 (mmHg) O2 Sat by Pulse 100 100 Oximetry 04/26/16 04/26/16 04/26/16 00:00 03:45 08:00 Temperature 97.9 F Pulse Rate 59 Respiratory 20 20 Rate Blood Pressure 126/39 (mmHg) O2 Sat by Pulse 100 99 100 Oximetry 04/26/16 04/26/16 04/26/16 08:05 12:34 16:20 Temperature 97.3 F 97.8 F 98.0 F Pulse Rate 59 59 59 Respiratory 20 20 24 Rate Blood Pressure 138/41 127/55 227/118 (mmHg) O2 Sat by Pulse 100 100 100 Oximetry Oxygen Devices in Use Now: Nasal Cannula - 2 L Appearance: NAD, laying in bed. Eyes: No Scleral Icterus, PERRLA Ears/Nose/Mouth/Throat: NL Teeth, Lips, Gums, Mucous Membranes Moist Neck: NL Appearance and Movements; NL JVP, Trachea Midline Respiratory: Symmetrical Chest Expansion and Respiratory Effort, Clear to Auscultation - , diminished Cardiovascular: NL Sounds; No Murmurs; No JVD, RRR Abdominal: NL Sounds; No Tenderness; No Distention Extremities: - - 1-2+ generalized edema Skin: - - Multiple dressing for wounds Neurological: Alert and Oriented x 3 Lines/Tubes/Other Access: Clean, Dry and Intact Other Access - midline, site benign Nutrition: Taking PO's Result Diagrams: 04/26/16 05:50 04/26/16 05:50 Microbiology and Other Data: Assess/Plan/Problems-Billing Assessment: Ms. Dwyer is a 85 yo F h/p parkinson's dz, DM2, CAD/CABG, AVR, afib s/p ablation on amiodarone/no AC 2/2 recurrent falls, SSS s/p PPP placement, aortic stenosis and pHTN per report with decreased RV function (not evident on TTE here ), who presented from [facility] 04/06/16 after fall with left hip fracture 04/01/16 with stay in their facility complicated by anemia requiring blood transfusions, acute on chronic kidney failure, and a urinary tract infection. - Patient Problems (1) Hip fracture Code(s): S72.009A - FRACTURE OF UNSP PART OF NECK OF UNSP FEMUR, INIT SNOMED Code(s): 257957260 Comment: - Appreciate Ortho assistance, will need rehab once medically stable. - S/P left hip hemiarthroplasty with ORIF on 04/07. - Melodie dependent. (2) Acute on chronic kidney failure Code(s): N17.9 - ACUTE KIDNEY FAILURE, UNSPECIFIED; N18.9 - CHRONIC KIDNEY DISEASE, UNSPECIFIED SNOMED Code(s): 093465160 Comment: - Creatinine continues to improve - Continue to monitor daily - Continue to improve PO protein intake with Glucerna and nutritional f/u (3) Anasarca associated with disorder of kidney Code(s): N04.9 - NEPHROTIC SYNDROME WITH UNSPECIFIED MORPHOLOGIC CHANGES SNOMED Code(s): 90978154650196 Comment: - Suspect due to a combination of manutrition and low albumin level and CKD - Tolerating BID IV Lasix starting 04/21, continue for now, strict I/O - Continue 1750 cc fluid restriction (4) Anemia Code(s): D64.9 - ANEMIA, UNSPECIFIED SNOMED Code(s): 075212462 Comment: - Transfused 1 U PRBC on 04/16/16 (transfused 2 U postop prior) - Stool heme neg - Low iron and TIBC due to anemia of chronic disease and CKD - Dr. Ortiz recommended , Epogen 2x/week. First dose given 04/17, 2nd dose given 04/20/16 (5) Atrial fibrillation Code(s): I48.91 - UNSPECIFIED ATRIAL FIBRILLATION SNOMED Code(s): 57422587 Comment: rate and rhythm controlled on amiodarone, metoprolol (6) Diabetes mellitus Code(s): E11.9 - TYPE 2 DIABETES MELLITUS WITHOUT COMPLICATIONS SNOMED Code(s) : 93241508 Comment: - Glucose 120-160s - High dose Lispro SS and Lantus (7) Malnutrition Code(s): E46 - UNSPECIFIED PROTEIN-CALORIE MALNUTRITION SNOMED Code(s): 0689093 Comment: - Severe, chronic with prealbumin of 6 - Appreciate nutrition consult . - Continue Glucerna (8) Parkinson disease Code(s): G20 - PARKINSON'S DISEASE SNOMED Code(s): 09982037 Comment: - Stable. - Continue home medications (9) Skin ulcer of pretibial region of left lower extremity Current Visit: Yes Status: Acute Code(s): L97.829 - NON-PRESSURE CHRONIC ULCER OTH PRT L LOW LEG W UNSP SEVERITY SNOMED Code(s): 265949883 Comment: - Wound care consult appreciated - Also noted sacral decubiti to be tx with silvadene BID (10) Hypertension Code(s): I10 - ESSENTIAL (PRIMARY) HYPERTENSION SNOMED Code(s): 93434872 Comment: - SBP 130-140's - lisinopril 10 mg held d/t JASMIN - Continue metoprolol (11) DVT prophylaxis Code(s): VCW0052 - SNOMED Code(s): 627846615 Comment: Continue Coumadin (12) DNR (do not resuscitate) Status and Disposition: Inpatient. Plan for discharge to [facility] in the morning.
[2016-04-26] MEDS ORDERED: Warfarin TAB(*) 3 MG PO ONE (17:00)
--- NOTE | 2016-04-27 00:58 | DS ---
DISCHARGE SUMMARY: DATE OF ADMISSION: 04/06/16 DATE OF DISCHARGE: 04/27/16 DATE OF : [birth year] AGE: 85. ATTENDING PHYSICIAN: Vee Bill MD * (DICTATED BY KEEGAN KAY NP) PRIMARY CARE PROVIDER: Dr. Winston Rice. PRIMARY DIAGNOSES: 1. Comminuted displaced left proximal femur fracture with femoral neck fracture and intertrochanteric fracture fragment, status post left hip hemiarthroplasty with open reduction and internal fixation of the greater trochanteric intertrochanteric fracture using a claw plate. 2. Ngwsk-xh-czugvka renal failure. 3. Anasarca. 4. Anemia. 5. Malnutrition. 6. Multiple skin ulcers. SECONDARY DIAGNOSES: 1. Atrial fibrillation. 2. Diabetes mellitus. 3. Parkinson disease. 4. Hypertension. CONSULTATIONS WHILE IN THE HOSPITAL: 1. Ashley Saravia MD with Orthopedic Surgery. 2. Ankit Ortiz MD with Nephrology. 3. Regi Irizarry MD with Palliative Care Medicine. PROCEDURES WHILE IN THE HOSPITAL: Status post left hip hemiarthroplasty with open reduction and internal fixation of the greater trochanteric intertrochanteric fracture using a claw plate on 04/07/[address] Ashley Saravia. STUDIES WHILE IN THE HOSPITAL: 1. Left heel x-ray on 04/06/16. Radiologist's impression: Osteopenia, osteoarthritis, no acute osseous injury. The degree of osteopenia may make a nondisplaced fracture radiographically occult. If the symptoms persist, recommend repeat imaging. 2. Left humerus x-ray on 04/06/16. Radiologist's impression: No acute osseous injury. 3. Left shoulder x-ray on 04/06/16. Radiologist's impression: Osteopenia, mild osteoarthritis. No acute osseous injury. Degree of osteopenia may make a nondisplaced fracture radiographically occult. If symptoms persist, recommend repeat imaging. 4. Left femur x-ray on 04/06/16. Radiologist's impression: Impacted left femoral neck fracture. No additional fracture of the left femur evident. 5. Left hip fracture and pelvis x-ray on 04/06/16. Radiologist's impression: Impacted left femoral neck fracture. No additional fracture of the left femur evident. 6. Left hip x-ray on 04/07/16. Radiologist's impression: Fluoroscopy was provided for a surgical procedure. 7. Left hip x-ray on 04/07/16. Radiologist's impression: Status post left hip arthroplasty. 8. Pelvis x-ray on 04/07/16. Radiologist's impression: Limited portable intraoperative view of the left hip performed during arthroplasty. 9. Left femur x-ray on 04/07/16. Radiologist's impression: Limited evaluation of the distal femur. Status post left hip arthroplasty. 10. Right shoulder x-ray on 04/08/16. Radiologist's impression: Osteopenia. Advanced osteoarthritis. No acute osseous injury. The degree of osteopenia may make a nondisplaced fracture radiographically occult. If the symptoms persist, recommend repeat imaging. 11. Transthoracic echocardiogram on 04/10/16. Credit Correspondence Clerk's conclusion: Mild concentric left ventricular hypertrophy is observed. Global left ventricular wall motion and contractility were within normal limits. The estimated ejection fraction is 50% to 65%. Post-surgical hypokinesis of the interventricular septum is observed consistent with coronary artery bypass. The right ventricular global systolic function is normal. A bioprosthetic pericardial aortic valve is present. The bioprosthetic aortic valve appears to be functioning normally. There is trace of mitral regurgitation, mild-to- moderate tricuspid regurgitation, and there is evidence of mild pulmonary hypertension. 12. Chest x-ray on 04/10/16. Radiologist's impression: Low lung volumes, pulmonary vascular congestion with mild pulmonary interstitial edema, and small left pleural effusion. 13. Left hip x-ray on 04/26/16. No acute bony findings. DISCHARGE MEDICATIONS: New medications: 1. Acetaminophen 650 mg oral every 4 hours as needed for fever or pain. 2. Colace 100 mg oral twice daily. 3. Furosemide 40 mg oral twice daily. 4. Milk of magnesia 30 mL oral every 6 hours as needed for constipation. 5. MiraLAX 17 g oral daily as needed for constipation. 6. Lispro insulin subcutaneous before meals and at bedtime. For glucose 131 to 150, give 2 units subcutaneous; 151 to 200, give 3 units; 201 to 250, give 6 units; 251 to 300, give 9 units; 301 to 350, give 12 units; and 351 to 400, give 15 units. 7. Warfarin 1.5 mg oral daily Continued home medications: 1. Sinemet 25/100 mg 1 tablet oral daily at 7 a.m., 3 p.m., and at bedtime. 2. Sinemet 25/100 mg 1.5 tablets oral daily at 11 a.m. 3. Aquaphor ointment apply topical twice daily. 4. Metoprolol succinate XL 25 mg oral daily. 5. Potassium chloride 10 mEq oral twice daily. 6. Allopurinol 200 mg oral daily. 7. Omeprazole 20 mg oral daily. 8. Citalopram 10 mg oral daily. 9. Amiodarone 200 mg oral daily. 10. Januvia 50 mg oral daily. 11. Calcium 600 plus D 600/200 one tablet oral daily. 12. Simvastatin 40 mg 1 tablet oral daily. 13. Incruse Ellipta 1 puff inhalation daily. 14. Spiriva 1 capsule oral daily. 15. Multivitamin 1 tablet oral daily. 16. Vitamin C 500 mg oral daily. Discontinued home medications: 17. Torsemide. 18. Lisinopril. 19. Silvadene. 20. Aspirin. HISTORY OF PRESENT ILLNESS/HOSPITAL COURSE: Ms. Dwyer is an 85-year-old female with past medical history significant for Parkinson disease; paroxysmal atrial fibrillation; and chronic kidney disease, stage 3 as well as type 2 diabetes mellitus, who was originally taken to [facility] after falling at home and having a mild rhabdomyolysis and acute renal failure with a creatinine over 4 and anemia with a hemoglobin of 7.8 and a left hip fracture. The patient stated that while walking from her kitchen to her bathroom, she became dizzy, which sometimes happens. Unfortunately, she was dizzy enough and fell down and fractured her left hip. The patient was also having left shoulder pain. After admission to [facility], the patient was seen by Nephrology for acute renal failure as well as infectious disease specialist and the patient's petroleum transport driver. The patient had medication adjustments and it was felt the patient could be suffering from ATN and dehydration. The patient received IV hydration and her renal function improved close to her baseline. The patient received 3 units of packed red blood cells and there was no signs of active bleeding noted. The patient denied any bright red blood per rectum or melena in her stools in the past. The patient was also found to have urinary tract infection from a urine sample obtained after a urinary catheter was placed. The patient was found to have Citrobacter freundii and Enterococcus faecalis. It was recommended that the patient be placed on Ceftin oral to complete a 7-day course. The patient's petroleum transport driver felt that the patient was optimized for an anticipated surgery and the patient was cleared for surgery at [facility] on April 05. Unfortunately, at that time there was no OR available for the patient to undergo the procedure. Subsequently, the patient's family asked for the patient to be transferred to [facility] for further treatment of her hip fracture. The patient was transferred as a direct admission to the medical floor at [facility]. While at [facility], the patient was evaluated for her anemia. She received an additional 2 units of red blood cells. The patient was continued on cefuroxime for her citrobacter urinary tract infection. The patient underwent a left hip hemiarthroplasty with open reduction and internal fixation of her greater trochanteric intertrochanteric fracture using a claw plate on April [address] Saravia with Orthopedic Surgery. The patient's atrial fibrillation has remained controlled during her stay. The patient's renal function worsened and the patient was seen in consultation by Dr. Ankit Ortiz with Nephrology. It was felt that the patient's edema maybe due to decreased intravascular oncotic pressure and the patient's albumin and prealbumin were checked to see if she needed supplementation in order to help mobilize some of her edema. The patient's potassium was a little on the high and we stopped her potassium supplement. The patient had been encouraged to eat and drink and thus provided with Glucerna supplementation. There was also some concern with the patient's BUN to creatinine ratio as it was markedly expanded. It was suspected this possibly could be intravascular volume depletion in the phase of the patient's edema. The patient was unable to ambulate and was requiring Melodie assistance and the patient continued to decline. She received a Palliative Care Consult with Dr. Regi Irizarry. At the time of the consultation, the patient was not interested in hospice services and had a desire to fully recover to independent living. There was a plan made for the patient to go to subacute rehab with possibility of going back home. It was felt that the patient had a 50% chance of never ambulating again. It is to note that the patient was eligible for hospice services, but declined. It was recommended that the patient continued to be offered nutritional protein supplementation. The patient started being aggressively diuresed with IV Lasix b.i.d. She received IV lasix for 5 days. The patient has been able to diurese off some weight, but is not back down to her arrival weight. She arrived at 220 pounds and on the day prior to discharge, she was 235 pounds. Ms. Dwyer states that she feels well and her breathing is at baseline, she continues to require oxygen supplementation. Ms. Dwyer is stable for discharge to [facility] in the morning of April 27. Vital signs are as follows: Temperature 98.0, heart rate 59, respiratory rate 24, O2 sat 100% on 2 L via nasal cannula, and blood pressure 134/90. DISCHARGE PLAN: Ms. Dwyer will be discharged to [facility] on 04/27/16. Activity as tolerated. She should be toe-touch weightbearing to her left lower extremity. The patient should continue with physical therapy and occupational therapy. The patient should be on consistent carbohydrate diet with a 1750 mL fluid restriction. She should also be offered nutritional protein supplementation. The patient's fingersticks should be monitored. She should continue on Januvia and a Lispro sliding scale. The patient should receive Lispro insulin subcutaneous for glucose 131 to 150 two units, 151 to 200 three units, 201 to 250 six units, 251 to 300 nine units, 301 to 350 twelve units, and 351 to 400 fifteen units. As far as the patient's anasarca, she should be continued on Lasix 40 mg oral b.i.d. Recommend rechecking a basic metabolic panel in 1 week. She may be able to have her Lasix adjust as she is further able to diurese. Daily weights. Also recommend use of AILEEN wraps on her lower extremities for compression to assist with the edema in her lower extremities. She should be continues on oxygen 2 liters via nasal cannula, wean as able. At this time, the patient should be continued with her urinary catheter until her skin is improved and her mobility is better to help prevent her skin from breakdown. The patient should be continued on her home Sinemet dosing for her Parkinson's disease. For the patients skin breakdown and multiple wounds they should be treated as follows. Aquacel to weeping LLE wounds, change every 2-3 days, cover with 4x4 & conforming gauze. Use Xeroform & Mepilex on other wounds, change every 2 days. Aqua cell to buttocks wounds bilateral cover with 4x4 gauze. The patient should be continued on a bowel regime. For DVT prophylaxis the patient should be continued on Warfarin, I recommend checking an INR on Saturday. The patient should follow with her primary care doctor, Dr. Rice, or at the [facility] provider per protocol. Ms. Dwyer should also follow-up with Dr. Saravia with Orthopedic Surgery in 2 weeks. This is a summarized report of a complex medical history and hospital stay. For further details, please see the entire medical record. TIME SPENT: Time for this discharge was 60 minutes and 25 minutes was spent face- to-face with the patient discussing discharge plans and instructions. CONDITION ON DISCHARGE: Stable. Reviewed by CAL ROCHA 04/27/16 1017 CC: Dr. Winston Rice; Vee Bill MD* [id number]/CPS #: [id number] MTDD
[2016-04-27] MEDS: Carbidopa/Levodop 25/100 MG TAB(*) PO SCH (06:20)
[2016-04-27 08:01] VITALS: BP 109/72
[2016-04-27] MEDS: Furosemide IV* 10 MG/ML VIAL (40 MG) IV SCH (08:09)
[2016-04-27] MEDS: Amiodarone TAB* 200 MG PO SCH (08:12)
[2016-04-27] MEDS: Omeprazole CAP* 20 MG PO SCH (08:12)
[2016-04-27] MEDS: Allopurinol TAB* 100 MG PO SCH (08:13)
[2016-04-27] MEDS: Metoprolol Tartrate TAB* 25 MG PO SCH (08:13)
[2016-04-27] MEDS: Insulin LISPRO* 1 UNITS UNIT SUBCUT SCH (08:22)
[2016-04-27] MEDS: Tiotropium CAP.INH* CAP.INH/18 MCG (USE ORDER SET !) INH SCH (09:51)
[2016-04-27] MEDS: Citalopram TAB* 10 MG PO SCH (09:53)
[2016-04-27] MEDS: Docusate CAP* 100 MG PO SCH (09:53)
[2016-04-27] MEDS: Ascorbic Acid TAB* 500 MG PO SCH (09:53)
[2016-04-27] MEDS: Atorvastatin* 20 MG TAB PO SCH (09:54)
[2016-04-27] MEDS: Vitamin THERAPEUTIC TAB PO SCH (09:54)
[2016-04-27] MEDS: Calcium/Vitamin D TAB 250/125* TAB PO SCH (09:54)
[2016-04-27] MEDS: Moisturizing CREAM* 120 GM JAR TOPICAL SCH (10:34)
[2016-04-27] MEDS: [UNRECOGNIZED DRUG - OTHER] INH SCH (10:34)
[2016-04-27] MEDS: UMECLIDINIUM BROMIDE INH SCH (10:34)
--- NOTE | 2016-04-27 10:34 | PN ---
Subjective Date of Service: 04/27/16 Interval History: Patient seen and examined at bedside. Pt states that she feels well, she continues to need oxygen supplementation, but feels like her breathing is at baseline. Denies fever, chills, shortness of breath, chest discomfort, N/V/D. Pt does gag with medications, this seems to be less when she takes her medications with Glucerna. Family History: Unchanged from Admission Social History: Unchanged from Admission Past Medical History: Unchanged from Admission Objective Active Medications: Acetaminophen (Tylenol Tab*) 650 mg PO Q4H PRN Reason: FEVER/PAIN Allopurinol (Zyloprim Tab*) 100 mg PO DAILY BLOSSOM Amiodarone HCl (Cordarone Tab*) 200 mg PO DAILY BLOSSOM Ascorbic Acid (Vitamin C Tab*) 500 mg PO DAILY BLOSSOM Atorvastatin Calcium (Lipitor*) 20 mg PO DAILY BLOSSOM Bisacodyl (Dulcolax Supp*) 10 mg FL DAILY PRN Reason: constipation Calcium/Vitamin D (Oscal D Tab 250/125*) 1 tab PO DAILY BLOSSOM Carbidopa/Levodopa (Sinemet 25/100 Tab(*)) 1 tab PO BEDTIME BLOSSOM Carbidopa/Levodopa (Sinemet 25/100 Tab(*)) 1 tab PO DAILY@0700 BLOSSOM Carbidopa/Levodopa (Sinemet 25/100 Tab(*)) 1.5 tab PO DAILY@1100 BLOSSOM Carbidopa/Levodopa (Sinemet 25/100 Tab(*)) 1 tab PO DAILY@1500 BLOSSOM Citalopram Hydrobromide (Celexa Tab*) 10 mg PO DAILY BLOSSOM Dextrose (D50w Syringe 50 Ml*) 12.5 gm IV PUSH .FOR FS < 60 - SS PRN Reason: FS < 60 Diphenhydramine HCl (Benadryl Iv*) 25 mg IV Q6H PRN Reason: itching Docusate Sodium (Colace Cap*) 100 mg PO BID BLOSSOM Furosemide (Lasix Iv*) 40 mg IV 0800,1700 BLOSSOM Heparin Sodium (Porcine) (Heparin Flush Picc/Ml/Cvc(*)) 1 - 3 ml FLUSH 0600, 1800 BLOSSOM Reason: Protocol Insulin Glargine (Lantus(*)) 5 units SUBCUT Q24H BLOSSOM Insulin Human Lispro (Humalog*) 0 units SUBCUT ACHS BLOSSOM Reason: Protocol Magnesium Hydroxide (Milk Of Justo Aquinoq*) 30 ml PO Q6H PRN Reason: constipation Metoprolol Tartrate (Lopressor Tab*) 12.5 mg PO Q12HR [facility] Multi-Ingredient Ointment (Hydrocerin*) 1 applic TOPICAL BID [facility] Multivitamins (Theragran Tab*) 1 tab PO DAILY [facility] Umeclidinium Chapman [Incruse Ellipta] 1 Puff)*Nonformulary 1 dose INH DAILY [facility] Omeprazole (Prilosec Cap*) 20 mg PO 0730 [facility] Pharmacy Profile Note (Coumadin Daily Reminder*) 1 note FOLLOW UP 1700 [facility] Pharmacy Profile Note (Coumadin Per Pharmacy*) 1 note FOLLOW UP .PER PHARMACY PROTOC [facility] Reason: Protocol Polyethylene Glycol/Electrolytes (Miralax*) 17 gm PO DAILY PRN Reason: Constipation Prochlorperazine Edisylate (Compazine Inj*) 5 mg IV Q6H PRN Reason: NAUSEA/ VOMITING Silver Sulfadiazine (Silvadine 1%*) 1 applic TOPICAL BID [facility] Tiotropium Chapman (Spiriva Cap.Inh*) 1 cap INH DAILY [facility] Vital Signs 04/26/16 04/26/16 04/26/16 12:34 16:00 16:20 Temperature 97.8 F 98.0 F Pulse Rate 59 59 Respiratory 20 24 Rate Blood Pressure 127/55 227/118 (mmHg) O2 Sat by Pulse 100 100 100 Oximetry 04/26/16 04/26/16 04/26/16 16:22 19:49 20:00 Temperature 97.9 F Pulse Rate 62 63 Respiratory 16 20 Rate Blood Pressure 134/90 131/91 (mmHg) O2 Sat by Pulse 100 98 Oximetry 04/26/16 04/27/16 04/27/16 23:40 00:00 03:20 Temperature 98.0 F 97.7 F Pulse Rate 60 60 Respiratory 18 18 Rate Blood Pressure 112/40 130/74 (mmHg) O2 Sat by Pulse 99 100 100 Oximetry 04/27/16 04/27/16 03:22 07:55 Temperature 98.7 F Pulse Rate 60 83 Respiratory 18 16 Rate Blood Pressure 128/43 109/72 (mmHg) O2 Sat by Pulse 100 100 Oximetry Oxygen Devices in Use Now: Nasal Cannula - 2 L Appearance: NAD, sitting up in a chair. Eyes: No Scleral Icterus, PERRLA Ears/Nose/Mouth/Throat: NL Teeth, Lips, Gums, Mucous Membranes Moist Neck: NL Appearance and Movements; NL JVP, Trachea Midline Respiratory: Symmetrical Chest Expansion and Respiratory Effort, Clear to Auscultation - , diminished Cardiovascular: NL Sounds; No Murmurs; No JVD, RRR Abdominal: NL Sounds; No Tenderness; No Distention Extremities: - - 1-2+ generalized edema Skin: - - Multiple skin wounds, Dressings in place Neurological: Alert and Oriented x 3 Lines/Tubes/Other Access: Clean, Dry and Intact Other Access - midline, site benign Nutrition: Taking PO's Result Diagrams: 04/26/16 05:50 04/26/16 05:50 Microbiology and Other Data: Assess/Plan/Problems-Billing Assessment: Ms. Dwyer is a 85 yo F h/p parkinson's dz, DM2, CAD/CABG, AVR, afib s/p ablation on amiodarone/no AC 2/2 recurrent falls, SSS s/p PPP placement, aortic stenosis and pHTN per report with decreased RV function (not evident on TTE here ), who presented from [facility] 04/06/16 after fall with left hip fracture 04/01/16 with stay in their facility complicated by anemia requiring blood transfusions, acute on chronic kidney failure, and a urinary tract infection. - Patient Problems (1) Hip fracture Code(s): S72.009A - FRACTURE OF UNSP PART OF NECK OF UNSP FEMUR, INIT SNOMED Code(s): 204947180 Comment: - Appreciate Ortho assistance, will need rehab once medically stable. - S/P left hip hemiarthroplasty with ORIF on 04/07. - Melodie dependent. (2) Acute on chronic kidney failure Code(s): N17.9 - ACUTE KIDNEY FAILURE, UNSPECIFIED; N18.9 - CHRONIC KIDNEY DISEASE, UNSPECIFIED SNOMED Code(s): 550801970 Comment: - Creatinine continues to improve - Continue to improve PO protein intake with Glucerna and nutritional f/u - Recheck BMP in 1 week (3) Anasarca associated with disorder of kidney Code(s): N04.9 - NEPHROTIC SYNDROME WITH UNSPECIFIED MORPHOLOGIC CHANGES SNOMED Code(s): 18360699140974 Comment: - Suspect due to a combination of manutrition and low albumin level and CKD - Change to PO Lasix, strict I/O, daily weights - Continue 1750 cc fluid restriction (4) Anemia Code(s): D64.9 - ANEMIA, UNSPECIFIED SNOMED Code(s): 119480728 Comment: - Transfused 1 U PRBC on 04/16/16 (transfused 2 U postop prior) - Stool heme neg - Low iron and TIBC due to anemia of chronic disease and CKD - Dr. Ortiz recommended , Epogen 2x/week. First dose given 04/17, 2nd dose given 04/20/16 (5) Atrial fibrillation Code(s): I48.91 - UNSPECIFIED ATRIAL FIBRILLATION SNOMED Code(s): 52269176 Comment: rate and rhythm controlled on amiodarone, metoprolol (6) Diabetes mellitus Code(s): E11.9 - TYPE 2 DIABETES MELLITUS WITHOUT COMPLICATIONS SNOMED Code(s) : 71108378 Comment: - Glucose 120-180s - Continue Lispro SS and resume home medications (7) Malnutrition Code(s): E46 - UNSPECIFIED PROTEIN-CALORIE MALNUTRITION SNOMED Code(s): 2758993 Comment: - Severe, chronic with prealbumin of 6 - Appreciate nutrition consult . - Continue Glucerna (8) Parkinson disease Code(s): G20 - PARKINSON'S DISEASE SNOMED Code(s): 34787606 Comment: - Stable. - Continue home medications (9) Skin ulcer of pretibial region of left lower extremity Current Visit: Yes Status: Acute Code(s): L97.829 - NON-PRESSURE CHRONIC ULCER OTH PRT L LOW LEG W UNSP SEVERITY SNOMED Code(s): 708332850 Comment: - Wound care consult appreciated - Also noted sacral decubiti to be tx with aquacel (10) Hypertension Code(s): I10 - ESSENTIAL (PRIMARY) HYPERTENSION SNOMED Code(s): 82542701 Comment: - SBP 100-130's - lisinopril 10 mg held d/t JASMIN - Continue metoprolol (11) DVT prophylaxis Code(s): OLL1781 - SNOMED Code(s): 493532801 Comment: Continue Coumadin (12) DNR (do not resuscitate) Status and Disposition: Inpatient. Stable for discharge to [facility].
[2016-04-27] MEDS: Silver Sulfadiazine 1%* 20 GM TOPICAL SCH (10:35)
== END 2016-04-27 10:50 | DRG 469 ==
LOC: MEDTELE 09:50 → SSU 04-07 16:45
PROVIDERS: ADMIT Internal Medicine; ATTEND Internal Medicine
PROC: 0QS704Z Reposition Left Upper Femur with Internal Fixation Device, Open Approach (ICD-10-PCS; 2016-04-07)
PROC: 0SRS01A Replacement of Left Hip Joint, Femoral Surface with Metal Synthetic Substitute, Uncemented, Open Approach (ICD-10-PCS; principal; 2016-04-07 09:00)
PROC: 30233N1 Transfusion of Nonautologous Red Blood Cells into Peripheral Vein, Percutaneous Approach (ICD-10-PCS; 2016-04-17)
DX: S72.142A Displaced intertrochanteric fracture of left femur, initial encounter for closed fracture (principal); E43 Unspecified severe protein-calorie malnutrition; N17.9 Acute kidney failure, unspecified; L89.159 Pressure ulcer of sacral region, unspecified stage; G20 Parkinson's disease; E11.22 Type 2 diabetes mellitus with diabetic chronic kidney disease; I27.2 Other secondary pulmonary hypertension; N39.0 Urinary tract infection, site not specified; L97.929 Non-pressure chronic ulcer of unspecified part of left lower leg with unspecified severity; N04.9 Nephrotic syndrome with unspecified morphologic changes; S72.112A Displaced fracture of greater trochanter of left femur, initial encounter for closed fracture; S72.002A Fracture of unspecified part of neck of left femur, initial encounter for closed fracture; I48.0 Paroxysmal atrial fibrillation; N18.3 Chronic kidney disease, stage 3 (moderate); B95.2 Enterococcus as the cause of diseases classified elsewhere; B96.89 Other specified bacterial agents as the cause of diseases classified elsewhere; I25.10 Atherosclerotic heart disease of native coronary artery without angina pectoris; Z96.652 Presence of left artificial knee joint; Z66 Do not resuscitate; Z16.19 Resistance to other specified beta lactam antibiotics; I08.1 Rheumatic disorders of both mitral and tricuspid valves; D72.829 Elevated white blood cell count, unspecified; M21.052 Valgus deformity, not elsewhere classified, left hip; M19.012 Primary osteoarthritis, left shoulder; D63.1 Anemia in chronic kidney disease; E66.01 Morbid (severe) obesity due to excess calories; E78.5 Hyperlipidemia, unspecified; Z96.651 Presence of right artificial knee joint; W19.XXXA Unspecified fall, initial encounter; Z95.2 Presence of prosthetic heart valve; Z95.0 Presence of cardiac pacemaker; Z91.81 History of falling; Z95.1 Presence of aortocoronary bypass graft; Z98.42 Cataract extraction status, left eye; Z98.41 Cataract extraction status, right eye; Z88.5 Allergy status to narcotic agent; Z88.8 Allergy status to other drugs, medicaments and biological substances; Y92.009 Unspecified place in unspecified non-institutional (private) residence as the place of occurrence of the external cause; Z79.01 Long term (current) use of anticoagulants; Z68.36 Body mass index [BMI] 36.0-36.9, adult; I95.9 Hypotension, unspecified; E87.70 Fluid overload, unspecified; E87.5 Hyperkalemia; E86.9 Volume depletion, unspecified
CPT/HCPCS: 36415; 71010; 72170; 80048; 80076; 81003; 81015; 82040; 82272; 82570; 82607; 83540; 83550; 83735; 83880; 84134; 84300; 85014; 85018; 85025; 85027; 85610; 85730; 86850; 86900; 86901; 86922; 87086; 88305; 88311; 93005; 93306; 94640; 94760; A9270-GY; C1776; J0330; J0690; J0780; J0885; J1170; J1644; J1650; J1940; J2405; J2704; J3010; P9040

== ENCOUNTER 2016-05-05 12:22 | Inpatient (IN) | payer MEDICARE ==
[2016-05-05 13:42] LABS: Hematocrit 25 % (35-47); Hemoglobin 8.2 g/dl (12.0-16.0); Mean Corpuscular HGB Conc 33 g/dl (31-36); Mean Corpuscular Hemoglobin 31 pg (27-31); Mean Corpuscular Volume 96 fL (80-97); Mean Platelet Volume 8 um3 (7.4-10.4); Red Blood Count 2.64 10^6/ul (4.0-5.4); Red Cell Distribution Width 19 % (10.5-15); White Blood Count 9.1 10^3/ul (3.5-10.8)
[2016-05-05 13:55] LABS: Albumin 2.1 g/dL (3.2-5.2); BUN/Creatinine Ratio 26.3 (8-20); Calcium 7.9 mg/dL (8.6-10.3); EGFR African American 33.1 (>60); EGFR Non-African American 25.7 (>60); Globulin 2.7 g/dL (2-4); Potassium 4.3 mmol/L (3.5-5.0); Total Bilirubin 0.7 mg/dL (0.2-1.0); Total Protein 4.8 g/dL (6.4-8.9); Troponin I 0.03 ng/mL (<0.04)
--- NOTE | 2016-05-05 14:12 | RAD ---
Indication: Post LEFT hip surgery April 05, 2016. Dehiscence. Comparison: April 26, 2016 Technique: AP pelvis and AP and crosstable lateral views LEFT hip. Report: LEFT hip bipolar hemiprosthesis in place without evidence for loosening of the femoral component including the intratrochanteric and subtrochanteric cerclage wires and lateral cortical plate. The prosthetic joint is dislocated with the prosthetic femoral head approximating the supra-acetabular region of the ileum. lesser trochanter fragment is displaced medial relative to the remainder of the intratrochanteric region. Associated overlying soft tissue swelling and suggestion of lateral peripheral subcutaneous emphysema. Negative for pelvic fracture or joint diastases. IMPRESSION: Prosthetic hip dislocation.
--- NOTE | 2016-05-05 14:15 | RAD ---
Indication: Prosthetic LEFT hip dislocation. Comparison: April 10, 2016 Technique: Supine AP 1352 hours Report: Mild prominence of interstitial markings. Linear atelectasis at the peripheral LEFT lung base. Grossly clear pleural spaces. Cardiomegaly. RIGHT atrial and RIGHT ventricular level pacemaker leads. Median sternotomy wires. Prosthetic aortic valve. Unremarkable central pulmonary vasculature accounting for supine technique. IMPRESSION: Mild LEFT basilar atelectasis.
[2016-05-05 14:18] LABS: C Reactive Protein 129.58 mg/L (< 5.00)
[2016-05-05 14:37] LABS: Erythrocyte Sed Rate 88 mm/Hr (0-40)
--- NOTE | 2016-05-05 14:41 | ED ---
Wesley Lo Karl, scribed for Chu Crocker MD on 05/05/16 at 1312 . Lower Extremity - HPI Summary HPI Summary: 85 y/o F CAITLYN presents with pain in her left hip s/p left hip surgery and wound dehiscence. Pt c/o pain in her left hip and left arm at an 8/10. Pt was sent from [facility]. Hx: left hip dehiscence. - History of Current Complaint Chief Complaint: EDExtremityLower Stated Complaint: LEFT HIP WOUND Time Seen by Provider: 05/05/16 12:31 Hx Obtained From: Patient, Medical Records Mechanism Of Injury: Incised - s/p surgery Severity Initially: Moderate Severity Currently: Moderate Pain Intensity: 8 - left hip Pain Scale Used: 0-10 Numeric Timing: Constant Location: Is Discrete @ - left hip Associated Signs And Symptoms: Positive: Swelling, Redness Able to Bear Weight: No - Allergies/Home Medications Allergies/Adverse Reactions: Allergies Allergy/AdvReac Type Severity Reaction Status Date / Time Nifedipine [From Procardia] Allergy Intermediate rash, pain Verified 05/05/16 13 :13 with swallowing Amoxicillin Allergy Unknown Unknown Verified 05/05/16 13:13 Reaction Details Rosiglitazone [From Avandia] Allergy Unknown Unknown Verified 05/05/16 13:13 Reaction Details Morphine and Related AdvReac Severe hallucinate Verified 05/05/16 13:13 Home Medications: Home Medications Furosemide TAB* [Lasix TAB*] 80 mg PO BID 05/05/16 [History Confirmed 05/05/16] Potassium Chlor TAB* [Klor Con ER TAB 10 MEQ*] 20 meq PO BID 05/05/16 [History Confirmed 05/05/16] PMH/Surg Hx/FS Hx/Imm Hx Previously Healthy: No Endocrine/Hematology History: Reports: Hx Diabetes Cardiovascular History: Reports: Hx Auto Implanted Cardiovert Defib, Hx Hypertension Respiratory History: Reports: Hx Chronic Obstructive Pulmonary Disease (COPD) Sensory History: Reports: Hx Contacts or Glasses Opthamlomology History: Reports: Hx Contacts or Glasses - Surgical History Surgery Procedure, Year, and Place: OPEN HEART 2013. TUBAL LIGATION. APPENDECTOMY Infectious Disease History: Unable to Obtain/Confirm Infectious Disease History: Reports: Hx Shingles Denies: Traveled Outside the [place] in Last 30 Days - Family History Known Family History: Positive: Other - breast CA two sisters - Social History Alcohol Use: Rare Substance Use Type: Reports: None Smoking Status (MU): Never Smoked Tobacco Review of Systems Constitutional: Negative Eyes: Negative ENT: Negative Cardiovascular: Negative Respiratory: Negative Gastrointestinal: Negative Genitourinary: Negative Positive: Myalgia - left hip wound, Edema - left hip wound Skin: Other - dehiscence of left hip wound Neurological: Negative Psychological: Normal All Other Systems Reviewed And Are Negative: Yes Physical Exam - Summary Physical Exam Summary: VITAL SIGNS: Reviewed. GENERAL: Patient is an obese female who is lying comfortable in the stretcher. Patient is not in any acute respiratory distress. HEAD AND FACE: No signs of trauma. No ecchymosis, hematomas or skull depressions EYES: PERRLA, EOMI x 2 EARS: Hearing grossly intact. MOUTH: Oropharynx within normal limits. NECK: Supple, trachea is midline, no adenopathy, no JVD, no carotid bruit, no c- spine tenderness, neck with full ROM. CHEST: Symmetric, no tenderness at palpation LUNGS: Coarse breath sounds bilateral. CVS: Irregular rate and rhythm, S1 and S2 present, no murmurs or gallops appreciated. ABDOMEN: Soft, obese, non-tender. No signs of distention. No rebound no guarding , and no masses palpated. Bowel sounds are normal. EXTREMITIES: Left hip with decrease ROM secondary to pain. Positive dehiscence in the surgical wound in the left hip of approximately 6 to 7 cm. Positive blood but no purulent discharge. No foul smelling. Positive wound in the left leg w/o discharge. NEURO: Alert and oriented x 3. SKIN: Dry and warm. Multiple ecchymosis all over her body. Positive skin tear in the right forearm. Positive abrasions in the buttox. Triage Information Reviewed: Yes Vital Signs On Initial Exam: Initial Vitals Temp Pulse Resp BP Pulse Ox 98.4 F 68 20 155/120 96 05/05/16 12:23 05/05/16 12:23 05/05/16 12:23 05/05/16 12:23 05/05/16 12:23 Vital Signs Reviewed: Yes Diagnostics - Vital Signs Vital Signs Temp Pulse Resp BP Pulse Ox 05/05/16 12:37 98.4 F 60 18 155/120 98 05/05/16 12:23 98.4 F 68 20 155/120 96 - Laboratory Lab Results: Lab Results 05/05/16 05/05/16 05/05/16 Range/Units 13:25 13:25 13:25 WBC 9.1 (3.5-10.8) 10^3/ul RBC 2.64 L (4.0-5.4) 10^6/ul Hgb 8.2 L (12.0-16.0) g/dl Hct 25 L (35-47) % MCV 96 (80-97) fL MCH 31 (27-31) pg MCHC 33 (31-36) g/dl RDW 19 H (10.5-15) % Plt Count 254 (150-450) 10^3/ul MPV 8 (7.4-10.4) um3 Neut % (Auto) 63.0 (38-83) % Lymph % (Auto) 26.1 (25-47) % [place] % (Auto) 8.8 (1-9) % Eos % (Auto) 1.3 (0-6) % Baso % (Auto) 0.8 (0-2) % Absolute Neuts (auto) 5.7 (1.5-7.7) 10^3/ul Absolute Lymphs (auto) 2.4 (1.0-4.8) 10^3/ul Absolute Monos (auto) 0.8 (0-0.8) 10^3/ul Absolute Eos (auto) 0.1 (0-0.6) 10^3/ul Absolute Basos (auto) 0.1 (0-0.2) 10^3/ul Absolute Nucleated RBC 0.01 10^3/ul Nucleated RBC % 0.1 ESR Pending INR (Anticoag Therapy) 1.17 H (0.89-1.11) APTT 22.7 L (26.0-36.3) seconds Sodium 138 (133-145) mmol/L Potassium 4.3 (3.5-5.0) mmol/L Chloride 106 (101-111) mmol/L Carbon Dioxide 28 (22-32) mmol/L Anion Gap 4 (2-11) mmol/L BUN 49 H (6-24) mg/dL Creatinine 1.86 H (0.51-0.95) mg/dL Est GFR ( Amer) 33.1 (>60) Est GFR (Non-Af Amer) 25.7 (>60) BUN/Creatinine Ratio 26.3 H (8-20) Glucose 111 H (70-100) mg/dL Lactic Acid (0.5-2.0) mmol/L Calcium 7.9 L (8.6-10.3) mg/dL Total Bilirubin 0.70 (0.2-1.0) mg/dL AST 27 (13-39) U/L ALT 10 (7-52) U/L Alkaline Phosphatase 114 H (34-104) U/L Troponin I 0.03 (<0.04) ng/mL C-Reactive Protein 129.58 H (< 5.00) mg/L Total Protein 4.8 L (6.4-8.9) g/dL Albumin 2.1 L (3.2-5.2) g/dL Globulin 2.7 (2-4) g/dL Albumin/Globulin Ratio 0.8 L (1-3) Blood Type Antibody Screen 05/05/16 05/05/16 Range/Units 13:25 13:25 WBC (3.5-10.8) 10^3/ul RBC (4.0-5.4) 10^6/ul Hgb (12.0-16.0) g/dl Hct (35-47) % MCV (80-97) fL MCH (27-31) pg MCHC (31-36) g/dl RDW (10.5-15) % Plt Count (150-450) 10^3/ul MPV (7.4-10.4) um3 Neut % (Auto) (38-83) % Lymph % (Auto) (25-47) % [place] % (Auto) (1-9) % Eos % (Auto) (0-6) % Baso % (Auto) (0-2) % Absolute Neuts (auto) (1.5-7.7) 10^3/ul Absolute Lymphs (auto) (1.0-4.8) 10^3/ul Absolute Monos (auto) (0-0.8) 10^3/ul Absolute Eos (auto) (0-0.6) 10^3/ul Absolute Basos (auto) (0-0.2) 10^3/ul Absolute Nucleated RBC 10^3/ul Nucleated RBC % ESR INR (Anticoag Therapy) (0.89-1.11) APTT (26.0-36.3) seconds Sodium (133-145) mmol/L Potassium (3.5-5.0) mmol/L Chloride (101-111) mmol/L Carbon Dioxide (22-32) mmol/L Anion Gap (2-11) mmol/L BUN (6-24) mg/dL Creatinine (0.51-0.95) mg/dL Est GFR ( Amer) (>60) Est GFR (Non-Af Amer) (>60) BUN/Creatinine Ratio (8-20) Glucose (70-100) mg/dL Lactic Acid 0.7 (0.5-2.0) mmol/L Calcium (8.6-10.3) mg/dL Total Bilirubin (0.2-1.0) mg/dL AST (13-39) U/L ALT (7-52) U/L Alkaline Phosphatase (34-104) U/L Troponin I (<0.04) ng/mL C-Reactive Protein (< 5.00) mg/L Total Protein (6.4-8.9) g/dL Albumin (3.2-5.2) g/dL Globulin (2-4) g/dL Albumin/Globulin Ratio (1-3) Blood Type A Positive Antibody Screen Negative Result Diagrams: 05/05/16 13:25 05/05/16 13:25 Lab Statement: Any lab studies that have been ordered have been reviewed, and results considered in the medical decision making process. - Radiology XR L Hip/Pelvis Xray Interpretation: Positive (See Comments) Radiology Interpretation Completed By: Radiologist - IMPRESSION: Prosthetic hip dislocation. - EKG 12:54 EKG Interpretation: Atrial flutter at 61 bpm, No STEMI Lower Extremity Course/Dx - Course Assessment/Plan: On 04/07/16 Patient had a left hip hemiarthroplasty with open reduction and internal fixation. Patient was discharged to a rehab center at [place]. Patient reports that today they have noticed that she had a Dehiscence if the surgical wound in the left Hip. She was transferred to [facility] and after they spoke with Dr Saravia (orthopedics) and patient was [place] [facility] [place] Patient is only complaining of Left hip pain. She reports no trauma and she has been in bed most of her time at the rehab center. Pain is 8/10. She is slightly hypotensive therefore I was not able to give any more pain medication. Blood work was done and [facility] I discussed the case with Dr. Saravia and she requested a left hip x- ray and she recommends admission to the hospitalist services due to a multiple comorbidities. Hip x-ray impression: Prosthetic hip dislocation. CXR IMPRESSION: Mild LEFT basilar atelectasis. Blood work shows a normocytic normochromic anemia, renal failure and hypoalbuminemia. Dr. Saravia (Orthopedics ) came and consulted for the patient. I discuss my physical exam, findings and test results with Dr. Mars from the hospitalist services and she agrees to admit patient to his services. Patient is hemodynamically stable alert and oriented x 3. - Diagnoses Differential Diagnosis/HQI/PQRI: Positive: Bursitis, Contusion, Other - Hip fracture, Deshiscence Provider Diagnoses: HIP FX, Renal failure, Hypoalbuminemia, Hip dislocation, left - Physician Notifications Discussed Care of Patient With: Dr. Saravia (Ortho) at 13:20 who advised getting an Xray and call the hospitalist. Dr. Mars (Hospitalist) at 14:05 who agreed to admit the pt. Discharge - Discharge Plan Condition: Guarded Disposition: ADMITTED TO [facility] The documentation as recorded by the Wesley scott Karl accurately reflects the service I personally performed and the decisions made by me, Chu Crocker MD.
[2016-05-05] MEDS ORDERED: Ondansetron INJ* 2 MG/ML VIAL IV PRN (15:05)
[2016-05-05] MEDS ORDERED: Acetaminophen TAB* 325 MG PO PRN (15:05)
[2016-05-05] MEDS ORDERED: Dextrose 50% Syringe 50 ML* 25 GM/50 ML SYRINGE IV PUSH PRN (15:05)
[2016-05-05] MEDS ORDERED: Albuterol 2.5 MG/3 ML NEB.SOL* (0.083%) INH PRN (15:11)
[2016-05-05] MEDS ORDERED: fentaNYL* 50 MCG/ML 2 ML VIAL (100 MCG VIAL) ONE ×2 (15:21→17:34)
[2016-05-05] MEDS ORDERED: Vancomycin(*) 1,000 MG in NS 0.9% 250 ML* 250 ML IVPB ONE (15:30)
[2016-05-05] MEDS ORDERED: Vancomycin per Pharmacy* NOTE FOLLOW UP PRN (15:39)
[2016-05-05] MEDS ORDERED: Bupivacaine 0.5% SDV PF* 30 ML VIAL ONE (15:56)
[2016-05-05] MEDS ORDERED: Bacitracin IV* 50,000 UNITS INJ ONE (15:56)
[2016-05-05] MEDS ORDERED: Spiriva Inhaler DEVICE* 1 EACH DEVICE ONE (16:00)
[2016-05-05] MEDS ORDERED: Propofol* 10 MG/ML 20 ML BTL IV PUSH ONE (16:00)
[2016-05-05] MEDS ORDERED: Lidocaine 2% PF * 5 ML VIAL ONE (16:00)
[2016-05-05] MEDS ORDERED: Ondansetron INJ* 2 MG/ML VIAL ONE (16:00)
[2016-05-05] MEDS ORDERED: Phenylephrine IV* 40 MCG/ML 10 ML SYRINGE ONE (16:00)
[2016-05-05] MEDS ORDERED: Succinylcholine* 20 MG/ML 10 ML VIAL ONE (16:00)
[2016-05-05] MEDS ORDERED: Dexamethasone IV* 4 MG/ML 1 ML (4 MG) ONE (16:00)
--- NOTE | 2016-05-05 16:09 | ED ---
Wesley Lo Karl, scribed for Chu Crocker MD on 05/05/16 at 1555 . Progress - Progress Note Progress Note: CXR IMPRESSION: (Radiologist) IMPRESSION: Mild LEFT basilar atelectasis. Course/Dx - Diagnoses Provider Diagnoses: HIP FX, Renal failure, Hypoalbuminemia, Hip dislocation, left - Provider Notifications Discussed Care Of Patient With: Dr. Saravia (Ortho) at 13:20 who advised getting an Xray and call the hospitalist. Dr. Mars (Hospitalist) at 14:05 who agreed to admit the pt. The documentation as recorded by the Wesley scott Karl accurately reflects the service I personally performed and the decisions made by Obi bennett Walter, MD.
[2016-05-05] MEDS ORDERED: Insulin LISPRO* 1 UNITS UNIT SUBCUT SCH (16:30)
--- NOTE | 2016-05-05 17:45 | RAD ---
Indication: Post reduction prosthetic LEFT hip dislocation. Comparison: Prereduction exam of the same date. Technique: Crosstable RIGHT lateral decubitus AP view of the pelvis. 1650 hours. Report: In the AP projection the prosthetic LEFT hip appears normally located at the acetabulum. No fracture evident. IMPRESSION: Limited single view exam with normal alignment of the prosthetic LEFT hip in the AP projection.
[2016-05-05] MEDS ORDERED: HYDROmorphone INJ* 1 MG/ML CARPUJECT SYRINGE IV PRN (18:09)
[2016-05-05] MEDS ORDERED: diPHENhydraMINE PO* 25 MG PO PRN (18:23)
[2016-05-05] MEDS ORDERED: Magnesium Hydroxide LIQ* 30 ML UDC PO PRN (18:23)
[2016-05-05] MEDS ORDERED: oxyCODONE/Acetamin 5/325 MG* TAB PO PRN ×2 (18:36)
[2016-05-05] MEDS ORDERED: oxyCODONE TAB* 5 MG TAB PO PRN (18:38)
[2016-05-05] MEDS ORDERED: HYDROmorphone INJ* 1 MG/ML CARPUJECT SYRINGE ONE (19:02)
--- NOTE | 2016-05-05 19:11 | RAD ---
Indication: Post open reduction LEFT prosthetic hip dislocation. Comparison: Prereduction exam of the same date. Technique: Low AP pelvis and proximal femurs Report: Bipolar prosthetic LEFT hip hemiparesis demonstrates normal alignment in the AP projection. No hardware loosening or periprosthetic fracture evident. Peripheral surgical drain, soft tissue edema, and subcutaneous emphysema. IMPRESSION: Limited AP view only exam demonstrating normal alignment of the prosthetic LEFT hip in the AP projection.
[2016-05-05 19:24] LABS: Hematocrit 30 % (35-47); Hemoglobin 9.2 g/dl (12.0-16.0)
[2016-05-05] MEDS ORDERED: Potassium Chlor TAB* 20 MEQ TAB.ER PO SCH (21:00)
[2016-05-05] MEDS ORDERED: Docusate CAP* 100 MG PO SCH (21:00)
[2016-05-05] MEDS ORDERED: Carbidopa/Levodop 25/100 MG TAB(*) PO SCH (21:00)
--- NOTE | 2016-05-05 21:21 | CONS ---
ORTHOPEDIC CONSULTATION: DATE OF CONSULT: 05/05/16 CHIEF COMPLAINT: Left hip pain and wound drainage. HISTORY OF PRESENT ILLNESS: Ms. Dwyer is an 85-year-old female known to me in the past for comminuted proximal left femoral fracture back in the very beginning of April 2016. She initially had a fall in her home on 04/01/16 and was treated at [facility] without surgery for a week before she was transferred to [facility]. I was then consulted for orthopedic fracture care and took her to the operating room on 04/07/16 for left hip hemiarthroplasty with ORIF of a greater trochanteric/intertrochanteric fracture. Essentially, at time of surgery, the patient was found to have comminuted fracture to proximal femur including the femoral head, neck, and intratrochanteric region as well as the greater trochanter. The patient had multiple medical comorbidities. Postoperatively, she did poorly. She was unable to stand and developed full body edema with weeping skin. Her albumin remained low and her kidney function worsened. Her incision remained intact and she was transferred once medically [facility]. Today, the patient is transferred here from [facility] for an open wound at the left hip incision. She tells me that she has had 3 days of increased pain in the left hip. She is unaware of any drainage or increased pain at the incision site. She has been unable to stand and has been Melodie lifted. She reports that they have been using an abductor pillow in between her legs when she is in bed. She denies fevers or chills. PAST MEDICAL HISTORY: Parkinson's disease advanced, aortic stenosis, atrial fibrillation, diabetes type 2, morbid obesity, hypertension, hypercholesterolemia, sick sinus syndrome, chronic renal insufficiency, hypercholesterolemia, mitral insufficiency, multiple falls, coronary artery disease, chronic bilateral lower extremity cellulitis, history of sepsis. PAST SURGICAL HISTORY: Aortic valve replacement in 2013, status post atrial fibrillation, pacemaker placement, total knee replacement, bilateral cataract excision. CURRENT MEDICATIONS: Please see full medical reconciliation. ALLERGIES: MORPHINE, NIFEDIPINE, ROFECOXIB, AVANDIA. SOCIAL HISTORY: The patient previously lived alone but for the last month has been at [facility]. She has not been ambulatory although before this ambulated with a rolling walker. No tobacco, alcohol, or recreational drug use. FAMILY HISTORY: Negative. REVIEW OF SYSTEMS: A 14-systems were reviewed with the patient's stay. Positive for left hip pain. Negative for fevers, chills, chest pain, shortness of breath, nausea, vomiting, headaches, or dizziness. Otherwise, the patient report review of systems is negative and she has been at her baseline. PHYSICAL EXAMINATION: Vital Signs: Temperature 98.4, pulse 65, blood pressure 137/39, height of 5 feet 2 inches, weight of 240. General: The patient is a morbidly obese female, in no apparent distress. She is lying in bed with family at the bedside. Alert and oriented x3. Pleasant mood and appropriate affect. Hard of hearing. Gait was not assessed. HEENT: Atraumatic, normocephalic. Pupils equal, round, and reactive to light. Chest: Unlabored breathing. Upper extremities have bruising but no significant edema, much improved since her discharge. Left lower extremity, the patient's extremity is short and internally rotated. She has 10 cm or more of her wound dehisced. This is opened by about 2 cm with exposed subcutaneous fat and minimal drainage. No obvious purulence. No widespread cellulitis. Distally, she has her tibial wounds wrapped at her baseline. She demonstrates EHL and FHL but minimal plantarflexion, dorsiflexion. She reports full sensation to light touch at her baseline and does have a palpable 2+ DP pulse. DIAGNOSTIC STUDIES/LAB DATA: Laboratory values from today 05/05/16 show white blood cells 9.1 with no left shift, hematocrit 25, platelets 254, INR 1.17, APTT 22.7, sodium 138, potassium 4.3, chloride 106, BUN 49, creatinine 1.86, glucose 111, calcium 7.9, troponin 0.03, alk phos 114, CRP 129.58, albumin 2.1. Radiographs: Multiple views of the patient's left hip show superior postal dislocation of the hip hemiarthroplasty. No obvious loss of fixation of the implants. ASSESSMENT AND PLAN: Ms. Dwyer is an 85-year-old female with multiple medical comorbidities, now 1 month status post ORIF and hip hemiarthroplasty placement for left proximal femoral fracture. The patient has bilateral lower extremity tibial chronic cellulitis, low albumin, and poor wound healing capacity. At this time, she has failed to heal her wound and it has largely dehisced. I am unsure how deep this goes or whether the entire hip is infected. She has no leukocytosis. CRP is elevated although this is likely chronic. I am unsure how long her hip has been dislocated. It is possible it has been dislocated up to 2 weeks at this point. Her parkinson's disease and her melodie lifting put her at increased risk of this. It is abnormal for her not to remember the dislocation. Of equal urgent importance is the dislocation of the left hip. This will be immediately taken to the OR for an attempted reduction closed first. I then plan to wash out the incision and close it. If I feel that the dehiscence extends down deep to the lateral fascia, I will open up the hip completely and wash out the joint. I do not plan to remove all the hardware at this point. I have given the patient's family risks and benefits of the procedure. They understand I may not be able to reduce the hip if the hardware has failed or moved. I am concerned about her muscle tension being unable to keep the hip reduced. I am concerned about her healing potential and a nicolas inability to heal this wound. All of this is made clear to the family. For now, they would like to proceed with surgical intervention. She has been n.p.o. since last evening and we will taken her urgently to the operating room for close reduction under anesthesia and washout of the wound dehiscence. Medical team is here admitting the patient. They feel that she is optimized for surgery. [id number]/CPS #: [id number] MTDD
[2016-05-05] MEDS ORDERED: Heparin VIAL(*) 5000 UNITS/ML VIAL (FIVE THOUSAND) SUBCUT SCH (22:00)
--- NOTE | 2016-05-05 22:10 | HP ---
HISTORY AND PHYSICAL: DATE OF ADMISSION: 05/05/16 PRIMARY CARE PROVIDER: Dr. Rice. ATTENDING PHYSICIAN WHILE IN THE HOSPITAL: Dr. Fabio Mars *(report dictated by Tato Harrell NP) CONSULTING ORTHOPEDIST: Dr. Saravia. CHIEF COMPLAINT: 1. Wound dehiscence. 2. Hip pain. HISTORY OF PRESENT ILLNESS: Ms. Dwyer is an 85-year-old female patient who has a very complex medical history. She comes in today because of wound dehiscence and pain. She gives a history of a hip fracture beginning of April, was ultimately treated here, had a turbulent postoperative course with acute renal failure and anasarca, eventually was able to be [facility]. She has a history of Parkinson's, AFib, CKD stage 3, diabetes, aortic stenosis, status post aortic valve replacement, hypertension, hyperlipidemia. She has a history of sick sinus syndrome, mitral valve insufficiency, coronary artery disease, history of recurrent cellulitis. She comes in today stating that the last couple of days, she has noticed that her hip has been internally rotated and she has had increasing pain there. She also states that this morning when her dressing was being changed to her incision on her left hip, it was noted to be open and at that point, the patient was transferred to [facility] because she had recently had a hemiarthroplasty in the beginning of April for a hip fracture. She states that she has not had any fevers or chills. Says that she did have some lower edema swelling and was seen at her attic fans mechanic yesterday and was put on 80 b.i.d. of Lasix just yesterday. The patient denies any shortness of breath. She does admit to orthopnea, but states that this is a chronic issue for her. She states that she has never been able to lay flat. She denies having any cough. She denies having any fever. She denies having any chills. Denies any vomiting or diarrhea, and there has been no chest discomfort or chest pain. Now , the patient has been getting out of bed with the Melodie lift only as she has been nonweightbearing to the left lower extremity. The patient came into the ER , was evaluated. It was ultimately found that she has a new hip dislocation. She had a wound dehiscence to the left hip and the hospitalist service was asked to evaluate for admission. PAST MEDICAL HISTORY: Significant for: 1. Recent left hip fracture, status post hemiarthroplasty. 2. Parkinson's. 3. AFib. 4. CKD stage 3. 5. Diabetes. 6. Aortic stenosis with a bioprosthetic valve. 7. Hypertension. 8. Hyperlipidemia. 9. Sick sinus syndrome, status post pacemaker. 10. Mitral valve insufficiency. 11. CAD. 12. Cellulitis. PAST SURGICAL HISTORY: 1. She has had an aortic valve replacement that is bioprosthetic. 2. Ablation. 3. Pacemaker. 4. CABG. 5. Left total knee replacement. 6. Left hip hemiarthroplasty. 7. Cataract extraction. ALLERGIES TO MEDICATIONS: Include PROCARDIA, AMOXICILLIN, and MORPHINE. FAMILY HISTORY: Reviewed, noncontributory. SOCIAL HISTORY: She does not smoke. She does not drink. She is currently residing at [facility]. Surrogate decision maker is her son. REVIEW OF SYSTEMS: There is no documented fever. She is unable to tell me if she has any significant weight change. She denies having any double vision. There is no ear discharge. She denies having any rhinorrhea. No sore throat. No thyroid enlargement. She does deny having any chest pain. There is orthopnea, but chronic, has not changed. She denies having any abdominal pain. She denies any nausea. There is no dyspnea on exertion. She denies having any dysuria. No frequency. No loss of consciousness. No pruritus. There are skin ulcerations. Review of 14 systems completed, all others negative. PHYSICAL EXAMINATION GENERAL: At this time, Ms. Dwyer is an 85-year-old female patient. She is chronically ill appearing. She does not appear to be in any acute distress. She is sitting on the ER stretcher. VITAL SIGNS: Blood pressure 139/43 with a pulse 89, respirations 18, O2 sat 99 % on 2 L which she wears chronically, and temperature 98.4. HEENT: Head: Atraumatic, normocephalic. Eyes: Sclerae anicteric and not pale. Throat: Oral mucosa appears to be moist. No oropharyngeal erythema. NECK: Supple. LUNGS: Clear to auscultation. They were diminished in the bases. Equal diaphragmatic expansion. HEART: Sounds S1, S2. She does have grade 2 to 3 aortic murmur that is systolic. ABDOMEN: Soft, flat, nontender. Bowel sounds present. EXTREMITIES: She has +2 pitting edema bilaterally just above her Kerlix wraps. She is able to move her extremities with the exception of left lower extremity because of pain and is internally rotated currently. She moves the upper extremities with 5/5 strength. NEUROLOGIC: She is awake, alert, and oriented x3. Starchmaker were equal. Tongue midline. No gross focal deficits. SKIN: She has multiple pressure ulcers to her sacrum and multiple ulcers to bilateral lower extremities. She has an incision that appears to be dehisced to the left hip as well. She does have some surrounding erythema. LABORATORY DATA: Her labs today revealed WBC of 9.1, RBC of 2.64, hemoglobin 8.2, hematocrit 25, platelet count 254. ESR 88, INR 1.17, PTT at 22.7. Sodium 138, potassium 4.3, chloride 106, bicarb 28, BUN 49, creatinine 1.86, glucose 111, lactic 0.7, calcium 7.9, total bili 0.7, AST 27, ALT 10, alk phos 114, troponin 0.03. CRP of 129. Albumin of 2.1, total protein 4.8. She did have chest x-ray obtained today, which showed some mild atelectasis what appears to be on the left base, but no infiltrates, no effusions, and no pulmonary vascular congestion. She did have a hip x-ray obtained today which showed a hip dislocation. She had an EKG, which showed a rate of 60, that appeared to be atrial paced. She did have what appeared to be flutter valves, but I think this was artifact from her Parkinson's tremor. She had an echo done on 04/10/16 , which showed an EF of 55% to 50%. Old medical records were reviewed. ASSESSMENT AND PLAN: Ms. Dwyer is an 85-year-old female patient with very complex medical history presenting to the ER today with hip pain and wound dehiscence of the left hip. Hospitalist service was asked to evaluate for admission. She will be admitted under inpatient status for: 1. Status post hip hemiarthroplasty now with complication of wound dehiscence and dislocation. I will defer the management to Dr. Saravia. In terms of her RCRI score, she scores a 3. She is high risk for perioperative complication. I think the score also undermines the fact that the patient has been essentially nonmobile. The procedure was also is not in her favor, but at this point, the risk and benefit of the procedure were discussed with the patient, the patient has a goal that she would like to stand. She knows that without this procedure that she will not able to use the leg functionally, so she wishes to proceed. From the medical standpoint, she is optimized as best we can her. Creatinine is 1.86. She runs right around 1.6. She does appear to be slightly dry at this point. Her EKG is stable and the chest x-ray looks stable. So, at this point, we will defer further management to Dr. Saravia and again she is being taken to the OR today as I believe she is medically optimized. I do think that because her ESR and CRP are elevated, Dr. Saravia says that she will get wound cultures from the wound. In addition to this, we will start her on vancomycin as there was concern there might be underlying infection. Again, we do not know that as well. At this point, we did get blood cultures as well and we will continue to follow. 2. Parkinson's. Continue with carbidopa and levodopa. 3. History of atrial fibrillation. She is rate controlled. The question I do have from the postoperative setting is when it will be safe to start the Coumadin, but we will need to see what Dr. Saravia finds in the OR today before we can make this determination. 4. Chronic kidney disease, stage 3. Her creatinine is right at her baseline. We will need to follow this closely. She has suffered from anasarca in the past and acute renal failure. We will monitor closely. We will hold any nephrotoxic agent as we can and we will dose appropriately for the vancomycin and follow closely. 5. Diabetes. She will be on a lispro sliding scale. 6. Aortic stenosis. Again, it appears to be stable. We will follow. 7. Hypertension. We will continue her meds as prescribed. I will probably stop this in the postoperative setting with the exception of her metoprolol. We will continue that with hold parameters. 8. Hyperlipidemia. Continue meds as prescribed. 9. History of sick sinus syndrome. She has a pacemaker. 10. Coronary artery disease. Continue with secondary prevention at this point. Continue her beta-harry. We will continue her statin. She is not on any aspirin, which is fine for now because she is on warfarin. 11. History of bilateral lower extremity wound. I did put a wound consult in. We will go ahead and get dressing changes daily for this. 12. Code status. She is a DNR. 13. Fluids, electrolytes, nutrition. I did put a nutrition consult in as she says she has not been eating well. Protein is a must for this patient. I will get a prealbumin and her albumin was low to start which certainly will not help with fluid balance. 14. DVT prophylaxis. She will be placed on heparin subcu. TIME SPENT: Time spent on the admission was 70 minutes, greater than half the time was spent [id number] with the patient going over the plan of care with patient. I did discuss the plan of care with my attending, Dr. Mars, he is in agreement. TATO HARRELL NP CC: Dr. Rice; Dr. Saravia * [id number]/CPS #: [id number] MTDD
[2016-05-05] MEDS ORDERED: oxyCODONE/Acetamin 5/325 MG* TAB ONE (22:12)
[2016-05-06] MEDS ORDERED: diPHENhydraMINE PO* 25 MG PO PRN (00:29)
[2016-05-06] MEDS ORDERED: Ondansetron INJ* 2 MG/ML VIAL IV PRN (00:34)
[2016-05-06] MEDS ORDERED: oxyCODONE TAB* 5 MG TAB PO PRN (00:37)
[2016-05-06] MEDS: Docusate CAP* 100 MG PO SCH ×3 (00:48→20:06)
[2016-05-06] MEDS: Potassium Chlor TAB* 20 MEQ TAB.ER PO SCH ×3 (00:48→20:05)
[2016-05-06] MEDS: Heparin VIAL(*) 5000 UNITS/ML VIAL (FIVE THOUSAND) SUBCUT SCH ×4 (00:49→17:06)
[2016-05-06] MEDS: Carbidopa/Levodop 25/100 MG TAB(*) PO SCH ×6 (00:55→20:05)
--- NOTE | 2016-05-06 01:55 | OP ---
DATE OF OPERATION: 05/05/16 - ROOM #349 DATE OF : 30 SURGEON: Ashley Saravia MD ASSURANCE ENGINEER: GIAN Vaughan ANESTHESIOLOGIST: Dr. Patino. ANESTHESIA: General. PRE-OP DIAGNOSIS: Dislocated left hip hemiarthroplasty with wound dehiscence. POST-OP DIAGNOSIS: Dislocated left hip hemiarthroplasty with wound dehiscence and possible infection. OPERATIVE PROCEDURE: Left hip open reduction under anesthesia of a bipolar dislocation, irrigation and debridement of wound dehiscence with a complex closure. EBL: 200 cc. SPECIMEN: Multiple cultures specimens were taken from the left hip joint fluid and sent to microbiology. COMPLICATIONS: None. BRIEF HISTORY/INDICATION: Ms. Dwyer is an 85-year-old female with multiple medical comorbidities including Parkinson's, low protein malnutrition, chronic renal disease, and chronic bilateral tibial open wounds and cellulitis. On 04/17, she had a fall in her home fracturing her left proximal femur along the femoral neck, intertrochanteric region, and greater trochanteric region. She was eventually transferred from [facility] to [facility]. On 04/07/16, I took the patient to the operating room for open reduction internal fixation of the left proximal femur with a trochanteric administrative technician plate and bipolar hemiarthroplasty. The patient had multiple complications postoperatively including worsening renal failure and entire body edema with weeping wounds. Once she was medically optimized, she was sent to [facility]. The patient returned to [facility] this morning on 07/16 with report of wound dehiscence. I asked for radiographs to be ordered of the left hip before I consulted. I immediately noted that the hip was dislocated. The patient was unaware of this and unsure when it happened. The patient was n.p.o. and her labs were optimized for surgery. Decision was made to take her to the operating room for close versus open reduction of the dislocated left hip hemiarthroplasty as well as an I and D of the wound dehiscence. Informed consent was obtained from the patient and her family. I made it quite clear to the patient and her family that an intraoperative fracture during the reduction could occur, and that I had serious concerns about infection as well as her ability to heal this wound at all. Current albumin is 2. The patient and her family understood the risks of the surgery included, but not limited to bleeding, infection, damage to nearby structures, continued pain, need for further surgery, recurrent dislocation/instability, recurrent infection, recurrent wound dehiscence with inability to heal the wound , stroke, heart attack, blood clot, and . They wished to proceed. INTRAOPERATIVE FINDINGS: Intraoperatively, the patient had fibrous soft tissue and very minimal healing over the last 1 month of the subcutaneous and deep tissue. Lateral fascial layer had not healed and was in fact dehisced. There was a large amount of serosanguineous hip fluid, but no obvious purulence. The dehiscence did track immediately to the left hip joint. The hip was unable to be reduced in a closed fashion. The patient had extreme muscle contracture and it was difficult to reduce the hip once it was opened. The patient seemed to have internal rotation and flexion muscle contractures. Hardware appeared to be intact. There was no loss of reduction around the implant. The closure of the wound was difficult due to extreme poor quality of the subcutaneous tissue. DESCRIPTION OF PROCEDURE: Ms. Dwyer was identified in the preanesthesia unit. Her left lower extremity was marked as the correct operative side. Informed consent was signed and placed in the chart by the patient's son, her healthcare proxy. The patient and her family understood this is a high-risk surgery. The patient was taken to the operating room and placed under general anesthesia. She was placed on the fracture table. A closed reduction attempt was made after general anesthesia was administered. I was unable to close reduce the dislocated hemiarthroplasty. At this time, decision was made to evaluate the wound dehiscence and perform open reduction of the dislocation. The patient was placed in the right lateral decubitus position on the peg board. She was noted to have open wounds along her entire left tibia and significant sacral ulcers. Left lower extremity was prepped and draped in the usual sterile fashion. Preop time-out was made to correctly identify the patient's side and site. The patient's wound dehiscence measured 10 cm. Finger probing went immediately down to the lateral fascial layer. A 10-blade was used to open the prior incision. It was noted that there was very minimal healing over the last month since her last surgery. There was a large amount of fibrous necrotic tissue in the subcutaneous fat layer. The patient's lateral fascia layer was mildly dehisced as well with very little healing. This was opened with a 10-blade. A large amount of serosanguineous joint fluid was encountered at this point. This was cultured and sent to microbiology. Vancomycin was then given. The patient's proximal femoral implant was visible. There was no motion to the fracture sites or the implant. The patient's hip flexors and adductors were extremely tight. The patient's leg was difficult to move and contracted. 6 L of sterile saline with bacitracin was used to irrigate the joint. Any necrotic soft tissue was carefully removed. A gentle reduction maneuver was then used to reduce the hemiarthroplasty into the acetabulum. It was noted that there was very poor motion due to muscle tightness. At this point, another 3 L of sterile saline were used to irrigate the hip joint. Any necrotic tissue was carefully removed with electrocautery. There was no posterior capsular soft tissue to repair to the posterior trochanter. The lateral fascia layer was closed using interrupted #5 Ethibonds and #1 Vicryls. The rest of the incision was closed in a layered fashion using 0 and 2-0 Vicryls. Closure of the incision was extremely difficult due to fibrous tissue and sutures pulling out. Medium Hemovac drain was placed just above the lateral fascial layer to drain any fluid from the space created from the subcutaneous fat. The skin was closed using running 2-0 Ethilon. Sterile Xeroform, 4x4s, and paper tape were used to cover the incision. The patient's anesthesia was reversed without difficulty. She was transferred to the table and placed in a hip abductor pillow. She will be taken to the PACU. She is currently in stable condition. Intended weightbearing will be toe touch weightbearing with posterior hip precautions. Intended DVT prophylaxis I will leave up to Medicine. We will obtain an Infectious Disease consult and follow the microbiology. I have discussed with the patient's family after surgery that I feel she is at higher risk of recurrent dislocation and instability due to muscle weakness, muscle contracture, and generalized weakness. I am unsure whether this wound will heal. I think this is a critical point in deciding on further surgery and I gave the family some options. [id number]/[facility] #: [id number] [facility]
[2016-05-06] MEDS: Vancomycin(*) 1,000 MG in NS 0.9% 250 ML* 250 ML IVPB SCH ×3 (03:33→17:35)
[2016-05-06] MEDS: Omeprazole CAP* 20 MG PO SCH (07:25)
[2016-05-06 07:47] LABS: Hematocrit 23 % (35-47); Hemoglobin 7.2 g/dl (12.0-16.0); Mean Corpuscular HGB Conc 32 g/dl (31-36); Mean Corpuscular Hemoglobin 31 pg (27-31); Mean Corpuscular Volume 96 fL (80-97); Mean Platelet Volume 8 um3 (7.4-10.4); Red Blood Count 2.36 10^6/ul (4.0-5.4); Red Cell Distribution Width 19 % (10.5-15); White Blood Count 14.6 10^3/ul (3.5-10.8)
[2016-05-06 07:59] LABS: BUN/Creatinine Ratio 25.1 (8-20); Calcium 7.6 mg/dL (8.6-10.3); EGFR African American 29.9 (>60); EGFR Non-African American 23.3 (>60); Potassium 4.7 mmol/L (3.5-5.0)
[2016-05-06] MEDS: Insulin LISPRO* 1 UNITS UNIT SUBCUT SCH ×3 (08:26→17:04)
[2016-05-06 08:28] LABS: Urine Bacteria 1+ (Absent); Urine Bilirubin Negative (Negative); Urine Glucose Negative (Negative); Urine Nitrite Negative (Negative)
[2016-05-06] MEDS: Tiotropium CAP.INH* CAP.INH/18 MCG (USE ORDER SET !) INH SCH (08:28)
[2016-05-06] MEDS: Acetaminophen TAB* 325 MG PO PRN ×2 (08:28→17:05)
[2016-05-06] MEDS: Atorvastatin* 20 MG TAB PO SCH (08:30)
[2016-05-06] MEDS: Vitamin THERAPEUTIC TAB PO SCH (08:30)
[2016-05-06] MEDS: Metoprolol Succinate XL TAB* 25 MG PO SCH (08:30)
[2016-05-06] MEDS: Amiodarone TAB* 200 MG PO SCH (08:31)
[2016-05-06] MEDS: Citalopram TAB* 10 MG PO SCH (08:31)
[2016-05-06] MEDS ORDERED: Multivitamins/Minerals TAB PO SCH (09:00)
[2016-05-06] MEDS ORDERED: Umeclidin 62.5 MDI(NF) 1 INH MDI INH SCH (09:00)
--- NOTE | 2016-05-06 10:59 | PN ---
Progress Note - Progress Note SOAP: Subjective: [Pt was seen today lying in bed. Pt states that she is feeling "very sleepy". She states that she does not feel like she is in to much pain currently. Pt denies any SOB, Chest pain or calf pain. ] Objective: [General: Pt is somnolent but able to be aroused. MSK: LLE: Dressing is c/d/i. Hemovac has minimal drainage. Pt is able to dorsiflex and planter flex foot. Leg is in abductor pillow. Pt is nv intact. ] Vital Signs Temp 99.2 F 05/06/16 10:16 Pulse 60 05/06/16 10:16 Resp 20 05/06/16 10:16 BP 108/31 05/06/16 10:16 Pulse Ox 98 05/06/16 10:16 Intake & Output 05/05/16 05/06/16 05/06/16 18:59 06:59 18:59 Intake Total 1000 432 200 Output Total 900 250 Balance 100 182 200 Weight 240 lb Intake: IV Fluids 1000 282 LR 1000 282 Oral 150 200 Output: Love 700 250 Estimated Blood Loss 200 Laboratory Last Values WBC 14.6 10^3/ul (3.5-10.8) H 05/06/16 07:28 RBC 2.36 10^6/ul (4.0-5.4) L 05/06/16 07:28 Hgb 7.2 g/dl (12.0-16.0) L 05/06/16 07:28 Hct 23 % (35-47) L 05/06/16 07:28 MCV 96 fL (80-97) 05/06/16 07:28 MCH 31 pg (27-31) 05/06/16 07:28 MCHC 32 g/dl (31-36) 05/06/16 07:28 RDW 19 % (10.5-15) H 05/06/16 07:28 Plt Count 236 10^3/ul (150-450) 05/06/16 07:28 MPV 8 um3 (7.4-10.4) 05/06/16 07:28 Neut % (Auto) 76.7 % (38-83) 05/06/16 07:28 Lymph % (Auto) 13.2 % (25-47) L 05/06/16 07:28 [place] % (Auto) 9.6 % (1-9) H 05/06/16 07:28 Eos % (Auto) 0.1 % (0-6) 05/06/16 07:28 Baso % (Auto) 0.4 % (0-2) 05/06/16 07:28 Absolute Neuts (auto) 11.2 10^3/ul (1.5-7.7) H 05/06/16 07:28 Absolute Lymphs (auto) 1.9 10^3/ul (1.0-4.8) 05/06/16 07:28 Absolute Monos (auto) 1.4 10^3/ul (0-0.8) H 05/06/16 07:28 Absolute Eos (auto) 0 10^3/ul (0-0.6) 05/06/16 07:28 Absolute Basos (auto) 0.1 10^3/ul (0-0.2) 05/06/16 07:28 Absolute Nucleated RBC 0.01 10^3/ul 05/06/16 07:28 Nucleated RBC % 0 05/06/16 07:28 ESR 88 mm/Hr (0-40) H 05/05/16 13:25 INR (Anticoag Therapy) 1.29 (0.89-1.11) H 05/06/16 07:28 APTT 22.7 seconds (26.0-36.3) L 05/05/16 13:25 Sodium 138 mmol/L (133-145) 05/06/16 07:28 Potassium 4.7 mmol/L (3.5-5.0) 05/06/16 07:28 Chloride 106 mmol/L (101-111) 05/06/16 07:28 Carbon Dioxide 27 mmol/L (22-32) 05/06/16 07:28 Anion Gap 5 mmol/L (2-11) 05/06/16 07:28 BUN 51 mg/dL (6-24) H 05/06/16 07:28 Creatinine 2.03 mg/dL (0.51-0.95) H 05/06/16 07:28 Est GFR ( Amer) 29.9 (>60) 05/06/16 07:28 Est GFR (Non-Af Amer) 23.3 (>60) 05/06/16 07:28 BUN/Creatinine Ratio 25.1 (8-20) H 05/06/16 07:28 Glucose 109 mg/dL (70-100) H 05/06/16 07:28 POC Glucose (mg/dL) 139 mg/dL (74-106) H 05/06/16 08:04 Hemoglobin A1c 5.6 % (Less than 6.0) 05/05/16 13:25 Lactic Acid 1.4 mmol/L (0.5-2.0) 05/05/16 19:16 Calcium 7.6 mg/dL (8.6-10.3) L 05/06/16 07:28 Total Bilirubin 0.70 mg/dL (0.2-1.0) 05/05/16 13:25 AST 27 U/L (13-39) 05/05/16 13:25 ALT 10 U/L (7-52) 05/05/16 13:25 Alkaline Phosphatase 114 U/L (34-104) H 05/05/16 13:25 Troponin I 0.03 ng/mL (<0.04) 05/05/16 13:25 C-Reactive Protein 129.58 mg/L (< 5.00) H 05/05/16 13:25 B-Natriuretic Peptide 228 pg/mL (-100) H 05/05/16 13:25 Total Protein 4.8 g/dL (6.4-8.9) L 05/05/16 13:25 Albumin 2.1 g/dL (3.2-5.2) L 05/05/16 13:25 Globulin 2.7 g/dL (2-4) 05/05/16 13:25 Albumin/Globulin Ratio 0.8 (1-3) L 05/05/16 13:25 Prealbumin Cancelled 05/06/16 07:28 Urine Color Vivi 05/06/16 08:00 Urine Appearance Cloudy 05/06/16 08:00 Urine pH 5.0 (5-9) 05/06/16 08:00 Ur Specific [place] 1.015 (1.010-1.030) 05/06/16 08:00 Urine Protein Negative (Negative) 05/06/16 08:00 Urine Ketones Negative (Negative) 05/06/16 08:00 Urine Blood Negative (Negative) 05/06/16 08:00 Urine Nitrate Negative (Negative) 05/06/16 08:00 Urine Bilirubin Negative (Negative) 05/06/16 08:00 Urine Urobilinogen Negative (Negative) 05/06/16 08:00 Ur Leukocyte Esterase 2+ (Negative) H 05/06/16 08:00 Urine WBC (Auto) 3+(>20/hpf) (Absent) H 05/06/16 08:00 Urine RBC (Auto) 1+(3-5/hpf) (Absent) H 05/06/16 08:00 Ur Squamous Epith Cells Present (Absent) H 05/06/16 08:00 Urine Bacteria 1+ (Absent) H 05/06/16 08:00 Hyaline Casts Present (Absent) H 05/06/16 08:00 Urine Glucose Negative (Negative) 05/06/16 08:00 Blood Type A Positive 05/05/16 13:25 Antibody Screen Negative 05/05/16 13:25 Crossmatch See Detail 05/05/16 13:25 Assessment: [POD1 Open reduction and Washout of L hip wound. ] Plan: [Continue Vancomycin Continue Heparin Continue Pain Management 2 units of blood will be transfused due to H and H of 7.2 and 23 ]
--- NOTE | 2016-05-06 11:58 | PN ---
Subjective Date of Service: 05/06/16 Interval History: Patient reports she is feeling better today but does have pain when moving positions. Denies fever or chills. No SOB, CP, dizziness. Reports good appetite , no N/V/D. Patient reports she was just started on Lasix 80 mg BID this past Saturday for "fluid overload and CHF" by seo engineer. As well the [facility] placed a tello catheter due to the increase in lasix dosage. Objective Active Medications: Acetaminophen (Tylenol Tab*) 650 mg PO Q4HR PRN PRN Reason: FEVER/PAIN Last Admin: 05/06/16 08:28 Dose: 650 mg Albuterol (Ventolin 2.5 Mg/3 Ml Neb.[place]*) 2.5 mg INH Q2HR PRN PRN Reason: SOB/WHEEZING Amiodarone [facility] ([facility]one Tab*) [facility] Last Admin: 05/06/16 08:31 Dose: 200 mg Atorvastatin Calcium (Lipitor*) [facility] Last Admin: 05/06/16 08:30 Dose: 20 mg Carbidopa/Levodopa (Sinemet 25/100 Tab(*)) 1 tab PO 0700 [facility] Last Admin: 05/06/16 07:25 Dose: 1 tab Carbidopa/Levodopa (Sinemet 25/100 Tab(*)) 1 tab PO 1500 [facility] Carbidopa/Levodopa (Sinemet 25/100 Tab(*)) 1.5 tab PO 1100 [facility] Carbidopa/Levodopa (Sinemet 25/100 Tab(*)) 1 tab PO 2100 [facility] Last Admin: 05/06/16 02:11 Dose: 1 tab Citalopram Hydrobromide (Celexa Tab*) 10 mg PO QAM [facility] Last Admin: 05/06/16 08:31 Dose: 10 mg Dextrose (D50w Syringe 50 Ml*) 12.5 gm IV PUSH .FOR FS < 60 - SS PRN PRN Reason: .FS < 60 Diphenhydramine HCl (Benadryl Po*) 25 mg PO Q6HR PRN PRN Reason: ITCHING OR INSOMNIA Docusate Sodium (Colace Cap*) 100 mg PO Q12HR [facility] Last Admin: 05/06/16 08:30 Dose: 100 mg Heparin Sodium (Porcine) (Heparin Vial(*)) 5,000 units SUBCUT Q8H [facility] Last Admin: 05/06/16 08:27 Dose: 5,000 units Vancomycin HCl 1,000 mg/ (Sodium Chloride) 250 mls @ 166.667 mls/hr IVPB Q12H [facility] Last Admin: 05/06/16 03:33 Dose: 166.667 mls/hr Insulin Human Lispro (Humalog*) 0 units SUBCUT 0730,1130,1630 [facility] PRN Reason: Protocol Last Admin: 05/06/16 08:26 Dose: 2 units Lactulose (Lactulose*) 30 ml PO Q6HR PRN PRN Reason: CONSTIPATION Magnesium Hydroxide (Milk Of Magnesia Liq*) 30 ml PO Q6HR PRN PRN Reason: CONSTIPATION Metoprolol Succinate (Toprol Xl Tab*) [facility] Last Admin: 05/06/16 08:30 Dose: 25 mg Multivitamins (Theragran Tab*) [facility] Last Admin: 05/06/16 08:30 Dose: 1 tab Omeprazole (Prilosec Cap*) 20 mg PO 0730 [facility] Last Admin: 05/06/16 07:25 Dose: 20 mg Ondansetron HCl (Zofran Inj*) 4 mg IV Q6HR PRN PRN Reason: NAUSEA Last Admin: 05/06/16 07:12 Dose: 4 mg Oxycodone HCl (Roxycodone Tab*) 10 mg PO Q4HR PRN PRN Reason: PAIN - UNCONTROLLED Oxycodone/Acetaminophen (Percocet 5/325 Tab*) 1 tab PO Q4HR PRN PRN Reason: PAIN - MODERATE Oxycodone/Acetaminophen (Percocet 5/325 Tab*) 2 tab PO Q4HR PRN PRN Reason: PAIN - SEVERE Pharmacy Consult (Vancomycin Per Pharmacy*) 1 note FOLLOW UP . PRN PRN Reason: PER PROTOCOL Pharmacy Profile Note (Vancomycin Trough Check) 1 note FOLLOW UP ONCE ONE Stop: 05/06/16 15:01 Potassium Chloride (Klor Con Er Tab*) 20 meq PO Q12HR [facility] Last Admin: 05/06/16 08:30 Dose: 20 meq Tiotropium [place] (Spiriva Cap.Inh*) 1 cap INH QAM [facility] Last Admin: 05/06/16 08:28 Dose: 1 cap Vital Signs 02/07/1605/05/16 05/05/16 20:05 20:57 22:10 Temperature 97.8 F 98.1 F Pulse Rate 63 102 Respiratory 20 22 20 Rate Blood Pressure 141/83 127/81 (mmHg) O2 Sat by Pulse 92 97 Oximetry 05/05/16 05/05/16 05/06/16 22:14 23:30 00:00 Temperature 99.0 F Pulse Rate 90 Respiratory 20 20 Rate Blood Pressure 110/53 (mmHg) O2 Sat by Pulse 97 94 Oximetry 05/06/16 05/06/16 05/06/16 00:14 00:17 00:37 Temperature 99.5 F Pulse Rate 62 97 Respiratory 18 16 Rate Blood Pressure 108/30 100/33 (mmHg) O2 Sat by Pulse 94 Oximetry 05/06/16 05/06/16 05/06/16 00:50 01:55 04:13 Temperature 97.7 F Pulse Rate 64 61 60 Respiratory 20 20 20 Rate Blood Pressure 106/67 127/80 142/89 (mmHg) O2 Sat by Pulse 99 95 100 Oximetry 05/06/16 05/06/16 05/06/16 07:21 08:00 10:16 Temperature 99.8 F 99.2 F Pulse Rate 78 60 Respiratory 20 20 20 Rate Blood Pressure 121/75 108/31 (mmHg) O2 Sat by Pulse 95 98 98 Oximetry 05/06/16 10:46 Temperature 98.5 F Pulse Rate 62 Respiratory 20 Rate Blood Pressure 108/29 (mmHg) O2 Sat by Pulse 98 Oximetry Oxygen Devices in Use Now: Nasal Cannula - 2L NC Appearance: obese female sitting up in bed A+O x3 in NAD - son and daughter-in- law at bedside. Eyes: No Scleral Icterus, PERRLA Ears/Nose/Mouth/Throat: NL Teeth, Lips, Gums, Mucous Membranes Moist Neck: NL Appearance and Movements; NL JVP Respiratory: Symmetrical Chest Expansion and Respiratory Effort, Clear to Auscultation Cardiovascular: NL Sounds; No Murmurs; No JVD, - - upper extremity edema; no LE edema noted Abdominal: NL Sounds; No Tenderness; No Distention, - - obese Extremities: No Clubbing, Cyanosis, - - in hip pillow. Neurological: Alert and Oriented x 3 Lines/Tubes/Other Access: Clean, Dry and Intact Peripheral IV Nutrition: Taking PO's Result Diagrams: 05/06/16 07:28 05/06/16 07:28 Additional Lab and Data: Lab Results 05/05/16 05/05/16 05/05/16 Range/Units 13:25 13:25 13:25 WBC 9.1 (3.5-10.8) 10^3/ul RBC 2.64 L (4.0-5.4) 10^6/ul Hgb 8.2 L (12.0-16.0) g/dl Hct 25 L (35-47) % MCV 96 (80-97) fL MCH 31 (27-31) pg MCHC 33 (31-36) g/dl RDW 19 H (10.5-15) % Plt Count 254 (150-450) 10^3/ul MPV 8 (7.4-10.4) um3 Neut % (Auto) 63.0 (38-83) % Lymph % (Auto) 26.1 (25-47) % [place] % (Auto) 8.8 (1-9) % Eos % (Auto) 1.3 (0-6) % Baso % (Auto) 0.8 (0-2) % Absolute Neuts (auto) 5.7 (1.5-7.7) 10^3/ul Absolute Lymphs (auto) 2.4 (1.0-4.8) 10^3/ul Absolute Monos (auto) 0.8 (0-0.8) 10^3/ul Absolute Eos (auto) 0.1 (0-0.6) 10^3/ul Absolute Basos (auto) 0.1 (0-0.2) 10^3/ul Absolute Nucleated RBC 0.01 10^3/ul Nucleated RBC % 0.1 ESR Pending INR (Anticoag Therapy) 1.17 H (0.89-1.11) APTT 22.7 L (26.0-36.3) seconds Sodium 138 (133-145) mmol/L Potassium 4.3 (3.5-5.0) mmol/L Chloride 106 (101-111) mmol/L Carbon Dioxide 28 (22-32) mmol/L Anion Gap 4 (2-11) mmol/L BUN 49 H (6-24) mg/dL Creatinine 1.86 H (0.51-0.95) mg/dL Est GFR ( Amer) 33.1 (>60) Est GFR (Non-Af Amer) 25.7 (>60) BUN/Creatinine Ratio 26.3 H (8-20) Glucose 111 H (70-100) mg/dL Lactic Acid (0.5-2.0) mmol/L Calcium 7.9 L (8.6-10.3) mg/dL Total Bilirubin 0.70 (0.2-1.0) mg/dL AST 27 (13-39) U/L ALT 10 (7-52) U/L Alkaline Phosphatase 114 H (34-104) U/L Troponin I 0.03 (<0.04) ng/mL C-Reactive Protein 129.58 H (< 5.00) mg/L Total Protein 4.8 L (6.4-8.9) g/dL Albumin 2.1 L (3.2-5.2) g/dL Globulin 2.7 (2-4) g/dL Albumin/Globulin Ratio 0.8 L (1-3) Blood Type Antibody Screen 05/05/16 05/05/16 Range/Units 13:25 13:25 WBC (3.5-10.8) 10^3/ul RBC (4.0-5.4) 10^6/ul Hgb (12.0-16.0) g/dl Hct (35-47) % MCV (80-97) fL MCH (27-31) pg MCHC (31-36) g/dl RDW (10.5-15) % Plt Count (150-450) 10^3/ul MPV (7.4-10.4) um3 Neut % (Auto) (38-83) % Lymph % (Auto) (25-47) % [place] % (Auto) (1-9) % Eos % (Auto) (0-6) % Baso % (Auto) (0-2) % Absolute Neuts (auto) (1.5-7.7) 10^3/ul Absolute Lymphs (auto) (1.0-4.8) 10^3/ul Absolute Monos (auto) (0-0.8) 10^3/ul Absolute Eos (auto) (0-0.6) 10^3/ul Absolute Basos (auto) (0-0.2) 10^3/ul Absolute Nucleated RBC 10^3/ul Nucleated RBC % ESR INR (Anticoag Therapy) (0.89-1.11) APTT (26.0-36.3) seconds Sodium (133-145) mmol/L Potassium (3.5-5.0) mmol/L Chloride (101-111) mmol/L Carbon Dioxide (22-32) mmol/L Anion Gap (2-11) mmol/L BUN (6-24) mg/dL Creatinine (0.51-0.95) mg/dL Est GFR ( Amer) (>60) Est GFR (Non-Af Amer) (>60) BUN/Creatinine Ratio (8-20) Glucose (70-100) mg/dL Lactic Acid 0.7 (0.5-2.0) mmol/L Calcium (8.6-10.3) mg/dL Total Bilirubin (0.2-1.0) mg/dL AST (13-39) U/L ALT (7-52) U/L Alkaline Phosphatase (34-104) U/L Troponin I (<0.04) ng/mL C-Reactive Protein (< 5.00) mg/L Total Protein (6.4-8.9) g/dL Albumin (3.2-5.2) g/dL Globulin (2-4) g/dL Albumin/Globulin Ratio (1-3) Blood Type A Positive Antibody Screen Negative Microbiology and Other Data: Microbiology 05/05/16 16:35 Anaerobic Culture - Preliminary Wound - Hip Left 05/05/16 16:40 Anaerobic Culture - Preliminary Wound - Hip Left 05/05/16 16:35 Gram Stain - Final Hip Left 05/05/16 16:40 Gram Stain - Final Hip Left Assess/Plan/Problems-Billing Assessment: Ms. Dwyer is a 85 yo female with a PMH of recent left hip fracture s /p hemiarthroplasty, CKD, Diabetes, parkinsons, afib on coumadin, aortic stenosis with bioprosthetic valve who presents with Left hip pain found to have a dislocation and wound dehiscence. - Patient Problems (1) left hip dislocation/wound dihiscence Comment: - clinically doing well. - taken to OR 2/ by Dr. Saravia for reduction and wash-out POD#1 - continue Vanco, wound cx and blood cx pending - ID consult 2/6 - PT/OT - pain medication (2) CKD (chronic kidney disease), stage III Comment: - appears to be around baseline (3) Hypertension Comment: - Continue metoprolol (4) Parkinson disease Comment: - Continue home medications (5) Atrial fibrillation Comment: rate and rhythm controlled on amiodarone, metoprolol (6) Diabetes mellitus Comment: - controlled - FSBG AC with Lispro SS (7) Congestive heart failure Comment: - stable. do not know the patients baseline. saw seo engineer 2 days ago and lasix was increased. Continue to monitor closely. Hold home dose 80 mg BID, give one time dose of lasix 20 mg IV after 2 units PRBCs. Reassess tomorrow. (8) DNR (do not resuscitate) (9) DVT prophylaxis Comment: HSQ (10) Anemia Comment: - Transfused 2 U PRBC today. Recheck HH tomorrow. (11) Malnutrition Comment: - Severe, chronic with prealbumin of 10 up from 6 04/24/16 - nutrition consult . - Continue Glucerna Status and Disposition: inpatient with hip dislocation and wound infection. Plan for subacute ( hopefully back to [facility] at discharge)
[2016-05-06] MEDS ORDERED: Vancomycin Trough Check NOTE FOLLOW UP ONE (15:00)
[2016-05-06 15:50] LABS: Vancomycin Trough 7.8 mcg/mL
[2016-05-06] MEDS ORDERED: Furosemide IV* 10 MG/ML 2 ML VIAL (20 MG) IV ONE (17:30)
[2016-05-06] MEDS: Magnesium Hydroxide LIQ* 30 ML UDC PO PRN (20:08)
[2016-05-06] MEDS: oxyCODONE/Acetamin 5/325 MG* TAB PO PRN (20:51)
[2016-05-06] MEDS: Albuterol 2.5 MG/3 ML NEB.SOL* (0.083%) INH PRN (21:49)
[2016-05-06 23:57] LABS: Hematocrit 26 % (35-47); Hemoglobin 8.3 g/dl (12.0-16.0)
[2016-05-07 00:07] LABS: Comments Flag Yes
[2016-05-07] MEDS: Heparin VIAL(*) 5000 UNITS/ML VIAL (FIVE THOUSAND) SUBCUT SCH ×3 (00:44→16:53)
[2016-05-07] MEDS: oxyCODONE/Acetamin 5/325 MG* TAB PO PRN ×2 (00:47→09:46)
[2016-05-07] MEDS: Vancomycin(*) 1,000 MG in NS 0.9% 250 ML* 250 ML IVPB SCH ×3 (01:44→14:10)
--- NOTE | 2016-05-07 07:19 | PN ---
Progress Note - Progress Note SOAP: Subjective: Pt. is awake, reports difficulty breathing last night. Objective: LLE - drain removed, tip intact, 250 cc ss drainage. distally nvi. Vital Signs: Temp Pulse Resp BP Pulse Ox 98.1 F 59 18 114/30 95 05/07/16 04:11 05/07/16 04:11 05/07/16 04:11 05/07/16 04:11 05/07/16 04:11 Laboratory Results - last 24 hr 05/05/16 05/06/16 05/06/16 13:25 07:28 07:28 WBC 14.6 H RBC 2.36 L Hgb 7.2 L Hct 23 L MCV 96 MCH 31 MCHC 32 RDW 19 H Plt Count 236 MPV 8 Neut % (Auto) 76.7 Lymph % (Auto) 13.2 L [place] % (Auto) 9.6 H Eos % (Auto) 0.1 Baso % (Auto) 0.4 Absolute Neuts (auto) 11.2 H Absolute Lymphs (auto) 1.9 Absolute Monos (auto) 1.4 H Absolute Eos (auto) 0 Absolute Basos (auto) 0.1 Absolute Nucleated RBC 0.01 Nucleated RBC % 0 INR (Anticoag Therapy) 1.29 H Sodium Potassium Chloride Carbon Dioxide Anion Gap BUN Creatinine Est GFR ( Amer) Est GFR (Non-Af Amer) BUN/Creatinine Ratio Glucose POC Glucose (mg/dL) Calcium Prealbumin Urine Color Urine Appearance Urine pH Ur Specific [place] Urine Protein Urine Ketones Urine Blood Urine Nitrate Urine Bilirubin Urine Urobilinogen Ur Leukocyte Esterase Urine WBC (Auto) Urine RBC (Auto) Ur Squamous Epith Cells Urine Bacteria Hyaline Casts Urine Glucose Vancomycin Trough Blood Type A Positive Antibody Screen Negative Crossmatch See Detail 05/06/16 05/06/16 05/06/16 07:28 08:00 08:04 WBC RBC Hgb Hct MCV MCH MCHC RDW Plt Count MPV Neut % (Auto) Lymph % (Auto) [place] % (Auto) Eos % (Auto) Baso % (Auto) Absolute Neuts (auto) Absolute Lymphs (auto) Absolute Monos (auto) Absolute Eos (auto) Absolute Basos (auto) Absolute Nucleated RBC Nucleated RBC % INR (Anticoag Therapy) Sodium 138 Potassium 4.7 Chloride 106 Carbon Dioxide 27 Anion Gap 5 BUN 51 H Creatinine 2.03 H Est GFR ( Amer) 29.9 Est GFR (Non-Af Amer) 23.3 BUN/Creatinine Ratio 25.1 H Glucose 109 H POC Glucose (mg/dL) 139 H Calcium 7.6 L Prealbumin Cancelled Urine Color Vivi Urine Appearance Cloudy Urine pH 5.0 Ur Specific [place] 1.015 Urine Protein Negative Urine Ketones Negative Urine Blood Negative Urine Nitrate Negative Urine Bilirubin Negative Urine Urobilinogen Negative Ur Leukocyte Esterase 2+ H Urine WBC (Auto) 3+(>20/hpf) H Urine RBC (Auto) 1+(3-5/hpf) H Ur Squamous Epith Cells Present H Urine Bacteria 1+ H Hyaline Casts Present H Urine Glucose Negative Vancomycin Trough Blood Type Antibody Screen Crossmatch 05/06/16 05/06/16 05/06/16 12:03 15:00 17:04 WBC RBC Hgb Hct MCV MCH MCHC RDW Plt Count MPV Neut % (Auto) Lymph % (Auto) [place] % (Auto) Eos % (Auto) Baso % (Auto) Absolute Neuts (auto) Absolute Lymphs (auto) Absolute Monos (auto) Absolute Eos (auto) Absolute Basos (auto) Absolute Nucleated RBC Nucleated RBC % INR (Anticoag Therapy) Sodium Potassium Chloride Carbon Dioxide Anion Gap BUN Creatinine Est GFR ( Amer) Est GFR (Non-Af Amer) BUN/Creatinine Ratio Glucose POC Glucose (mg/dL) 111 H 119 H Calcium Prealbumin 10 L Urine Color Urine Appearance Urine pH Ur Specific [place] Urine Protein Urine Ketones Urine Blood Urine Nitrate Urine Bilirubin Urine Urobilinogen Ur Leukocyte Esterase Urine WBC (Auto) Urine RBC (Auto) Ur Squamous Epith Cells Urine Bacteria Hyaline Casts Urine Glucose Vancomycin Trough 7.8 Blood Type Antibody Screen Crossmatch 05/06/16 23:46 WBC RBC Hgb 8.3 L Hct 26 L MCV MCH MCHC RDW Plt Count MPV Neut % (Auto) Lymph % (Auto) [place] % (Auto) Eos % (Auto) Baso % (Auto) Absolute Neuts (auto) Absolute Lymphs (auto) Absolute Monos (auto) Absolute Eos (auto) Absolute Basos (auto) Absolute Nucleated RBC Nucleated RBC % INR (Anticoag Therapy) Sodium Potassium Chloride Carbon Dioxide Anion Gap BUN Creatinine Est GFR ( Amer) Est GFR (Non-Af Amer) BUN/Creatinine Ratio Glucose POC Glucose (mg/dL) Calcium Prealbumin Urine Color Urine Appearance Urine pH Ur Specific [place] Urine Protein Urine Ketones Urine Blood Urine Nitrate Urine Bilirubin Urine Urobilinogen Ur Leukocyte Esterase Urine WBC (Auto) Urine RBC (Auto) Ur Squamous Epith Cells Urine Bacteria Hyaline Casts Urine Glucose Vancomycin Trough Blood Type Antibody Screen Crossmatch Assessment: 85 yo F pod 2 s/p I and D left wound dehiscence and open reduction hemiarthroplasty dislocation Plan: ttwb. post hip precautions are essential. nursing to change dressing when she is turned. wound care for tibia/sacrum id consult - + pseudomonas on gram stain
[2016-05-07 07:28] LABS: Hematocrit 27 % (35-47); Hemoglobin 8.4 g/dl (12.0-16.0); Mean Corpuscular HGB Conc 32 g/dl (31-36); Mean Corpuscular Hemoglobin 30 pg (27-31); Mean Corpuscular Volume 95 fL (80-97); Mean Platelet Volume 8 um3 (7.4-10.4); Red Blood Count 2.81 10^6/ul (4.0-5.4); Red Cell Distribution Width 20 % (10.5-15); White Blood Count 12.9 10^3/ul (3.5-10.8)
[2016-05-07 07:44] LABS: BUN/Creatinine Ratio 25.1 (8-20); Calcium 7.3 mg/dL (8.6-10.3); EGFR African American 25.8 (>60); EGFR Non-African American 20.1 (>60)
[2016-05-07 08:16] LABS: Potassium 5.5 mmol/L (3.5-5.0)
[2016-05-07] MEDS: Omeprazole CAP* 20 MG PO SCH (08:55)
[2016-05-07] MEDS: Carbidopa/Levodop 25/100 MG TAB(*) PO SCH ×4 (08:55→20:25)
[2016-05-07] MEDS ORDERED: Sodium Polystyrene ORAL.SOL* 15 GM/60 ML BTL PO ONE ×2 (08:59→18:58)
[2016-05-07] MEDS ORDERED: Furosemide IV* 10 MG/ML VIAL (40 MG) IV ONE (09:00)
[2016-05-07] MEDS: Atorvastatin* 20 MG TAB PO SCH (09:04)
[2016-05-07] MEDS: Amiodarone TAB* 200 MG PO SCH (09:05)
[2016-05-07] MEDS: Docusate CAP* 100 MG PO SCH ×2 (09:05→20:25)
[2016-05-07] MEDS: Citalopram TAB* 10 MG PO SCH (09:05)
[2016-05-07] MEDS: Insulin LISPRO* 1 UNITS UNIT SUBCUT SCH ×3 (09:05→18:13)
[2016-05-07] MEDS: Vitamin THERAPEUTIC TAB PO SCH (09:05)
[2016-05-07] MEDS: Metoprolol Succinate XL TAB* 25 MG PO SCH (09:05)
[2016-05-07] MEDS: Tiotropium CAP.INH* CAP.INH/18 MCG (USE ORDER SET !) INH SCH (09:05)
--- NOTE | 2016-05-07 09:05 | PN ---
Subjective Date of Service: 05/07/16 Interval History: Patient reports she feel sob this morning. reports at her baseline she doesn't require oxygen, now on 2L liters. No fevers or chills. No N/V/D. Reports "okay appetite". She reports she feels discouraged she is back in the hospital. Per son and [id number] the patient has been declining, has been non-weight bearing since previous surgery. Plan to keep pt in the longterm long-term. Objective Active Medications: Acetaminophen (Tylenol Tab*) 650 mg PO Q4HR PRN PRN Reason: FEVER/PAIN Last Admin: 05/06/16 17:05 Dose: 650 mg Albuterol (Ventolin 2.5 Mg/3 Ml Neb.Victoria*) 2.5 mg INH Q2HR PRN PRN Reason: SOB/WHEEZING Last Admin: 05/06/16 21:49 Dose: 2.5 mg Amiodarone HCl (Cordarone Tab*) [facility] Last Admin: 05/06/16 08:31 Dose: 200 mg Atorvastatin Calcium (Lipitor*) 20 mg PO QAM [facility] Last Admin: 05/06/16 08:30 Dose: 20 mg Carbidopa/Levodopa (Sinemet 25/100 Tab(*)) 1 tab PO 0700 [facility] Last Admin: 05/07/16 08:55 Dose: 1 tab Carbidopa/Levodopa (Sinemet 25/100 Tab(*)) 1 tab PO 1500 [facility] Last Admin: 05/06/16 15:07 Dose: 1 tab Carbidopa/Levodopa (Sinemet 25/100 Tab(*)) 1.5 tab PO 1100 [facility] Last Admin: 05/06/16 11:56 Dose: 1.5 tab Carbidopa/Levodopa (Sinemet 25/100 Tab(*)) 1 tab PO 2100 [facility] Last Admin: 05/06/16 20:05 Dose: 1 tab Citalopram Hydrobromide (Celexa Tab*) [facility] Last Admin: 05/06/16 08:31 Dose: 10 mg Dextrose (D50w Syringe 50 Ml*) 12.5 gm IV PUSH .FOR FS < 60 - SS PRN PRN Reason: .FS < 60 Diphenhydramine HCl (Benadryl Po*) 25 mg PO Q6HR PRN PRN Reason: ITCHING OR INSOMNIA Docusate Sodium (Colace Cap*) 100 mg PO Q12HR [facility] Last Admin: 05/06/16 20:06 Dose: 100 mg Furosemide (Lasix Iv*) 40 mg IV ONCE ONE Stop: 05/07/16 08:58 Heparin Sodium (Porcine) (Heparin Vial(*)) 5,000 units SUBCUT Q8H [facility] Last Admin: 05/07/16 00:44 Dose: 5,000 units Vancomycin HCl 1,000 mg/ (Sodium Chloride) 250 mls @ 166.667 mls/hr IVPB Q8H [facility] Last Admin: 05/07/16 01:44 Dose: 166.667 mls/hr Insulin Human Lispro (Humalog*) 0 units SUBCUT 0730,1130,1630 [facility] PRN Reason: Protocol Last Admin: 05/06/16 17:04 Dose: Not Given Lactulose (Lactulose*) 30 ml PO Q6HR PRN PRN Reason: CONSTIPATION Magnesium Hydroxide (Milk Of Magnesia Liq*) 30 ml PO Q6HR PRN PRN Reason: CONSTIPATION Last Admin: 05/06/16 20:08 Dose: 30 ml Metoprolol Succinate (Toprol Xl Tab*) 25 mg PO [facility] Last Admin: 05/06/16 08:30 Dose: 25 mg Multivitamins (Theragran Tab*) [facility] Last Admin: 05/06/16 08:30 Dose: 1 tab Omeprazole (Prilosec Cap*) 20 mg PO 0730 [facility] Last Admin: 05/07/16 08:55 Dose: 20 mg Ondansetron HCl (Zofran Inj*) 4 mg IV Q6HR PRN PRN Reason: NAUSEA Last Admin: 05/06/16 07:12 Dose: 4 mg Oxycodone HCl (Roxycodone Tab*) 10 mg PO Q4HR PRN PRN Reason: PAIN - UNCONTROLLED Oxycodone/Acetaminophen (Percocet 5/325 Tab*) 1 tab PO Q4HR PRN PRN Reason: PAIN - MODERATE Last Admin: 05/07/16 00:47 Dose: 1 tab Oxycodone/Acetaminophen (Percocet 5/325 Tab*) 2 tab PO Q4HR PRN PRN Reason: PAIN - SEVERE Pharmacy Consult (Vancomycin Per Pharmacy*) 1 note FOLLOW UP . PRN PRN Reason: PER PROTOCOL Pharmacy Profile Note (Vancomycin Trough Check) 1 note FOLLOW UP 1730 ONE Stop: 05/07/16 17:31 Sodium Polystyrene Sulfonate (Kayexalate Oral.Victoria*) 15 gm PO ONCE ONE Stop: 05/07/16 09:00 Tiotropium [place] (Spiriva Cap.Inh*) 1 cap INH QAM BLOSSOM Last Admin: 05/06/16 08:28 Dose: 1 cap Vital Signs 05/06/16 05/06/16 05/06/16 10:16 10:46 13:12 Temperature 99.2 F 98.5 F 98.2 F Pulse Rate 60 62 66 Respiratory 20 20 20 Rate Blood Pressure 108/31 108/29 107/42 (mmHg) O2 Sat by Pulse 98 98 95 Oximetry 05/06/16 05/06/16 05/06/16 14:14 14:22 14:35 Temperature 97.8 F Pulse Rate 62 60 Respiratory 20 16 Rate Blood Pressure 115/44 (mmHg) O2 Sat by Pulse 93 95 Oximetry 05/06/16 05/06/16 05/06/16 15:01 17:12 17:47 Temperature 97.9 F 98.6 F Pulse Rate 64 59 59 Respiratory 20 20 20 Rate Blood Pressure 115/58 105/66 (mmHg) O2 Sat by Pulse 95 97 97 Oximetry 05/06/16 05/06/16 05/06/16 20:00 20:50 20:51 Temperature Pulse Rate 69 Respiratory 22 22 22 Rate Blood Pressure (mmHg) O2 Sat by Pulse 95 Oximetry 05/06/16 05/06/16 05/06/16 22:11 22:31 22:51 Temperature 97.8 F Pulse Rate 59 60 Respiratory 26 24 22 Rate Blood Pressure 193/103 96/31 (mmHg) O2 Sat by Pulse 98 98 Oximetry 05/07/16 05/07/16 05/07/16 00:19 00:47 02:47 Temperature 98.3 F Pulse Rate 60 Respiratory 19 20 20 Rate Blood Pressure 108/65 (mmHg) O2 Sat by Pulse 97 Oximetry 05/07/16 05/07/16 05/07/16 04:11 07:46 07:56 Temperature 98.1 F 98.0 F Pulse Rate 59 58 Respiratory 18 16 Rate Blood Pressure 114/30 135/75 (mmHg) O2 Sat by Pulse 95 95 Oximetry 05/07/16 08:00 Temperature Pulse Rate Respiratory 16 Rate Blood Pressure (mmHg) O2 Sat by Pulse 95 Oximetry Oxygen Devices in Use Now: Nasal Cannula - 2L NC Appearance: morbidly obese female laying in bed, appears mildly dyspneic. A+O x3 Eyes: No Scleral Icterus, PERRLA Ears/Nose/Mouth/Throat: NL Teeth, Lips, Gums, Mucous Membranes Moist Neck: NL Appearance and Movements; NL JVP Respiratory: Symmetrical Chest Expansion and Respiratory Effort, - - crackle to left base Cardiovascular: NL Sounds; No Murmurs; No JVD, - - upper extremities mild b/l edema; LE trace-mild b/l edema. Abdominal: - - obese Extremities: No Clubbing, Cyanosis Skin: - - buttock left and right superifical wounds noted. Left hip dressing intact clean, dry, no noted drainage; tender to palpation Neurological: Alert and Oriented x 3, NL Sensation, NL Muscle Strength and Tone Lines/Tubes/Other Access: Clean, Dry and Intact Peripheral IV Nutrition: Taking PO's Result Diagrams: 05/07/16 06:56 05/07/16 06:56 Additional Lab and Data: Lab Results 05/05/16 05/05/16 05/05/16 Range/Units 13:25 13:25 13:25 WBC 9.1 (3.5-10.8) 10^3/ul RBC 2.64 L (4.0-5.4) 10^6/ul Hgb 8.2 L (12.0-16.0) g/dl Hct 25 L (35-47) % MCV 96 (80-97) fL MCH 31 (27-31) pg MCHC 33 (31-36) g/dl RDW 19 H (10.5-15) % Plt Count 254 (150-450) 10^3/ul MPV 8 (7.4-10.4) um3 Neut % (Auto) 63.0 (38-83) % Lymph % (Auto) 26.1 (25-47) % Calloway % (Auto) 8.8 (1-9) % Eos % (Auto) 1.3 (0-6) % Baso % (Auto) 0.8 (0-2) % Absolute Neuts (auto) 5.7 (1.5-7.7) 10^3/ul Absolute Lymphs (auto) 2.4 (1.0-4.8) 10^3/ul Absolute Monos (auto) 0.8 (0-0.8) 10^3/ul Absolute Eos (auto) 0.1 (0-0.6) 10^3/ul Absolute Basos (auto) 0.1 (0-0.2) 10^3/ul Absolute Nucleated RBC 0.01 10^3/ul Nucleated RBC % 0.1 ESR Pending INR (Anticoag Therapy) 1.17 H (0.89-1.11) APTT 22.7 L (26.0-36.3) seconds Sodium 138 (133-145) mmol/L Potassium 4.3 (3.5-5.0) mmol/L Chloride 106 (101-111) mmol/L Carbon Dioxide 28 (22-32) mmol/L Anion Gap 4 (2-11) mmol/L BUN 49 H (6-24) mg/dL Creatinine 1.86 H (0.51-0.95) mg/dL Est GFR ( Amer) 33.1 (>60) Est GFR (Non-Af Amer) 25.7 (>60) BUN/Creatinine Ratio 26.3 H (8-20) Glucose 111 H (70-100) mg/dL Lactic Acid (0.5-2.0) mmol/L Calcium 7.9 L (8.6-10.3) mg/dL Total Bilirubin 0.70 (0.2-1.0) mg/dL AST 27 (13-39) U/L ALT 10 (7-52) U/L Alkaline Phosphatase 114 H (34-104) U/L Troponin I 0.03 (<0.04) ng/mL C-Reactive Protein 129.58 H (< 5.00) mg/L Total Protein 4.8 L (6.4-8.9) g/dL Albumin 2.1 L (3.2-5.2) g/dL Globulin 2.7 (2-4) g/dL Albumin/Globulin Ratio 0.8 L (1-3) Blood Type Antibody Screen 05/05/16 05/05/16 Range/Units 13:25 13:25 WBC (3.5-10.8) 10^3/ul RBC (4.0-5.4) 10^6/ul Hgb (12.0-16.0) g/dl Hct (35-47) % MCV (80-97) fL MCH (27-31) pg MCHC (31-36) g/dl RDW (10.5-15) % Plt Count (150-450) 10^3/ul MPV (7.4-10.4) um3 Neut % (Auto) (38-83) % Lymph % (Auto) (25-47) % Calloway % (Auto) (1-9) % Eos % (Auto) (0-6) % Baso % (Auto) (0-2) % Absolute Neuts (auto) (1.5-7.7) 10^3/ul Absolute Lymphs (auto) (1.0-4.8) 10^3/ul Absolute Monos (auto) (0-0.8) 10^3/ul Absolute Eos (auto) (0-0.6) 10^3/ul Absolute Basos (auto) (0-0.2) 10^3/ul Absolute Nucleated RBC 10^3/ul Nucleated RBC % ESR INR (Anticoag Therapy) (0.89-1.11) APTT (26.0-36.3) seconds Sodium (133-145) mmol/L Potassium (3.5-5.0) mmol/L Chloride (101-111) mmol/L Carbon Dioxide (22-32) mmol/L Anion Gap (2-11) mmol/L BUN (6-24) mg/dL Creatinine (0.51-0.95) mg/dL Est GFR ( Amer) (>60) Est GFR (Non-Af Amer) (>60) BUN/Creatinine Ratio (8-20) Glucose (70-100) mg/dL Lactic Acid 0.7 (0.5-2.0) mmol/L Calcium (8.6-10.3) mg/dL Total Bilirubin (0.2-1.0) mg/dL AST (13-39) U/L ALT (7-52) U/L Alkaline Phosphatase (34-104) U/L Troponin I (<0.04) ng/mL C-Reactive Protein (< 5.00) mg/L Total Protein (6.4-8.9) g/dL Albumin (3.2-5.2) g/dL Globulin (2-4) g/dL Albumin/Globulin Ratio (1-3) Blood Type A Positive Antibody Screen Negative Microbiology and Other Data: Microbiology 05/05/16 16:35 Anaerobic Culture - Preliminary Wound - Hip Left 05/05/16 16:40 Anaerobic Culture - Preliminary Wound - Hip Left 05/05/16 16:35 Gram Stain - Final Hip Left 05/05/16 16:40 Gram Stain - Final Hip Left Assess/Plan/Problems-Billing Assessment: Ms. Dwyer is a 85 yo female with a PMH of recent left hip fracture s /p hemiarthroplasty, CKD, Diabetes, parkinsons, afib on coumadin, aortic stenosis with bioprosthetic valve who presents with Left hip pain found to have a dislocation and wound dehiscence. - Patient Problems (1) left hip dislocation/wound dihiscence Comment: - taken to OR 2/ by Dr. Saravia for reduction and wash-out POD#2 - wound cx growing pseudomonas - stop Vanco and start cefepime 1gm Q12hr - blood cx no growth Day 1 - ID consult 05/07 - PT/OT - pain medication (2) CKD (chronic kidney disease), stage III Comment: - appears to be around baseline (3) Hypertension Comment: - Continue metoprolol (4) Parkinson disease Comment: - Continue home medications (5) Atrial fibrillation Comment: rate and rhythm controlled on amiodarone, metoprolol (6) Diabetes mellitus Comment: - controlled - FSBG AC with Lispro SS (7) Congestive heart failure Comment: - mild dyspnea this morning, with crackles to bases and increased oxygen demands. She saw barrel raiser helper 2/ and lasix was increased to 80 mg BID . Give 40 mg IV lasix x1 now. (8) Hyperkalemia Comment: - mild. Give kayexalate. Pt also recieving lasix this morning. Will recheck BMP at 1600. (9) Anemia Comment: - Transfused 2 U PRBC 05/06. HH stable (10) Malnutrition Comment: - Severe, chronic with prealbumin of 10 up from 6 04/24/16 - nutrition consult . - Continue Glucerna (11) DVT prophylaxis Comment: HSQ (12) DNR (do not resuscitate) Status and Disposition: inpatient with hip dislocation and wound infection. Plan for subacute ( hopefully back to [facility] at discharge)
[2016-05-07] MEDS ORDERED: Collagenase 250 MG/GM OINT* 30 GM TOPICAL SCH (09:30)
[2016-05-07] MEDS ORDERED: Cefepime(*) 1 GM in NS 0.9% 50 ML* 50 ML IVPB SCH (10:00)
[2016-05-07] MEDS: Cefepime(*) 2 GM in NS 0.9% 50 ML* 50 ML IVPB SCH (10:30)
[2016-05-07] MEDS ORDERED: Vancomycin per Pharmacy* NOTE FOLLOW UP PRN (13:00)
[2016-05-07] MEDS ORDERED: Vancomycin(*) 1,000 MG in NS 0.9% 250 ML* 250 ML IVPB SCH (13:00)
--- NOTE | 2016-05-07 16:26 | CONS ---
CONSULTATION REPORT: DATE OF CONSULT: 05/07/16 REQUESTING PROVIDER: Georgette Vo NP CONSULTING SERVICE: Infectious Disease. REASON FOR CONSULTATION: Left hip hemiarthroplasty wound dehiscence. IMPRESSION: 1. Status post left hip hemiarthroplasty after a comminuted displaced left proximal femur fracture with femoral neck fracture and intratrochanteric fracture fragments. She has had breakdown of the wound and dehiscence likely due to her morbid obesity, diabetes, and chronic kidney disease. There was serosanguineous fluid tracking down to the prosthesis itself, Gram stain has shown polys, but no organisms and the culture is negative. A superficial swab grew pseudomonas that might be colonization of open tissue and may not reflect actual pathogen. 2. ALLERGY TO AMOXICILLIN, though tolerating cefepime. 3. Leukocytosis. 4. Chronic kidney disease, stage 3. 5. Morbid obesity. 6. Type 2 diabetes. 7. Status post right knee arthroplasty, which is asymptomatic. 8. Status post bioprosthetic aortic valve replacement. RECOMMENDATIONS: Agree with cefepime 2 mg once a day, dose per her GFR and weight that will cover pseudomonas and will also cover most of the Gram- positives. She has had vancomycin up until today and was stopped this morning and should remain therapeutic for the next day or two, but I will plan to restart it and cover the usual Gram-positives that may not ever not have grown culture including coag- negative staphylococci. HISTORY OF PRESENT ILLNESS: This is an 85-year-old woman with a recent fall with left hip fracture and hemiarthroplasty as described above, which occurred on 04/07/16. She had been at [facility] in [place], apparently had progressive dehiscence of the left hip incision, and so was sent back to the ER here on May 05. She cannot recall most of those events, but does remember she came back because the wound broke down. She was taken to the OR on the by Dr. Saravia with findings as noted above. Gram-stain culture was sent as above. She had been initially on vancomycin, pseudomonas grew, she was changed to cefepime today. She has had no fevers, chills, sweats, abdominal pain, or diarrhea. She notes left hip pain, which is worse with movement and ongoing. Does not think it is getting better. She has been trialing pain medications, but those help a little bit. Her right knee arthroplasty is asymptomatic. PAST MEDICAL HISTORY: 1. Morbid obesity. 2. Diabetes. 3. Chronic kidney disease, stage 3. 4. Status post right knee arthroplasty. 5. Left femoral neck fracture, status post hemiarthroplasty in April 2016. 6. Atrial fibrillation. 7. Aortic stenosis, status post bioprosthetic aortic valve replacement. 8. Hypertension. 9. Hyperlipidemia. 10. Sick sinus syndrome, status post pacemaker placement. 11. Mitral insufficiency. 12. Coronary artery disease, status post coronary artery bypass grafting. 13. History of ablation. 14. Cataract surgery. 15. She has Parkinson's. ALLERGIES: PROCARDIA, AMOXICILLIN, AND MORPHINE. MEDICATIONS: 1. Tylenol. 2. Albuterol. 3. Amiodarone. 4. Lipitor. 5. Sinemet. 6. Lasix IV. 7. Heparin subcutaneous injection. 8. Insulin Lispro. 9. Lactulose. 10. Omeprazole. 11. Zofran. SOCIAL HISTORY: [facility] living [facility] [place]. Previously lived in her home in [place]. She has no sick contacts. FAMILY HISTORY: No recurrent infections. REVIEW OF SYSTEMS: Negative except as noted above. PHYSICAL EXAM: General: She is awake, in no acute distress. Vital Signs: Temperature 36.7, heart rate 90, respiratory rate 20, blood pressure 135/75, and O2 sat 95% on 4 L. Neurological: She is oriented x3, follows all commands, and answers all questions. HEENT: There is no conjunctival hemorrhage. Oropharynx: Without lesions. Neck: Neck is supple without nuchal rigidity. Lymph Nodes: There are no cervical, supraclavicular, inguinal, axillary, or epitrochlear lymphadenopathy. Heart has regular rate and rhythm without murmurs , rubs, or gallops. Lungs are clear to auscultation bilaterally. Abdomen is obese, nontender, and nondistended. Skin: There is no rashes or splinter hemorrhages. Musculoskeletal: There are no joint synovitis or spine tenderness to palpation. The left hip incision is intact without surrounding erythema. There is no serous drainage, there tissues there are indurated and edematous without fluctuance. DIAGNOSTIC STUDIES/LAB DATA: White blood cell count 12, hemoglobin 8, and platelets 204. Creatinine is 2.3, up from 2.0 yesterday. Vancomycin trough was 7.8 yesterday. Urinalysis showed leukocyte esterase. A urine culture grew Enterococcus faecalis and greater than 100,000 colonies. Please see impressions and recommendations as outline above, which I have discussed with Georgette oV NP. Thanks for asking me to see Ms. Dwyer in consultation. [id number]/CPS #: [id number] MTDD
[2016-05-07 16:36] LABS: BUN/Creatinine Ratio 23.7 (8-20); Calcium 7.4 mg/dL (8.6-10.3); EGFR African American 24.1 (>60); EGFR Non-African American 18.7 (>60); Potassium 5.4 mmol/L (3.5-5.0)
[2016-05-07] MEDS ORDERED: Vancomycin Trough Check NOTE FOLLOW UP ONE (17:30)
[2016-05-07] MEDS ORDERED: Furosemide IV* 10 MG/ML 2 ML VIAL (20 MG) IV ONE (17:30)
[2016-05-08] MEDS: Heparin VIAL(*) 5000 UNITS/ML VIAL (FIVE THOUSAND) SUBCUT SCH ×3 (00:48→18:27)
[2016-05-08] MEDS: Vancomycin(*) 1,000 MG in NS 0.9% 250 ML* 250 ML IVPB SCH ×2 (00:48→14:17)
[2016-05-08] MEDS: Albuterol 2.5 MG/3 ML NEB.SOL* (0.083%) INH PRN (02:58)
[2016-05-08] MEDS: Carbidopa/Levodop 25/100 MG TAB(*) PO SCH ×4 (06:08→21:26)
[2016-05-08 06:52] LABS: Hematocrit 25 % (35-47); Hemoglobin 7.9 g/dl (12.0-16.0); Mean Corpuscular HGB Conc 31 g/dl (31-36); Mean Corpuscular Hemoglobin 30 pg (27-31); Mean Corpuscular Volume 94 fL (80-97); Mean Platelet Volume 8 um3 (7.4-10.4); Red Blood Count 2.69 10^6/ul (4.0-5.4); Red Cell Distribution Width 19 % (10.5-15); White Blood Count 11.6 10^3/ul (3.5-10.8)
[2016-05-08 07:00] LABS: BUN/Creatinine Ratio 24.7 (8-20); Calcium 7.2 mg/dL (8.6-10.3); EGFR Non-African American 17.9 (>60); Potassium 4.8 mmol/L (3.5-5.0)
--- NOTE | 2016-05-08 08:31 | PN ---
Progress Note - Progress Note SOAP: Subjective: []Patient seen at bedside. Discouraged. Denies left hip pain. Feels short of breath, unchanged from yesterday. On NC o2. Wants to know if she will be able to get out of bed and would like a regular diet. Dislikes mechanical ground food. Objective: [] Vital Signs Temp 98.1 F 05/08/16 07:30 Pulse 60 05/08/16 07:30 Resp 18 05/08/16 07:30 BP 115/47 05/08/16 07:30 Pulse Ox 96 05/08/16 07:30 Intake & Output 05/07/16 05/08/16 05/08/16 18:59 06:59 18:59 Intake Total 795 821 Output Total 200 425 Balance 595 396 Intake: IV Fluids 41 ABX - CEFEPIME 41 IVPB 54 296 ABX - CEFEPIME 54 ABX - VANCOMYCIN 279 NS 17 Oral 700 525 Output: Love 200 425 Other: # Bowel Movements 0 Laboratory Results - last 24 hr 05/07/16 05/07/16 05/07/16 12:12 16:06 16:49 WBC RBC Hgb Hct MCV MCH MCHC RDW Plt Count MPV Neut % (Auto) Lymph % (Auto) [place] % (Auto) Eos % (Auto) Baso % (Auto) Absolute Neuts (auto) Absolute Lymphs (auto) Absolute Monos (auto) Absolute Eos (auto) Absolute Basos (auto) Absolute Nucleated RBC Nucleated RBC % Sodium 136 Potassium 5.4 H Chloride 105 Carbon Dioxide 29 Anion Gap 2 BUN 58 H Creatinine 2.45 H Est GFR ( Amer) 24.1 Est GFR (Non-Af Amer) 18.7 BUN/Creatinine Ratio 23.7 H Glucose 144 H POC Glucose (mg/dL) 206 H 202 H Calcium 7.4 L 05/08/16 05/08/16 06:30 06:30 WBC 11.6 H RBC 2.69 L Hgb 7.9 L Hct 25 L MCV 94 MCH 30 MCHC 31 RDW 19 H Plt Count 210 MPV 8 Neut % (Auto) 72.1 Lymph % (Auto) 18.3 L [place] % (Auto) 8.4 Eos % (Auto) 0.8 Baso % (Auto) 0.4 Absolute Neuts (auto) 8.4 H Absolute Lymphs (auto) 2.1 Absolute Monos (auto) 1.0 H Absolute Eos (auto) 0.1 Absolute Basos (auto) 0 Absolute Nucleated RBC 0 Nucleated RBC % 0 Sodium 136 Potassium 4.8 Chloride 104 Carbon Dioxide 28 Anion Gap 4 BUN 63 H Creatinine 2.55 H Est GFR ( Amer) 23.0 Est GFR (Non-Af Amer) 17.9 BUN/Creatinine Ratio 24.7 H Glucose 141 H POC Glucose (mg/dL) Calcium 7.2 L Microbiology 05/06/16 08:00 Urine Culture - Final Urine Enterococcus Faecalis 05/05/16 16:35 Gram Stain - Final Hip Left Wound Culture - Preliminary Pseudomonas Aeruginosa Enterococcus Faecalis 05/05/16 12:53 Aerobic Blood Culture - Preliminary Blood Venous No Growth Day 2 Anaerobic Blood Culture - Preliminary No Growth Day 2 Blood Culture - Final 05/05/16 13:35 Aerobic Blood Culture - Preliminary Blood Venous No Growth Day 2 Anaerobic Blood Culture - Preliminary No Growth Day 2 Blood Culture - Final 05/05/16 16:40 Gram Stain - Final Hip Left Wound Culture - Preliminary Pseudomonas Aeruginosa Enterococcus Faecalis 05/05/16 16:40 Anaerobic Culture - Preliminary Wound - Hip Left 05/05/16 16:35 Anaerobic Culture - Preliminary Wound - Hip Left 05/05/16 12:35 Gram Stain - Final Hip Left Wound Culture - Final Pseudomonas Aeruginosa Normal Laurie 05/05/16 12:35 Nasal Screen MRSA (PCR)([facility]) - Final Nasal Mrsa Negative Left thigh without excessive edema Left hip wound is healing without purulent drainage. scant old bloody drainage on dressing. +DF/PF of the left ankle neuro intact calf non tender Austyn's negative Assessment: []s/p Washout hip wound infection and repair left hip would dehiscence, reduction dislocated left hip hemiarthroplasty POD #3 Plan: On pallitive care per family wishes []IV antibiotics changed to Cefepime. ID consult pending. currently on bedrest, will check with Dr. Saravia if she may progress to OOB in chair. Maintain strict hip precautions Return to subacute nursing facility when medically stable
--- NOTE | 2016-05-08 09:08 | PN ---
Subjective Date of Service: 05/08/16 Interval History: . Patient reports she feels anxious and mild sob stating "I feel like I cant catch my breath". She thinks it is mostly anxiety. She c/o her mouth is very dry. No fever or chills. No N/V/D. We spoke about her wishes for care and treatment and she would like to get better but understands she has multiple chronic illnesses. She is interested in palliative consult. [id number] and son agree with palliative consult. Objective Active Medications: Acetaminophen (Tylenol Tab*) 650 mg PO Q4HR PRN PRN Reason: FEVER/PAIN Last Admin: 05/06/16 17:05 Dose: 650 mg Albuterol (Ventolin 2.5 Mg/3 Ml Neb.Victoria*) 2.5 mg INH Q2HR PRN PRN Reason: SOB/WHEEZING Last Admin: 05/08/16 02:58 Dose: 2.5 mg Amiodarone HCl (Cordarone Tab*) [facility] [place] Last Admin: 05/07/16 09:05 Dose: 200 mg Atorvastatin Calcium (Lipitor*) [facility] [place] Last Admin: 05/07/16 09:04 Dose: 20 mg Carbidopa/Levodopa (Sinemet 25/100 Tab(*)) 1 tab PO 0700 [facility] Last Admin: 05/08/16 06:08 Dose: 1 tab Carbidopa/Levodopa (Sinemet 25/100 Tab(*)) 1 tab PO 1500 [facility] Last Admin: 05/07/16 15:11 Dose: 1 tab Carbidopa/Levodopa (Sinemet 25/100 Tab(*)) 1.5 tab PO 1100 [facility] Last Admin: 05/07/16 12:29 Dose: 1.5 tab Carbidopa/Levodopa (Sinemet 25/100 Tab(*)) 1 tab PO 2100 [facility] Last Admin: 05/07/16 20:25 Dose: 1 tab Citalopram Hydrobromide (Celexa Tab*) [facility] [place] Last Admin: 05/07/16 09:05 Dose: 10 mg Dextrose (D50w Syringe 50 Ml*) 12.5 gm IV PUSH .FOR FS < 60 - SS PRN PRN Reason: .FS < 60 Diphenhydramine HCl (Benadryl Po*) 25 mg PO Q6HR PRN PRN Reason: ITCHING OR INSOMNIA Docusate Sodium (Colace Cap*) 100 mg PO Q12HR [facility] Last Admin: 05/07/16 20:25 Dose: 100 mg Heparin Sodium (Porcine) (Heparin Vial(*)) 5,000 units SUBCUT Q8H [facility] Last Admin: 05/08/16 00:48 Dose: 5,000 units Cefepime HCl 2 gm/ Sodium (Chloride) 50 mls @ 100 mls/hr IVPB Q24H [facility] Last Admin: 05/07/16 10:30 Dose: 100 mls/hr Vancomycin HCl 1,000 mg/ (Sodium Chloride) 250 mls @ 166.667 mls/hr IVPB Q12H [facility] Last Admin: 05/08/16 00:48 Dose: 166.667 mls/hr Insulin Human Lispro (Humalog*) 0 units SUBCUT 0730,1130,1630 [facility] PRN Reason: Protocol Last Admin: 05/07/16 18:13 Dose: 6 units Lactulose (Lactulose*) 30 ml PO Q6HR PRN PRN Reason: CONSTIPATION Magnesium Hydroxide (Milk Of Magnesia Liq*) 30 ml PO Q6HR PRN PRN Reason: CONSTIPATION Last Admin: 05/06/16 20:08 Dose: 30 ml Metoprolol Succinate (Toprol Xl Tab*) 25 mg PO [facility] Last Admin: 05/07/16 09:05 Dose: 25 mg Multivitamins (Theragran Tab*) 1 tab PO [facility] Last Admin: 05/07/16 09:05 Dose: 1 tab Ondansetron HCl (Zofran Inj*) 4 mg IV Q6HR PRN PRN Reason: NAUSEA Last Admin: 05/06/16 07:12 Dose: 4 mg Oxycodone HCl (Roxycodone Tab*) 10 mg PO Q4HR PRN PRN Reason: PAIN - UNCONTROLLED Oxycodone/Acetaminophen (Percocet 5/325 Tab*) 1 tab PO Q4HR PRN PRN Reason: PAIN - MODERATE Last Admin: 05/07/16 09:46 Dose: 1 tab Oxycodone/Acetaminophen (Percocet 5/325 Tab*) 2 tab PO Q4HR PRN PRN Reason: PAIN - SEVERE Pharmacy Consult (Vancomycin Per Pharmacy*) 1 note FOLLOW UP . PRN PRN Reason: PER PROTOCOL Pharmacy Profile Note (Vancomycin Trough Check) 1 note FOLLOW UP ONCE ONE Stop: 05/08/16 12:31 Tiotropium Bath (Spiriva Cap.Inh*) 1 cap INH QAM [facility] Last Admin: 05/07/16 09:05 Dose: 1 cap Vital Signs 05/07/16 05/07/16 05/07/16 09:32 09:46 11:46 Temperature Pulse Rate 89 Respiratory 22 18 18 Rate Blood Pressure (mmHg) O2 Sat by Pulse 84 Oximetry 05/07/16 05/07/16 05/07/16 12:13 12:20 15:21 Temperature 97.9 F 98.6 F Pulse Rate 61 59 Respiratory 16 22 Rate Blood Pressure 98/58 114/38 (mmHg) O2 Sat by Pulse 98 100 Oximetry 05/07/16 05/07/16 05/07/16 16:00 19:59 20:00 Temperature 99.0 F Pulse Rate 59 58 Respiratory 22 22 Rate Blood Pressure 113/41 (mmHg) O2 Sat by Pulse 100 95 95 Oximetry 05/07/16 05/08/16 05/08/16 23:20 02:59 03:52 Temperature 99.2 F 98.7 F Pulse Rate 59 61 59 Respiratory 16 25 16 Rate Blood Pressure 155/99 105/47 (mmHg) O2 Sat by Pulse 95 98 97 Oximetry 05/08/16 07:30 Temperature 98.1 F Pulse Rate 60 Respiratory 18 Rate Blood Pressure 115/47 (mmHg) O2 Sat by Pulse 96 Oximetry Oxygen Devices in Use Now: Nasal Cannula - 2L NC Appearance: elderly obese female A+O x3 in NAD, appears anxious Eyes: No Scleral Icterus, PERRLA Ears/Nose/Mouth/Throat: NL Teeth, Lips, Gums, Mucous Membranes Moist Neck: NL Appearance and Movements; NL JVP Respiratory: Symmetrical Chest Expansion and Respiratory Effort, - - diminished to bases Cardiovascular: NL Sounds; No Murmurs; No JVD, - - no LE edema; upper extremity trace to moderta edema Abdominal: NL Sounds; No Tenderness; No Distention, - - obese Skin: - - left hip dressing CD+I Neurological: Alert and Oriented x 3, NL Sensation, NL Muscle Strength and Tone Lines/Tubes/Other Access: Clean, Dry and Intact Peripheral IV Nutrition: Taking PO's Result Diagrams: 05/08/16 16:15 05/08/16 06:30 Additional Lab and Data: Lab Results 05/05/16 05/05/16 05/05/16 Range/Units 13:25 13:25 13:25 WBC 9.1 (3.5-10.8) 10^3/ul RBC 2.64 L (4.0-5.4) 10^6/ul Hgb 8.2 L (12.0-16.0) g/dl Hct 25 L (35-47) % MCV 96 (80-97) fL MCH 31 (27-31) pg MCHC 33 (31-36) g/dl RDW 19 H (10.5-15) % Plt Count 254 (150-450) 10^3/ul MPV 8 (7.4-10.4) um3 Neut % (Auto) 63.0 (38-83) % Lymph % (Auto) 26.1 (25-47) % [place] % (Auto) 8.8 (1-9) % Eos % (Auto) 1.3 (0-6) % Baso % (Auto) 0.8 (0-2) % Absolute Neuts (auto) 5.7 (1.5-7.7) 10^3/ul Absolute Lymphs (auto) 2.4 (1.0-4.8) 10^3/ul Absolute Monos (auto) 0.8 (0-0.8) 10^3/ul Absolute Eos (auto) 0.1 (0-0.6) 10^3/ul Absolute Basos (auto) 0.1 (0-0.2) 10^3/ul Absolute Nucleated RBC 0.01 10^3/ul Nucleated RBC % 0.1 ESR Pending INR (Anticoag Therapy) 1.17 H (0.89-1.11) APTT 22.7 L (26.0-36.3) seconds Sodium 138 (133-145) mmol/L Potassium 4.3 (3.5-5.0) mmol/L Chloride 106 (101-111) mmol/L Carbon Dioxide 28 (22-32) mmol/L Anion Gap 4 (2-11) mmol/L BUN 49 H (6-24) mg/dL Creatinine 1.86 H (0.51-0.95) mg/dL Est GFR ( Amer) 33.1 (>60) Est GFR (Non-Af Amer) 25.7 (>60) BUN/Creatinine Ratio 26.3 H (8-20) Glucose 111 H (70-100) mg/dL Lactic Acid (0.5-2.0) mmol/L Calcium 7.9 L (8.6-10.3) mg/dL Total Bilirubin 0.70 (0.2-1.0) mg/dL AST 27 (13-39) U/L ALT 10 (7-52) U/L Alkaline Phosphatase 114 H (34-104) U/L Troponin I 0.03 (<0.04) ng/mL C-Reactive Protein 129.58 H (< 5.00) mg/L Total Protein 4.8 L (6.4-8.9) g/dL Albumin 2.1 L (3.2-5.2) g/dL Globulin 2.7 (2-4) g/dL Albumin/Globulin Ratio 0.8 L (1-3) Blood Type Antibody Screen 05/05/16 05/05/16 Range/Units 13:25 13:25 WBC (3.5-10.8) 10^3/ul RBC (4.0-5.4) 10^6/ul Hgb (12.0-16.0) g/dl Hct (35-47) % MCV (80-97) fL MCH (27-31) pg MCHC (31-36) g/dl RDW (10.5-15) % Plt Count (150-450) 10^3/ul MPV (7.4-10.4) um3 Neut % (Auto) (38-83) % Lymph % (Auto) (25-47) % [place] % (Auto) (1-9) % Eos % (Auto) (0-6) % Baso % (Auto) (0-2) % Absolute Neuts (auto) (1.5-7.7) 10^3/ul Absolute Lymphs (auto) (1.0-4.8) 10^3/ul Absolute Monos (auto) (0-0.8) 10^3/ul Absolute Eos (auto) (0-0.6) 10^3/ul Absolute Basos (auto) (0-0.2) 10^3/ul Absolute Nucleated RBC 10^3/ul Nucleated RBC % ESR INR (Anticoag Therapy) (0.89-1.11) APTT (26.0-36.3) seconds Sodium (133-145) mmol/L Potassium (3.5-5.0) mmol/L Chloride (101-111) mmol/L Carbon Dioxide (22-32) mmol/L Anion Gap (2-11) mmol/L BUN (6-24) mg/dL Creatinine (0.51-0.95) mg/dL Est GFR ( Amer) (>60) Est GFR (Non-Af Amer) (>60) BUN/Creatinine Ratio (8-20) Glucose (70-100) mg/dL Lactic Acid 0.7 (0.5-2.0) mmol/L Calcium (8.6-10.3) mg/dL Total Bilirubin (0.2-1.0) mg/dL AST (13-39) U/L ALT (7-52) U/L Alkaline Phosphatase (34-104) U/L Troponin I (<0.04) ng/mL C-Reactive Protein (< 5.00) mg/L Total Protein (6.4-8.9) g/dL Albumin (3.2-5.2) g/dL Globulin (2-4) g/dL Albumin/Globulin Ratio (1-3) Blood Type A Positive Antibody Screen Negative Microbiology and Other Data: Microbiology 05/05/16 16:35 Anaerobic Culture - Preliminary Wound - Hip Left 05/05/16 16:40 Anaerobic Culture - Preliminary Wound - Hip Left 05/05/16 16:35 Gram Stain - Final Hip Left 05/05/16 16:40 Gram Stain - Final Hip Left Assess/Plan/Problems-Billing Assessment: Ms. Dwyer is a 85 yo female with a PMH of recent left hip fracture s /p hemiarthroplasty, CKD, Diabetes, parkinsons, afib on coumadin, aortic stenosis with bioprosthetic valve who presents with Left hip pain found to have a dislocation and wound dehiscence. - Patient Problems (1) left hip dislocation/wound dihiscence Comment: - taken to OR 2/[address] Saravia for reduction and wash-out POD#3 - wound cx growing pseudomonas and enterococcus f. - blood cx no growth Day 2 - ID consult following, switch to zosyn - PT/OT - pain medication (2) CKD (chronic kidney disease), stage III Comment: - creatinine trending up. - UTI. obtain renal u/s - send urine to check FENA (3) Congestive heart failure Comment: - mild acute on chronic diastolic CHF - per daughter she saw her summer law clerk 05/03/16 and lasix was increased to 80 mg BID - Determine need for diuresing - plan to obtain chest xray now- in the setting of JASMIN, pt was given 40 mg IV x1 yesterday and creatinine increased. (4) Hypertension Comment: - Continue metoprolol (5) Parkinson disease Comment: - Continue home medications (6) Atrial fibrillation Comment: rate and rhythm controlled on amiodarone, metoprolol (7) Diabetes mellitus Comment: - controlled - FSBG AC with Lispro SS (8) Hyperkalemia Comment: - resolved (9) Anemia Comment: - Mix of chronic iron deficiency anemia, acute blood loss anemia. - Transfused 2 U PRBC 05/06. HH stable. (10) Urinary tract infection Comment: - growing enterococcus f. - continue zosyn (11) Malnutrition Comment: - Severe, chronic with prealbumin of 10 up from 6 04/24/16 - nutrition consult . - Continue Glucerna (12) DVT prophylaxis Comment: HSQ (13) DNR (do not resuscitate) Status and Disposition: inpatient with hip dislocation and wound infection. Awaiting Palliative/Hospice consult which family is in support of.
[2016-05-08] MEDS: Atorvastatin* 20 MG TAB PO SCH (09:23)
[2016-05-08] MEDS: Metoprolol Succinate XL TAB* 25 MG PO SCH (09:23)
[2016-05-08] MEDS: Docusate CAP* 100 MG PO SCH ×2 (09:24→21:26)
[2016-05-08] MEDS: Tiotropium CAP.INH* CAP.INH/18 MCG (USE ORDER SET !) INH SCH (09:24)
[2016-05-08] MEDS: Vitamin THERAPEUTIC TAB PO SCH (09:24)
[2016-05-08] MEDS: Amiodarone TAB* 200 MG PO SCH (09:24)
[2016-05-08] MEDS: Citalopram TAB* 10 MG PO SCH (09:24)
[2016-05-08] MEDS: Insulin LISPRO* 1 UNITS UNIT SUBCUT SCH ×3 (09:28→18:30)
[2016-05-08] MEDS: Cefepime(*) 2 GM in NS 0.9% 50 ML* 50 ML IVPB SCH (09:32)
[2016-05-08] MEDS: oxyCODONE/Acetamin 5/325 MG* TAB PO PRN (11:51)
[2016-05-08] MEDS ORDERED: Vancomycin Trough Check NOTE FOLLOW UP ONE (12:30)
--- NOTE | 2016-05-08 14:58 | PN ---
Progress Note - Progress Note SOAP: Subjective: DOS: 05/08/15 CC: hip pain HPI:85 yo woman with left hemiarthroplasty after a fall and femur fx, now with wound dehiscence. Had I&D, tolerated it well. Pain is improved today. No fever, rash or diarrhea. Objective: [] Vital Signs Temp 36.3 C 05/08/16 11:58 Pulse 62 05/08/16 11:58 Resp 16 05/08/16 13:51 BP 111/47 05/08/16 11:58 Pulse Ox 100 05/08/16 11:58 Intake & Output 05/07/16 05/08/16 05/08/16 18:59 06:59 18:59 Intake Total 795 821 640 Output Total 200 425 200 Balance 595 396 440 Intake: IV Fluids 41 ABX - CEFEPIME 41 IVPB 54 296 ABX - CEFEPIME 54 ABX - VANCOMYCIN 279 NS 17 Oral 700 525 640 Output: Love 200 425 200 Other: # Bowel Movements 0 Laboratory Results - last 24 hr 05/07/16 05/07/16 05/08/16 16:06 16:49 06:30 WBC 11.6 H RBC 2.69 L Hgb 7.9 L Hct 25 L MCV 94 MCH 30 MCHC 31 RDW 19 H Plt Count 210 MPV 8 Neut % (Auto) 72.1 Lymph % (Auto) 18.3 L [place] % (Auto) 8.4 Eos % (Auto) 0.8 Baso % (Auto) 0.4 Absolute Neuts (auto) 8.4 H Absolute Lymphs (auto) 2.1 Absolute Monos (auto) 1.0 H Absolute Eos (auto) 0.1 Absolute Basos (auto) 0 Absolute Nucleated RBC 0 Nucleated RBC % 0 Sodium 136 Potassium 5.4 H Chloride 105 Carbon Dioxide 29 Anion Gap 2 BUN 58 H Creatinine 2.45 H Est GFR ( Amer) 24.1 Est GFR (Non-Af Amer) 18.7 BUN/Creatinine Ratio 23.7 H Glucose 144 H POC Glucose (mg/dL) 202 H Calcium 7.4 L Vancomycin Trough 05/08/16 05/08/16 05/08/16 06:30 08:22 11:49 WBC RBC Hgb Hct MCV MCH MCHC RDW Plt Count MPV Neut % (Auto) Lymph % (Auto) [place] % (Auto) Eos % (Auto) Baso % (Auto) Absolute Neuts (auto) Absolute Lymphs (auto) Absolute Monos (auto) Absolute Eos (auto) Absolute Basos (auto) Absolute Nucleated RBC Nucleated RBC % Sodium 136 Potassium 4.8 Chloride 104 Carbon Dioxide 28 Anion Gap 4 BUN 63 H Creatinine 2.55 H Est GFR ( Amer) 23.0 Est GFR (Non-Af Amer) 17.9 BUN/Creatinine Ratio 24.7 H Glucose 141 H POC Glucose (mg/dL) 218 H 176 H Calcium 7.2 L Vancomycin Trough 05/08/16 13:05 WBC RBC Hgb Hct MCV MCH MCHC RDW Plt Count MPV Neut % (Auto) Lymph % (Auto) [place] % (Auto) Eos % (Auto) Baso % (Auto) Absolute Neuts (auto) Absolute Lymphs (auto) Absolute Monos (auto) Absolute Eos (auto) Absolute Basos (auto) Absolute Nucleated RBC Nucleated RBC % Sodium Potassium Chloride Carbon Dioxide Anion Gap BUN Creatinine Est GFR ( Amer) Est GFR (Non-Af Amer) BUN/Creatinine Ratio Glucose POC Glucose (mg/dL) Calcium Vancomycin Trough 24.6 Assessment: 1. left hip hemiarthroplasty infection; polymicrobial 2. morbid obesity 3. diabetes 4. CKD 5. acute kidney injury, pre renal by labs 6. amox allergy, tolerated zosyn Plan: 1. stop vanco/cefepime, start zosyn doses for GFR <10. Will need 6 weeks IV then lifelong PO. 2. follow UOP. Consider FENA and echo. Discussed with Alexa Vo NP
[2016-05-08] MEDS ORDERED: ZOSYN 3.375 GM ONE TIME DOSE-OVER 30 MINUTES IVPB (15:00)
[2016-05-08 16:29] LABS: Hematocrit 26 % (35-47); Hemoglobin 8.2 g/dl (12.0-16.0)
[2016-05-08 16:34] LABS: Comments Flag Yes
[2016-05-08] MEDS ORDERED: Furosemide IV* 10 MG/ML 2 ML VIAL (20 MG) IV ONE (18:08)
--- NOTE | 2016-05-08 18:33 | RAD ---
HISTORY: Shortness of breath COMPARISONS: May 05, 2016 VIEWS:1: Single frontal portable view of the chest at 5:59 PM FINDINGS: LINES AND TUBES: None. CARDIOMEDIASTINAL SILHOUETTE: The cardiomediastinal silhouette is stable. PLEURA: The costophrenic angles are sharp. No pleural abnormalities are noted. LUNG PARENCHYMA: There is prominence of the central pulmonary vascular culture with a mild diffuse reticular pattern. There is patchy alveolar opacification of the lung bases bilaterally. ABDOMEN: The upper abdomen is clear. There is no subphrenic gas. BONES AND SOFT TISSUES: The patient is status post median sternotomy. There are advanced degenerative changes of the right shoulder. A left-sided pacemaker is noted. A left atrial appendage prosthesis is noted. IMPRESSION: MILD PULMONARY INTERSTITIAL EDEMA WITH BIBASILAR ATELECTASIS VERSUS CONSOLIDATION
--- NOTE | 2016-05-08 19:31 | RAD ---
HISTORY: Urinary tract infection COMPARISONS: None TECHNIQUE: Multiple transverse and longitudinal ultrasound images were obtained of the kidneys and bladder using grayscale and color Doppler imaging. FINDINGS: The study is limited by patient body habitus. RIGHT KIDNEY: There is renal cortical parenchymal thinning. There is no hydronephrosis or nephrolithiasis. The right kidney measures 9.4 x 4.2 x 3.4 cm. LEFT KIDNEY: There is renal cortical parenchymal thinning. There is no hydronephrosis or nephrolithiasis. The left kidney measures 10.1 x 5 x 3.3 cm. BLADDER: The bladder is not well visualized secondary to incomplete distention and body habitus. AORTA AND IVC: No images are submitted of the vasculature. RETROPERITONEUM: Unremarkable. OTHER: None. IMPRESSION: 1. NO HYDRONEPHROSIS OR NEPHROLITHIASIS. 2. LIMITED EVALUATION OF THE BLADDER
[2016-05-08] MEDS: Piperac/Tazob 3.375 gm in NS* 3.375 GM/100 ML BAG IVPB SCH (21:25)
[2016-05-08] MEDS: Magnesium Hydroxide LIQ* 30 ML UDC PO PRN (22:24)
[2016-05-09] MEDS: oxyCODONE/Acetamin 5/325 MG* TAB PO PRN (00:56)
[2016-05-09] MEDS: Heparin VIAL(*) 5000 UNITS/ML VIAL (FIVE THOUSAND) SUBCUT SCH ×3 (00:57→18:40)
[2016-05-09] MEDS: Carbidopa/Levodop 25/100 MG TAB(*) PO SCH ×4 (06:21→19:53)
[2016-05-09 06:56] LABS: Hematocrit 25 % (35-47); Hemoglobin 7.8 g/dl (12.0-16.0); Mean Corpuscular HGB Conc 31 g/dl (31-36); Mean Corpuscular Hemoglobin 30 pg (27-31); Mean Corpuscular Volume 96 fL (80-97); Mean Platelet Volume 8 um3 (7.4-10.4); Red Blood Count 2.59 10^6/ul (4.0-5.4); Red Cell Distribution Width 19 % (10.5-15); White Blood Count 8.6 10^3/ul (3.5-10.8)
[2016-05-09 06:57] LABS: Add Diff/Slide Review? Slide Review Added; Comments Flag Yes
[2016-05-09 06:58] LABS: Calcium 7.3 mg/dL (8.6-10.3); EGFR African American 23.5 (>60); EGFR Non-African American 18.3 (>60); Potassium 4.8 mmol/L (3.5-5.0)
--- NOTE | 2016-05-09 07:47 | PN ---
Progress Note - Progress Note SOAP: Subjective: Pt. reports no hip pain, would like to get out of bed. Objective: LLE - dressing c/d/i. +df/pf. reports fulls sens lt. Vital Signs: Temp Pulse Resp BP Pulse Ox 97.8 F 61 20 103/34 98 05/09/16 03:34 05/09/16 03:34 05/09/16 03:34 05/09/16 03:34 05/09/16 03:34 Laboratory Results - last 24 hr 05/08/16 05/08/16 05/08/16 08:22 11:49 13:05 WBC RBC Hgb Hct MCV MCH MCHC RDW Plt Count MPV Neut % (Auto) Lymph % (Auto) [place] % (Auto) Eos % (Auto) Baso % (Auto) Absolute Neuts (auto) Absolute Lymphs (auto) Absolute Monos (auto) Absolute Eos (auto) Absolute Basos (auto) Absolute Nucleated RBC Nucleated RBC % Sodium Potassium Chloride Carbon Dioxide Anion Gap BUN Creatinine Est GFR ( Amer) Est GFR (Non-Af Amer) BUN/Creatinine Ratio Glucose POC Glucose (mg/dL) 218 H 176 H Calcium Ur Random Creatinine Ur Random Sodium Vancomycin Trough 24.6 05/08/16 05/08/16 05/09/16 16:15 17:30 04:58 WBC RBC Hgb 8.2 L Hct 26 L MCV MCH MCHC RDW Plt Count MPV Neut % (Auto) Lymph % (Auto) [place] % (Auto) Eos % (Auto) Baso % (Auto) Absolute Neuts (auto) Absolute Lymphs (auto) Absolute Monos (auto) Absolute Eos (auto) Absolute Basos (auto) Absolute Nucleated RBC Nucleated RBC % Sodium Potassium Chloride Carbon Dioxide Anion Gap BUN Creatinine Est GFR ( Amer) Est GFR (Non-Af Amer) BUN/Creatinine Ratio Glucose POC Glucose (mg/dL) 203 H Calcium Ur Random Creatinine 77.83 Ur Random Sodium 23 Vancomycin Trough 05/09/16 05/09/16 05/09/16 06:12 06:12 07:31 WBC 8.6 RBC 2.59 L Hgb 7.8 L Hct 25 L MCV 96 MCH 30 MCHC 31 RDW 19 H Plt Count 210 MPV 8 Neut % (Auto) 69.8 Lymph % (Auto) 20.2 L [place] % (Auto) 7.3 Eos % (Auto) 2.1 Baso % (Auto) 0.6 Absolute Neuts (auto) 6.0 Absolute Lymphs (auto) 1.7 Absolute Monos (auto) 0.6 Absolute Eos (auto) 0.2 Absolute Basos (auto) 0.1 Absolute Nucleated RBC 0 Nucleated RBC % 0 Sodium 139 Potassium 4.8 Chloride 107 Carbon Dioxide 28 Anion Gap 4 BUN 65 H Creatinine 2.50 H Est GFR ( Amer) 23.5 Est GFR (Non-Af Amer) 18.3 BUN/Creatinine Ratio 26.0 H Glucose 101 H POC Glucose (mg/dL) 163 H Calcium 7.3 L Ur Random Creatinine Ur Random Sodium Vancomycin Trough Assessment: 85 yo F pod 3 s/p I and D open wound L hip with open reduction of hemiarthroplasty dislocation Plan: cont iv abx per med/ID leave retention sutures in place may get oobtc when possible -strict post hip precautions medicine communicated hospice consult - will follow
[2016-05-09] MEDS: Insulin LISPRO* 1 UNITS UNIT SUBCUT SCH ×3 (08:02→18:39)
[2016-05-09] MEDS: Piperac/Tazob 3.375 gm in NS* 3.375 GM/100 ML BAG IVPB SCH ×2 (08:05→19:54)
--- NOTE | 2016-05-09 09:57 | PN ---
Progress Note - Progress Note SOAP: Subjective: DOS: 05/09/15 CC: hip pain HPI:85 yo woman with left hemiarthroplasty after a fall and femur fx, now with wound dehiscence. Had I&D, tolerated it well. Pain is gone from hip. No fever , rash or diarrhea. Tolerating abx well, no problem with IV. Wants to get out of bed. Objective: [] Vital Signs Temp 36.3 C 05/09/16 07:22 Pulse 66 05/09/16 08:29 Resp 20 05/09/16 07:22 BP 121/62 05/09/16 07:22 Pulse Ox 100 05/09/16 07:22 Intake & Output 05/08/16 05/09/16 05/09/16 18:59 06:59 18:59 Intake Total 640 500 Output Total 200 750 Balance 440 -250 Intake: Oral 640 500 Output: Love 200 750 Gen:No distress Neuro:AAOx3, moves all extremities HEENT:PERRL, MMM Neck:supple Heart:RRR no murmur Lungs:CTA BL Abd:+BS NTND soft Skin: no rash MSK: L hip incision intact Laboratory Results - last 24 hr 05/08/16 05/08/16 05/08/16 11:49 13:05 16:15 WBC RBC Hgb 8.2 L Hct 26 L MCV MCH MCHC RDW Plt Count MPV Neut % (Auto) Lymph % (Auto) [place] % (Auto) Eos % (Auto) Baso % (Auto) Absolute Neuts (auto) Absolute Lymphs (auto) Absolute Monos (auto) Absolute Eos (auto) Absolute Basos (auto) Absolute Nucleated RBC Nucleated RBC % Sodium Potassium Chloride Carbon Dioxide Anion Gap BUN Creatinine Est GFR ( Amer) Est GFR (Non-Af Amer) BUN/Creatinine Ratio Glucose POC Glucose (mg/dL) 176 H Calcium Ur Random Creatinine Ur Random Sodium Vancomycin Trough 24.6 05/08/16 05/09/16 05/09/16 17:30 04:58 06:12 WBC 8.6 RBC 2.59 L Hgb 7.8 L Hct 25 L MCV 96 MCH 30 MCHC 31 RDW 19 H Plt Count 210 MPV 8 Neut % (Auto) 69.8 Lymph % (Auto) 20.2 L [place] % (Auto) 7.3 Eos % (Auto) 2.1 Baso % (Auto) 0.6 Absolute Neuts (auto) 6.0 Absolute Lymphs (auto) 1.7 Absolute Monos (auto) 0.6 Absolute Eos (auto) 0.2 Absolute Basos (auto) 0.1 Absolute Nucleated RBC 0 Nucleated RBC % 0 Sodium Potassium Chloride Carbon Dioxide Anion Gap BUN Creatinine Est GFR ( Amer) Est GFR (Non-Af Amer) BUN/Creatinine Ratio Glucose POC Glucose (mg/dL) 203 H Calcium Ur Random Creatinine 77.83 Ur Random Sodium 23 Vancomycin Trough 05/09/16 05/09/16 06:12 07:31 WBC RBC Hgb Hct MCV MCH MCHC RDW Plt Count MPV Neut % (Auto) Lymph % (Auto) [place] % (Auto) Eos % (Auto) Baso % (Auto) Absolute Neuts (auto) Absolute Lymphs (auto) Absolute Monos (auto) Absolute Eos (auto) Absolute Basos (auto) Absolute Nucleated RBC Nucleated RBC % Sodium 139 Potassium 4.8 Chloride 107 Carbon Dioxide 28 Anion Gap 4 BUN 65 H Creatinine 2.50 H Est GFR ( Amer) 23.5 Est GFR (Non-Af Amer) 18.3 BUN/Creatinine Ratio 26.0 H Glucose 101 H POC Glucose (mg/dL) 163 H Calcium 7.3 L Ur Random Creatinine Ur Random Sodium Vancomycin Trough Renal US no hydronephrosis Assessment: 1. left hip hemiarthroplasty infection; polymicrobial 2. morbid obesity 3. diabetes 4. CKD 5. acute kidney injury, pre renal by labs, Cr flat today, BUN continues to rise , FENA .5%, no recent contrast dye 6. amox allergy, tolerating zosyn Plan: 1. zosyn 3.375 gm IV Q12hrs doses for GFR <10. Will need 6 weeks IV then lifelong PO. 2. ongoing discussion with patient and family regarding goals of treatment.
[2016-05-09] MEDS: Metoprolol Succinate XL TAB* 25 MG PO SCH (10:06)
[2016-05-09] MEDS: Citalopram TAB* 10 MG PO SCH (10:06)
[2016-05-09] MEDS: Vitamin THERAPEUTIC TAB PO SCH (10:06)
[2016-05-09] MEDS: Atorvastatin* 20 MG TAB PO SCH (10:06)
[2016-05-09] MEDS: Amiodarone TAB* 200 MG PO SCH (10:06)
[2016-05-09] MEDS: Tiotropium CAP.INH* CAP.INH/18 MCG (USE ORDER SET !) INH SCH (10:07)
[2016-05-09] MEDS: Docusate CAP* 100 MG PO SCH ×2 (10:07→19:52)
[2016-05-09] MEDS ORDERED: Vancomycin Trough Check NOTE FOLLOW UP ONE (12:30)
--- NOTE | 2016-05-09 19:11 | PN ---
Subjective Date of Service: 05/09/16 Interval History: Patient seen and examined at bedside. Pt states that she is feeling well. Denies fever, chills, shortness of breath, chest discomfort, N/V/D. Pt states that her edema is improved since she was here in April. Discussed with Pt about getting a Palliative care consult and Pt agrees. Family History: Unchanged from Admission Social History: Unchanged from Admission Past Medical History: Unchanged from Admission Objective Active Medications: Acetaminophen (Tylenol Tab*) 650 mg PO Q4HR PRN Reason: FEVER/PAIN Albuterol (Ventolin 2.5 Mg/3 Ml Neb.Victoria*) 2.5 mg INH Q2HR PRN Reason: SOB/ WHEEZING Amiodarone HCl (Cordarone Tab*) 200 mg PO QAM [facility] Atorvastatin Calcium (Lipitor*) 20 mg PO QAM [facility] Carbidopa/Levodopa (Sinemet 25/100 Tab(*)) 1 tab PO 0700 [facility] Carbidopa/Levodopa (Sinemet 25/100 Tab(*)) 1 tab PO 1500 [facility] Carbidopa/Levodopa (Sinemet 25/100 Tab(*)) 1.5 tab PO 1100 [facility] Carbidopa/Levodopa (Sinemet 25/100 Tab(*)) 1 tab PO 2100 [facility] Citalopram Hydrobromide (Celexa Tab*) 10 mg PO QAM [facility] Dextrose (D50w Syringe 50 Ml*) 12.5 gm IV PUSH .FOR FS < 60 - SS PRN Reason: .FS < 60 Diphenhydramine HCl (Benadryl Po*) 25 mg PO Q6HR PRN Reason: ITCHING OR INSOMNIA Docusate Sodium (Colace Cap*) 100 mg PO Q12HR [facility] Heparin Sodium (Porcine) (Heparin Vial(*)) 5,000 units SUBCUT Q8H [facility] Piperacillin Sod/Tazobactam Sod (Zosyn 3.375 Gm In Ns Premix*) 3.375 gm in 100 mls @ 25 mls/hr IVPB Q12H [facility] Insulin Human Lispro (Humalog*) 0 units SUBCUT 0730,1130,1630 [facility] Lactulose (Lactulose*) 30 ml PO Q6HR PRN Reason: CONSTIPATION Magnesium Hydroxide (Milk Of Magnesia Liq*) 30 ml PO Q6HR PRN Reason: CONSTIPATION Metoprolol Succinate (Toprol Xl Tab*) 25 mg PO QAM [facility] Multivitamins (Theragran Tab*) 1 tab PO QAM [facility] Ondansetron HCl (Zofran Inj*) 4 mg IV Q6HR PRN Reason: NAUSEA Oxycodone HCl (Roxycodone Tab*) 10 mg PO Q4HR PRN Reason: PAIN - UNCONTROLLED Oxycodone/Acetaminophen (Percocet 5/325 Tab*) 1 tab PO Q4HR PRN Reason: PAIN - MODERATE Oxycodone/Acetaminophen (Percocet 5/325 Tab*) 2 tab PO Q4HR PRN Reason: PAIN - SEVERE Tiotropium [place] (Spiriva Cap.Inh*) 1 cap INH QAM [facility] Vital Signs 05/08/16 05/08/16 05/08/16 19:56 20:00 23:45 Temperature 97.8 F 97.6 F Pulse Rate 60 60 59 Respiratory 20 20 20 Rate Blood Pressure 100/46 123/42 (mmHg) O2 Sat by Pulse 100 98 100 Oximetry 05/09/16 05/09/16 05/09/16 00:00 00:56 02:56 Temperature Pulse Rate Respiratory 20 20 Rate Blood Pressure (mmHg) O2 Sat by Pulse 98 Oximetry 05/09/16 05/09/16 05/09/16 03:34 07:22 08:29 Temperature 97.8 F 97.4 F Pulse Rate 61 57 66 Respiratory 20 20 Rate Blood Pressure 103/34 121/62 (mmHg) O2 Sat by Pulse 98 100 Oximetry 05/09/16 05/09/16 05/09/16 08:56 12:10 16:00 Temperature 97.6 F Pulse Rate 59 Respiratory 18 20 Rate Blood Pressure 118/52 (mmHg) O2 Sat by Pulse 100 100 97 Oximetry 05/09/16 05/09/16 16:31 16:40 Temperature 98.0 F Pulse Rate 56 63 Respiratory 19 Rate Blood Pressure (mmHg) O2 Sat by Pulse 82 97 Oximetry Oxygen Devices in Use Now: Nasal Cannula - 2L NC Appearance: NAD, laying in bed Eyes: No Scleral Icterus, PERRLA Ears/Nose/Mouth/Throat: NL Teeth, Lips, Gums, Mucous Membranes Moist Neck: NL Appearance and Movements; NL JVP, Trachea Midline Respiratory: Symmetrical Chest Expansion and Respiratory Effort, Clear to Auscultation - , diminished Cardiovascular: NL Sounds; No Murmurs; No JVD, RRR Abdominal: NL Sounds; No Tenderness; No Distention - Bowel sounds present Extremities: - - 1-2+ generalized edema Skin: - - Dressing to left hip clean, dry and intact Neurological: Alert and Oriented x 3 Lines/Tubes/Other Access: Clean, Dry and Intact Peripheral IV - site benign Nutrition: Taking PO's Result Diagrams: 05/09/16 06:12 05/09/16 06:12 Microbiology and Other Data: Microbiology 05/05/16 16:35 Anaerobic Culture - Preliminary Wound - Hip Left 05/05/16 16:40 Anaerobic Culture - Preliminary Wound - Hip Left 05/05/16 16:35 Gram Stain - Final Hip Left 05/05/16 16:40 Gram Stain - Final Hip Left Assess/Plan/Problems-Billing Assessment: Ms. Dwyer is a 85 yo female with a PMH of recent left hip fracture s /p hemiarthroplasty, CKD, Diabetes, parkinsons, afib on coumadin, aortic stenosis with bioprosthetic valve who presents with Left hip pain found to have a dislocation and wound dehiscence. - Patient Problems (1) left hip dislocation/wound dihiscence Comment: - S/P reduction and wash-out with Dr. Saravia, POD#4 - wound cx growing pseudomonas and enterococcus f. - blood cx no growth Day 4 - ID consult following, continue zosyn. Will need 6 weeks IV ABX - PT/OT - pain medication (2) CKD (chronic kidney disease), stage III Code(s): N18.3 - CHRONIC KIDNEY DISEASE, STAGE 3 (MODERATE) SNOMED Code(s): 599294593 Comment: - Creatinine trending up. - Enterococcus Faecalis UTI. - Renal US - WNL - FENA 0.5%, Prerenal (3) Congestive heart failure Code(s): I50.9 - HEART FAILURE, UNSPECIFIED SNOMED Code(s): 66052684 Comment: - mild acute on chronic diastolic CHF - per daughter she saw her splitter hand 05/03/16 and lasix was increased to 80 mg BID - Determine need for diuresing - chest xray yesterday showed mild pulmonary interstitial edema, - in the setting of JASMIN, pt was given 20 mg IV x1 yesterday and creatinine increased. (4) Urinary tract infection Comment: - Growing enterococcus f. - Continue zosyn (5) Anemia Code(s): D64.9 - ANEMIA, UNSPECIFIED SNOMED Code(s): 951903826 Comment: - Mix of chronic iron deficiency anemia, acute blood loss anemia. - Transfused 2 U PRBC /. HH stable. (6) Atrial fibrillation Code(s): I48.91 - UNSPECIFIED ATRIAL FIBRILLATION SNOMED Code(s): 35356045 Comment: - Rate and rhythm controlled on amiodarone and metoprolol - Plan to resume Coumadin when ok with Ortho (7) Diabetes mellitus Code(s): E11.9 - TYPE 2 DIABETES MELLITUS WITHOUT COMPLICATIONS SNOMED Code(s) : 20494471 Comment: - Controlled, glucose 150-200's - FSBG AC with Lispro SS (8) Hypertension Code(s): I10 - ESSENTIAL (PRIMARY) HYPERTENSION SNOMED Code(s): 90197321 Comment: - SBP 100-120's - Continue metoprolol (9) Malnutrition Code(s): E46 - UNSPECIFIED PROTEIN-CALORIE MALNUTRITION SNOMED Code(s): 5314257 Comment: - Severe, chronic with prealbumin of 10 up from 6 04/24/16 - Nutrition consult - Continue Glucerna (10) Parkinson disease Code(s): G20 - PARKINSON'S DISEASE SNOMED Code(s): 99865725 Comment: - Continue home medications (11) Hyperkalemia Code(s): E87.5 - HYPERKALEMIA SNOMED Code(s): 44247974 Comment: Resolved (12) DVT prophylaxis Code(s): [id number] - SNOMED Code(s): 029418953 Comment: - HSQ - Plan to resume Coumadin when ok with Ortho (13) DNR (do not resuscitate) Status and Disposition: inpatient with hip dislocation and wound infection. Awaiting Palliative/Hospice consult which family is in support of.
[2016-05-10] MEDS: Heparin VIAL(*) 5000 UNITS/ML VIAL (FIVE THOUSAND) SUBCUT SCH ×3 (01:21→16:09)
[2016-05-10] MEDS: oxyCODONE/Acetamin 5/325 MG* TAB PO PRN ×2 (02:25→16:09)
[2016-05-10 07:04] LABS: Hematocrit 24 % (35-47); Hemoglobin 7.7 g/dl (12.0-16.0)
[2016-05-10 07:26] LABS: BUN/Creatinine Ratio 28.2 (8-20); Calcium 7.5 mg/dL (8.6-10.3); EGFR African American 24.6 (>60); EGFR Non-African American 19.1 (>60); Potassium 4.6 mmol/L (3.5-5.0)
[2016-05-10] MEDS: Insulin LISPRO* 1 UNITS UNIT SUBCUT SCH ×3 (07:56→17:42)
[2016-05-10] MEDS: Carbidopa/Levodop 25/100 MG TAB(*) PO SCH ×4 (07:56→21:16)
[2016-05-10] MEDS: Tiotropium CAP.INH* CAP.INH/18 MCG (USE ORDER SET !) INH SCH (08:38)
[2016-05-10] MEDS: Atorvastatin* 20 MG TAB PO SCH (08:38)
[2016-05-10] MEDS: Metoprolol Succinate XL TAB* 25 MG PO SCH (08:38)
[2016-05-10] MEDS: Vitamin THERAPEUTIC TAB PO SCH (08:38)
[2016-05-10] MEDS: Docusate CAP* 100 MG PO SCH ×2 (08:38→21:16)
[2016-05-10] MEDS: Amiodarone TAB* 200 MG PO SCH (08:39)
[2016-05-10] MEDS: Citalopram TAB* 10 MG PO SCH (08:39)
[2016-05-10] MEDS: Piperac/Tazob 3.375 gm in NS* 3.375 GM/100 ML BAG IVPB SCH ×2 (08:47→21:16)
--- NOTE | 2016-05-10 09:44 | PN ---
Progress Note - Progress Note SOAP: Subjective: []Patient seen at bedside. international student counselor present. Denies hip pain. Still short of breath ,on O2 NC. Objective: [] Vital Signs Temp 97.8 F 05/10/16 07:15 Pulse 62 05/10/16 07:15 Resp 14 05/10/16 07:15 BP 116/35 05/10/16 07:15 Pulse Ox 97 05/10/16 07:15 Intake & Output 05/09/16 05/10/16 05/10/16 18:59 06:59 18:59 Intake Total 460 596 120 Output Total 300 550 10 Balance 160 46 110 Intake: IV Fluids 41 NS 41 IVPB 215 Zosyn 215 Oral 460 340 120 Output: Love 300 550 Liquid Stool 10 Other: Estimated Void Small # Bowel Movements 1 1 Estimated Stool Amount Small Small Laboratory Results - last 24 hr 05/09/16 05/09/16 05/09/16 11:44 12:21 17:02 Hgb Hct Sodium Potassium Chloride Carbon Dioxide Anion Gap BUN Creatinine Est GFR ( Amer) Est GFR (Non-Af Amer) BUN/Creatinine Ratio Glucose POC Glucose (mg/dL) 155 H 174 H Calcium Vancomycin Trough 22.5 05/10/16 05/10/16 05/10/16 06:54 06:54 07:37 Hgb 7.7 L Hct 24 L Sodium 140 Potassium 4.6 Chloride 107 Carbon Dioxide 28 Anion Gap 5 BUN 68 H Creatinine 2.41 H Est GFR ( Amer) 24.6 Est GFR (Non-Af Amer) 19.1 BUN/Creatinine Ratio 28.2 H Glucose 138 H POC Glucose (mg/dL) 174 H Calcium 7.5 L Vancomycin Trough Left hip incision with mild erythema Moderate serosanguenous drainage calf tender from wounds, muscle itself non tender Austyn's sign negative Assessment: []s/p reduction dislocated left hemiarthroplasty I and D infected left hip incision Plan: []Continue current care Hospice/ palliative care PT requesting formal discontinuation of services as they feel it is unsafe to use [facility] to get her OOB secondary to previous hip dislocation in [facility] left. will discuss with Dr. Saravia. Dressing change left hip today.
--- NOTE | 2016-05-10 18:47 | PN ---
Subjective Date of Service: 05/10/16 Interval History: Patient seen and examined at bedside. Pt reports Orthopnea. Denies fever, chills , shortness of breath when sitting up, chest discomfort, N/V/D. Pt and family has a family meeting and Palliative care consult today. Plan is for discharge back to [facility] with oral ABX. Family History: Unchanged from Admission Social History: Unchanged from Admission Past Medical History: Unchanged from Admission Objective Active Medications: Acetaminophen (Tylenol Tab*) 650 mg PO Q4HR PRN Reason: FEVER/PAIN Albuterol (Ventolin 2.5 Mg/3 Ml Neb.Victoria*) 2.5 mg INH Q2HR PRN Reason: SOB/ WHEEZING Amiodarone HCl (Cordarone Tab*) 200 mg PO QAM [facility] Atorvastatin Calcium (Lipitor*) 20 mg PO QAM [facility] Carbidopa/Levodopa (Sinemet 25/100 Tab(*)) 1 tab PO 0700 [facility] Carbidopa/Levodopa (Sinemet 25/100 Tab(*)) 1 tab PO 1500 [facility] Carbidopa/Levodopa (Sinemet 25/100 Tab(*)) 1.5 tab PO 1100 [facility] Carbidopa/Levodopa (Sinemet 25/100 Tab(*)) 1 tab PO 2100 [facility] Citalopram Hydrobromide (Celexa Tab*) 10 mg PO QAM [facility] Dextrose (D50w Syringe 50 Ml*) 12.5 gm IV PUSH .FOR FS < 60 - SS PRN Reason: .FS < 60 Diphenhydramine HCl (Benadryl Po*) 25 mg PO Q6HR PRN Reason: ITCHING OR INSOMNIA Docusate Sodium (Colace Cap*) 100 mg PO Q12HR [facility] Heparin Sodium (Porcine) (Heparin Vial(*)) 5,000 units SUBCUT Q8H [facility] Piperacillin Sod/Tazobactam Sod (Zosyn 3.375 Gm In Ns Premix*) 3.375 gm in 100 mls @ 25 mls/hr IVPB Q12H [facility] Insulin Human Lispro (Humalog*) 0 units SUBCUT 0730,1130,1630 [facility] Reason: Protocol Lactulose (Lactulose*) 30 ml PO Q6HR PRN Reason: CONSTIPATION Magnesium Hydroxide (Milk Of Magnesia Liq*) 30 ml PO Q6HR PRN Reason: CONSTIPATION Metoprolol Succinate (Toprol Xl Tab*) 25 mg PO QAM [facility] Multivitamins (Theragran Tab*) 1 tab PO QAM [facility] Ondansetron HCl (Zofran Inj*) 4 mg IV Q6HR PRN Reason: NAUSEA Oxycodone HCl (Roxycodone Tab*) 10 mg PO Q4HR PRN Reason: PAIN - UNCONTROLLED Oxycodone/Acetaminophen (Percocet 5/325 Tab*) 1 tab PO Q4HR PRN Reason: PAIN - MODERATE Oxycodone/Acetaminophen (Percocet 5/325 Tab*) 2 tab PO Q4HR PRN Reason: PAIN - SEVERE Tiotropium [place] (Spiriva Cap.Inh*) 1 cap INH QAM [facility] Vital Signs 05/09/16 05/09/16 05/09/16 20:08 20:11 20:24 Temperature 98.2 F Pulse Rate 60 Respiratory 18 18 19 Rate Blood Pressure (mmHg) O2 Sat by Pulse 99 Oximetry 05/10/16 05/10/16 05/10/16 00:02 02:25 04:12 Temperature 98.9 F 98.4 F Pulse Rate 64 59 Respiratory 18 20 16 Rate Blood Pressure 141/48 91/42 (mmHg) O2 Sat by Pulse 98 98 Oximetry 05/10/16 05/10/16 05/10/16 04:25 04:46 06:20 Temperature Pulse Rate 60 Respiratory 16 Rate Blood Pressure 119/31 (mmHg) O2 Sat by Pulse 98 Oximetry 05/10/16 05/10/16 05/10/16 07:15 08:00 09:54 Temperature 97.8 F Pulse Rate 62 62 Respiratory 14 16 22 Rate Blood Pressure 116/35 (mmHg) O2 Sat by Pulse 97 97 99 Oximetry 05/10/16 05/10/16 05/10/16 11:20 15:45 15:47 Temperature 97.9 F 98.3 F 98.3 F Pulse Rate 100 61 61 Respiratory 17 20 20 Rate Blood Pressure 126/74 143/88 143/88 (mmHg) O2 Sat by Pulse 99 97 97 Oximetry 05/10/16 05/10/16 05/10/16 16:00 16:09 18:09 Temperature Pulse Rate 60 Respiratory 16 16 Rate Blood Pressure (mmHg) O2 Sat by Pulse 97 98 Oximetry Oxygen Devices in Use Now: Nasal Cannula - 3L NC Appearance: NAD, sitting up in bed Eyes: No Scleral Icterus, PERRLA Ears/Nose/Mouth/Throat: NL Teeth, Lips, Gums, - - Dry lips Neck: NL Appearance and Movements; NL JVP, Trachea Midline Respiratory: Symmetrical Chest Expansion and Respiratory Effort, Clear to Auscultation - , diminished Cardiovascular: NL Sounds; No Murmurs; No JVD, RRR Abdominal: NL Sounds; No Tenderness; No Distention Extremities: - - 1-2+ generalized edema Neurological: Alert and Oriented x 3, - - Generalized weakness Lines/Tubes/Other Access: Clean, Dry and Intact Peripheral IV - site benign Nutrition: Taking PO's Result Diagrams: 05/10/16 06:54 05/10/16 06:54 Microbiology and Other Data: Microbiology 05/05/16 16:35 Anaerobic Culture - Preliminary Wound - Hip Left 05/05/16 16:40 Anaerobic Culture - Preliminary Wound - Hip Left 05/05/16 16:35 Gram Stain - Final Hip Left 05/05/16 16:40 Gram Stain - Final Hip Left Assess/Plan/Problems-Billing Assessment: Ms. Dwyer is a 85 yo female with a PMH of recent left hip fracture s /p hemiarthroplasty, CKD, Diabetes, parkinsons, afib on coumadin, aortic stenosis with bioprosthetic valve who presents with Left hip pain found to have a dislocation and wound dehiscence. - Patient Problems (1) left hip dislocation/wound dihiscence Comment: - S/P reduction and wash-out with Dr. Saravia, POD#5 - wound cx growing pseudomonas and enterococcus f. - blood cx no growth Day 4 - ID consult following, continue zosyn. Will need 6 weeks IV ABX. Plan to switch to PO ABX at discharge with plan for Palliative Care - PT/OT - pain medication (2) CKD (chronic kidney disease), stage III Code(s): N18.3 - CHRONIC KIDNEY DISEASE, STAGE 3 (MODERATE) SNOMED Code(s): 306497239 Comment: - Creatinine trending up. - Enterococcus Faecalis UTI. - Renal US - WNL - FENA 0.5%, Prerenal (3) Congestive heart failure Code(s): I50.9 - HEART FAILURE, UNSPECIFIED SNOMED Code(s): 33462290 Comment: - mild acute on chronic diastolic CHF - per daughter she saw her zoning technician 05/03/16 and lasix was increased to 80 mg BID - Determine need for diuresing - chest xray yesterday showed mild pulmonary interstitial edema, - in the setting of JASMIN, pt was given 20 mg IV x1 and creatinine increased. - Pt c/o orthopnea, will give 20 mg IV Lasix today (4) Urinary tract infection Comment: - Growing enterococcus f. - Continue zosyn (5) Anemia Code(s): D64.9 - ANEMIA, UNSPECIFIED SNOMED Code(s): 657935893 Comment: - Mix of chronic iron deficiency anemia, acute blood loss anemia. - Transfused 2 U PRBC 05/06. HH stable. (6) Atrial fibrillation Code(s): I48.91 - UNSPECIFIED ATRIAL FIBRILLATION SNOMED Code(s): 61280361 Comment: - Rate and rhythm controlled on amiodarone and metoprolol - Plan to resume Coumadin when ok with Ortho (7) Diabetes mellitus Code(s): E11.9 - TYPE 2 DIABETES MELLITUS WITHOUT COMPLICATIONS SNOMED Code(s) : 07369340 Comment: - Controlled, glucose 170-200's - FSBG AC with Lispro SS (8) Hypertension Code(s): I10 - ESSENTIAL (PRIMARY) HYPERTENSION SNOMED Code(s): 87187739 Comment: - SBP 90-140's - Continue metoprolol (9) Malnutrition Code(s): E46 - UNSPECIFIED PROTEIN-CALORIE MALNUTRITION SNOMED Code(s): 6578333 Comment: - Severe, chronic with prealbumin of 10 up from 6 04/24/16 - Nutrition consult - Continue Glucerna (10) Parkinson disease Code(s): G20 - PARKINSON'S DISEASE SNOMED Code(s): 93855045 Comment: - Continue home medications (11) Hyperkalemia Code(s): E87.5 - HYPERKALEMIA SNOMED Code(s): 20306116 Comment: Resolved (12) DVT prophylaxis Code(s): JXV1072 - SNOMED Code(s): 070711462 Comment: - HSQ - Plan to resume Coumadin when ok with Ortho (13) DNR (do not resuscitate) Status and Disposition: Inpatient with hip dislocation and wound infection. Palliative/Hospice completed , Plan for possible discharge back to [facility] tomorrow with Hospice Services.
[2016-05-10] MEDS ORDERED: Furosemide IV* 10 MG/ML 2 ML VIAL (20 MG) IV ONE (19:31)
[2016-05-11] MEDS: Heparin VIAL(*) 5000 UNITS/ML VIAL (FIVE THOUSAND) SUBCUT SCH ×2 (01:35→09:15)
--- NOTE | 2016-05-11 03:55 | CONS ---
PALLIATIVE CARE CONSULTATION NOTE: DATE OF CONSULT: 05/10/16 PRIMARY CARE PHYSICIAN: Yasmine Rice MD REQUESTING PROVIDER FOR CONSULTATION: Georgette Vo NP. REASON FOR CONSULTATION: Evaluation for hospice. HISTORY OF PRESENT ILLNESS: This is an 85-year-old female with past medical history of CKD stage 3, CHF with preserved EF, AFib, and diabetes who presented to the emergency room on 05/05/16 for wound dehiscence and hip pain. The patient was recently [place] [facility] [place] for recent left hip fracture, status post hemiarthroplasty. [facility] hip pain and poor wound healing. She presented from the rehab center. On admission, the patient was found to have a hip dislocation and Dr. Saravia was consulted on the and did a left open reduction under anesthesia with bipolar dislocation, irrigation and debridement of wound dehiscence with a complex closure. The patient unfortunately has not done well during her hospitalization. She has never been ambulatory after her hip replacement and her hip was dislocated in a [facility] transfer at [facility] and so, she has not been transferred via [facility] and has been bedbound since. The patient has wound dehiscence on the left hip. She also has a pressure ulcer on her sacrum. The patient is resistant to trying a [facility] transfer again in the setting of her history of having her hip dislocated. The patient's appetite has also been poor during her hospitalization. The paper box cutter who has been evaluating her has noted that the patient has difficulty chewing with the history of Parkinson' s and decreased appetite. Infectious Disease was also involved for her wound dehiscence and they recommended 6 weeks of IV antibiotics and long-term antibiotics orally. She has also presented with acute on chronic renal failure with a creatinine clearance of 12. On evaluation today, we had a meeting with the patient and four of her children and her granddaughter. They talked about that she needs 24-hour care and that having her come home to have 24- hour care is not financially feasible for them and they discussed going to [facility] on hospice would be the ideal preference. The patient denies any pain at this time. She says she is tired and she is afraid of everything happening right now. PAST MEDICAL HISTORY: 1. Parkinson's. 2. CKD stage 3. 3. Recent left hip fracture, status post hemiarthroplasty complicated by wound dehiscence and dislocation with recent left hip open reduction and wound irrigation. 4. Atrial fibrillation. 5. Diabetes. 6. Aortic stenosis with bioprosthetic valve. 7. Hypertension. 8. Hyperlipidemia. 9. Sick sinus syndrome, status post pacemaker. 10. Mitral valve insufficiency. 11. Coronary artery disease. 12. History of cellulitis. 13. History of pressure ulcers with poor wound healing. INPATIENT MEDICATIONS: 1. Tylenol 650 mg p.o. every 4 hours as needed for pain. 2. Albuterol every 2 hours as needed. 3. Amiodarone 200 mg daily. 4. Atorvastatin 20 mg daily. 5. Carbidopa/levodopa 1 tab in the morning, 1 tab at 1500, 1-1/2 tabs at 1100, and 1 tab at 2100. 6. Citalopram 10 mg in the morning. 7. Colace 100 mg b.i.d. 8. Heparin 5000 units subcu t.i.d. 9. Lispro sliding scale. 10. Lactulose 30 mL q.6 hours as needed. 11. Magnesium hydroxide as needed. 12. Metoprolol succinate 25 mg p.o. in the morning. 13. Zofran 4 mg IV every 6 hours as needed. 14. Zosyn 3.375 g every 12 hours. 15. Spiriva 1 cap inhaled. 16. Multivitamins. 17. Benadryl 25 mg every 6 hours as needed. 18. Oxycodone 10 mg every 4 hours as needed for pain. ALLERGIES: NIFEDIPINE, AMOXICILLIN, AVANDIA, and MORPHINE. MORPHINE, she hallucinates. FAMILY HISTORY: Reviewed and noncontributory. SOCIAL HISTORY: The patient was living at home prior to her hip fracture in April. She has 5 children. Her son, Jcarlos, is her healthcare proxy. She has 10 children, 10 great grandchildren. Her MOLST form currently is DNR/DNI. No history of tobacco, alcohol, or illicit drug use. REVIEW OF SYSTEMS: As mentioned in the HPI. PHYSICAL EXAM: Vitals: Temperature 98.3, pulse 61, respiratory rate 20, oxygen saturation 97% on 3 L, blood pressure 143/88. General: Frail elderly female with a resting tremor noted. Several family members as mentioned are at the bedside. HEENT: The patient with a resting tremor with a flat affect. Pupils are equal and reactive. Oropharynx: Mucous membranes are dry. Neck is supple. Cardiac: Regular rate and rhythm. Soft systolic murmur. Respiratory: Poor respiratory effort. Diminished breath sounds. No wheezes, rhonchi, or rales. Abdomen: Soft, nontender, nondistended. Extremities: The patient is in an immobilizer. She has a dressing on her left side of her hip. Extremities are +1 DPs bilaterally. Neurologic: As mentioned, the patient with a resting tremor, generalized weakness. No focal neurologic deficits. Alert and oriented x3. DIAGNOSTIC STUDIES/LAB DATA: White count 8.6, hemoglobin 7.7, hematocrit 24, platelets 210. INR is 1.27. Sodium 140 , potassium 4.6, chloride 107, bicarb 28, BUN 68, creatinine 2.41, glucose 138. ASSESSMENT: This is an 85-year-old female with past medical history of stage 3 chronic kidney disease, atrial fibrillation, diabetes, diastolic heart failure who has had complications with her left hip repair with dislocation and wound dehiscence, now bedbound. RECOMMENDATIONS: Based on the patient's albumin of 2.1 and her creatinine clearance of 12, her performance status limited due to her immobility, bedbound status, and poor nutrition, she does qualify for hospice including her history of comorbidities including diabetes and diastolic heart failure. Recommendation is following up with Infectious Disease regarding the requirement of 6 weeks of IV antibiotics or forgoing IV and transitioning to p.o. as [facility] does not take IV antibiotics and if that is the case, she can go directly there rather than going to a different usp initially. If patient does in fact have an ICD then the discussion of turning off her ICD would need to be addressed. MOLST form to include comfort care measures has been updated. Thank you for this consultation. TIME SPENT: Greater than 90 minutes was spent doing this consultation, more than half that time spent in direct patient contact. CC: Yasmine Rice MD * [id number]/[facility] #: [id number] HANNAH
[2016-05-11] MEDS: Carbidopa/Levodop 25/100 MG TAB(*) PO SCH ×4 (06:28→14:57)
[2016-05-11] MEDS: Piperac/Tazob 3.375 gm in NS* 3.375 GM/100 ML BAG IVPB SCH (08:43)
[2016-05-11] MEDS: Tiotropium CAP.INH* CAP.INH/18 MCG (USE ORDER SET !) INH SCH (08:58)
[2016-05-11] MEDS: Insulin LISPRO* 1 UNITS UNIT SUBCUT SCH ×2 (09:15→12:43)
[2016-05-11] MEDS: Metoprolol Succinate XL TAB* 25 MG PO SCH (09:17)
[2016-05-11] MEDS: Docusate CAP* 100 MG PO SCH (09:17)
[2016-05-11] MEDS: Atorvastatin* 20 MG TAB PO SCH (09:17)
[2016-05-11] MEDS: Citalopram TAB* 10 MG PO SCH (09:17)
[2016-05-11] MEDS: Amiodarone TAB* 200 MG PO SCH ×2 (09:17→09:27)
[2016-05-11] MEDS: Vitamin THERAPEUTIC TAB PO SCH (09:17)
[2016-05-11] MEDS: Acetaminophen TAB* 325 MG PO PRN (09:27)
[2016-05-11 12:21] VITALS: BP 124/25
--- NOTE | 2016-05-11 12:45 | PN ---
Subjective Date of Service: 05/11/16 Interval History: Patient seen and examined at bedside. Pt states that she feels well today. Denies fever, chills, shortness of breath, chest discomfort, orthopnea, N/V/D. Discussed with Pt, medications. She would like to continue her routine medications for now and would like to resume her Warfarin. Family History: Unchanged from Admission Social History: Unchanged from Admission Past Medical History: Unchanged from Admission Objective Active Medications: Acetaminophen (Tylenol Tab*) 650 mg PO Q4HR PRN Reason: FEVER/PAIN Albuterol (Ventolin 2.5 Mg/3 Ml Neb.[place]*) 2.5 mg INH Q2HR PRN Reason: SOB/ WHEEZING Amiodarone HCl (Cordarone Tab*) 200 mg PO QAM BLOSSOM Atorvastatin Calcium (Lipitor*) 20 mg PO QAM BLOSSOM Carbidopa/Levodopa (Sinemet 25/100 Tab(*)) 1 tab PO 0700 BLOSSOM Carbidopa/Levodopa (Sinemet 25/100 Tab(*)) 1 tab PO 1500 BLOSSOM Carbidopa/Levodopa (Sinemet 25/100 Tab(*)) 1.5 tab PO 1100 BLOSSOM Carbidopa/Levodopa (Sinemet 25/100 Tab(*)) 1 tab PO 2100 BLOSSOM Citalopram Hydrobromide (Celexa Tab*) 10 mg PO QAM BLOSSOM Dextrose (D50w Syringe 50 Ml*) 12.5 gm IV PUSH .FOR FS < 60 - SS PRN Reason: .FS < 60 Diphenhydramine HCl (Benadryl Po*) 25 mg PO Q6HR PRN Reason: ITCHING OR INSOMNIA Docusate Sodium (Colace Cap*) 100 mg PO Q12HR [place]OSS[place] Heparin Sodium (Porcine) (Heparin Vial(*)) 5,000 units SUBCUT Q8H BLOSSOM Piperacillin Sod/Tazobactam Sod (Zosyn 3.375 Gm In Ns Premix*) 3.375 gm in 100 mls @ 25 mls/hr IVPB Q12H [place] Insulin Human Lispro (Humalog*) 0 units SUBCUT 0730,1130,1630 BLOSSOM Lactulose (Lactulose*) 30 ml PO Q6HR PRN Reason: CONSTIPATION Magnesium Hydroxide (Milk Of Magnesia Liq*) 30 ml PO Q6HR PRN Reason: CONSTIPATION Metoprolol Succinate (Toprol Xl Tab*) 25 mg PO QAM [facility] Multivitamins (Theragran Tab*) 1 tab PO QAM [facility] Ondansetron HCl (Zofran Inj*) 4 mg IV Q6HR PRN Reason: NAUSEA Oxycodone HCl (Roxycodone Tab*) 10 mg PO Q4HR PRN Reason: PAIN - UNCONTROLLED Oxycodone/Acetaminophen (Percocet 5/325 Tab*) 1 tab PO Q4HR PRN Reason: PAIN - MODERATE Oxycodone/Acetaminophen (Percocet 5/325 Tab*) 2 tab PO Q4HR PRN Reason: PAIN - SEVERE Tiotropium [place] (Spiriva Cap.Inh*) 1 cap INH QAM [facility] Vital Signs 05/10/16 05/10/16 05/10/16 15:45 15:47 16:00 Temperature 98.3 F 98.3 F Pulse Rate 61 61 Respiratory 20 20 Rate Blood Pressure 143/88 143/88 (mmHg) O2 Sat by Pulse 97 97 97 Oximetry 05/10/16 05/10/16 05/10/16 16:09 18:09 19:11 Temperature 97.7 F Pulse Rate 60 95 Respiratory 16 18 16 Rate Blood Pressure 121/44 (mmHg) O2 Sat by Pulse 98 97 Oximetry 05/10/16 05/10/16 05/10/16 20:00 21:18 22:18 Temperature Pulse Rate Respiratory 18 16 Rate Blood Pressure (mmHg) O2 Sat by Pulse 97 Oximetry 05/10/16 05/10/16 05/11/16 23:18 23:59 01:11 Temperature 98.1 F Pulse Rate 59 Respiratory 16 16 16 Rate Blood Pressure 110/59 (mmHg) O2 Sat by Pulse 99 Oximetry 05/11/16 05/11/16 05/11/16 05:36 07:44 08:00 Temperature 98.4 F 98.0 F Pulse Rate 62 83 Respiratory 15 16 Rate Blood Pressure 123/56 131/25 (mmHg) O2 Sat by Pulse 98 97 97 Oximetry 05/11/16 05/11/16 05/11/16 08:27 08:28 08:29 Temperature Pulse Rate 62 62 Respiratory 15 15 Rate Blood Pressure (mmHg) O2 Sat by Pulse 98 98 98 Oximetry 05/11/16 05/11/16 10:30 11:57 Temperature 98.0 F Pulse Rate 64 Respiratory 20 17 Rate Blood Pressure 124/25 (mmHg) O2 Sat by Pulse 99 Oximetry Oxygen Devices in Use Now: Nasal Cannula - 3L NC Appearance: NAD, laying in bed Eyes: No Scleral Icterus, PERRLA Neck: NL Appearance and Movements; NL JVP, Trachea Midline Respiratory: Symmetrical Chest Expansion and Respiratory Effort, Clear to Auscultation - , diminished Cardiovascular: NL Sounds; No Murmurs; No JVD, RRR Abdominal: NL Sounds; No Tenderness; No Distention - Bowel sounds present Extremities: - - 1-2+ generalized edema Skin: - - Dressing to left hip clean, dry and intact Neurological: Alert and Oriented x 3 Lines/Tubes/Other Access: Clean, Dry and Intact Peripheral IV - site benign Nutrition: Taking PO's Result Diagrams: 05/10/16 06:54 05/10/16 06:54 Additional Lab and Data: Microbiology and Other Data: Microbiology 05/05/16 16:35 Anaerobic Culture - Preliminary Wound - Hip Left 05/05/16 16:40 Anaerobic Culture - Preliminary Wound - Hip Left 05/05/16 16:35 Gram Stain - Final Hip Left 05/05/16 16:40 Gram Stain - Final Hip Left Assess/Plan/Problems-Billing Assessment: Ms. Dwyer is a 85 yo female with a PMH of recent left hip fracture s /p hemiarthroplasty, CKD, Diabetes, parkinsons, afib on coumadin, aortic stenosis with bioprosthetic valve who presents with Left hip pain found to have a dislocation and wound dehiscence. - Patient Problems (1) left hip dislocation/wound dihiscence Comment: - S/P reduction and wash-out with Dr. Saravia, POD #6 - wound cx growing pseudomonas and enterococcus f. - blood cx no growth Day 4 - ID consult following, continue zosyn. Will need 6 weeks IV ABX. Plan to switch to PO ABX at discharge with plan for Palliative Care - Pain management (2) CKD (chronic kidney disease), stage III Code(s): N18.3 - CHRONIC KIDNEY DISEASE, STAGE 3 (MODERATE) SNOMED Code(s): 601977489 Comment: - Creatinine trending up, now with some improvement with change in diuretics. - Enterococcus Faecalis UTI. - Renal US - WNL - FENA 0.5%, Prerenal (3) Congestive heart failure Code(s): I50.9 - HEART FAILURE, UNSPECIFIED SNOMED Code(s): 39690385 Comment: - mild acute on chronic diastolic CHF - per daughter she saw her property assessment monitor 05/03/16 and lasix was increased to 80 mg BID - Chest xray 05/08 showed mild pulmonary interstital edema with consolidation vs atelectasis. Pt afebrile. Pt is on ABX to cover for possible PNA. Suspect this represents atelectasis. - Pt c/o orthopnea yesterday, given 20 mg IV Lasix - Will resume Lasix at a decreased dose, 40 mg po daily (4) Urinary tract infection Comment: - Growing enterococcus f. - Will switch to levaquin for discharge (5) Anemia Code(s): D64.9 - ANEMIA, UNSPECIFIED SNOMED Code(s): 087171863 Comment: - Mix of chronic iron deficiency anemia, acute blood loss anemia. - Transfused 2 U PRBC 05/06. HH stable. (6) Atrial fibrillation Code(s): I48.91 - UNSPECIFIED ATRIAL FIBRILLATION SNOMED Code(s): 03651374 Comment: - Rate and rhythm controlled on amiodarone and metoprolol - Plan to resume Coumadin when ok with Ortho (7) Diabetes mellitus Code(s): E11.9 - TYPE 2 DIABETES MELLITUS WITHOUT COMPLICATIONS SNOMED Code(s) : 40027723 Comment: - Controlled, glucose 160-200's - FSBG AC with Lispro SS (8) Hypertension Code(s): I10 - ESSENTIAL (PRIMARY) HYPERTENSION SNOMED Code(s): 42041094 Comment: - SBP 100-130's - Continue metoprolol (9) Malnutrition Code(s): E46 - UNSPECIFIED PROTEIN-CALORIE MALNUTRITION SNOMED Code(s): 4473318 Comment: - Severe, chronic with prealbumin of 10 up from 6 04/24/16 - Nutrition consult - Continue Glucerna (10) Parkinson disease Code(s): G20 - PARKINSON'S DISEASE SNOMED Code(s): 20260909 Comment: - Continue home medications (11) Hyperkalemia Code(s): E87.5 - HYPERKALEMIA SNOMED Code(s): 11964525 Comment: Resolved (12) DVT prophylaxis Code(s): UAS6606 - SNOMED Code(s): 218486351 Comment: Resume Coumadin (13) DNR (do not resuscitate) Status and Disposition: Inpatient with hip dislocation and wound infection. Palliative/Hospice completed , Plan for possible discharge back to [facility] tomorrow with Hospice Services.
--- NOTE | 2016-05-11 13:00 | PN ---
Progress Note - Progress Note SOAP: Subjective: [85 y/o female s/p I&D left hip with hemiathroplasty POD#[address] Saravia. Patient to go to hospice care today due to multiple medical co-morbidities. Patient denies pain, no questions. ] Objective: [General- Resting comfortably. MSK- dressing intact, minimal drainage noted, dressing to be changed by nurse prior to transfer. + dosriflexion/ plantarflexion b/l. Vital Signs Temp 98.0 F 05/11/16 11:57 Pulse 64 05/11/16 11:57 Resp 17 05/11/16 11:57 BP 124/25 05/11/16 11:57 Pulse Ox 99 05/11/16 11:57 Intake & Output 05/10/16 05/11/16 05/11/16 18:59 06:59 18:59 Intake Total 240 517 Output Total 260 700 Balance -20 -183 Weight 238 lb Intake: IV Fluids 20 NS 20 IVPB 102 Zosyn 102 Oral 240 395 Output: Love 250 700 Liquid Stool 10 Other: Estimated Void Small Date of Last Bowel 05/11/16 Movement # Bowel Movements 1 2 1 Estimated Stool Amount Small Large Medium # Voids 2 Laboratory Results - last 24 hr 05/10/16 05/10/16 05/11/16 11:26 16:48 07:47 POC Glucose (mg/dL) 200 H 201 H 160 H 05/11/16 11:46 POC Glucose (mg/dL) 178 H ] Assessment: [85 y/o female s/p I&D left hip with hemiathroplasty POD#[address] Saravia.] Plan: [- Transfer to hospice care today - Follow up with Dr Saravia as needed or call office for any questions/ concerns. - DVT prophylaxis per hospice protocol.
[2016-05-11] MEDS: Magnesium Hydroxide LIQ* 30 ML UDC PO PRN (13:08)
--- NOTE | 2016-05-11 16:39 | DS ---
DATE OF ADMISSION: 05/05/2016. DATE OF DISCHARGE: 05/11/2016. ATTENDING PHYSICIAN: Dr. Jaydon Baker* (dictated by Keegan Westfall NP). PRIMARY CARE PROVIDER: Dr. Winston Rice. PRIMARY DIAGNOSES: 1. Status post left hip hemiarthroplasty complicated by a wound dehiscence and dislocation. 2. Acute on chronic kidney disease. 3. Acute on chronic diastolic heart failure. 4. Enterococcus urinary tract infection. 5. Mix of chronic iron deficiency anemia and acute blood loss anemia. SECONDARY DIAGNOSES: 1. Atrial fibrillation. 2. Diabetes mellitus. 3. Hypertension. 4. Malnutrition. 5. Parkinson's disease. CONSULTATIONS WHILE IN THE HOSPITAL: Dr. Ashley Saravia with Orthopedic Surgery; Dr. Michoacano Reeves with Infectious Disease; Dr. Natalya Lozano with Palliative Care. PROCEDURES WHILE IN THE HOSPITAL: Status post a left hip open reduction under anesthesia of a bipolar dislocation, irrigation and debridement of wound dehiscence with a complex closure with Dr. Saravia on 05/05/2016. STUDIES WHILE IN THE HOSPITAL: 1. Chest x-ray, 05/05/2016: Radiologist's impression: Mild left basilar atelectasis. 2. Left hip and pelvis x-ray, 05/05/2016: Radiologist's impression: Prosthetic hip dislocation. 3. Pelvis x-ray, 05/05/2016: Radiologist's impression: Limited AP view only exam demonstrating normal alignment of the prosthetic left hip in the AP projection. 4. Abdomen bladder ultrasound, 05/08/2016: Radiologist's impression: No hydronephrosis or nephrolithiasis. Limited evaluation of the bladder. 5. Chest x-ray, 05/08/2016: Radiologist's impression: Mild pulmonary interstitial edema with bibasilar atelectasis versus consolidation. DISCHARGE MEDICATIONS: New home medication: 1. Levofloxacin 500 mg oral every other day. Continued home medications: 1. Allopurinol 200 mg oral daily. 2. Omeprazole 20 mg oral daily. 3. Citalopram 10 mg oral daily. 4. Amiodarone 200 mg oral daily. 5. Januvia 50 mg oral daily. 6. Calcium Carbonate-Cholecalciferol one tablet oral daily. 7. Simvastatin 40 mg oral daily. 8. Incruse Ellipta MDI one puff inhalation daily. 9. Aquaphor applied topical twice daily. 10. Spiriva one capsule inhalation daily. 11. Multivitamin one tablet oral daily. 12. Vitamin C 500 mg oral daily. 13. Acetaminophen 650 mg oral every 4 hours as needed for fever and pain. 14. Sinemet 25/100 one tablet oral daily at 7:00 a.m., 3:00 p.m., and bedtime. 15. Sinemet 25/100 1.5 tablets oral daily at 11:00 a.m. 16. Colace 100 mg oral twice daily. 17. Milk of Magnesia 30 ml oral every 6 hours as needed for constipation. 18. Moisturizing cream applied topically twice daily. 19. MiraLax 17 gm oral daily as needed for constipation. 20. Metoprolol Succinate XL 25 mg oral daily. 21. Lispro insulin sliding scale before meals and at bedtime. For glucose 131 to 150 give 2 units; for glucose 151 to 200 give 3 units; for glucose 201 to 250 give 6 units; for glucose 251 to 300 give 9 units; for glucose 301 to 350 give 12 units; for glucose 351 to 400 give 15 units. 22. Potassium Chloride 20 mEq oral daily. 23. Warfarin give 2 mg oral tonight and resume 1.5 mg daily dosing tomorrow. Changed medications: 1. Furosemide 40 mg oral daily. HISTORY OF PRESENT ILLNESS/HOSPITAL COURSE: Ms. Dwyer is an 85-year-old female with a very complex past medical history significant for a recent left hip fracture status post hemiarthroplasty, Parkinson's, atrial fibrillation, chronic kidney disease stage 3, and diabetes mellitus who presents to the emergency room due to a wound dehiscence and pain. The patient fractured her left hip in April, was treated at [facility] having a very complex postoperative course, including an acute renal failure and severe anasarca. The patient was eventually able to be discharged to [facility] where she has been receiving rehabilitation services. The patient states that for over the last couple days she had noticed that her hip had been internally rotated and she was having increased pain. When the patient had a dressing change, it was noted that her left hip incision had opened and the patient was transferred to [facility] for further evaluation due to recently having had hemiarthroplasty here with Dr. Saravia. 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 While in the emergency room, the patient had an x-ray showing a new left hip dislocation and she was found to have a wound dehiscence of the left hip. The patient was evaluated in the emergency room by Dr. Saravia with Orthopedic Surgery. While in the hospital it was felt that the patient needed to go to the operating room for reduction of her hip and washout of her dehisced wound. The patient underwent a left hip open reduction under anesthesia of a bipolar dislocation and irrigation and debridement of a wound dehiscence with complex closure on May 05. During the patient's stay, she was noted to have increase in her creatinine from her baseline when she was previously discharged. The patient was feeling discouraged due to being in the hospital. It is to note that the patient had had a Palliative Care consult in April and had declined services when she qualified for hospice at that time. Due to the patient's persistent severe malnutrition with a prealbumin of 10, her chronic kidney disease, and her new left hip dislocation and wound dehiscence, a Palliative Care consult was requested. It is also to note that during the patient's stay she was anemic and received two units of packed red blood cells on May 06. This was felt to be due in part to her chronic anemia in addition to acute blood loss anemia. For the patient's congestive heart failure during her stay, her renal function was monitored and she was given Lasix on a daily basis. The patient's diabetes has been fairly controlled on a Lispro sliding scale. For the patient's atrial fibrillation, her rate has been controlled with Amiodarone and Metoprolol. The patient's blood pressures have been controlled. For her left hip wound dehiscence, she was seen in consultation by Dr. Reeves and is recommended to be placed on Cefepime. The patient was followed. It was felt that she would need six weeks of IV antibiotics. After having a consultation with Palliative Care, the patient wanted to go back to [facility], so her antibiotics were changed to Levaquin and the patient and family have agreed to be transferred back to [facility] for Hospice services. Although the patient's creatinine appears to be similar to her baseline. She has had worsening creatinine during her stay, although it did start to improve on the day of discharge. We have been very cautious in our diuretic use. The patient did have a renal ultrasound to help evaluate her renal status. According to the FENa calculation , the patient's acute kidney injury was due to prerenal causes. The patient did have leukocytosis during her stay and that has resolved. We had to growth in her blood cultures to date and her wound cultures were growing pseudomonas and enterococcus F. In addition, the patient was found to have a urinary tract infection also growing enterococcus F. Ms. Dwyer is stable for discharge back to [facility] today. Vital signs are as follows: Temperature 98.0, heart rate 64, respiratory rate 17, O2 sat 99 percent on three liters via nasal cannula, blood pressure 124/25. DISCHARGE PLAN: Ms. Dwyer will be discharged back to [facility]. The patient was a Melodie transfer prior to her arrival back here at [facility]. She can continue physical therapy and occupational therapy if she wishes with cautious hip dislocation precautions, including not bending past 90 degrees, no pointing of her toes inwards or crossing her legs. As far as the patient's left hip incision, the sutures should remain in place and the patient should follow with Dr. Saravia in two weeks. Dr. Saravia's office should be called to set up an appointment for this. As far as the patient's anasarca, I recommend cautious use of Lasix as to not over diurese her. I recommend starting the patient out on 40 mg of Lasix daily. The patient should be on Levaquin 500 mg oral every other day. As far as the patient's atrial fibrillation, she can be continued on her Amiodarone and Metoprolol. It was discussed with the patient whether she wanted to remain on Warfarin or discontinue its use and she wishes to remain on Warfarin at this time. I recommend the patient get 2 mg of Warfarin tonight and resume 1.5 mg daily until Saturday when she has an INR recheck. Plan is for the patient to be signed on to Hospice on Saturday morning. The patient should be seen by her primary care provider, Dr. Rice, or a provider at [facility] per their protocol. This is a summarized report of a complex medical history and hospital stay. For further details, please see the entire medical record. Time for this discharge was 50 minutes, 25 minutes were spent [id number] with the patient discussing discharge plans. CONDITION ON DISCHARGE: Improved. Reviewed by KEEGAN WESTFALL, TIGIST-C 05/17/161914 CC: Dr. Rice; Dr. Saravia* [id number]/[facility] #: [id number] MTDD
== END 2016-05-11 15:20 | DRG 463 ==
LOC: ED 12:22 → SSU 14:16 → UNDODISIN 19:40 → MED 05-10 15:12
PROVIDERS: ADMIT Internal Medicine; ATTEND Internal Medicine
PROC: 0JBM0ZZ Excision of Left Upper Leg Subcutaneous Tissue and Fascia, Open Approach (ICD-10-PCS; 2016-05-05)
PROC: 0SWB0JZ Revision of Synthetic Substitute in Left Hip Joint, Open Approach (ICD-10-PCS; 2016-05-05)
PROC: 0JQM0ZZ Repair Left Upper Leg Subcutaneous Tissue and Fascia, Open Approach (ICD-10-PCS; 2016-05-05)
PROC: 30233N1 Transfusion of Nonautologous Red Blood Cells into Peripheral Vein, Percutaneous Approach (ICD-10-PCS; principal; 2016-05-06)
DX: T84.021A Dislocation of internal left hip prosthesis, initial encounter (principal); E43 Unspecified severe protein-calorie malnutrition; I50.33 Acute on chronic diastolic (congestive) heart failure; N17.9 Acute kidney failure, unspecified; L89.159 Pressure ulcer of sacral region, unspecified stage; G20 Parkinson's disease; I13.0 Hypertensive heart and chronic kidney disease with heart failure and stage 1 through stage 4 chronic kidney disease, or unspecified chronic kidney disease; T81.31XA Disruption of external operation (surgical) wound, not elsewhere classified, initial encounter; D62 Acute posthemorrhagic anemia; N39.0 Urinary tract infection, site not specified; Z68.41 Body mass index [BMI] 40.0-44.9, adult; J44.9 Chronic obstructive pulmonary disease, unspecified; I48.91 Unspecified atrial fibrillation; E11.22 Type 2 diabetes mellitus with diabetic chronic kidney disease; N18.3 Chronic kidney disease, stage 3 (moderate); E78.5 Hyperlipidemia, unspecified; I25.10 Atherosclerotic heart disease of native coronary artery without angina pectoris; I34.0 Nonrheumatic mitral (valve) insufficiency; Z96.652 Presence of left artificial knee joint; Z66 Do not resuscitate; Y83.8 Other surgical procedures as the cause of abnormal reaction of the patient, or of later complication, without mention of misadventure at the time of the procedure; E87.5 Hyperkalemia; Z51.5 Encounter for palliative care; D50.9 Iron deficiency anemia, unspecified; E66.01 Morbid (severe) obesity due to excess calories; B95.2 Enterococcus as the cause of diseases classified elsewhere; E78.00 Pure hypercholesterolemia, unspecified; K21.9 Gastro-esophageal reflux disease without esophagitis; F32.9 Major depressive disorder, single episode, unspecified; I27.2 Other secondary pulmonary hypertension; S81.802A Unspecified open wound, left lower leg, initial encounter; S81.801A Unspecified open wound, right lower leg, initial encounter; Z88.5 Allergy status to narcotic agent; Z88.8 Allergy status to other drugs, medicaments and biological substances; Z88.0 Allergy status to penicillin; Z98.51 Tubal ligation status; Z80.3 Family history of malignant neoplasm of breast; Z95.2 Presence of prosthetic heart valve; Z95.0 Presence of cardiac pacemaker; Z95.1 Presence of aortocoronary bypass graft; Z98.49 Cataract extraction status, unspecified eye; Z79.01 Long term (current) use of anticoagulants; Z79.4 Long term (current) use of insulin
CPT/HCPCS: 36415; 71010; 72170; 76770; 80048; 80053; 80202; 81003; 81015; 82570; 83036; 83605; 83880; 84134; 84300; 84484; 85014; 85018; 85025; 85610; 85652; 85730; 86140; 86850; 86900; 86901; 86922; 87040; 87070; 87073; 87077; 87086; 87186; 87205; 87641; 93005; 94640; 94760; A9270-GY; J0330; J0692; J1100; J1170; J1644; J1940; J2405; J2543; J2704; J3010; J3370; P9016